=== PATIENT | female | born 1940 | race Caucasian/White ===

== ENCOUNTER 2016-09-03 23:18 | Emergency (ER) | payer MEDICARE ==
[2016-09-03 23:24] VITALS: RESP 18
--- NOTE | 2016-09-04 00:43 | XR ---
EXAMINATION TYPE: XR lumbar spine 2 or 3V DATE OF EXAM: 09/04/2016 12:31 AM COMPARISON: NONE HISTORY: Low back pain TECHNIQUE: 4 views FINDINGS: There are multiple screws fusing posteriorly of the lower lumbar spine at L3-4 and L5-S1. T here is a disc prosthesis at L4-5. The prosthesis is dislocated anteriorly at least 3 cm. There is os teosclerosis on both sides of the L1-2 disc space consistent with chronic discitis. Sacroiliac joints are normal. There is 1 cm anterior subluxation of L3 in relation to L4. There is vacuum disc at L1-2 . IMPRESSION: Previous surgery. Dislocated disc prosthesis. Sclerosis at L1 to level consistent with ch ronic discitis. There is vacuum disc and I do not suspect any acute discitis. Degenerative L3-4 sublu xation. No compression fracture. Moderately severe multilevel spondylosis.
--- NOTE | 2016-09-04 01:00 | CT ---
EXAMINATION TYPE: CT brain gurmeet wo con DATE OF EXAM: 09/04/2016 12:50 AM COMPARISON: NONE HISTORY: fall CT DLP: 1367.70 mGycm Automated exposure control for dose reduction was used. TECHNIQUE: CT scan of the head and cervical spine are performed without contrast. FINDINGS: There is mild cerebral cortical atrophy. There is no mass effect or midline shift. There is no sign of intracranial hemorrhage. Calvarium is intact. The cervical vertebra have normal alignment. There is moderate narrowing at C5-6 disc space with spur formation. There is multilevel hypertrophic facet arthropathy. Skull base is intact. Posterior eleme nts are intact. IMPRESSION: Negative CT scan of the brain. Spondylosis in the cervical spine mainly at C5-6. No fracture.
--- NOTE | 2016-09-04 01:29 | ED ---
Fall HPI - General Chief Complaint: Fall Stated Complaint: FALL Time Seen by Provider: 09/04/16 00:10 Source: patient, RN notes reviewed Mode of arrival: wheelchair - History of Present Illness Initial Comments: Patient is a 75-year-old male stating that she was walking and her legs gave out on her and she fell and hit her head. Patient states that this happens frequently. She states that when she fell and she hit her head she is concerned that she may have caused injury to her neck. She states she's had previous neck fractures. She denies any significant pain at this time. She when she fell she denies any loss of consciousness. Patient is not on any blood thinners. She states that she also has some chronic lower back pain that seems to the reactivated. Patient reports she was ambulating normally after her fall. She denies any dizziness. Prior to falling she denies any headache, vision changes, chest pain, shortness of breath. - Related Data Home Medications Medication Instructions Recorded Confirmed Atenolol [Tenormin] 50 mg PO DAILY 05/03/15 09/03/16 Baclofen 10 mg PO BID PRN 05/03/15 09/03/16 Cranberry Conc/C/Bacill Coag 1 tab PO BID 05/03/15 09/03/16 [Cranberry Tablet] Diazepam [Valium] 5 mg PO DAILY PRN 05/03/15 09/03/16 L.acidoph,Paracasei, B.lactis 1 cap PO DAILY 05/03/15 09/03/16 [Probiotic] Meloxicam [Mobic] 7.5 mg PO DAILY 05/03/15 09/03/16 Multivitamins, Thera [Theragran] 1 tab PO DAILY 05/03/15 09/03/16 Omeprazole [PriLOSEC] 20 mg PO DAILY 05/03/15 09/03/16 Oxybutynin Chloride 5 mg PO BID 05/03/15 09/03/16 Simvastatin [Zocor] 40 mg PO HS 05/03/15 09/03/16 cloNIDine HCL [Catapres] 0.1 mg PO BID 05/03/15 09/03/16 metFORMIN HCL [Glucophage] 500 mg PO BID 05/03/15 09/03/16 Escitalopram [Lexapro] 10 mg PO DAILY 01/27/16 09/03/16 HYDROcodone/APAP 7.5-325MG [[place] 1 tab PO QID PRN 01/27/16 09/03/16 7.5-325] Biotin 5 mg PO DAILY 05/13/16 09/03/16 Gabapentin [Gabapentin] 300 mg PO TID 05/13/16 09/03/16 Hydrochlorothiazide 25 mg PO DAILY 05/13/16 09/03/16 [Hydrochlorothiazide] Lisinopril [Lisinopril] 20 mg PO BID 05/13/16 09/03/16 Allergies Allergy/AdvReac Type Severity Reaction Status Date / Time No Known Allergies Allergy Verified 09/03/16 23:24 Review of Systems ROS Statement: Those systems with pertinent positive or pertinent negative responses have been documented in the HPI. ROS Other: All systems not noted in ROS Statement are negative. Past Medical History Past Medical History: Diabetes Mellitus, GERD/Reflux, Hyperlipidemia, Hypertension, Thyroid Disorder Additional Past Medical History / Comment(s): hepatitis-viral at age 10, sepsis 2010 History of Any Multi-Drug Resistant Organisms: MRSA Date of last positivie culture/infection: 2014 MDRO Source:: Urine Past Surgical History: Back Surgery, Cholecystectomy, Hysterectomy, Joint Replacement Additional Past Surgical History / Comment(s): Right knee replacement; Bowel Surgery, 3 spinal fusions Past Psychological History: No Psychological Hx Reported Smoking Status: Current every day smoker Past Alcohol Use History: None Reported Past Drug Use History: None Reported - Past Family History Mother Family Medical History: No Reported History General Exam - General Exam Comments Initial Comments: She is a pleasant 75-year-old female. She is on appear to be in any acute distress. Limitations: no limitations General appearance: alert, in no apparent distress Head exam: Present: atraumatic, normocephalic, normal inspection Eye exam: Present: normal appearance, PERRL, EOMI. Absent: scleral icterus, conjunctival injection, periorbital swelling ENT exam: Present: normal exam, mucous membranes moist Neck exam: Present: normal inspection. Absent: tenderness, meningismus, lymphadenopathy Respiratory exam: Present: normal lung sounds bilaterally. Absent: respiratory distress, wheezes, rales, rhonchi, stridor Cardiovascular Exam: Present: regular rate, normal rhythm, normal heart sounds. Absent: systolic murmur, diastolic murmur, rubs, gallop, clicks GI/Abdominal exam: Present: soft, normal bowel sounds. Absent: distended, tenderness, guarding, rebound, rigid Extremities exam: Present: normal inspection, full ROM, normal capillary refill. Absent: tenderness, pedal edema, joint swelling, calf tenderness Back exam: Present: normal inspection Neurological exam: Present: alert, oriented X3, CN II-XII intact Expanded Patient oriented to: Present: person, place, time Speech: Present: fluid speech Cranial nerves: EOM's Intact: Normal, Gag Reflex: Normal, Tongue Deviation: Normal, Facial Sensation: Normal Cerebellar function: Finger to Nose: Normal Upper motor neuron: Scooter Neglect: Normal Sensory exam: Upper Extremity Light Touch: Normal, Lower Extremity Light Touch: Normal Motor strength exam: RUE: 5, LUE: 5, RLE: 5, LLE: 5 Eye Response: (4) open spontaneously Motor Response: (6) obeys commands Verbal Response: (5) oriented Travis Total: 15 Psychiatric exam: Present: normal affect, normal mood Skin exam: Present: warm, dry, intact, normal color. Absent: rash Course Vital Signs 09/03/16 09/04/16 23:20 02:05 Temperature 98 F 97.5 F L Pulse Rate 68 67 Respiratory 18 18 Rate Blood Pressure 100/54 92/51 O2 Sat by Pulse 96 98 Oximetry Medical Decision Making - Medical Decision Making Patient is a 75 year old female with chief complaint of falling after her legs gave out, and hitting her head. No LOC and not on blood thinner. Patient GSC is 15. CT brain and Cspine are negative for any acute process. Patient does have chronic back pain and lower back xray shows no acute abnormalities, she does have evidence of lumbar fusions. She states she has no pain at this time and wants to go home. Patient advised to follow up with PCP in regards to nerve medications and blood pressure medicaitons as this could be related to occasional falls. Return parameters discussed. Head injury instructions discussed. - Radiology Data Radiology results: report reviewed normal Brain CT, spondylosis of c5-c6. Lumbar spine Xray shows no acute process and chronic degenerative changes. Disposition Clinical Impression: Fall, Minor head injury, Chronic back pain Disposition: HOME SELF-CARE Condition: Good Instructions: Fall Prevention for Older Adults (ED) Additional Instructions: Vision started take Motrin Tylenol for pain or at home pain medications. Follow -up wit primary care provider in one to 2 days. Return to the [facility] if any alarming signs or symptoms occur. Referrals: Cecilia Aldridge MD [Primary Care Provider] - 1-2 days Time of Disposition: 01:39
[2016-09-04 02:06] VITALS: BP 92/51; PULSE 67; TEMP 97.5
== END 2016-09-04 02:06 | disposition home or self-care (01) ==
LOC: EC 23:18
DX: S09.90XA Unspecified injury of head, initial encounter (principal); W01.0XXA Fall on same level from slipping, tripping and stumbling without subsequent striking against object, initial encounter; Z91.81 History of falling; Y93.01 Activity, walking, marching and hiking; G89.29 Other chronic pain; M54.5 Low back pain; Z98.1 Arthrodesis status; E11.9 Type 2 diabetes mellitus without complications; I10 Essential (primary) hypertension; E78.5 Hyperlipidemia, unspecified; K21.9 Gastro-esophageal reflux disease without esophagitis; F17.200 Nicotine dependence, unspecified, uncomplicated; Z79.1 Long term (current) use of non-steroidal anti-inflammatories (NSAID); Z79.84 Long term (current) use of oral hypoglycemic drugs; Z79.899 Other long term (current) drug therapy
CPT/HCPCS: 70450; 72100; 72125; 99284

== ENCOUNTER 2016-09-06 10:40 | Inpatient (IN) | payer MEDICARE ==
[2016-09-06 11:38] LABS: Basophils % (A) 1 %; CH 32.5; CHCM 34.7; Eosinophils # (A) 0.4 k/uL (0-0.7); Eosinophils % (A) 6 %; HCT 37.8 % (34.0-46.0); HGB 12.7 gm/dL (11.4-16.0); Luc # (Auto) 0.08; Luc % (Auto) 1; Lymphocytes # (A) 1.4 k/uL (1.0-4.8); Lymphocytes % (A) 21 %; MCH 31.5 pg (25.0-35.0); MCHC 33.5 g/dL (31.0-37.0); MCV 94.2 fL (80.0-100.0); Monocytes # (A) 0.4 k/uL (0-1.0); Monocytes % (A) 6 %; Neutrophils # (A) 4.5 k/uL (1.3-7.7); Neutrophils % (A) 65 %; RBC 4.01 m/uL (3.80-5.40); RDW 13.5 % (11.5-15.5); WBC 6.9 k/uL (3.8-10.6)
[2016-09-06] MEDS ORDERED: SODIUM CHLORIDE 0.9% 1,000 ML IV STA (11:39)
[2016-09-06 11:48] LABS: Calcium 9.1 mg/dL (8.4-10.2); Potassium 4.4 mmol/L (3.5-5.1); Total Bilirubin 0.6 mg/dL (0.2-1.3); Total Protein 6.1 g/dL (6.3-8.2)
--- NOTE | 2016-09-06 11:49 | XR ---
EXAMINATION TYPE: XR chest 1V portable DATE OF EXAM: 09/06/2016 11:43 AM HISTORY: Shortness of breath. COMPARISON: 09/24/2012 TECHNIQUE: Single view of the chest is submitted. FINDINGS: Demonstrated are scattered senescent parenchymal change. There is no evidence for focal infiltrate. The heart is stable. Hilar and mediastinal structures are within normal limits. Degenerative changes are seen of the dorsal spine. IMPRESSION: 1. Chronic changes without evidence for acute pulmonary disease.
[2016-09-06] MEDS ORDERED: PIPERACILLIN-TAZOBACTAM 3.375 GM in DEXTROSE/WATER 1 50ML.BAG IVPB STA (12:42)
[2016-09-06 15:55] LABS: Appearance,Urine Cloudy (Clear); Bacteria,Urine Occasional /hpf; Bilirubin,Urine Negative (Negative); Glucose,Urine (UA) Negative (Negative); Ketones,Urine Negative (Negative); Leukocyte Esterase,Urine Large (Negative); Mucus,Urine Rare /hpf; Nitrite,Urine Negative (Negative); PH, Urine 5.5 (5.0-8.0); Particle Count 6946; Protein,Urine 1+ (Negative); Specific Gravity,Urine 1.009 (1.001-1.035); UA Billing (MACRO vs. MICRO) MICRO; Urobilinogen,Urine <2.0 mg/dL (<2.0); WBC,Urine 29 /hpf (0-5)
[2016-09-06] MEDS ORDERED: ACETAMINOPHEN TAB 325 MG TAB PO PRN (16:18)
[2016-09-06] MEDS ORDERED: NALOXONE 0.4 MG/ML 1 ML VIAL IV PRN (16:18)
[2016-09-06] MEDS ORDERED: ONDANSETRON 4 MG/2 ML VIAL IVP PRN (16:18)
[2016-09-06] MEDS ORDERED: FLUCONAZOLE 100 MG TAB PO ONE (16:20)
--- NOTE | 2016-09-06 17:56 | ED ---
Recheck HPI - General Chief Complaint: Recheck/Abnormal Lab/Rx Stated Complaint: low blood pressure Time Seen by Provider: 09/06/16 11:00 Source: patient, family, RN notes reviewed Mode of arrival: wheelchair Limitations: no limitations - History of Present Illness Initial Comments: This patient is 75-year-old woman sent from her primary physician's clinic to be evaluated for continuing hypotension and concerns about her tract infection with sepsis. The patient has reportedly been treated for a number of weeks for hypotension and a urinary tract infection, including seeing urology for this. The patient continues to feel very fatigued, have generalized weakness, and continues to have low blood pressures at home in the clinic. Patient is at this moment denying fever or chills. She is denying pain in the flanks or abdomen. Patient is not having frequency or dysuria. MD Complaint: abnormal lab -: week(s) Symptoms Since Prior Visit: no new symptoms Associated Symptoms: malaise - Related Data Home Medications Medication Instructions Recorded Confirmed Baclofen 10 mg PO BID 05/03/15 09/06/16 Cranberry Conc/C/Bacill Coag 1 tab PO BID 05/03/15 09/06/16 [Cranberry Tablet] Diazepam [Valium] 5 mg PO DAILY PRN 05/03/15 09/06/16 L.acidoph,Paracasei, B.lactis 1 cap PO DAILY 05/03/15 09/06/16 [Probiotic] Meloxicam [Mobic] 7.5 mg PO DAILY 05/03/15 09/06/16 Multivitamins, Thera [Multivitamin] 1 tab PO DAILY 05/03/15 09/06/16 Omeprazole [PriLOSEC] 20 mg PO DAILY 05/03/15 09/06/16 Oxybutynin Chloride 5 mg PO BID 05/03/15 09/06/16 Simvastatin [Zocor] 40 mg PO HS 05/03/15 09/06/16 metFORMIN HCL [Glucophage] 500 mg PO BID 05/03/15 09/06/16 HYDROcodone/APAP 7.5-325MG [[place] 1 tab PO QID PRN 01/27/16 09/06/16 7.5-325] Biotin 5 mg PO DAILY 05/13/16 09/06/16 Gabapentin 300 mg PO TID 05/13/16 09/06/16 Hydrochlorothiazide 25 mg PO DAILY 05/13/16 09/06/16 Citalopram Hydrobromide [CeleXA] 20 mg PO DAILY 09/06/16 09/06/16 Previous Rx's Medication Instructions Recorded Atenolol [Tenormin] 25 mg PO DAILY #30 tab 09/09/16 Lisinopril [Zestril] 5 mg PO DAILY #30 tablet 09/09/16 Allergies Allergy/AdvReac Type Severity Reaction Status Date / Time No Known Allergies Allergy Verified 09/06/16 11:22 Review of Systems ROS Statement: Those systems with pertinent positive or pertinent negative responses have been documented in the HPI. ROS Other: All systems not noted in ROS Statement are negative. Constitutional: Reports: weakness. Denies: fever, chills ENT: Denies: throat pain Respiratory: Denies: cough, dyspnea Cardiovascular: Denies: chest pain, palpitations, syncope Endocrine: Reports: fatigue Gastrointestinal: Denies: abdominal pain, nausea, vomiting Genitourinary: Denies: dysuria, frequency, hematuria Skin: Denies: rash Neurological: Reports: weakness. Denies: headache, numbness, paresthesias Past Medical History Past Medical History: Diabetes Mellitus, GERD/Reflux, Hyperlipidemia, Hypertension, Thyroid Disorder Additional Past Medical History / Comment(s): hepatitis-viral at age 10, sepsis 2010 History of Any Multi-Drug Resistant Organisms: MRSA Date of last positivie culture/infection: 2014 MDRO Source:: Urine Past Surgical History: Back Surgery, Cholecystectomy, Hysterectomy, Joint Replacement Additional Past Surgical History / Comment(s): Right knee replacement; Bowel Surgery, 3 spinal fusions Past Psychological History: No Psychological Hx Reported Smoking Status: Current every day smoker Past Alcohol Use History: None Reported Past Drug Use History: None Reported - Past Family History Mother Family Medical History: No Reported History General Exam Limitations: no limitations General appearance: alert, in no apparent distress Head exam: Present: atraumatic, normocephalic Eye exam: Present: normal appearance. Absent: scleral icterus, conjunctival injection ENT exam: Present: mucous membranes dry Neck exam: Present: normal inspection, full ROM Respiratory exam: Present: normal lung sounds bilaterally. Absent: respiratory distress, wheezes, rales, rhonchi, stridor Cardiovascular Exam: Present: regular rate, normal rhythm, normal heart sounds. Absent: systolic murmur, diastolic murmur, rubs, gallop GI/Abdominal exam: Present: soft. Absent: distended, tenderness, guarding, rebound Extremities exam: Present: normal inspection, normal capillary refill. Absent: pedal edema, calf tenderness Back exam: Present: normal inspection. Absent: CVA tenderness (R), CVA tenderness (L) Neurological exam: Present: alert Skin exam: Present: warm, dry, intact, normal color. Absent: rash Course Vital Signs 09/06/16 09/06/16 09/06/16 11:24 11:26 11:40 Temperature 96.8 F L Pulse Rate 62 59 L 57 L Pulse Rate [ Pulse Oximetery ] Respiratory 18 18 18 Rate Blood Pressure 83/52 72/48 81/51 Blood Pressure [Right Arm] O2 Sat by Pulse 99 98 99 Oximetry 09/06/16 09/06/16 09/06/16 12:23 12:49 13:09 Temperature Pulse Rate 61 56 L 59 L Pulse Rate [ Pulse Oximetery ] Respiratory 18 18 18 Rate Blood Pressure 89/54 95/54 98/55 Blood Pressure [Right Arm] O2 Sat by Pulse 98 100 99 Oximetry 09/06/16 09/06/16 09/06/16 13:24 15:31 16:25 Temperature Pulse Rate 55 L 55 L 50 L Pulse Rate [ Pulse Oximetery ] Respiratory 18 18 18 Rate Blood Pressure 100/57 82/52 88/53 Blood Pressure [Right Arm] O2 Sat by Pulse 100 97 99 Oximetry 09/06/16 09/06/16 09/06/16 17:35 18:23 19:29 Temperature Pulse Rate 50 L 49 L 49 L Pulse Rate [ Pulse Oximetery ] Respiratory 20 18 18 Rate Blood Pressure 92/56 87/52 106/70 Blood Pressure [Right Arm] O2 Sat by Pulse 99 99 98 Oximetry 09/06/16 09/06/16 19:55 20:19 Temperature 97.4 F L 97.1 F L Pulse Rate 44 L Pulse Rate [ 47 L Pulse Oximetery ] Respiratory 16 18 Rate Blood Pressure 137/63 Blood Pressure 122/58 [Right Arm] O2 Sat by Pulse 99 98 Oximetry Medical Decision Making - Medical Decision Making Patient is 75-year-old woman who presents with urinary tract infection and also significant hypotension. Her blood pressure has improved with IV fluids and she has been started on antibiotics area case discussed with Dr. Byrd, who is covering and will admit the patient. Cultures are pending. - Lab Data Result diagrams: 09/09/16 05:45 09/09/16 05:45 Lab Results 09/06/16 09/06/16 09/06/16 Range/Units 11:18 11:18 11:18 WBC 6.9 (3.8-10.6) k/uL RBC 4.01 (3.80-5.40) m/uL Hgb 12.7 (11.4-16.0) gm/dL Hct 37.8 (34.0-46.0) % MCV 94.2 (80.0-100.0) fL MCH 31.5 (25.0-35.0) pg MCHC 33.5 (31.0-37.0) g/dL RDW 13.5 (11.5-15.5) % Plt Count 275 (150-450) k/uL Neutrophils % 65 % Lymphocytes % 21 % Monocytes % 6 % Eosinophils % 6 % Basophils % 1 % Neutrophils # 4.5 (1.3-7.7) k/uL Lymphocytes # 1.4 (1.0-4.8) k/uL Monocytes # 0.4 (0-1.0) k/uL Eosinophils # 0.4 (0-0.7) k/uL Basophils # 0.0 (0-0.2) k/uL Sodium 139 (137-145) mmol/L Potassium 4.4 (3.5-5.1) mmol/L Chloride 109 H (98-107) mmol/L Carbon Dioxide 21 L (22-30) mmol/L Anion Gap 9 mmol/L BUN 37 H (7-17) mg/dL Creatinine 1.20 H (0.52-1.04) mg/dL Est GFR (MDRD) Af Amer 53 (>60 ml/min/1.73 sqM) Est GFR (MDRD) Non-Af 44 (>60 ml/min/1.73 sqM) Glucose 158 H (74-99) mg/dL Plasma Lactic Acid [place] 1.4 (0.7-2.0) mmol/L Calcium 9.1 (8.4-10.2) mg/dL Total Bilirubin 0.6 (0.2-1.3) mg/dL AST 18 (14-36) U/L ALT 25 (9-52) U/L Alkaline Phosphatase 62 (38-126) U/L Troponin I (0.000-0.034) ng/mL Total Protein 6.1 L (6.3-8.2) g/dL Albumin 3.6 (3.5-5.0) g/dL Urine Color Urine Appearance (Clear) Urine pH (5.0-8.0) Ur Specific [place] (1.001-1.035) Urine Protein (Negative) Urine Glucose (UA) (Negative) Urine Ketones (Negative) Urine Blood (Negative) Urine Nitrate (Negative) Urine Bilirubin (Negative) Urine Urobilinogen (<2.0) mg/dL Ur Leukocyte Esterase (Negative) Urine WBC (0-5) /hpf Urine WBC Clumps (None) /hpf Urine Bacteria (None) /hpf Urine Mucus (None) /hpf Urine Yeast (Budding) (None) /hpf 09/06/16 09/06/16 Range/Units 11:18 15:28 WBC (3.8-10.6) k/uL RBC (3.80-5.40) m/uL Hgb (11.4-16.0) gm/dL Hct (34.0-46.0) % MCV (80.0-100.0) fL MCH (25.0-35.0) pg MCHC (31.0-37.0) g/dL RDW (11.5-15.5) % Plt Count (150-450) k/uL Neutrophils % % Lymphocytes % % Monocytes % % Eosinophils % % Basophils % % Neutrophils # (1.3-7.7) k/uL Lymphocytes # (1.0-4.8) k/uL Monocytes # (0-1.0) k/uL Eosinophils # (0-0.7) k/uL Basophils # (0-0.2) k/uL Sodium (137-145) mmol/L Potassium (3.5-5.1) mmol/L Chloride (98-107) mmol/L Carbon Dioxide (22-30) mmol/L Anion Gap mmol/L BUN (7-17) mg/dL Creatinine (0.52-1.04) mg/dL Est GFR (MDRD) Af Amer (>60 ml/min/1.73 sqM) Est GFR (MDRD) Non-Af (>60 ml/min/1.73 sqM) Glucose (74-99) mg/dL Plasma Lactic Acid [place] (0.7-2.0) mmol/L Calcium (8.4-10.2) mg/dL Total Bilirubin (0.2-1.3) mg/dL AST (14-36) U/L ALT (9-52) U/L Alkaline Phosphatase (38-126) U/L Troponin I <0.012 (0.000-0.034) ng/mL Total Protein (6.3-8.2) g/dL Albumin (3.5-5.0) g/dL Urine Color Yellow Urine Appearance Cloudy H (Clear) Urine pH 5.5 (5.0-8.0) Ur Specific [place] 1.009 (1.001-1.035) Urine Protein 1+ H (Negative) Urine Glucose (UA) Negative (Negative) Urine Ketones Negative (Negative) Urine Blood Negative (Negative) Urine Nitrate Negative (Negative) Urine Bilirubin Negative (Negative) Urine Urobilinogen <2.0 (<2.0) mg/dL Ur Leukocyte Esterase Large H (Negative) Urine WBC 29 H (0-5) /hpf Urine WBC Clumps Many H (None) /hpf Urine Bacteria Occasional H (None) /hpf Urine Mucus Rare H (None) /hpf Urine Yeast (Budding) Moderate H (None) /hpf - EKG Data -: EKG Interpreted by Me EKG shows normal: sinus rhythm, axis (Normal), intervals (Normal), QRS complexes (Normal), ST-T waves (Normal) Rate: normal (Rate 62 bpm) Interpretation: normal EKG Disposition Clinical Impression: UTI (urinary tract infection), Hypotension Disposition: ADMITTED IP TO THIS HOSP Condition: Stable
[2016-09-06 18:25] VITALS: RESP 18
[2016-09-06] MEDS ORDERED: FAMOTIDINE 20 MG TAB PO SCH (21:00)
[2016-09-06 22:02] LABS: Glucose,Whole Blood 71 mg/dL (75-99)
[2016-09-06] MEDS: SODIUM CHLORIDE 0.9% 1,000 ML IV SCH (22:52)
[2016-09-06] MEDS: ATORVASTATIN 20 MG TAB PO SCH (22:52)
[2016-09-06] MEDS: metFORMIN 500 MG TAB PO SCH (22:53)
[2016-09-06] MEDS: GABAPENTIN 300 MG CAP PO SCH (22:53)
[2016-09-06] MEDS: FAMOTIDINE 20 MG TAB PO SCH (22:53)
[2016-09-06] MEDS: OXYBUTYNIN CHLORIDE 5 MG TAB PO SCH (22:53)
[2016-09-06] MEDS: PIPERACILLIN-TAZOBACTAM 3.375 GM in DEXTROSE/WATER 1 50ML.BAG IVPB SCH (22:58)
[2016-09-07 05:58] LABS: Glucose,Whole Blood 79 mg/dL (75-99)
[2016-09-07] MEDS: SODIUM CHLORIDE 0.9% 1,000 ML IV SCH ×4 (05:58→19:48)
[2016-09-07 06:06] LABS: Basophils % (A) 1 %; CH 32.3; CHCM 34.1; Eosinophils # (A) 0.3 k/uL (0-0.7); Eosinophils % (A) 8 %; HDW 3.02; HGB 12.1 gm/dL (11.4-16.0); Luc # (Auto) 0.06; Luc % (Auto) 2; Lymphocytes % (A) 25 %; MCH 31.1 pg (25.0-35.0); MCHC 32.6 g/dL (31.0-37.0); MCV 95.3 fL (80.0-100.0); Mean Platelet Volume 8.2; Monocytes # (A) 0.3 k/uL (0-1.0); Monocytes % (A) 7 %; Neutrophils # (A) 2.3 k/uL (1.3-7.7); Neutrophils % (A) 58 %; RBC 3.88 m/uL (3.80-5.40); RDW 13.4 % (11.5-15.5); WBC 3.9 k/uL (3.8-10.6); WBC (Perox) 4.15
[2016-09-07 06:29] LABS: Calcium 8.6 mg/dL (8.4-10.2); Potassium 4.5 mmol/L (3.5-5.1)
[2016-09-07] MEDS: metFORMIN 500 MG TAB PO SCH ×2 (06:49→18:28)
[2016-09-07] MEDS: PIPERACILLIN-TAZOBACTAM 3.375 GM in DEXTROSE/WATER 1 50ML.BAG IVPB SCH ×2 (08:28→15:27)
[2016-09-07] MEDS: FAMOTIDINE 20 MG TAB PO SCH ×2 (08:28→19:47)
[2016-09-07] MEDS: OXYBUTYNIN CHLORIDE 5 MG TAB PO SCH ×2 (08:29→19:48)
[2016-09-07] MEDS: GABAPENTIN 300 MG CAP PO SCH ×3 (08:29→19:48)
[2016-09-07] MEDS: PANTOPRAZOLE 40 MG TABLET PO SCH (08:32)
[2016-09-07] MEDS ORDERED: NON-FORMULARY DRUG (Biotin [Biotin] 5 MG) PO SCH (09:00)
[2016-09-07] MEDS: MULTIVITAMINS, THERA 1 EACH TAB PO SCH (09:14)
[2016-09-07] MEDS: LACTOBACILLUS ACIDOPH & BULGAR 1 EACH PACKET PO SCH (09:14)
[2016-09-07] MEDS: CITALOPRAM HYDROBROMIDE 20 MG TAB PO SCH (09:14)
[2016-09-07] MEDS ORDERED: DIAZEPAM 5 MG TAB PO PRN (10:14)
[2016-09-07] MEDS ORDERED: HYDROcodone/APAP 7.5-325MG 1 EACH TAB PO PRN (10:14)
--- NOTE | 2016-09-07 10:45 | P.HPIM ---
History of Present Illness H&P Date: 09/06/16 75-year-old female whose primary care provider is dr phillips who Dr. Byrd's covering. Patient reportedly was being seen in dr phillips office 06 of September. For generalized weakness . Patient states over the last several days has had a poor oral intake has not felt like eating or drinking reports no episodes of nausea or no unintentional weight loss In the office patient was noted to have a low blood pressure with concerns about urinary tract infection with early sepsis. Patient is a history of being followed by a urologist Dr. Bell for workup for reoccurring UTIs. Patient states that she did see her urologist this week in the office on Friday or she has had a cystoscopy done and is being worked up for concerns of bladder cancer. Patient states has intermittent episodes of left lower flank pain. Patient denies any hematuria. In the emergency room patient was noted to be hypotensive the systolic blood pressure was in the 80s. Patient was given a IV fluid bolus. Urinalysis suggest UTI. Subsequently the patient was admitted and started on IV Zosyn. With IV fluid for rehydration. The creatinine on admission was 1.2. This morning the creatinine is 1.1 in the blood pressure after the fluid bolus has improved 126/16 the patient is afebrile. Currently the patient is resting in bed and reports that the flank pain has resolved. Denies any burning on urination incontinence or frequency urgency when questioning. On admission the white count was 6.9 patient was afebrile and was not tachycardic urine culture currently pending Patient reports over the last several days has had a poor oral intake states has not felt like eating or drinking Review of Systems Essentially unremarkable except as mentioned in the present illness Past Medical History Past Medical History: Diabetes Mellitus, GERD/Reflux, Hyperlipidemia, Hypertension, Thyroid Disorder Additional Past Medical History / Comment(s): hepatitis-viral at age 10, sepsis 2010 History of Any Multi-Drug Resistant Organisms: MRSA Date of last positivie culture/infection: 2014 MDRO Source:: Urine Past Surgical History: Back Surgery, Cholecystectomy, Hysterectomy, Joint Replacement Additional Past Surgical History / Comment(s): Right knee replacement; Bowel Surgery, 3 spinal fusions Past Anesthesia/Blood Transfusion Reactions: No Reported Reaction Past Psychological History: No Psychological Hx Reported Smoking Status: Current every day smoker Past Alcohol Use History: None Reported Past Drug Use History: None Reported - Past Family History Mother Family Medical History: No Reported History Medications and Allergies Home Medications Medication Instructions Recorded Confirmed Type Atenolol [Tenormin] 50 mg PO DAILY 05/03/15 09/06/16 History Baclofen 10 mg PO BID 05/03/15 09/06/16 History Cranberry Conc/C/Bacill Coag 1 tab PO BID 05/03/15 09/06/16 History [Cranberry Tablet] Diazepam [Valium] 5 mg PO DAILY PRN 05/03/15 09/06/16 History L.acidoph,Paracasei, B.lactis 1 cap PO DAILY 05/03/15 09/06/16 History [Probiotic] Meloxicam [Mobic] 7.5 mg PO DAILY 05/03/15 09/06/16 History Multivitamins, Thera [Theragran] 1 tab PO DAILY 05/03/15 09/06/16 History Omeprazole [PriLOSEC] 20 mg PO DAILY 05/03/15 09/06/16 History Oxybutynin Chloride 5 mg PO BID 05/03/15 09/06/16 History Simvastatin [Zocor] 40 mg PO HS 05/03/15 09/06/16 History cloNIDine HCL [Catapres] 0.1 mg PO BID 05/03/15 09/06/16 History metFORMIN HCL [Glucophage] 500 mg PO BID 05/03/15 09/06/16 History HYDROcodone/APAP 7.5-325MG [[place] 1 tab PO QID PRN 01/27/16 09/06/16 History 7.5-325] Biotin 5 mg PO DAILY 05/13/16 09/06/16 History Gabapentin [Gabapentin] 300 mg PO TID 05/13/16 09/06/16 History Hydrochlorothiazide 25 mg PO DAILY 05/13/16 09/06/16 History [Hydrochlorothiazide] Citalopram Hydrobromide [CeleXA] 20 mg PO DAILY 09/06/16 09/06/16 History Famotidine [Pepcid] 20 mg PO BID 09/06/16 09/06/16 History Allergies Allergy/AdvReac Type Severity Reaction Status Date / Time No Known Allergies Allergy Verified 09/06/16 11:22 Physical Exam Vitals: Vital Signs Temp Pulse Pulse Resp BP BP Pulse Ox 09/07/16 08:30 18 94 L 09/07/16 08:00 98.2 F 61 18 126/68 84 L 09/07/16 04:00 98.1 F 57 L 18 141/66 98 09/07/16 00:00 97.8 F 52 L 16 120/57 98 09/06/16 20:19 97.1 F L 44 L 18 137/63 98 09/06/16 19:55 97.4 F L 47 L 16 122/58 99 09/06/16 19:29 49 L 18 106/70 98 09/06/16 18:23 49 L 18 87/52 99 09/06/16 17:35 50 L 20 92/56 99 09/06/16 16:25 50 L 18 88/53 99 Intake and Output 09/06/16 09/07/16 09/07/16 22:59 06:59 14:59 Intake Total 630 180 Balance 630 180 Intake: IV 630 Sodium Chloride 0.9% 1, 630 000 ml @ 90 mls/hr IV . Q11H7M [facility] Rx#:[id number] Oral 180 Other: Voiding Method Toilet # Voids 2 Weight 51.256 kg 54.2 kg GENERAL APPEARANCE: 75-year-old patient is alert, oriented, in no acute distress. VITAL SIGNS: Reviewed HEENT: Head is normocephalic and atraumatic. Pupils are equal and reactive. The nares are patent. Oropharynx is clear without lesions. NECK: Supple without lymphadenopathy. Traches midline. HEART: S1, S2. Regular rate and rhythm. Denying chest pain telemetry unit showing sinus rhythm LUNGS: No crackles or wheezes are heard. Adequate air movement bilaterally no cough noted no conversational dyspnea noted on 2 L sats are 94% on room air sats were 84% ABDOMEN: Soft, nontender, nondistended with good bowel sounds. No peritoneal signs. No palpable organomegaly or masses. States urinating with no difficulty reports no nausea no frequent stooling EXTREMITIES: Normal skin color and turgor. No cyanosis, rash, ulceration, clubbing or edema. Radial pedal pulses are 2/4 bilaterally. NEUROLOGICAL: No focal deficits. Strength and sensation are grossly intact. Results CBC & Chem 7: 09/07/16 05:50 09/07/16 05:50 Labs: Abnormal Lab Results - Last 24 Hours (Table) 09/06/16 09/07/16 Range/Units 21:58 05:50 Chloride 112 H (98-107) mmol/L BUN 33 H (7-17) mg/dL Creatinine 1.17 H (0.52-1.04) mg/dL Glucose 100 H (74-99) mg/dL POC Glucose (mg/dL) 71 L (75-99) mg/dL Thrombosis Risk Factor Assmnt - Choose All That Apply Any of the Below Risk Factors Present?: No Other Risk Factors: Yes Each Risk Factor Represents 3 Points: Age 75 years or older Other congenital or acquired thrombophilia - If yes, enter type in comment: No Thrombosis Risk Factor Assessment Total Risk Factor Score: 3 Thrombosis Risk Factor Assessment Level: Moderate Risk Assessment and Plan Plan: Impression Present on admission generalized weakness symptomatic hypotension suspect due to poor oral intake History of reoccurring UTIs Present on admission UTI with no evidence of sepsis Chronic nicotine dependency greater than a 60 year history 1 pack a day COPD stable Chronic pain with chronic opiate dependency Physical debility chronic suspect due to chronic illness Depressive disorder nonspecified Hypertension Present at admission clinical dehydration due to poor oral intake Plan Continue IV Zosyn as ordered Resume home meds as appropriate Repeat labs in the morning Follow-up on urine culture currently pending consult a urology the reoccurring UTIs DVT and GI prophylaxis IV hydration as ordered Monitor blood pressure heart rate adjust the antihypertensive meds as indicated Further recommendations pending The above dictated assessment and findings were discussed with dr hetal Marroquin and the plan of care have been dictated as directed. Beverly Reyes nurse practitioner acting as a scribe for dr byrd
[2016-09-07 11:49] LABS: Glucose,Whole Blood 154 mg/dL (75-99)
--- NOTE | 2016-09-07 12:27 | P.PN ---
Progress Note - Text Patient seen and examined by myself, full H&P dictated by Beverly Reyes nurse practitioner working with me today
[2016-09-07 15:45] VITALS: BMI 23.3
[2016-09-07 16:29] LABS: Glucose,Whole Blood 106 mg/dL (75-99)
--- NOTE | 2016-09-07 17:30 | P.GSCN ---
History of Present Illness Consult date: 09/07/16 Reason for Consult: UTI Requesting physician: Chance Byrd History of present illness: She is a 75-year-old woman with recurrent MRSA UTIs and gross hematuria. She has a history of a left renal calculus. A KUB x-ray on 02/20/2015 showed tiny left renal calculi. For her urinary frequency, she is no longer on Oxybutynin. She has been given Estrace cream in the past, but never used it. A recent CT urogram shows a left renal cyst. Cystsoscopy performed earlier this week showed patcy erythema, consistent with cystitis. A repeat urine culture was sent and is pending. She is now admitted with weakness and dehydration. Review of Systems - Constitutional Reports weakness, Denies fever - Genitourinary Genitourinary: Reports dysuria Past Medical History Past Medical History: Diabetes Mellitus, GERD/Reflux, Hyperlipidemia, Hypertension, Thyroid Disorder Additional Past Medical History / Comment(s): hepatitis-viral at age 10, sepsis 2009 History of Any Multi-Drug Resistant Organisms: MRSA Year Discovered:: 2015 MDRO Source:: Urine Past Surgical History: Back Surgery, Cholecystectomy, Hysterectomy, Joint Replacement Additional Past Surgical History / Comment(s): Right knee replacement; Bowel Surgery, 3 spinal fusions Past Anesthesia/Blood Transfusion Reactions: No Reported Reaction Past Psychological History: No Psychological Hx Reported Smoking Status: Current every day smoker Past Alcohol Use History: None Reported Past Drug Use History: None Reported - Past Family History Mother Family Medical History: No Reported History Medications and Allergies Home Medications Medication Instructions Recorded Confirmed Type Atenolol [Tenormin] 50 mg PO DAILY 05/03/15 09/06/16 History Baclofen 10 mg PO BID 05/03/15 09/06/16 History Cranberry Conc/C/Bacill Coag 1 tab PO BID 05/03/15 09/06/16 History [Cranberry Tablet] Diazepam [Valium] 5 mg PO DAILY PRN 05/03/15 09/06/16 History L.acidoph,Paracasei, B.lactis 1 cap PO DAILY 05/03/15 09/06/16 History [Probiotic] Meloxicam [Mobic] 7.5 mg PO DAILY 05/03/15 09/06/16 History Multivitamins, Thera [Theragran] 1 tab PO DAILY 05/03/15 09/06/16 History Omeprazole [PriLOSEC] 20 mg PO DAILY 05/03/15 09/06/16 History Oxybutynin Chloride 5 mg PO BID 05/03/15 09/06/16 History Simvastatin [Zocor] 40 mg PO HS 05/03/15 09/06/16 History cloNIDine HCL [Catapres] 0.1 mg PO BID 05/03/15 09/06/16 History metFORMIN HCL [Glucophage] 500 mg PO BID 05/03/15 09/06/16 History HYDROcodone/APAP 7.5-325MG [[place] 1 tab PO QID PRN 01/27/16 09/06/16 History 7.5-325] Biotin 5 mg PO DAILY 05/13/16 09/06/16 History Gabapentin [Gabapentin] 300 mg PO TID 05/13/16 09/06/16 History Hydrochlorothiazide 25 mg PO DAILY 05/13/16 09/06/16 History [Hydrochlorothiazide] Citalopram Hydrobromide [CeleXA] 20 mg PO DAILY 09/06/16 09/06/16 History Famotidine [Pepcid] 20 mg PO BID 09/06/16 09/06/16 History Allergies Allergy/AdvReac Type Severity Reaction Status Date / Time No Known Allergies Allergy Verified 09/06/16 11:22 Surgical - Exam Vital Signs Temp Pulse Resp BP Pulse Ox 96.8 F L 62 18 83/52 99 09/06/16 11:24 09/06/16 11:24 09/06/16 11:24 09/06/16 11:24 09/06/16 11:24 - General well developed, well nourished, no distress - Respiratory normal respiratory effort - Abdomen Abdomen: soft, non tender, no guarding, no rigid, no rebound Results - Labs 09/07/16 05:50 09/07/16 05:50 Abnormal Lab Results - Last 24 Hours (Table) 09/06/16 09/07/16 09/07/16 Range/Units 21:58 05:50 11:47 Chloride 112 H (98-107) mmol/L BUN 33 H (7-17) mg/dL Creatinine 1.17 H (0.52-1.04) mg/dL Glucose 100 H (74-99) mg/dL POC Glucose (mg/dL) 71 L 154 H (75-99) mg/dL Diabetes panel 09/07/16 Range/Units 05:50 Sodium 144 (137-145) mmol/L Potassium 4.5 (3.5-5.1) mmol/L Chloride 112 H (98-107) mmol/L Carbon Dioxide 24 (22-30) mmol/L BUN 33 H (7-17) mg/dL Creatinine 1.17 H (0.52-1.04) mg/dL Glucose 100 H (74-99) mg/dL Calcium 8.6 (8.4-10.2) mg/dL Calcium panel 09/07/16 Range/Units 05:50 Calcium 8.6 (8.4-10.2) mg/dL Pituitary panel 09/07/16 Range/Units 05:50 Sodium 144 (137-145) mmol/L Potassium 4.5 (3.5-5.1) mmol/L Chloride 112 H (98-107) mmol/L Carbon Dioxide 24 (22-30) mmol/L BUN 33 H (7-17) mg/dL Creatinine 1.17 H (0.52-1.04) mg/dL Glucose 100 H (74-99) mg/dL Calcium 8.6 (8.4-10.2) mg/dL Adrenal panel 09/07/16 Range/Units 05:50 Sodium 144 (137-145) mmol/L Potassium 4.5 (3.5-5.1) mmol/L Chloride 112 H (98-107) mmol/L Carbon Dioxide 24 (22-30) mmol/L BUN 33 H (7-17) mg/dL Creatinine 1.17 H (0.52-1.04) mg/dL Glucose 100 H (74-99) mg/dL Calcium 8.6 (8.4-10.2) mg/dL Assessment and Plan (1) UTI (urinary tract infection) Status: Acute Plan: The patient is admitted with weakness, dehydration, and possible UTI. Recent evaluation has shown cystitis but no other abnormalities, other than a simple renal cyst. I would recommend that Zosyn be continued, pending the urine culture result.
[2016-09-07] MEDS: ATORVASTATIN 20 MG TAB PO SCH (19:48)
[2016-09-07] MEDS: BACLOFEN 10 MG TAB PO SCH (19:48)
[2016-09-07 20:34] LABS: Glucose,Whole Blood 142 mg/dL (75-99)
[2016-09-07] MEDS ORDERED: NON-FORMULARY DRUG (Cranberry Conc/C/Bacill Coag [Cranberry Tablet] 1 TAB) PO SCH (21:00)
[2016-09-08] MEDS: PIPERACILLIN-TAZOBACTAM 3.375 GM in DEXTROSE/WATER 1 50ML.BAG IVPB SCH ×3 (00:45→15:13)
[2016-09-08 06:19] LABS: Glucose,Whole Blood 116 mg/dL (75-99)
[2016-09-08 06:29] LABS: Basophils # (A) 0.1 k/uL (0-0.2); Basophils % (A) 1 %; CHCM 33.8; Eosinophils # (A) 0.5 k/uL (0-0.7); Eosinophils % (A) 10 %; HCT 38.6 % (34.0-46.0); HDW 3.04; HGB 12.7 gm/dL (11.4-16.0); Luc # (Auto) 0.13; Luc % (Auto) 3; Lymphocytes # (A) 1.3 k/uL (1.0-4.8); Lymphocytes % (A) 26 %; MCH 31.3 pg (25.0-35.0); MCHC 32.8 g/dL (31.0-37.0); MCV 95.3 fL (80.0-100.0); Mean Platelet Volume 7.8; Monocytes # (A) 0.3 k/uL (0-1.0); Monocytes % (A) 6 %; Neutrophils # (A) 2.7 k/uL (1.3-7.7); Neutrophils % (A) 54 %; RBC 4.05 m/uL (3.80-5.40); RDW 13.5 % (11.5-15.5); WBC (Perox) 4.95
[2016-09-08 06:39] LABS: ALT 26 U/L (9-52); AST 17 U/L (14-36); Alkaline Phosphatase 63 U/L (38-126); Anion Gap 8 mmol/L; Blood Urea Nitrogen 22 mg/dL (7-17); Calcium 8.9 mg/dL (8.4-10.2); Carbon Dioxide 26 mmol/L (22-30); Chloride 111 mmol/L (98-107); Glucose 104 mg/dL (74-99); Non-African American GFR(MDRD) 51 (>60 ml/min/1.73 sqM); Potassium 4.4 mmol/L (3.5-5.1); Sodium 145 mmol/L (137-145); Total Bilirubin 0.4 mg/dL (0.2-1.3); Total Protein 6.5 g/dL (6.3-8.2)
[2016-09-08] MEDS: PANTOPRAZOLE 40 MG TABLET PO SCH (07:33)
[2016-09-08] MEDS: metFORMIN 500 MG TAB PO SCH ×2 (07:33→17:17)
[2016-09-08] MEDS: BACLOFEN 10 MG TAB PO SCH ×2 (07:51→21:10)
[2016-09-08] MEDS: FAMOTIDINE 20 MG TAB PO SCH ×2 (07:51→21:10)
[2016-09-08] MEDS: LACTOBACILLUS ACIDOPH & BULGAR 1 EACH PACKET PO SCH (07:51)
[2016-09-08] MEDS: GABAPENTIN 300 MG CAP PO SCH ×3 (07:51→21:11)
[2016-09-08] MEDS: OXYBUTYNIN CHLORIDE 5 MG TAB PO SCH ×2 (07:52→21:10)
[2016-09-08] MEDS: CITALOPRAM HYDROBROMIDE 20 MG TAB PO SCH (07:52)
[2016-09-08] MEDS: ATENOLOL 50 MG TAB PO SCH (07:52)
[2016-09-08] MEDS: MULTIVITAMINS, THERA 1 EACH TAB PO SCH (07:52)
[2016-09-08] MEDS: SODIUM CHLORIDE 0.9% 1,000 ML IV SCH (07:53)
[2016-09-08] MEDS ORDERED: INFLUENZA VACCINE (3YR+) 60 MCG/0.5 ML SYRINGE IM ONE (09:00)
[2016-09-08 11:38] LABS: Glucose,Whole Blood 180 mg/dL (75-99)
--- NOTE | 2016-09-08 11:52 | P.PN ---
Subjective Principal diagnosis: Hypotension, UTI Patient is a 75-year-old female, admitted to [facility] with generalized weakness, hypotension, and recurrent UTIs. Patient has been maintained on IV antibiotic. She also received IV fluid boluses and is maintained on normal saline at 100 mL an hour. Blood pressure has been stable since admission. Objective - Vital Signs Vital signs: Vital Signs Temp 97.2 F L 09/08/16 08:00 Pulse 56 L 09/08/16 08:00 Resp 18 09/08/16 08:00 BP 146/70 09/08/16 08:00 Pulse Ox 92 L 09/08/16 08:00 Intake & Output 09/07/16 09/08/16 09/08/16 18:59 06:59 18:59 Intake Total 416 330 118 Output Total 200 Balance 416 130 118 Weight 54.2 kg 55 kg Intake: IV 160 Sodium Chloride 0.9% 1, 160 000 ml @ 100 mls/hr IV . Q10H [facility] Rx#:[id number] Intake, IV Titration 50 Amount Piperacillin-Tazobactam 3 50 .375 gm In Dextrose/Water 1 50ml.bag @ 12.5 mls/hr IVPB Q8HR [facility] Rx#: [id number] Oral 416 120 118 Output: Urine 200 Other: Voiding Method Toilet # Voids 1 1 - Exam HEENT head normocephalic and atraumatic Neck is supple no JVD no goiter no lymphadenopathy Chest is clear to auscultation no wheezing Cardiac exam reveals regular heart sounds no gallops no murmurs Abdomen is soft nontender no organomegaly Extremity exam reveals no edema no cyanosis or clubbing - Labs CBC & Chem 7: 09/08/16 05:46 09/08/16 05:46 Labs: Abnormal Lab Results - Last 24 Hours (Table) 09/07/16 09/07/16 09/07/16 Range/Units 11:47 16:28 20:32 Chloride (98-107) mmol/L BUN (7-17) mg/dL Creatinine (0.52-1.04) mg/dL Glucose (74-99) mg/dL POC Glucose (mg/dL) 154 H 106 H 142 H (75-99) mg/dL 09/08/16 09/08/16 09/08/16 Range/Units 05:46 06:09 11:36 Chloride 111 H (98-107) mmol/L BUN 22 H (7-17) mg/dL Creatinine 1.05 H (0.52-1.04) mg/dL Glucose 104 H (74-99) mg/dL POC Glucose (mg/dL) 116 H 180 H (75-99) mg/dL Assessment and Plan Plan: #1 recurrent urinary tract infections, failed multiple courses of oral antibiotics as outpatient #2 generalized weakness #3 hypotension patient received IV fluid boluses on presentation she is also maintained on normal saline 100 mL an hour at this time. Will discontinue IV fluid and monitor blood pressures. Will obtain echocardiogram to assess if there is any other reason for hypotension #4 underlying history of COPD #5 underlying history of chronic pain was chronic opiate dependency #5 acute renal insufficiency with BUN up to 37 creatinine 1.2 on admission now down to 20 to 11.05 Will continue was current management awaiting urine culture results awaiting echocardiogram patient clinically is improving
[2016-09-08 16:28] LABS: Glucose,Whole Blood 156 mg/dL (75-99)
[2016-09-08 20:32] LABS: Glucose,Whole Blood 126 mg/dL (75-99)
[2016-09-08] MEDS ORDERED: ZOLPIDEM 5 MG TAB PO SCH (21:00)
[2016-09-08] MEDS: ATORVASTATIN 20 MG TAB PO SCH (21:10)
[2016-09-09] MEDS: PIPERACILLIN-TAZOBACTAM 3.375 GM in DEXTROSE/WATER 1 50ML.BAG IVPB SCH ×2 (00:11→08:50)
[2016-09-09 06:04] LABS: Glucose,Whole Blood 119 mg/dL (75-99)
[2016-09-09 06:22] LABS: Basophils % (A) 1 %; CH 32.3; CHCM 33.9; Eosinophils # (A) 0.4 k/uL (0-0.7); Eosinophils % (A) 9 %; HCT 40.1 % (34.0-46.0); HDW 2.98; HGB 13.3 gm/dL (11.4-16.0); Luc # (Auto) 0.13; Luc % (Auto) 3; Lymphocytes # (A) 1.3 k/uL (1.0-4.8); Lymphocytes % (A) 31 %; MCH 31.8 pg (25.0-35.0); MCHC 33.2 g/dL (31.0-37.0); MCV 95.7 fL (80.0-100.0); Mean Platelet Volume 7.7; Monocytes # (A) 0.3 k/uL (0-1.0); Monocytes % (A) 6 %; Neutrophils # (A) 2.1 k/uL (1.3-7.7); Neutrophils % (A) 50 %; RBC 4.18 m/uL (3.80-5.40); RDW 13.2 % (11.5-15.5); WBC 4.3 k/uL (3.8-10.6)
[2016-09-09 06:30] LABS: ALT 29 U/L (9-52); AST 18 U/L (14-36); Alkaline Phosphatase 53 U/L (38-126); Anion Gap 8 mmol/L; Blood Urea Nitrogen 16 mg/dL (7-17); Calcium 8.7 mg/dL (8.4-10.2); Carbon Dioxide 27 mmol/L (22-30); Chloride 111 mmol/L (98-107); Glucose 109 mg/dL (74-99); Non-African American GFR(MDRD) 55 (>60 ml/min/1.73 sqM); Potassium 4.7 mmol/L (3.5-5.1); Sodium 146 mmol/L (137-145); Total Bilirubin 0.5 mg/dL (0.2-1.3); Total Protein 5.9 g/dL (6.3-8.2)
[2016-09-09] MEDS: PANTOPRAZOLE 40 MG TABLET PO SCH (06:57)
[2016-09-09] MEDS: metFORMIN 500 MG TAB PO SCH (06:57)
[2016-09-09] MEDS: CITALOPRAM HYDROBROMIDE 20 MG TAB PO SCH (08:51)
[2016-09-09] MEDS: BACLOFEN 10 MG TAB PO SCH (08:51)
[2016-09-09] MEDS: ATENOLOL 50 MG TAB PO SCH (08:51)
[2016-09-09] MEDS: FAMOTIDINE 20 MG TAB PO SCH (08:52)
[2016-09-09] MEDS: LACTOBACILLUS ACIDOPH & BULGAR 1 EACH PACKET PO SCH (08:52)
[2016-09-09] MEDS: GABAPENTIN 300 MG CAP PO SCH (08:52)
[2016-09-09] MEDS: MULTIVITAMINS, THERA 1 EACH TAB PO SCH (08:52)
[2016-09-09] MEDS: OXYBUTYNIN CHLORIDE 5 MG TAB PO SCH (08:53)
--- NOTE | 2016-09-09 09:56 | ECHOF ---
Referral Reason:Eval LV function MEASUREMENTS -------- HEIGHT: 154.9 cm WEIGHT: 59.0 kg BP: IVSd: 0.9 cm (0.6 - 1.1) LVIDd: 2.8 cm (3.9 - 5.3) LVPWd: 1.0 cm (0.6 - 1.1) IVSs: 1.4 cm LVIDs: 1.9 cm LVPWs: 1.8 cm LAESV Index (A-L): 24.83 ml/m Ao Diam: 3.3 cm (2.0 - 3.7) AV Cusp: 1.7 cm (1.5 - 2.6) LA Diam: 3.3 cm (2.7 - 3.8) MV EXCURSION: 18.829 mm (> 18.000) MV EF SLOPE: 54 mm/s (70 - 150) EPSS: 0.4 cm MV E Tony: 0.75 m/s MV DecT: 260 ms MV A Tony: 0.65 m/s MV E/A Ratio: 1.15 AR PHT: 488 ms RAP: 5.00 mmHg RVSP: 19.00 mmHg FINDINGS -------- Undetermined rhythm. This was a technically good study. Left ventricular wall thickness is normal. Overall left ventricular systolic function is normal with, an EF between 55 - 60 %. The right ventricle is normal in size and function. Normal LA size by volume 22+/-6 ml/m2. The right atrium is normal in size. Aortic valve is trileaflet and is mildly thickened. There is mild aortic regurgitation. The mitral valve leaflets are mildly thickened. Mild mitral annular calcification present. Moderate mitral regurgitation is present. Mild tricuspid regurgitation present. The right ventricular systolic pressure, as measured by Doppler, is 19.00mmHg. Pulmonic valve appears structurally normal. The aortic root size is normal. The pericardium is normal. CONCLUSIONS -------- 1. Undetermined rhythm. 2. The mitral valve leaflets are mildly thickened. 3. Mild mitral annular calcification present. 4. Moderate mitral regurgitation is present. 5. Mild tricuspid regurgitation present. 6. The right ventricular systolic pressure, as measured by Doppler, is 19.00mmHg. 7. Pulmonic valve appears structurally normal. 8. The aortic root size is normal. 9. The pericardium is normal. 10. This was a technically good study. 11. Left ventricular wall thickness is normal. 12. Overall left ventricular systolic function is normal with, an EF between 55 - 60 %. 13. The right ventricle is normal in size and function. 14. Normal LA size by volume 22+/-6 ml/m2. 15. The right atrium is normal in size. 16. Aortic valve is trileaflet and is mildly thickened. 17. There is mild aortic regurgitation. INSTRUMENT AND CONTROL SERVICE PERSON: Ramona Quiros RDCS
[2016-09-09 11:11] VITALS: TEMP 97.9
[2016-09-09 12:05] VITALS: BP 157/74; PULSE 58
[2016-09-09 12:17] LABS: Glucose,Whole Blood 125 mg/dL (75-99)
--- NOTE | 2016-09-09 13:24 | P.PN ---
Progress Note - Text Ms. Chow is afebrile and her WBC count is normal. Urine and blood cultures obtained at the time of admission are negative. She has a history of MRSA UTI's , and a urine culture sent from my office on September 05 has shown greater than 100,000 MRSA species, sensitive to daptomycin, gentamicin, nitrofurantoin, rifampin, tetracycline, Bactrim, and vancomycin.
--- NOTE | 2016-09-09 14:21 | P.DS ---
Providers Date of admission: 09/06/16 16:18 Expected date of discharge: 09/09/16 Attending physician: Chance Byrd Consults: 09/07/16 11:37 Consult Physician Urgent Consulting Provider: Madi Bell Consult Reason/Comments: Reoccurring UTIs Do you want consulting provider notified?: Yes Primary care physician: Cecilia Aldridge [facility] Course: Discharge diagnosis #1 recurrent urinary tract infections, failed multiple courses of oral antibiotics as outpatient. Evaluated by urology during this admission. Urine culture negative. Patient has completed antibiotic treatment. No antibiotics needed for discharge. #2 generalized weakness #3 hypotension patient received IV fluid boluses on presentation she is also maintained on normal saline 100 mL an hour at this time. Hypotension likely secondary to multiple blood pressure medications as well as UTI and dehydration. Blood pressures have improved. Blood pressure medications have been adjusted. #4 underlying history of COPD #5 underlying history of chronic pain was chronic opiate dependency #6 acute renal insufficiency Improved with IV fluids Hospital course Patient is a 75-year-old female, admitted to [facility] with generalized weakness, hypotension, and recurrent UTIs. Patient has been maintained on IV antibiotic. She also received IV fluid boluses and is maintained on normal saline at 100 mL an hour. Blood pressure has been stable since admission. Patient's symptoms did improve with antibiotics and IV fluids. She was initially placed on IV Zosyn. Blood culture and urine culture were negative. Kidney functions did normalize. She had an echo completed which showed an EF of 55-60% with moderate mitral regurg. Did also note an undetermined rhythm however on telemetry and EKG had shown normal sinus rhythm. 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 Her symptoms have improved. Blood pressures also have improved. At this time we'll decrease her atenolol to 25 mg daily and add lisinopril 5 mg daily especially since she is a diabetic. Catapres was discontinued during this admission. We'll patient follow-up with her PCP in 1 week and check blood pressures at that time. May need to Make further adjustments of blood pressure medications in the office as needed. Patient is medical stable for discharge. Please refer to chart for any further details. Patient Condition at Discharge: Stable Plan - Discharge Summary New Discharge Prescriptions: Atenolol [Tenormin] 25 mg PO DAILY #30 tab Lisinopril [Zestril] 5 mg PO DAILY #30 tablet Discharge Medication List Baclofen 10 mg PO BID 05/03/15 [History] Cranberry Conc/C/Bacill Coag [Cranberry Tablet] 1 tab PO BID 05/03/15 [History] Diazepam [Valium] 5 mg PO DAILY PRN 05/03/15 [History] L.acidoph,Paracasei, B.lactis [Probiotic] 1 cap PO DAILY 05/03/15 [History] Meloxicam [Mobic] 7.5 mg PO DAILY 05/03/15 [History] Multivitamins, Thera [Multivitamin] 1 tab PO DAILY 05/03/15 [History] Omeprazole [PriLOSEC] 20 mg PO DAILY 05/03/15 [History] Oxybutynin Chloride 5 mg PO BID 05/03/15 [History] Simvastatin [Zocor] 40 mg PO HS 05/03/15 [History] metFORMIN HCL [Glucophage] 500 mg PO BID 05/03/15 [History] HYDROcodone/APAP 7.5-325MG [[place] 7.5-325] 1 tab PO QID PRN 01/27/16 [History] Biotin 5 mg PO DAILY 05/13/16 [History] Gabapentin 300 mg PO TID 05/13/16 [History] Hydrochlorothiazide 25 mg PO DAILY 05/13/16 [History] Citalopram Hydrobromide [CeleXA] 20 mg PO DAILY 09/06/16 [History] Atenolol [Tenormin] 25 mg PO DAILY #30 tab 09/09/16 [Rx] Lisinopril [Zestril] 5 mg PO DAILY #30 tablet 09/09/16 [Rx] Follow up Appointment(s)/Referral(s): [facility], [NON-STAFF] - Cecilia Aldridge MD [Primary Care Provider] - 1 Week Activity/Diet/Wound Care/Special Instructions: Diet: Cardiac, diabetic Activity: as tolerated Discharge Disposition: HOME WITH HOME HEALTH SERVICES
[2016-09-10] MEDS ORDERED: FAMOTIDINE 20 MG TAB PO SCH (09:00)
== END 2016-09-09 16:28 | disposition home health service (06) | DRG 690 ==
LOC: EC 10:40 → 6SEL 16:18
PROVIDERS: ADMIT Internal Medicine; ATTEND Internal Medicine
PROC: 3E0234Z Introduction of Serum, Toxoid and Vaccine into Muscle, Percutaneous Approach (ICD-10-PCS; principal; 2016-09-08)
DX: N39.0 Urinary tract infection, site not specified (principal); N17.9 Acute kidney failure, unspecified; I95.9 Hypotension, unspecified; J44.9 Chronic obstructive pulmonary disease, unspecified; E86.0 Dehydration; E11.9 Type 2 diabetes mellitus without complications; I34.0 Nonrheumatic mitral (valve) insufficiency; N28.1 Cyst of kidney, acquired; F11.20 Opioid dependence, uncomplicated; G89.29 Other chronic pain; F32.9 Major depressive disorder, single episode, unspecified; T46.5X5A Adverse effect of other antihypertensive drugs, initial encounter; E78.5 Hyperlipidemia, unspecified; K21.9 Gastro-esophageal reflux disease without esophagitis; E07.9 Disorder of thyroid, unspecified; R53.1 Weakness; I10 Essential (primary) hypertension; F17.200 Nicotine dependence, unspecified, uncomplicated; Z86.14 Personal history of Methicillin resistant Staphylococcus aureus infection; Z87.442 Personal history of urinary calculi; Z23 Encounter for immunization; Z79.84 Long term (current) use of oral hypoglycemic drugs; Z87.440 Personal history of urinary (tract) infections; Z96.651 Presence of right artificial knee joint; Z79.1 Long term (current) use of non-steroidal anti-inflammatories (NSAID); Z79.899 Other long term (current) drug therapy; Z90.49 Acquired absence of other specified parts of digestive tract; Z90.710 Acquired absence of both cervix and uterus; Z98.1 Arthrodesis status; Z86.19 Personal history of other infectious and parasitic diseases
CPT/HCPCS: 36415; 70450; 71010; 72100; 72125; 80048; 80053; 81001; 83605; 84484; 85025; 87040; 87086; 90686; 93005; 93306; 96361; 96365; 96366; 99285

== ENCOUNTER 2016-10-22 20:11 | Inpatient (IN) | payer MEDICARE ==
[2016-10-22] MEDS ORDERED: IBUPROFEN 600 MG TAB PO STA (20:27)
[2016-10-22] MEDS ORDERED: ACETAMINOPHEN TAB 500 MG TAB PO STA (20:27)
[2016-10-22] MEDS ORDERED: SODIUM CHLORIDE 0.9% 500 ML IV STA ×2 (20:27→22:35)
--- NOTE | 2016-10-22 20:36 | ED ---
Fever HPI - General Chief Complaint: Fever Stated Complaint: FEVER Time Seen by Provider: 10/22/16 20:24 Source: EMS, RN notes reviewed Mode of arrival: EMS - History of Present Illness Initial Comments: 75-year-old female presents to the emergency department with a chief complaint of fever. Patient has a diffuse the past day or so. She states that she has been shaking due to the fever. Patient states that she has a minimal cough with no sputum production. Patient states she had one episode of dysuria with this. Patient denies any chest pain she denies any abdominal pain. Patient states she does suffer from chronic back pain until different than normal. Patient states that she just continued to have the fever so she thought that she should be evaluated. Patient denies any headache or neck pain. Patient denies any recent shortness of breath, chest pain, back pain, abdominal pain, nausea vomiting, numbness or tingling, hematuria, constipation or diarrhea, headaches or visual changes, or any other current symptoms. - Related Data Home Medications Medication Instructions Recorded Confirmed Baclofen 10 mg PO BID 05/03/15 10/22/16 Cranberry Conc/C/Bacill Coag 1 tab PO BID 05/03/15 10/22/16 [Cranberry Tablet] Diazepam [Valium] 5 mg PO HS PRN 05/03/15 10/22/16 L.acidoph,Paracasei, B.lactis 1 cap PO DAILY 05/03/15 10/22/16 [Probiotic] Meloxicam [Mobic] 7.5 mg PO DAILY 05/03/15 10/22/16 Multivitamins, Thera [Multivitamin] 1 tab PO DAILY 05/03/15 10/22/16 Omeprazole [PriLOSEC] 20 mg PO DAILY 05/03/15 10/22/16 Oxybutynin Chloride 5 mg PO BID 05/03/15 10/22/16 Simvastatin [Zocor] 40 mg PO HS 05/03/15 10/22/16 metFORMIN HCL [Glucophage] 500 mg PO BID 05/03/15 10/22/16 HYDROcodone/APAP 7.5-325MG [[place] 1 tab PO QID PRN 01/27/16 10/22/16 7.5-325] Biotin 5 mg PO DAILY 05/13/16 10/22/16 Gabapentin 300 mg PO TID 05/13/16 10/22/16 Aspirin EC [Ecotrin Low Dose] 81 mg PO BID 10/22/16 10/22/16 Atenolol [Tenormin] 25 mg PO HS 10/22/16 10/22/16 Bisacodyl [Dulcolax] 5 mg PO TID PRN 10/22/16 10/22/16 Docusate [Colace] 200 mg PO BID 10/22/16 10/22/16 Nitrofurantoin Monohyd/M-Cryst 100 mg PO Q12HR 10/22/16 10/22/16 [Macrobid] Allergies Allergy/AdvReac Type Severity Reaction Status Date / Time zolpidem [From Ambien] AdvReac Confusion Verified 10/22/16 20:56 Review of Systems ROS Statement: Those systems with pertinent positive or pertinent negative responses have been documented in the HPI. ROS Other: All systems not noted in ROS Statement are negative. Past Medical History Past Medical History: Diabetes Mellitus, GERD/Reflux, Hyperlipidemia, Hypertension, Thyroid Disorder Additional Past Medical History / Comment(s): hepatitis-viral at age 10, sepsis 2010 History of Any Multi-Drug Resistant Organisms: MRSA Date of last positivie culture/infection: 2014 MDRO Source:: Urine Past Surgical History: Back Surgery, Cholecystectomy, Hysterectomy, Joint Replacement Additional Past Surgical History / Comment(s): Right knee replacement; Bowel Surgery, 3 spinal fusions Past Anesthesia/Blood Transfusion Reactions: No Reported Reaction Past Psychological History: No Psychological Hx Reported Smoking Status: Current every day smoker Past Alcohol Use History: None Reported Past Drug Use History: None Reported - Past Family History Mother Family Medical History: No Reported History General Exam - General Exam Comments Initial Comments: General: The patient is awake and alert, in no distress, and does not appear acutely ill. Eye: Pupils are equal, round and reactive to light, extra-ocular movements are intact; there is normal conjunctiva bilaterally. No signs of icterus. Ears, nose, mouth and throat: There are moist mucous membranes. Neck: The neck is supple, there is no tenderness. Cardiovascular: There is a regular rate and rhythm. No murmur, rub or gallop is appreciated. Respiratory: Lungs are clear to auscultation, respirations are non-labored, breath sounds are equal. No wheezes, stridor, rales, or rhonchi. Gastrointestinal: Soft, non-distended, non-tender abdomen without masses or organomegaly noted. There is no rebound or guarding present. No CVA tenderness. Bowel sounds are unremarkable. Back: There is no tenderness to palpation in the midline. There is no obvious deformity. No rashes noted. Musculoskeletal: Normal ROM, no tenderness, There is no pedal edema. There is no calf tenderness or swelling. Sensation intact. Pulses equal bilaterally 2+. Neurological: CN II-XII intact, There are no obvious motor or sensory deficits. Coordination appears grossly intact. Speech is normal. Skin: Skin is warm and dry and no rashes or lesions are noted. Psychiatric: Cooperative, appropriate mood & affect, normal judgment. Course Vital Signs 10/22/16 10/22/16 20:23 21:40 Temperature 103 F H 102 F H Pulse Rate 97 Respiratory 18 Rate Blood Pressure 146/61 O2 Sat by Pulse 96 Oximetry Medical Decision Making - Medical Decision Making 75-year-old female presents to the emergency department with a chief complaint of fever. Additionally patient does appear to have acute interstitial pneumonia as well as a UTI with the fever. Patient also visited here to have anemia and occult blood was added. At this time we will admit the patient she will be started on appropriate antibiotics. Family she does have a history of UTI for MRSA. We will give her one dose of ankle as well. Patient's family is in agreement with plan and all questions have been answered. They will be admitted. - Lab Data Result diagrams: 10/22/16 20:45 10/22/16 20:45 Lab Results 10/22/16 10/22/16 10/22/16 Range/Units 20:45 20:45 20:45 WBC 5.9 (3.8-10.6) k/uL RBC 2.99 L (3.80-5.40) m/uL Hgb 9.5 L D (11.4-16.0) gm/dL Hct 28.7 L (34.0-46.0) % MCV 96.0 (80.0-100.0) fL MCH 31.9 (25.0-35.0) pg MCHC 33.2 (31.0-37.0) g/dL RDW 13.2 (11.5-15.5) % Plt Count 123 L D (150-450) k/uL Neutrophils % 90 % Lymphocytes % 2 % Monocytes % 2 % Eosinophils % 5 % Basophils % 0 % Neutrophils # 5.3 (1.3-7.7) k/uL Lymphocytes # 0.1 L (1.0-4.8) k/uL Monocytes # 0.1 (0-1.0) k/uL Eosinophils # 0.3 (0-0.7) k/uL Basophils # 0.0 (0-0.2) k/uL Sodium 139 (137-145) mmol/L Potassium 3.9 (3.5-5.1) mmol/L Chloride 107 (98-107) mmol/L Carbon Dioxide 21 L (22-30) mmol/L Anion Gap 11 mmol/L BUN 29 H (7-17) mg/dL Creatinine 0.93 (0.52-1.04) mg/dL Est GFR (MDRD) Af Amer >60 (>60 ml/min/1.73 sqM) Est GFR (MDRD) Non-Af 58 (>60 ml/min/1.73 sqM) Glucose 118 H (74-99) mg/dL Plasma Lactic Acid Farshad (0.7-2.0) mmol/L Calcium 8.6 (8.4-10.2) mg/dL Total Bilirubin 0.6 (0.2-1.3) mg/dL AST 29 (14-36) U/L ALT 33 (9-52) U/L Alkaline Phosphatase 75 (38-126) U/L Total Protein 6.2 L (6.3-8.2) g/dL Albumin 3.3 L (3.5-5.0) g/dL Urine Color Urine Appearance (Clear) Urine pH (5.0-8.0) Ur Specific [place] (1.001-1.035) Urine Protein (Negative) Urine Glucose (UA) (Negative) Urine Ketones (Negative) Urine Blood (Negative) Urine Nitrate (Negative) Urine Bilirubin (Negative) Urine Urobilinogen (<2.0) mg/dL Ur Leukocyte Esterase (Negative) Urine RBC (0-5) /hpf Urine WBC (0-5) /hpf Ur Squamous Epith Cells (0-4) /hpf Urine Bacteria (None) /hpf Urine Mucus (None) /hpf Influenza Type A RNA Not Detected (Not Detectd) Influenza Type B (PCR) Not Detected (Not Detectd) 02/28/17 02/28/17 Range/Units 20:45 20:45 WBC (3.8-10.6) k/uL RBC (3.80-5.40) m/uL Hgb (11.4-16.0) gm/dL Hct (34.0-46.0) % MCV (80.0-100.0) fL MCH (25.0-35.0) pg MCHC (31.0-37.0) g/dL RDW (11.5-15.5) % Plt Count (150-450) k/uL Neutrophils % % Lymphocytes % % Monocytes % % Eosinophils % % Basophils % % Neutrophils # (1.3-7.7) k/uL Lymphocytes # (1.0-4.8) k/uL Monocytes # (0-1.0) k/uL Eosinophils # (0-0.7) k/uL Basophils # (0-0.2) k/uL Sodium (137-145) mmol/L Potassium (3.5-5.1) mmol/L Chloride (98-107) mmol/L Carbon Dioxide (22-30) mmol/L Anion Gap mmol/L BUN (7-17) mg/dL Creatinine (0.52-1.04) mg/dL Est GFR (MDRD) Af Amer (>60 ml/min/1.73 sqM) Est GFR (MDRD) Non-Af (>60 ml/min/1.73 sqM) Glucose (74-99) mg/dL Plasma Lactic Acid Farshad 1.9 (0.7-2.0) mmol/L Calcium (8.4-10.2) mg/dL Total Bilirubin (0.2-1.3) mg/dL AST (14-36) U/L ALT (9-52) U/L Alkaline Phosphatase (38-126) U/L Total Protein (6.3-8.2) g/dL Albumin (3.5-5.0) g/dL Urine Color Yellow Urine Appearance Clear (Clear) Urine pH 5.5 (5.0-8.0) Ur Specific [place]onal[place] 1.014 (1.001-1.035) Urine Protein Trace H (Negative) Urine Glucose (UA) Negative (Negative) Urine Ketones 1+ H (Negative) Urine Blood Negative (Negative) Urine Nitrate Negative (Negative) Urine Bilirubin Negative (Negative) Urine Urobilinogen <2.0 (<2.0) mg/dL Ur Leukocyte Esterase Moderate H (Negative) Urine RBC 4 (0-5) /hpf Urine WBC 48 H (0-5) /hpf Ur Squamous Epith Cells 1 (0-4) /hpf Urine Bacteria Occasional H (None) /hpf Urine Mucus Rare H (None) /hpf Influenza Type A RNA (Not Detectd) Influenza Type B (PCR) (Not Detectd) Disposition Clinical Impression: Fever, UTI (urinary tract infection), Acute interstitial pneumonia Disposition: ADMITTED IP TO THIS HOSP Condition: Stable Time of Disposition: 22:16 Decision Date: 10/22/16 Decision Time: 22:16
--- NOTE | 2016-10-22 20:57 | XR ---
EXAMINATION TYPE: XR chest 2V DATE OF EXAM: 10/22/2016 8:43 PM COMPARISON: 09/06/2016 HISTORY: Fever TECHNIQUE: Frontal and lateral views of the chest are obtained. FINDINGS: There is a patchy reticular nodular infiltrate in both lungs. Heart size is normal. There are are no hilar masses. Thoracic aorta is atheromatous. There is a 3 cm area of more coalescent dens ity in the right upper lobe. There is slight blunting of left costophrenic angle. There is probably m inimal fluid in the left major fissure. Thoracic spine is intact. IMPRESSION: There are new pulmonary infiltrates compared to last exam. Heart size is normal. This co uld relate to acute interstitial pneumonia. There is no definite heart failure..
[2016-10-22 21:07] LABS: Basophils % (A) 0 %; CH 31.5; Eosinophils # (A) 0.3 k/uL (0-0.7); Eosinophils % (A) 5 %; HCT 28.7 % (34.0-46.0); HDW 2.82; Luc # (Auto) 0.05; Luc % (Auto) 1; Lymphocytes # (A) 0.1 k/uL (1.0-4.8); Lymphocytes % (A) 2 %; MCH 31.9 pg (25.0-35.0); MCHC 33.2 g/dL (31.0-37.0); Mean Platelet Volume 6.8; Monocytes # (A) 0.1 k/uL (0-1.0); Monocytes % (A) 2 %; Neutrophils # (A) 5.3 k/uL (1.3-7.7); Neutrophils % (A) 90 %; RBC 2.99 m/uL (3.80-5.40); RDW 13.2 % (11.5-15.5); WBC 5.9 k/uL (3.8-10.6); WBC (Perox) 6.17
[2016-10-22 21:13] LABS: HGB 9.5 gm/dL (11.4-16.0)
[2016-10-22 21:22] LABS: ALT 33 U/L (9-52); AST 29 U/L (14-36); Alkaline Phosphatase 75 U/L (38-126); Anion Gap 11 mmol/L; Blood Urea Nitrogen 29 mg/dL (7-17); Calcium 8.6 mg/dL (8.4-10.2); Carbon Dioxide 21 mmol/L (22-30); Chloride 107 mmol/L (98-107); Glucose 118 mg/dL (74-99); Non-African American GFR(MDRD) 58 (>60 ml/min/1.73 sqM); Potassium 3.9 mmol/L (3.5-5.1); Sodium 139 mmol/L (137-145); Total Bilirubin 0.6 mg/dL (0.2-1.3); Total Protein 6.2 g/dL (6.3-8.2)
[2016-10-22 21:55] LABS: Appearance,Urine Clear (Clear); Bacteria,Urine Occasional /hpf; Bilirubin,Urine Negative (Negative); Glucose,Urine (UA) Negative (Negative); Ketones,Urine 1+ (Negative); Leukocyte Esterase,Urine Moderate (Negative); Mucus,Urine Rare /hpf; Nitrite,Urine Negative (Negative); PH, Urine 5.5 (5.0-8.0); Particle Count 1858; Protein,Urine Trace (Negative); RBC,Urine 4 /hpf (0-5); Specific Gravity,Urine 1.014 (1.001-1.035); Squamous Epithelial Cell,Urine 1 /hpf (0-4); UA Billing (MACRO vs. MICRO) MICRO; Urobilinogen,Urine <2.0 mg/dL (<2.0); WBC,Urine 48 /hpf (0-5)
[2016-10-22] MEDS ORDERED: LEVOFLOXACIN 750MG-D5W PMX 750 MG in DEXTROSE/WATER 1 150ML.BAG IVPB STA (22:16)
[2016-10-22] MEDS ORDERED: IPRATROPIUM-ALBUTEROL 3 ML NEB INHALATION PRN (22:16)
[2016-10-22] MEDS ORDERED: PNEUMONIA PROTOCOL UTILIZED 1 EACH MISC PO PRN (22:16)
[2016-10-22] MEDS ORDERED: BISACODYL 5 MG TABLET.DR PO PRN (22:17)
[2016-10-22] MEDS ORDERED: DIAZEPAM 5 MG TAB PO PRN (22:17)
[2016-10-22] MEDS ORDERED: IV VANCOMYCIN PER PHARMACY 1 EACH MISC MISCELLANE PRN (22:18)
[2016-10-22] MEDS ORDERED: NICOTINE 14MG/24HR PATCH TRANSDERM STA (22:30)
[2016-10-22] MEDS ORDERED: VANCOMYCIN 1,250 MG in SODIUM CHLORIDE 0.9% 250 ML IVPB ONE (22:30)
[2016-10-23 00:07] VITALS: BMI 25.6
[2016-10-23] MEDS: SODIUM CHLORIDE 0.9% 1,000 ML IV SCH ×3 (00:10→16:22)
[2016-10-23 00:20] LABS: Glucose,Whole Blood 146 mg/dL (75-99)
[2016-10-23] MEDS: ACETAMINOPHEN TAB 500 MG TAB PO SCH ×3 (01:09→12:03)
[2016-10-23 07:19] LABS: Glucose,Whole Blood 113 mg/dL (75-99)
[2016-10-23] MEDS ORDERED: metFORMIN 500 MG TAB PO SCH (09:00)
[2016-10-23] MEDS ORDERED: NON-FORMULARY DRUG (Biotin [Biotin] 5 MG) PO SCH (09:00)
[2016-10-23] MEDS ORDERED: NON-FORMULARY DRUG (Cranberry Conc/C/Bacill Coag [Cranberry Tablet] 1 TAB) PO SCH (09:00)
[2016-10-23] MEDS ORDERED: NITROFURANTOIN MONOHYD/M-CRYST 100 MG CAP PO SCH (09:00)
[2016-10-23] MEDS: ASPIRIN 81 MG CHEW PO SCH ×2 (09:11→20:47)
[2016-10-23] MEDS: MELOXICAM 7.5 MG TAB PO SCH (09:11)
[2016-10-23] MEDS: BACLOFEN 10 MG TAB PO SCH ×2 (09:11→20:46)
[2016-10-23] MEDS: MULTIVITAMINS, THERA 1 EACH TAB PO SCH (09:12)
[2016-10-23] MEDS: PANTOPRAZOLE 40 MG TABLET PO SCH (09:12)
[2016-10-23] MEDS: DOCUSATE 100 MG CAP PO SCH ×2 (09:12→20:47)
[2016-10-23] MEDS: LACTOBACILLUS ACIDOPH & BULGAR 1 EACH PACKET PO SCH (09:12)
[2016-10-23] MEDS: GABAPENTIN 300 MG CAP PO SCH ×3 (09:12→21:04)
[2016-10-23] MEDS: OXYBUTYNIN CHLORIDE 5 MG TAB PO SCH ×2 (09:12→21:05)
[2016-10-23] MEDS: HYDROcodone/APAP 7.5-325MG 1 EACH TAB PO PRN ×2 (09:22→16:09)
--- NOTE | 2016-10-23 10:33 | XR ---
EXAMINATION TYPE: XR chest 2V DATE OF EXAM: 10/23/2016 8:03 AM COMPARISON: 10/22/2016 HISTORY: 75-year-old female follow-up pneumonia TECHNIQUE: Frontal and lateral views FINDINGS: Heart is normal size. Elongation of the thoracic aorta with arch calcifications. Diffuse interstitial prominence and hyperinflation may represent underlying COPD. Some residual density at the right uppe r midlung and at the posterior lung bases. The density at the posterior lung base may be slightly inc reased. IMPRESSION: 1. Slight increase in posterior basilar infiltrate which could represent pneumonia. 2. Some subtle density at the right upper midlung. This may represent an additional area of infiltrat e. Follow-up recommended to ensure complete clearance.
[2016-10-23 11:11] LABS: Glucose,Whole Blood 180 mg/dL (75-99)
[2016-10-23] MEDS ORDERED: Potassium Replacement Protocol 1 EACH MISC MISCELLANE PRN (11:18)
[2016-10-23] MEDS ORDERED: ACETAMINOPHEN TAB 325 MG TAB PO PRN (11:18)
[2016-10-23] MEDS ORDERED: Magnesium Replacement Protocol 1 EACH MISC MISCELLANE PRN (11:18)
[2016-10-23] MEDS: INSULIN LISPRO (humaLOG) 300 UNIT/3 ML VIAL SQ SCH ×3 (13:21→20:55)
--- NOTE | 2016-10-23 16:41 | P.HPIM ---
History of Present Illness H&P Date: 10/23/16 Chief Complaint: Productive cough This is a 75-year-old female who presented to the emergency room with worsening cough that started approximately 5 days ago. Patient cough is productive of greenish sputum. She was also having fevers and chills. She was recently diagnosed with a urinary tract infection and was started on Macrobid by her primary care physician. She presented to the emergency room and was found to have a high-grade temperature of 103.0. She was hemodynamically stable. She was started on broad-spectrum antibiotic and was admitted to the hospital for further evaluation. Review of Systems Review of system: 14 points review of systems were obtained and were negative except to what were mentioned in the HPI. Past Medical History Past Medical History: COPD, Diabetes Mellitus, GERD/Reflux, Hyperlipidemia, Hypertension, Osteoarthritis (OA), Pneumonia, Thyroid Disorder Additional Past Medical History / Comment(s): hepatitis-viral at age 10, sepsis 2009, chronic back pain History of Any Multi-Drug Resistant Organisms: MRSA Date of last positivie culture/infection: 2014 MDRO Source:: Urine Past Surgical History: Back Surgery, Cholecystectomy, Hysterectomy, Joint Replacement Additional Past Surgical History / Comment(s): Right knee replacement; Bowel Surgery, 3 spinal fusions Past Anesthesia/Blood Transfusion Reactions: No Reported Reaction Past Psychological History: No Psychological Hx Reported Smoking Status: Current every day smoker Past Alcohol Use History: None Reported Past Drug Use History: None Reported - Past Family History Mother Family Medical History: No Reported History Medications and Allergies Home Medications Medication Instructions Recorded Confirmed Type Baclofen 10 mg PO BID 05/03/15 10/22/16 History Cranberry Conc/C/Bacill Coag 1 tab PO BID 05/03/15 10/22/16 History [Cranberry Tablet] Diazepam [Valium] 5 mg PO HS PRN 05/03/15 10/22/16 History L.acidoph,Paracasei, B.lactis 1 cap PO DAILY 05/03/15 10/22/16 History [Probiotic] Meloxicam [Mobic] 7.5 mg PO DAILY 05/03/15 10/22/16 History Multivitamins, Thera [Multivitamin] 1 tab PO DAILY 05/03/15 10/22/16 History Omeprazole [PriLOSEC] 20 mg PO DAILY 05/03/15 10/22/16 History Oxybutynin Chloride 5 mg PO BID 05/03/15 10/22/16 History Simvastatin [Zocor] 40 mg PO HS 05/03/15 10/22/16 History metFORMIN HCL [Glucophage] 500 mg PO BID 05/03/15 10/22/16 History HYDROcodone/APAP 7.5-325MG [[place] 1 tab PO QID PRN 01/27/16 10/22/16 History 7.5-325] Biotin 5 mg PO DAILY 05/13/16 10/22/16 History Gabapentin 300 mg PO TID 05/13/16 10/22/16 History Aspirin EC [Ecotrin Low Dose] 81 mg PO BID 10/22/16 10/22/16 History Atenolol [Tenormin] 25 mg PO HS 10/22/16 10/22/16 History Bisacodyl [Dulcolax] 5 mg PO TID PRN 10/22/16 10/22/16 History Docusate [Colace] 200 mg PO BID 10/22/16 10/22/16 History Nitrofurantoin Monohyd/M-Cryst 100 mg PO Q12HR 10/22/16 10/22/16 History [Macrobid] Allergies Allergy/AdvReac Type Severity Reaction Status Date / Time zolpidem [From Ambien] AdvReac Confusion Verified 10/22/16 23:44 Physical Exam Vitals: Vital Signs Temp Pulse Pulse Pulse Resp BP BP 10/23/16 15:34 97.6 F 75 75 16 98/50 10/23/16 07:00 98.2 F 78 16 96/57 10/22/16 23:41 98.3 F 82 16 103/56 10/22/16 23:24 80 16 98/52 10/22/16 22:38 98.7 F 80 18 97/54 Pulse Ox 10/23/16 15:34 95 10/23/16 07:00 95 10/22/16 23:41 97 10/22/16 23:24 96 10/22/16 22:38 96 Intake and Output 10/23/16 10/23/16 10/23/16 06:59 14:59 22:59 Intake Total 750 750 Balance 750 750 Intake: IV 750 750 Sodium Chloride 0.9% 1, 500 700 000 ml @ 100 mls/hr IV . Q10H [facility] Rx#:[id number] Vancomycin 1,250 mg In 250 Sodium Chloride 0.9% 250 ml @ 125 mls/hr IVPB ONCE ONE Rx#:[id number] cefTRIAXone 1,000 mg In 50 Sodium Chloride 0.9% 50 ml @ 100 mls/hr IVPB Q24HR [facility] Rx#:[id number] Other: Voiding Method Toilet Toilet Toilet Bedside Commode Bedside Commode # Voids 1 2 General: The patient is awake and alert, in no distress, and does not appear acutely ill. Eye: extra-ocular movements are intact; there is normal conjunctiva bilaterally. . Neck: The neck is supple, there is no tenderness or JVD. Cardiovascular: Normal S1-S2, no S3-S4, no murmurs. Respiratory: Lungs clear to auscultation bilaterally with no wheezes rhonchi or rales. Gastrointestinal: Abdomen is soft, nontender, nondistended, with no organomegaly. . Musculoskeletal: Normal ROM, no tenderness, There is no pedal edema. Neurological: There are no obvious motor or sensory deficits. Speech is normal. Skin: Skin is warm and dry and no rashes or lesions are noted. Results CBC & Chem 7: 10/22/16 20:45 10/22/16 20:45 Labs: Abnormal Lab Results - Last 24 Hours (Table) 10/23/16 10/23/16 10/23/16 Range/Units 00:18 06:51 11:09 POC Glucose (mg/dL) 146 H 113 H 180 H (75-99) mg/dL Thrombosis Risk Factor Assmnt - Choose All That Apply Any of the Below Risk Factors Present?: Yes Each Factor Represents 1 point: Abnormal pulmonary function (COPD), Obesity ( BMI >25) Other Risk Factors: Yes Each Risk Factor Represents 3 Points: Age 75 years or older Other congenital or acquired thrombophilia - If yes, enter type in comment: No Thrombosis Risk Factor Assessment Total Risk Factor Score: 5 Thrombosis Risk Factor Assessment Level: High Risk Assessment and Plan Plan: 1. Bibasilar pneumonia 2. Supplemental density of the right upper mid lung possibly related to #1 we will continue to follow up on x-rays to ensure clearance 3. Urinary tract infection 4. Sepsis on presentation 5. Tobacco abuse: Counseled to quit. Patient is not ready. Time spent approximately 5 minutes 6. Chronic low back pain/degenerative joint disease Patient was started on broad-spectrum antibiotic. Infectious disease consulted for further management. Continue IV fluid hydration. Bronchodilators as needed. Continue supportive care. Repeat lab work in the morning.
[2016-10-23 17:06] LABS: Glucose,Whole Blood 93 mg/dL (75-99)
[2016-10-23 19:58] LABS: Glucose,Whole Blood 115 mg/dL (75-99)
[2016-10-23] MEDS: ATORVASTATIN 20 MG TAB PO SCH (20:46)
[2016-10-23] MEDS ORDERED: ATENOLOL 50 MG TAB PO SCH (21:00)
[2016-10-23] MEDS ORDERED: LEVOFLOXACIN 750 MG TAB PO SCH (21:00)
[2016-10-23 22:51] LABS: Hemoglobin A1C 5.5 % (4.2-6.1)
[2016-10-23] MEDS ORDERED: VANCOMYCIN 1,250 MG in SODIUM CHLORIDE 0.9% 250 ML IVPB SCH (23:00)
[2016-10-24] MEDS: SODIUM CHLORIDE 0.9% 1,000 ML IV SCH (06:02)
[2016-10-24] MEDS: HYDROcodone/APAP 7.5-325MG 1 EACH TAB PO PRN (07:15)
[2016-10-24 07:42] LABS: Glucose,Whole Blood 105 mg/dL (75-99)
--- NOTE | 2016-10-24 07:44 | CONS ---
DATE OF CONSULTATION: 10/23/2016 REASON FOR CONSULTATION: Fever. HISTORY OF PRESENT ILLNESS: The patient is a 75-year-old female who presented to the ER at [facility] with the chief complaint of fever, rigors and chills that has been going on for a day or two. The patient denies significant headache or URI symptoms. No significant chest pain or shortness of breath. Occasional cough, but not bringing up any sputum. The patient denies abdominal pain. No diarrhea. However, did have some frequency of urine and some burning. No suprapubic discomfort and subsequently the patient has been evaluated by the ER physician. The patient did have a chest x-ray that was suggestive of a new pulmonary infiltrate compared to the last exam. The patient was started on Levaquin and vancomycin and admitted to the hospital. I was asked to see the patient for further recommendation regarding antibiotic therapy. REVIEW OF SYSTEMS: CONSTITUTIONAL: Positive for weakness and a fever of 103 degrees Fahrenheit. EYES: No complaint. ENT: No complaint. RESPIRATORY: As per HPI. CARDIOVASCULAR: No complaint. GENITOURINARY: As per HPI. GASTROINTESTINAL: No complaint. MUSCULOSKELETAL: No complaint. INTEGUMENTARY: No complaint. PSYCHOLOGIC: No complaint. ENDOCRINE: No complaint. NEUROLOGIC: No complaint. PAST MEDICAL HISTORY: Hypertension, hyperlipidemia, gastroesophageal reflux disease, diabetes mellitus, COPD, osteoarthritis, pneumonia, hyperthyroidism, history of MRSA infection. PAST SURGICAL HISTORY: Cholecystectomy, hysterectomy, right knee replacement and 3 spinal surgery. SOCIAL HISTORY: The patient currently an everyday smoker, denies drinking or drug use. FAMILY HISTORY: No pertinent findings were noticed. ALLERGIES: AMBIEN. Medications include the patient is currently on: 1. Tylenol. 2. [place]. 3. DuoNeb. 4. Aspirin. 5. Lipitor. 6. Baclofen. 7. Dulcolax. 8. Valium. 9. Colace. 10. Neurontin. 11. Humalog. 12. Lactinex. 13. Levofloxacin 750 q.48 hours. 14. Mobic. 15. Theragran. 16. Protonix. On examination, her blood pressure is 98/50, pulse of 75, temperature 97.6, T-max is 103. She is 95% on room air. General description is an elderly female, lying in bed in no distress. No tachypnea or accessory muscles of respiration use. HEENT slight pallor. There is no scleral icterus. Oral mucous membrane is dry. NECK: Trachea central. There is no thyromegaly. LUNGS: Unlabored breathing with decreased breath sounds at the bases. No wheeze. HEART: S1, S2 irregular rate and rhythm. ABDOMEN: Soft. No tenderness. No guarding or rigidity. EXTREMITIES: No edema of feet. SKIN EXAMINATION: No rash or mass palpable. NEUROLOGICAL: The patient is awake, alert, oriented x3. Mood and affect normal. LABS: Hemoglobin is 9.5, white count 5.9, BUN of 29, creatinine 0.93. Electrolytes have been normal. Liver enzymes have been normal. Urine has been slightly positive. Influenza A and B PCR has been negative. Unfortunately no blood work was done. Chest x-ray report as mentioned earlier. DIAGNOSTIC IMPRESSION AND PLAN: Patient admitted to the hospital with fevers, rigors and chills in a patient who does have some urinary symptoms and has a positive urinalysis more likely secondary to pyelonephritis. The patient chest x-ray did show some new infiltrates, however, as compared to her respiratory symptoms are very mild with minimal cough. No significant purulent sputum production and no pleuritic chest pain though pneumonia not likely but cannot be entirely excluded, more likely a community-acquired pathogen. Clinically suspicious for a resistant gram-positive gram-negative is less likely. PLAN: 1. Discontinue the vancomycin as clinical suspicion for MRSA is low. 2. Continue the patient on Levaquin, but add Rocephin 1 gram IV piggyback daily. 3. Blood cultures x2 stat. 4. We will follow up on the clinical condition and cultures to further adjust the medication if needed. Thank you for this consultation. We will follow this patient along with you. IRMA
[2016-10-24] MEDS: INSULIN LISPRO (humaLOG) 300 UNIT/3 ML VIAL SQ SCH ×4 (07:54→21:00)
[2016-10-24] MEDS: ASPIRIN 81 MG CHEW PO SCH ×2 (08:00→20:04)
[2016-10-24] MEDS: BACLOFEN 10 MG TAB PO SCH ×2 (08:00→20:03)
[2016-10-24] MEDS: GABAPENTIN 300 MG CAP PO SCH ×3 (08:01→21:02)
[2016-10-24] MEDS: DOCUSATE 100 MG CAP PO SCH ×2 (08:01→20:03)
[2016-10-24] MEDS: LACTOBACILLUS ACIDOPH & BULGAR 1 EACH PACKET PO SCH (08:01)
[2016-10-24] MEDS: MELOXICAM 7.5 MG TAB PO SCH (08:01)
[2016-10-24] MEDS: OXYBUTYNIN CHLORIDE 5 MG TAB PO SCH ×2 (08:02→20:04)
[2016-10-24] MEDS: PANTOPRAZOLE 40 MG TABLET PO SCH (08:02)
[2016-10-24] MEDS: MULTIVITAMINS, THERA 1 EACH TAB PO SCH (08:02)
[2016-10-24 09:13] LABS: Basophils % (A) 0 %; CH 31.4; CHCM 33.3; Eosinophils # (A) 0.6 k/uL (0-0.7); Eosinophils % (A) 11 %; HCT 36.2 % (34.0-46.0); HDW 2.99; HGB 11.8 gm/dL (11.4-16.0); Luc % (Auto) 2; Lymphocytes # (A) 0.4 k/uL (1.0-4.8); Lymphocytes % (A) 7 %; MCHC 32.7 g/dL (31.0-37.0); MCV 94.9 fL (80.0-100.0); Mean Platelet Volume 7.9; Monocytes # (A) 0.2 k/uL (0-1.0); Monocytes % (A) 3 %; Neutrophils # (A) 4.2 k/uL (1.3-7.7); Neutrophils % (A) 77 %; RBC 3.82 m/uL (3.80-5.40); RDW 13.4 % (11.5-15.5); WBC 5.5 k/uL (3.8-10.6); WBC (Perox) 5.92
[2016-10-24 09:25] LABS: Anion Gap 6 mmol/L; Blood Urea Nitrogen 18 mg/dL (7-17); Calcium 8.3 mg/dL (8.4-10.2); Carbon Dioxide 21 mmol/L (22-30); Chloride 114 mmol/L (98-107); Glucose 147 mg/dL (74-99); Magnesium 1.4 mg/dL (1.6-2.3); Non-African American GFR(MDRD) 60 (>60 ml/min/1.73 sqM); Potassium 3.8 mmol/L (3.5-5.1); Sodium 141 mmol/L (137-145)
[2016-10-24 12:02] LABS: Glucose,Whole Blood 160 mg/dL (75-99)
[2016-10-24] MEDS: NICOTINE 21MG/24HR PATCH TRANSDERM SCH (13:09)
[2016-10-24] MEDS: MAGNESIUM SULFATE-D5W PMX 1 GM in DEXTROSE/WATER 1 100ML.BAG IVPB SCH ×3 (13:09→16:52)
--- NOTE | 2016-10-24 14:29 | P.PN ---
Subjective Principal diagnosis: Urinary tract infection Patient had a low-grade fever last night. Magnesium level noted to be low. She is doing fairly well otherwise. Continue to have nonproductive cough. Objective - Vital Signs Vital signs: Vital Signs Temp 98.1 F 10/24/16 08:22 Pulse 84 10/24/16 07:00 Resp 20 10/24/16 07:00 BP 141/77 10/24/16 07:00 Pulse Ox 95 10/24/16 07:00 Intake & Output 10/23/16 10/24/16 10/24/16 18:59 06:59 18:59 Intake Total 750 1200 Balance 750 1200 Intake: IV 750 900 Sodium Chloride 0.9% 1, 700 900 000 ml @ 100 mls/hr IV . Q10H [facility] Rx#:[id number] cefTRIAXone 1,000 mg In 50 Sodium Chloride 0.9% 50 ml @ 100 mls/hr IVPB Q24HR [facility] Rx#:[id number] Oral 300 Other: Voiding Method Toilet Toilet Toilet Bedside Commode Bedside Commode Bedside Commode # Voids 2 1 - Exam General: The patient is awake and alert, in no distress Eye: there is normal conjunctiva bilaterally. Neck: The neck is supple, there is no JVD. Cardiovascular: Normal S1-S2, no S3-S4, no murmurs. Respiratory: Lungs clear to auscultation bilaterally Gastrointestinal: Abdomen is soft, nontender Musculoskeletal: There is no pedal edema. Neurological:. Speech is normal. Skin: Skin is warm and dry - Labs CBC & Chem 7: 10/24/16 08:48 10/24/16 08:48 Labs: Abnormal Lab Results - Last 24 Hours (Table) 10/23/16 10/24/16 10/24/16 Range/Units 19:52 07:19 08:48 Lymphocytes # (1.0-4.8) k/uL Chloride 114 H (98-107) mmol/L Carbon Dioxide 21 L (22-30) mmol/L BUN 18 H (7-17) mg/dL Glucose 147 H (74-99) mg/dL POC Glucose (mg/dL) 115 H 105 H (75-99) mg/dL Calcium 8.3 L (8.4-10.2) mg/dL Magnesium 1.4 L (1.6-2.3) mg/dL 10/24/16 10/24/16 Range/Units 08:48 12:01 Lymphocytes # 0.4 L (1.0-4.8) k/uL Chloride (98-107) mmol/L Carbon Dioxide (22-30) mmol/L BUN (7-17) mg/dL Glucose (74-99) mg/dL POC Glucose (mg/dL) 160 H (75-99) mg/dL Calcium (8.4-10.2) mg/dL Magnesium (1.6-2.3) mg/dL Assessment and Plan Plan: 1. Bibasilar pneumonia: Community-acquired. 2. Supplemental density of the right upper mid lung possibly related to #1 we will continue to follow up on x-rays to ensure clearance 3. Urinary tract infection: Urine culture showing no growth 4. Sepsis on presentation 5. Tobacco abuse: Counseled to quit. Nicotine patch ordered 6. Chronic low back pain/degenerative joint disease 7. Hypomagnesemia 8. DVT prophylaxis with subcu heparin Patient was seen and evaluated by infectious disease, appreciate recommendations. Awaiting blood cultures to finalize. Replace magnesium per protocol. Bronchodilators as needed. Continue supportive care. Repeat lab work in the morning.
[2016-10-24 17:22] LABS: Glucose,Whole Blood 97 mg/dL (75-99)
--- NOTE | 2016-10-24 17:27 | PN ---
DATE OF SERVICE: 10/24/2016 REASON FOR FOLLOWUP: Fever and a question of UTI/pyelonephritis versus pneumonia. INTERVAL HISTORY: The patient is afebrile. She has been breathing comfortably. She did have mild cough but was not bringing up any sputum. Denies any chest pain. No abdominal pain. Her urinary symptoms have improved. On examination, blood pressure 141/77 with a pulse of 84, temperature of 98.1. She is 95% on room air. General description is an elderly female lying in bed in no distress. RESPIRATORY SYSTEM: Unlabored breathing with decreased breath sounds at the base. HEART: S1, S2. Regular rate and rhythm. ABDOMEN: Soft. No tenderness. LABS: Hemoglobin is 11.8, white count 5.5 with a BUN of 18, creatinine 0.91. Urine is so far pending. Blood cultures were obtained, currently pending. DIAGNOSTIC IMPRESSION AND PLAN: Patient admitted to hospital with a fever. Source is more likely UTI/pyelonephritis, less suspicious for a pneumonia, as the patient did not have predominantly respiratory symptoms; however, did show infiltrate on the x-ray. She is currently covered with Rocephin and Levaquin. That will be continued while waiting for the culture to finalize. Continue supportive care.
[2016-10-24 17:43] VITALS: RESP 16
[2016-10-24] MEDS: HEPARIN SODIUM,PORCINE 5,000 UNIT/ML 1 ML VIAL SQ SCH (20:03)
[2016-10-24] MEDS: ATORVASTATIN 20 MG TAB PO SCH (20:04)
[2016-10-24 20:27] LABS: Glucose,Whole Blood 138 mg/dL (75-99)
[2016-10-25 07:00] LABS: Glucose,Whole Blood 111 mg/dL (75-99)
--- NOTE | 2016-10-25 07:25 | XR ---
EXAMINATION TYPE: XR chest 2V DATE OF EXAM: 10/25/2016 6:22 AM COMPARISON: 10/23/2016 HISTORY: Shortness of breath TECHNIQUE: Frontal and lateral views of the chest are obtained. FINDINGS: Scattered senescent parenchymal changes noted. Hyperinflation compatible with COPD. There is increasing interstitial prominence as well as pulmonary venous congestion and small effusion s. Fluid is seen within the right major fissure. Correlate for a degree of congestive failure. Underl tiana infiltrate of other etiology not excluded. Nodular density right upper lobe is unchanged. Heart size is stable. Mediastinal structures are stable and grossly unremarkable. No evidence for hilar prominence. Degenerative changes dorsal spine. IMPRESSION: 1. Correlate for interstitial edema. Infiltrates of other etiology not excluded. Correlate clinically and progress studies are recommended.
[2016-10-25 07:31] LABS: Basophils % (A) 1 %; CH 31.3; CHCM 33.5; Eosinophils # (A) 0.8 k/uL (0-0.7); Eosinophils % (A) 16 %; HDW 3.07; HGB 13.1 gm/dL (11.4-16.0); Luc # (Auto) 0.13; Luc % (Auto) 3; Lymphocytes # (A) 0.7 k/uL (1.0-4.8); Lymphocytes % (A) 15 %; MCH 31.7 pg (25.0-35.0); MCHC 33.6 g/dL (31.0-37.0); MCV 94.3 fL (80.0-100.0); Mean Platelet Volume 7.4; Monocytes # (A) 0.2 k/uL (0-1.0); Monocytes % (A) 4 %; Neutrophils # (A) 2.9 k/uL (1.3-7.7); Neutrophils % (A) 62 %; RBC 4.14 m/uL (3.80-5.40); RDW 13.2 % (11.5-15.5); WBC 4.6 k/uL (3.8-10.6); WBC (Perox) 4.96
[2016-10-25] MEDS: INSULIN LISPRO (humaLOG) 300 UNIT/3 ML VIAL SQ SCH ×2 (07:49→12:57)
[2016-10-25] MEDS: ASPIRIN 81 MG CHEW PO SCH (07:49)
[2016-10-25] MEDS: DOCUSATE 100 MG CAP PO SCH (07:49)
[2016-10-25] MEDS: BACLOFEN 10 MG TAB PO SCH (07:49)
[2016-10-25] MEDS: HEPARIN SODIUM,PORCINE 5,000 UNIT/ML 1 ML VIAL SQ SCH (07:50)
[2016-10-25] MEDS: GABAPENTIN 300 MG CAP PO SCH ×2 (07:50→16:04)
[2016-10-25] MEDS: MELOXICAM 7.5 MG TAB PO SCH (07:50)
[2016-10-25] MEDS: LACTOBACILLUS ACIDOPH & BULGAR 1 EACH PACKET PO SCH (07:50)
[2016-10-25] MEDS: NICOTINE 21MG/24HR PATCH TRANSDERM SCH (07:52)
[2016-10-25] MEDS: MULTIVITAMINS, THERA 1 EACH TAB PO SCH (07:52)
[2016-10-25] MEDS: PANTOPRAZOLE 40 MG TABLET PO SCH (07:53)
[2016-10-25] MEDS: OXYBUTYNIN CHLORIDE 5 MG TAB PO SCH (07:53)
[2016-10-25 08:03] LABS: Anion Gap 8 mmol/L; Blood Urea Nitrogen 12 mg/dL (7-17); Calcium 8.7 mg/dL (8.4-10.2); Carbon Dioxide 26 mmol/L (22-30); Chloride 111 mmol/L (98-107); Glucose 120 mg/dL (74-99); Magnesium 1.9 mg/dL (1.6-2.3); Non-African American GFR(MDRD) >60 (>60 ml/min/1.73 sqM); Potassium 3.7 mmol/L (3.5-5.1); Sodium 145 mmol/L (137-145)
[2016-10-25 08:21] VITALS: BP 182/85; PULSE 71; TEMP 97.1
[2016-10-25 11:34] LABS: Glucose,Whole Blood 135 mg/dL (75-99)
--- NOTE | 2016-10-25 14:41 | P.DS ---
Providers Date of admission: 10/22/16 22:16 Expected date of discharge: 10/25/16 Attending physician: Rui Lange Consults: 10/23/16 11:19 Consult Physician Routine Consulting Provider: Eduardo Hoffman Consult Reason/Comments: sepsis Do you want consulting provider notified?: Yes Primary care physician: Cecilia Aldridge [facility] Course: This is a 76-year-old female with past medical history noted below who presented to the hospital with worsening productive cough, generalized weakness , and chills. She was found to have a high-grade temperature in the emergency room of 102.0 and 103.0. Chest x-ray showed evidence of bilateral infiltrates and urinalysis was positive. Patient was started on IV antibiotic and was seen and evaluated by infectious disease. Urine and blood culture remained negative. Her clinical condition improved significantly throughout her hospital stay. She will be discharged home in a stable condition. She will finish antibiotic course of Ceftin 500 mg twice daily. She will follow-up with her primary care physician next week. 1. Bibasilar pneumonia: Community-acquired. 2. Supplemental density of the right upper mid lung possibly related to #1. Patient would need follow-up x-ray within the next 3-4 weeks 3. Urinary tract infection: Urine culture showing no growth 4. Sepsis on presentation 5. Tobacco abuse: Counseled to quit. Nicotine patch ordered 6. Chronic low back pain/degenerative joint disease 7. Hypomagnesemia: Replaced intravenously Patient Condition at Discharge: Stable Plan - Discharge Summary New Discharge Prescriptions: Cefuroxime Axetil [Ceftin] 500 mg PO BID #20 tab Nicotine 21Mg/24Hr Patch [Habitrol] 1 each TRANSDERM DAILY #30 patch Discharge Medication List Baclofen 10 mg PO BID 05/03/15 [History] Cranberry Conc/C/Bacill Coag [Cranberry Tablet] 1 tab PO BID 05/03/15 [History] Diazepam [Valium] 5 mg PO HS PRN 05/03/15 [History] L.acidoph,Paracasei, B.lactis [Probiotic] 1 cap PO DAILY 05/03/15 [History] Meloxicam [Mobic] 7.5 mg PO DAILY 05/03/15 [History] Multivitamins, Thera [Multivitamin] 1 tab PO DAILY 05/03/15 [History] Omeprazole [PriLOSEC] 20 mg PO DAILY 05/03/15 [History] Oxybutynin Chloride 5 mg PO BID 05/03/15 [History] Simvastatin [Zocor] 40 mg PO HS 05/03/15 [History] metFORMIN HCL [Glucophage] 500 mg PO BID 05/03/15 [History] HYDROcodone/APAP 7.5-325MG [[place] 7.5-325] 1 tab PO QID PRN 01/27/16 [History] Biotin 5 mg PO DAILY 05/13/16 [History] Gabapentin 300 mg PO TID 05/13/16 [History] Aspirin EC [Ecotrin Low Dose] 81 mg PO BID 10/22/16 [History] Atenolol [Tenormin] 25 mg PO HS 10/22/16 [History] Bisacodyl [Dulcolax] 5 mg PO TID PRN 10/22/16 [History] Docusate [Colace] 200 mg PO BID 10/22/16 [History] Nitrofurantoin Monohyd/M-Cryst [Macrobid] 100 mg PO Q12HR 10/22/16 [History] Cefuroxime Axetil [Ceftin] 500 mg PO BID #20 tab 10/25/16 [Rx] Nicotine 21Mg/24Hr Patch [Habitrol] 1 each TRANSDERM DAILY #30 patch 10/25/16 [ Rx] Follow up Appointment(s)/Referral(s): Cecilia Aldridge MD [Primary Care Provider] - 3 Days Activity/Diet/Wound Care/Special Instructions: [facility]-[phone] Discharge Disposition: HOME SELF-CARE
--- NOTE | 2016-10-25 17:22 | PN ---
DATE OF SERVICE: 10/25/2016 REASON FOR FOLLOWUP: Fever and question of UTI/pneumonia. INTERVAL HISTORY: The patient is afebrile. She has been breathing comfortably. She continues to have some cough but is not bringing up any sputum. Denies chest pain. No abdominal pain. Urinary symptoms have resolved. On examination, blood pressure is 182/85 with a pulse of 71, temperature 97.1. She is 97% on room air. General description is an elderly female up in the bed in no distress. RESPIRATORY SYSTEM: Unlabored breathing. Some coarse breath sounds in the base. No wheeze. HEART: S1, S2. Regular rate and rhythm. ABDOMEN: Soft. No tenderness. LABS: Hemoglobin is 13.1 with a white count of 4.6 with a BUN of 12, creatinine 0.77. Blood culture negative. Urine is negative. DIAGNOSTIC IMPRESSION AND PLAN: Patient admitted to hospital with fever, rigors and chills with concern for possible urinary tract infection, as the patient has significant urinary symptoms. She also has a cough with abnormal chest x-ray. Underlying community-acquired pneumonia not entirely excluded. Patient did well on the Rocephin and Levaquin. Plan to finish therapy with p.o. Ceftin 500 mg twice a day for another 10 days with outpatient followup.
== END 2016-10-25 16:30 | disposition home health service (06) | DRG 871 ==
LOC: EC 20:11 → 5MS5E 22:16
PROVIDERS: ADMIT Internal Medicine; ATTEND Internal Medicine
DX: A41.9 Sepsis, unspecified organism (principal); J18.9 Pneumonia, unspecified organism; J84.9 Interstitial pulmonary disease, unspecified; E11.9 Type 2 diabetes mellitus without complications; N39.0 Urinary tract infection, site not specified; D64.9 Anemia, unspecified; J44.0 Chronic obstructive pulmonary disease with (acute) lower respiratory infection; I10 Essential (primary) hypertension; E83.42 Hypomagnesemia; K21.9 Gastro-esophageal reflux disease without esophagitis; E78.5 Hyperlipidemia, unspecified; M19.90 Unspecified osteoarthritis, unspecified site; F17.200 Nicotine dependence, unspecified, uncomplicated; G89.29 Other chronic pain; M54.5 Low back pain; Z87.440 Personal history of urinary (tract) infections; Z86.14 Personal history of Methicillin resistant Staphylococcus aureus infection; Z90.49 Acquired absence of other specified parts of digestive tract; Z90.710 Acquired absence of both cervix and uterus; Z96.651 Presence of right artificial knee joint; Z98.1 Arthrodesis status; Z79.84 Long term (current) use of oral hypoglycemic drugs; Z79.82 Long term (current) use of aspirin; Z79.1 Long term (current) use of non-steroidal anti-inflammatories (NSAID); Z79.899 Other long term (current) drug therapy; E05.90 Thyrotoxicosis, unspecified without thyrotoxic crisis or storm; Z86.19 Personal history of other infectious and parasitic diseases
CPT/HCPCS: 36415; 71020; 80048; 80053; 81001; 83036; 83605; 83735; 85025; 87040; 87086; 87502; 94640; 96361; 96365; 99285

== ENCOUNTER 2016-10-26 09:54 | Emergency (ER) | payer MEDICARE ==
[2016-10-26] MEDS ORDERED: KETOROLAC 60 MG/2 ML VIAL IVP STA (10:02)
--- NOTE | 2016-10-26 10:10 | ED ---
General Adult HPI - General Stated complaint: Weakness Time Seen by Provider: 10/26/16 09:55 Source: RN notes reviewed - History of Present Illness Initial comments: This is a 76-year-old female who presents to the emergency department today after having been released from the hospital recently. Patient states she was here because she was anemic she had a urinary tract infection and pneumonia. Patient comes back today she woke up with back pain so she took a [place] she didn 't wait for to kick in and called the ambulance. Patient states the back pain is in the lower left back radiates up to about her mid back crosses over to the right comes down on the right side to her right lower back. Patient denies any injury. Patient denies numbness weakness. Patient denies any fever or chills. Patient denies any difficulty breathing or chest pain. Patient denies any cough. Patient denies abdominal pain patient denies nausea vomiting diarrhea. Patient denies headache. Patient denies neck pain. Patient denies any lightheadedness dizziness or near syncopal episode. - Related Data Home Medications Medication Instructions Recorded Confirmed Baclofen 10 mg PO BID 05/03/15 10/26/16 Cranberry Conc/C/Bacill Coag 1 tab PO BID 05/03/15 10/26/16 [Cranberry Tablet] Diazepam [Valium] 5 mg PO HS PRN 05/03/15 10/26/16 L.acidoph,Paracasei, B.lactis 1 cap PO DAILY 05/03/15 10/26/16 [Probiotic] Meloxicam [Mobic] 7.5 mg PO DAILY 05/03/15 10/26/16 Multivitamins, Thera [Multivitamin] 1 tab PO DAILY 05/03/15 10/26/16 Omeprazole [PriLOSEC] 20 mg PO DAILY 05/03/15 10/26/16 Oxybutynin Chloride 5 mg PO BID 05/03/15 10/26/16 Simvastatin [Zocor] 40 mg PO HS 05/03/15 10/26/16 metFORMIN HCL [Glucophage] 500 mg PO BID 05/03/15 10/26/16 HYDROcodone/APAP 7.5-325MG [[place] 1 tab PO QID PRN 01/27/16 10/26/16 7.5-325] Biotin 5 mg PO DAILY 05/13/16 10/26/16 Gabapentin 300 mg PO QAM 05/13/16 10/26/16 Aspirin EC [Ecotrin Low Dose] 81 mg PO BID 10/22/16 10/26/16 Atenolol [Tenormin] 25 mg PO QAM 10/22/16 10/26/16 Bisacodyl [Dulcolax] 5 mg PO TID PRN 10/22/16 10/26/16 Docusate [Colace] 200 mg PO BID 10/22/16 10/26/16 Nitrofurantoin Monohyd/M-Cryst 100 mg PO Q12HR 10/22/16 10/26/16 [Macrobid] Gabapentin [Neurontin] 600 mg PO HS 10/26/16 10/26/16 Previous Rx's Medication Instructions Recorded Cefuroxime Axetil [Ceftin] 500 mg PO BID #20 tab 10/25/16 Allergies Allergy/AdvReac Type Severity Reaction Status Date / Time zolpidem [From Ambien] AdvReac Confusion Verified 10/26/16 12:19 Review of Systems ROS Statement: Those systems with pertinent positive or pertinent negative responses have been documented in the HPI. ROS Other: All systems not noted in ROS Statement are negative. Past Medical History Past Medical History: COPD, Diabetes Mellitus, GERD/Reflux, Hyperlipidemia, Hypertension, Osteoarthritis (OA), Pneumonia, Thyroid Disorder Additional Past Medical History / Comment(s): hepatitis-viral at age 10, sepsis 2009, chronic back pain History of Any Multi-Drug Resistant Organisms: MRSA Date of last positivie culture/infection: 2014 MDRO Source:: Urine Past Surgical History: Back Surgery, Cholecystectomy, Hysterectomy, Joint Replacement Additional Past Surgical History / Comment(s): Right knee replacement; Bowel Surgery, 3 spinal fusions Past Anesthesia/Blood Transfusion Reactions: No Reported Reaction Past Psychological History: No Psychological Hx Reported Smoking Status: Current every day smoker Past Alcohol Use History: None Reported Past Drug Use History: None Reported - Past Family History Mother Family Medical History: No Reported History General Exam - General Exam Comments Initial Comments: GENERAL: Patient is well-developed and well-nourished. Patient is nontoxic and well- hydrated and is in mild distress. ENT: Neck is soft and supple. No significant lymphadenopathy is noted. Oropharynx is clear. Moist mucous membranes. Neck has full range of motion without eliciting any pain. EYES: The sclera were anicteric and conjunctiva were pink and moist. Extraocular movements were intact and pupils were equal round and reactive to light. Eyelids were unremarkable. PULMONARY: Unlabored respirations. Good breath sounds bilaterally. No audible rales rhonchi or wheezing was noted. CARDIOVASCULAR: There is a regular rate and rhythm without any murmurs gallops or rubs. ABDOMEN: Soft and nontender with normal bowel sounds. No palpable organomegaly was noted. There is no palpable pulsatile mass. SKIN: Skin is clear with no lesions or rashes and otherwise unremarkable. NEUROLOGIC: Patient is alert and oriented x3. Cranial nerves II through XII are grossly intact. Motor and sensory are also intact. Normal speech, volume and content. Symmetrical smile. MUSCULOSKELETAL: Normal extremities with adequate strength and full range of motion. The back was mildly tender in the left CVA area others and that I found no palpable tenderness. Patient was able to sit up on her own and did not look like that caused her any pain. LYMPHATICS: No significant lymphadenopathy is noted PSYCHIATRIC: Normal psychiatric evaluation. Normal interpersonal interactions appears functionally intact in deals appropriately with others. No signs of depression. No signs of anxiety. Course Vital Signs 10/26/16 10/26/16 10/26/16 10:05 10:15 10:44 Temperature 98.0 F Pulse Rate 105 H 100 Respiratory 16 16 22 Rate Blood Pressure 147/72 149/71 O2 Sat by Pulse 84 L 91 L Oximetry 10/26/16 11:22 Temperature 98.0 F Pulse Rate 90 Respiratory 16 Rate Blood Pressure 137/72 O2 Sat by Pulse 96 Oximetry Medical Decision Making - Medical Decision Making EKG shows a normal sinus rhythm at 94 bpm MD interval is on a 56 QRS is 86 QT interval 394 QTC is 492. Patient's EKG shows no ST segment elevation or depression or T-wave abdomen is noted. Chest x-ray shows no acute abnormality. It looks exactly like the old chest x- ray from yesterday. I will begin to reevaluate the patient patient stated that she still had back pain but she has chronic back pain. I spoke with Dr. Lange I told him about the results of laboratory studies and he told me that the back pain she was experiencing was the chronic back pain she always has and he wanted to follow- up as an outpatient - Lab Data Result diagrams: 10/26/16 10:10 10/26/16 10:10 Lab Results 10/26/16 10/26/16 10/26/16 Range/Units 10:10 10:10 10:10 WBC 9.7 (3.8-10.6) k/uL RBC 4.75 (3.80-5.40) m/uL Hgb 14.4 (11.4-16.0) gm/dL Hct 45.1 (34.0-46.0) % MCV 95.0 (80.0-100.0) fL MCH 30.4 (25.0-35.0) pg MCHC 32.0 (31.0-37.0) g/dL RDW 13.1 (11.5-15.5) % Plt Count 204 (150-450) k/uL Neutrophils % 89 % Lymphocytes % 5 % Monocytes % 2 % Eosinophils % 4 % Basophils % 0 % Neutrophils # 8.6 H (1.3-7.7) k/uL Lymphocytes # 0.5 L (1.0-4.8) k/uL Monocytes # 0.2 (0-1.0) k/uL Eosinophils # 0.4 (0-0.7) k/uL Basophils # 0.0 (0-0.2) k/uL PT (9.0-12.0) sec INR (<1.1) APTT (22.0-30.0) sec Sodium 146 H (137-145) mmol/L Potassium 3.2 L (3.5-5.1) mmol/L Chloride 109 H (98-107) mmol/L Carbon Dioxide 26 (22-30) mmol/L Anion Gap 11 mmol/L BUN 12 (7-17) mg/dL Creatinine 0.81 (0.52-1.04) mg/dL Est GFR (MDRD) Af Amer >60 (>60 ml/min/1.73 sqM) Est GFR (MDRD) Non-Af >60 (>60 ml/min/1.73 sqM) Glucose 131 H (74-99) mg/dL POC Glucose (mg/dL) (75-99) mg/dL POC Glu Manager Facility ID Plasma Lactic Acid Farshad (0.7-2.0) mmol/L Calcium 9.0 (8.4-10.2) mg/dL Total Bilirubin 0.8 (0.2-1.3) mg/dL AST 27 (14-36) U/L ALT 43 (9-52) U/L Alkaline Phosphatase 138 H (38-126) U/L Total Creatine Kinase 62 (30-135) U/L CK-MB (CK-2) 1.1 (0.0-2.4) ng/mL CK-MB (CK-2) Rel Index 1.8 Troponin I <0.012 (0.000-0.034) ng/mL NT-Pro-B Natriuret Pep pg/mL Total Protein 6.7 (6.3-8.2) g/dL Albumin 3.6 (3.5-5.0) g/dL Urine Color Urine Appearance (Clear) Urine pH (5.0-8.0) Ur Specific [place] (1.001-1.035) Urine Protein (Negative) Urine Glucose (UA) (Negative) Urine Ketones (Negative) Urine Blood (Negative) Urine Nitrate (Negative) Urine Bilirubin (Negative) Urine Urobilinogen (<2.0) mg/dL Ur Leukocyte Esterase (Negative) 10/26/16 10/26/16 10/26/16 Range/Units 10:10 10:10 10:10 WBC (3.8-10.6) k/uL RBC (3.80-5.40) m/uL Hgb (11.4-16.0) gm/dL Hct (34.0-46.0) % MCV (80.0-100.0) fL MCH (25.0-35.0) pg MCHC (31.0-37.0) g/dL RDW (11.5-15.5) % Plt Count (150-450) k/uL Neutrophils % % Lymphocytes % % Monocytes % % Eosinophils % % Basophils % % Neutrophils # (1.3-7.7) k/uL Lymphocytes # (1.0-4.8) k/uL Monocytes # (0-1.0) k/uL Eosinophils # (0-0.7) k/uL Basophils # (0-0.2) k/uL PT 10.5 (9.0-12.0) sec INR 1.0 (<1.1) APTT 23.6 (22.0-30.0) sec Sodium (137-145) mmol/L Potassium (3.5-5.1) mmol/L Chloride (98-107) mmol/L Carbon Dioxide (22-30) mmol/L Anion Gap mmol/L BUN (7-17) mg/dL Creatinine (0.52-1.04) mg/dL Est GFR (MDRD) Af Amer (>60 ml/min/1.73 sqM) Est GFR (MDRD) Non-Af (>60 ml/min/1.73 sqM) Glucose (74-99) mg/dL POC Glucose (mg/dL) (75-99) mg/dL POC Glu Manager Facility ID Plasma Lactic Acid [place] 1.8 (0.7-2.0) mmol/L Calcium (8.4-10.2) mg/dL Total Bilirubin (0.2-1.3) mg/dL AST (14-36) U/L ALT (9-52) U/L Alkaline Phosphatase (38-126) U/L Total Creatine Kinase (30-135) U/L CK-MB (CK-2) (0.0-2.4) ng/mL CK-MB (CK-2) Rel Index Troponin I (0.000-0.034) ng/mL NT-Pro-B Natriuret Pep 5260 pg/mL Total Protein (6.3-8.2) g/dL Albumin (3.5-5.0) g/dL Urine Color Urine Appearance (Clear) Urine pH (5.0-8.0) Ur Specific [place] (1.001-1.035) Urine Protein (Negative) Urine Glucose (UA) (Negative) Urine Ketones (Negative) Urine Blood (Negative) Urine Nitrate (Negative) Urine Bilirubin (Negative) Urine Urobilinogen (<2.0) mg/dL Ur Leukocyte Esterase (Negative) 10/26/16 10/26/16 Range/Units 10:35 11:16 WBC (3.8-10.6) k/uL RBC (3.80-5.40) m/uL Hgb (11.4-16.0) gm/dL Hct (34.0-46.0) % MCV (80.0-100.0) fL MCH (25.0-35.0) pg MCHC (31.0-37.0) g/dL RDW (11.5-15.5) % Plt Count (150-450) k/uL Neutrophils % % Lymphocytes % % Monocytes % % Eosinophils % % Basophils % % Neutrophils # (1.3-7.7) k/uL Lymphocytes # (1.0-4.8) k/uL Monocytes # (0-1.0) k/uL Eosinophils # (0-0.7) k/uL Basophils # (0-0.2) k/uL PT (9.0-12.0) sec INR (<1.1) APTT (22.0-30.0) sec Sodium (137-145) mmol/L Potassium (3.5-5.1) mmol/L Chloride (98-107) mmol/L Carbon Dioxide (22-30) mmol/L Anion Gap mmol/L BUN (7-17) mg/dL Creatinine (0.52-1.04) mg/dL Est GFR (MDRD) Af Amer (>60 ml/min/1.73 sqM) Est GFR (MDRD) Non-Af (>60 ml/min/1.73 sqM) Glucose (74-99) mg/dL POC Glucose (mg/dL) 152 H (75-99) mg/dL POC Glu Manager Facility ID Shar Franco Plasma Lactic Acid [place] (0.7-2.0) mmol/L Calcium (8.4-10.2) mg/dL Total Bilirubin (0.2-1.3) mg/dL AST (14-36) U/L ALT (9-52) U/L Alkaline Phosphatase (38-126) U/L Total Creatine Kinase (30-135) U/L CK-MB (CK-2) (0.0-2.4) ng/mL CK-MB (CK-2) Rel Index Troponin I (0.000-0.034) ng/mL NT-Pro-B Natriuret Pep pg/mL Total Protein (6.3-8.2) g/dL Albumin (3.5-5.0) g/dL Urine Color Yellow Urine Appearance Clear (Clear) Urine pH 6.5 (5.0-8.0) Ur Specific [place] 1.007 (1.001-1.035) Urine Protein Negative (Negative) Urine Glucose (UA) Negative (Negative) Urine Ketones Negative (Negative) Urine Blood Negative (Negative) Urine Nitrate Negative (Negative) Urine Bilirubin Negative (Negative) Urine Urobilinogen <2.0 (<2.0) mg/dL Ur Leukocyte Esterase Negative (Negative) Disposition Clinical Impression: Chronic back pain Disposition: HOME SELF-CARE Instructions: Chronic Back Pain (ED) Referrals: Ceiclia Aldridge MD [Primary Care Provider] - 1-2 days Time of Disposition: 12:30
[2016-10-26] MEDS ORDERED: ACETAMINOPHEN TAB 500 MG TAB PO STA (10:15)
[2016-10-26] MEDS ORDERED: methylPREDNISolone SOD SUCCI 125 MG/2 ML VIAL IV STA (10:16)
[2016-10-26] MEDS ORDERED: IPRATROPIUM-ALBUTEROL 3 ML NEB INHALATION STA (10:16)
[2016-10-26] MEDS ORDERED: KETOROLAC 30 MG/ML 1 ML VIAL IVP STA (10:18)
[2016-10-26] MEDS ORDERED: IBUPROFEN IV 600 MG in SODIUM CHLORIDE 0.9% 250 ML IV STA (10:20)
[2016-10-26 10:26] VITALS: TEMP 98
[2016-10-26 10:37] LABS: Basophils % (A) 0 %; CH 31.6; CHCM 33.5; Eosinophils # (A) 0.4 k/uL (0-0.7); Eosinophils % (A) 4 %; HCT 45.1 % (34.0-46.0); HDW 3.07; HGB 14.4 gm/dL (11.4-16.0); Luc # (Auto) 0.06; Luc % (Auto) 1; Lymphocytes # (A) 0.5 k/uL (1.0-4.8); Lymphocytes % (A) 5 %; MCH 30.4 pg (25.0-35.0); Monocytes # (A) 0.2 k/uL (0-1.0); Monocytes % (A) 2 %; Neutrophils # (A) 8.6 k/uL (1.3-7.7); Neutrophils % (A) 89 %; RBC 4.75 m/uL (3.80-5.40); RDW 13.1 % (11.5-15.5); WBC 9.7 k/uL (3.8-10.6)
[2016-10-26 10:51] LABS: Partial Thromboplastin Time 23.6 sec (22.0-30.0); Prothrombin Time 10.5 sec (9.0-12.0)
[2016-10-26 10:55] LABS: ALT 43 U/L (9-52); AST 27 U/L (14-36); Alkaline Phosphatase 138 U/L (38-126); Anion Gap 11 mmol/L; Blood Urea Nitrogen 12 mg/dL (7-17); Carbon Dioxide 26 mmol/L (22-30); Chloride 109 mmol/L (98-107); Glucose 131 mg/dL (74-99); Non-African American GFR(MDRD) >60 (>60 ml/min/1.73 sqM); Potassium 3.2 mmol/L (3.5-5.1); Sodium 146 mmol/L (137-145); Total Bilirubin 0.8 mg/dL (0.2-1.3); Total Protein 6.7 g/dL (6.3-8.2)
[2016-10-26 11:04] LABS: Creatine Kinase 62 U/L (30-135)
--- NOTE | 2016-10-26 11:13 | XR ---
EXAMINATION TYPE: XR chest 2V DATE OF EXAM: 10/26/2016 11:07 AM COMPARISON: NONE INDICATION: Difficulty breathing TECHNIQUE: Single frontal view of the chest is obtained. FINDINGS: The heart size is normal. The pulmonary vasculature is normal. Fluid appears to be along the major fissure identified on the lateral projection. Small posterior ple ural effusion is present likely on the right. Some mild bibasilar infiltrates may be present. IMPRESSION: 1. Small pleural effusions and fluid within the major fissure. 2. Subsegmental atelectasis bilateral lung bases
[2016-10-26 11:17] LABS: Glucose,Whole Blood 152 mg/dL (75-99)
[2016-10-26 11:17] LABS: Creatine Kinase MB 1.1 ng/mL (0.0-2.4); Troponin I <0.012 ng/mL (0.000-0.034)
[2016-10-26 11:24] VITALS: BP 137/72; PULSE 90; RESP 16
[2016-10-26 11:52] LABS: Appearance,Urine Clear (Clear); Bilirubin,Urine Negative (Negative); Glucose,Urine (UA) Negative (Negative); Ketones,Urine Negative (Negative); Leukocyte Esterase,Urine Negative (Negative); Nitrite,Urine Negative (Negative); PH, Urine 6.5 (5.0-8.0); Protein,Urine Negative (Negative); Specific Gravity,Urine 1.007 (1.001-1.035); UA Billing (MACRO vs. MICRO) CHEM; Urobilinogen,Urine <2.0 mg/dL (<2.0)
== END 2016-10-26 13:26 | disposition home or self-care (01) ==
LOC: EC 09:54
DX: M54.5 Low back pain (principal); G89.29 Other chronic pain; E11.9 Type 2 diabetes mellitus without complications; K21.9 Gastro-esophageal reflux disease without esophagitis; E78.5 Hyperlipidemia, unspecified; I10 Essential (primary) hypertension; M19.90 Unspecified osteoarthritis, unspecified site; F17.200 Nicotine dependence, unspecified, uncomplicated; Z79.1 Long term (current) use of non-steroidal anti-inflammatories (NSAID); Z79.899 Other long term (current) drug therapy; Z79.84 Long term (current) use of oral hypoglycemic drugs; Z79.82 Long term (current) use of aspirin; Z88.8 Allergy status to other drugs, medicaments and biological substances; Z87.440 Personal history of urinary (tract) infections
CPT/HCPCS: 36415; 93005; 83880; 80053; 82550; 82553; 83605; 84484; 85025; 85610; 85730; 81003; 87040; 71020; 99285; 96365; 96375; J1885; J1741

== ENCOUNTER → 2016-11-19 | Outpatient (CLI) | payer MEDICARE ==
--- NOTE | 2016-11-19 15:45 | US ---
EXAMINATION TYPE: US carotid duplex BILAT DATE OF EXAM: 11/19/2016 3:20 PM COMPARISON: NONE CLINICAL HISTORY: R09.89 Cardiac respiratory system. Bruit EXAM MEASUREMENTS: RIGHT: Peak Systolic Velocity (PSV) cm/sec ----- Right CCA: 73.8 ----- Right ICA: 86.4 ----- Right ECA: 60.9 ICA/CCA ratio: 1.2 RIGHT: End Diastole cm/sec ----- Right CCA: 20.6 ----- Right ICA: 30.3 ----- Right ECA: 11.1 LEFT: Peak Systolic Velocity (PSV) cm/sec ----- Left CCA: 64.2 ----- Left ICA: 80.9 ----- Left ECA: 64.4 ICA/CCA ratio: 1.3 LEFT: End Diastole cm/sec ----- Left CCA: 18.8 ----- Left ICA: 31.4 ----- Left ECA: 10.6 VERTEBRALS (direction of flow): Right Vertebral: Antegrade Left Vertebral: Antegrade FINDINGS: 1. Bilateral tortuosity with wall thickening and scattered plaque. 2. No elevated velocities in either ICA. 3. No significant stenosis. IMPRESSION: 1. There is plaque bilaterally with no diagnostic evidence of significant stenosis. 2. Findings are suspicious for thyroid nodules which could be correlated with dedicated thyroid ultra sound.
== END | disposition home or self-care (01) ==
LOC: RADUSWWP 14:53
PROVIDERS: ATTEND Family Medicine
DX: I65.23 Occlusion and stenosis of bilateral carotid arteries (principal)
CPT/HCPCS: 93880

== ENCOUNTER → 2016-12-05 | Outpatient (CLI) | payer MEDICARE ==
[2016-12-05 16:31] LABS: Blood Urea Nitrogen 16 mg/dL (7-17); Non-African American GFR(MDRD) 58 (>60 ml/min/1.73 sqM)
--- NOTE | 2016-12-05 17:57 | CT ---
EXAMINATION TYPE: CT chest w con DATE OF EXAM: 12/05/2016 5:12 PM COMPARISON: NONE HISTORY: Pt states of pulmonary nodules. CT DLP: 381 mGycm Automated exposure control for dose reduction was used. CONTRAST: CT scan of the chest is performed with IV Contrast, patient injected with 80 mL of Visipaque 320. FINDINGS: There is a triangular-shaped 3 x 2 cm infiltrate adjacent to the pleura in the anterior right upper l obe. There is subpleural reticular interstitial type infiltrate at the posterior lung bases. There is no pleural effusion. There is no pericardial effusion. There are no hilar masses. There is no medias tinal adenopathy. Thoracic aorta is atheromatous. Ascending aorta measures 3.7 cm. I see no filling d efects in the pulmonary arteries. There are some spondylotic changes in the thoracic spine. There is no mediastinal adenopathy. IMPRESSION: There is subpleural bilateral basilar interstitial infiltrates probably related to scarr ing and fibrosis. There is a larger triangular-shaped infiltrate adjacent to the pleura in the anteri or right upper lobe that is probably also due to scarring. I think this could be followed conservativ [place] with repeat exam in 6 months if clinically indicated. 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
== END ==
LOC: RADCTMAIN 16:00
PROVIDERS: ATTEND Internal Medicine Sleep Medicine
DX: R91.8 Other nonspecific abnormal finding of lung field (principal); I25.10 Atherosclerotic heart disease of native coronary artery without angina pectoris
CPT/HCPCS: 82565; 84520; 71260; 36415; Q9967

== ENCOUNTER 2017-03-29 19:52 | Inpatient (IN) | payer MEDICARE ==
[2017-03-29] MEDS ORDERED: ACETAMINOPHEN TAB 325 MG TAB PO STA (20:01)
[2017-03-29 20:09] LABS: Basophils % (A) 0 %; CH 31.2; CHCM 34.4; Eosinophils # (A) 0.2 k/uL (0-0.7); Eosinophils % (A) 2 %; HCT 44.6 % (34.0-46.0); HDW 2.74; HGB 14.9 gm/dL (11.4-16.0); Luc # (Auto) 0.05; Luc % (Auto) 0; Lymphocytes # (A) 0.3 k/uL (1.0-4.8); Lymphocytes % (A) 3 %; MCH 30.6 pg (25.0-35.0); MCHC 33.5 g/dL (31.0-37.0); MCV 91.4 fL (80.0-100.0); Mean Platelet Volume 7.6; Monocytes # (A) 0.1 k/uL (0-1.0); Monocytes % (A) 1 %; Neutrophils # (A) 10.3 k/uL (1.3-7.7); Neutrophils % (A) 93 %; RBC 4.88 m/uL (3.80-5.40); RDW 14.7 % (11.5-15.5); WBC (Perox) 10.67
[2017-03-29] MEDS: SODIUM CHLORIDE 0.9% 500 ML IV SCH (20:15)
[2017-03-29 20:18] LABS: INR 1.2 (<1.2); Partial Thromboplastin Time 26.5 sec (22.0-30.0); Prothrombin Time 11.9 sec (9.0-12.0)
[2017-03-29 20:19] LABS: ALT 25 U/L (9-52); AST 21 U/L (14-36); Alkaline Phosphatase 72 U/L (38-126); Anion Gap 13 mmol/L; Blood Urea Nitrogen 24 mg/dL (7-17); Calcium 9.2 mg/dL (8.4-10.2); Carbon Dioxide 18 mmol/L (22-30); Chloride 108 mmol/L (98-107); Glucose 149 mg/dL (74-99); Non-African American GFR(MDRD) >60 (>60 ml/min/1.73 sqM); Potassium 3.8 mmol/L (3.5-5.1); Sodium 139 mmol/L (137-145); Total Bilirubin 0.8 mg/dL (0.2-1.3); Total Protein 7.1 g/dL (6.3-8.2)
[2017-03-29 20:41] LABS: Creatine Kinase MB 0.4 ng/mL (0.0-2.4)
[2017-03-29 20:46] LABS: Troponin I 0.049 ng/mL (0.000-0.034)
[2017-03-29] MEDS ORDERED: ASPIRIN 325 MG TAB PO STA (20:52)
--- NOTE | 2017-03-29 21:02 | XR ---
EXAMINATION TYPE: XR chest 2V DATE OF EXAM: 03/29/2017 COMPARISON: Chest x-ray October 26, 2016. CT chest December 05, 2016. HISTORY: Cough and fever. TECHNIQUE: Frontal and lateral views of the chest are obtained. FINDINGS: There is background chronic emphysematous change. There is persistent right upper lobe mas slike consolidation. Small amount of fluid within the major fissures as seen on lateral view. Left carlene ng is clear. No pneumothorax is seen bilaterally. The cardiac silhouette size is upper limits of norm al with ectatic aortic knob redemonstrated. Postsurgical change in lumbar spine is partially imaged. Cholecystectomy clips are noted. IMPRESSION: Chronic emphysematous change without suspicious masslike consolidation right upper lobe r edemonstrated. While this could reflect product of acute infectious process given its persistence sin ce CT mass or neoplasm cannot be excluded. Consider PET/CT follow-up.
[2017-03-29] MEDS ORDERED: SODIUM CHLORIDE 0.9% 1,000 ML IV STA (21:23)
[2017-03-29 21:43] LABS: Appearance,Urine Clear (Clear); Bilirubin,Urine Negative (Negative); Glucose,Urine (UA) Negative (Negative); Ketones,Urine 1+ (Negative); Leukocyte Esterase,Urine Large (Negative); Mucus,Urine Rare /hpf; Nitrite,Urine Negative (Negative); PH, Urine 5.5 (5.0-8.0); Particle Count 2793; Protein,Urine 1+ (Negative); RBC,Urine 11 /hpf (0-5); Specific Gravity,Urine 1.015 (1.001-1.035); UA Billing (MACRO vs. MICRO) MICRO; Urobilinogen,Urine <2.0 mg/dL (<2.0); WBC,Urine 75 /hpf (0-5)
[2017-03-29] MEDS ORDERED: IV VANCOMYCIN PER PHARMACY 1 EACH MISC MISCELLANE PRN (21:57)
[2017-03-29] MEDS ORDERED: LEVOFLOXACIN 750MG-D5W PMX 750 MG in DEXTROSE/WATER 1 150ML.BAG IVPB SCH (22:00)
--- NOTE | 2017-03-29 22:15 | ED ---
General Adult HPI - General Chief complaint: Chest Pain Stated complaint: Chest pain Time Seen by Provider: 03/29/17 20:00 Source: patient, EMS, RN notes reviewed Mode of arrival: EMS Limitations: no limitations - History of Present Illness Initial comments: 76-year-old female presents with chief complaint of fever. Patient was brought in by EMS. Patient complained of cough. She does have a history of COPD. Additional medical history of hypertension and history of breast cancer. Patient also is currently being treated as an outpatient for urinary tract infection, she complains of persistent dysuria. Denies chest pain. Denies chest pain over the past several weeks. No shortness of breath. Patient does report decreased appetite and believes she may be dehydrated. - Related Data Home Medications Medication Instructions Recorded Confirmed Baclofen 10 mg PO BID 05/03/15 10/26/16 Cranberry Conc/C/Bacill Coag 1 tab PO BID 05/03/15 10/26/16 [Cranberry Tablet] Diazepam [Valium] 5 mg PO HS PRN 05/03/15 10/26/16 L.acidoph,Paracasei, B.lactis 1 cap PO DAILY 05/03/15 10/26/16 [Probiotic] Meloxicam [Mobic] 7.5 mg PO DAILY 05/03/15 10/26/16 Multivitamins, Thera [Multivitamin 1 tab PO DAILY 05/03/15 10/26/16 (formulary)] Omeprazole [PriLOSEC] 20 mg PO DAILY 05/03/15 10/26/16 Oxybutynin Chloride 5 mg PO BID 05/03/15 10/26/16 Simvastatin [Zocor] 40 mg PO HS 05/03/15 10/26/16 metFORMIN HCL [Glucophage] 500 mg PO BID 05/03/15 10/26/16 HYDROcodone/APAP 7.5-325MG [[place] 1 tab PO QID PRN 01/27/16 10/26/16 7.5-325] Biotin 5 mg PO DAILY 05/13/16 10/26/16 Gabapentin 300 mg PO QAM 05/13/16 10/26/16 Aspirin EC [Ecotrin Low Dose] 81 mg PO BID 10/22/16 10/26/16 Atenolol [Tenormin] 25 mg PO QAM 10/22/16 10/26/16 Bisacodyl [Dulcolax] 5 mg PO TID PRN 10/22/16 10/26/16 Docusate [Colace] 200 mg PO BID 10/22/16 10/26/16 Nitrofurantoin Monohyd/M-Cryst 100 mg PO Q12HR 10/22/16 10/26/16 [Macrobid] Gabapentin [Neurontin] 600 mg PO HS 10/26/16 10/26/16 Previous Rx's Medication Instructions Recorded Cefuroxime Axetil [Ceftin] 500 mg PO BID #20 tab 10/25/16 Allergies Allergy/AdvReac Type Severity Reaction Status Date / Time bee venom protein (honey bee) Allergy Swelling Verified 03/29/17 20:04 cefuroxime Allergy Swelling Verified 03/29/17 20:04 zolpidem [From Ambien] AdvReac Confusion Verified 03/29/17 20:04 Review of Systems ROS Statement: Those systems with pertinent positive or pertinent negative responses have been documented in the HPI. ROS Other: All systems not noted in ROS Statement are negative. Past Medical History Past Medical History: COPD, Diabetes Mellitus, GERD/Reflux, Hyperlipidemia, Hypertension, Osteoarthritis (OA), Pneumonia, Thyroid Disorder Additional Past Medical History / Comment(s): hepatitis-viral at age 10, sepsis 2009, chronic back pain History of Any Multi-Drug Resistant Organisms: MRSA Date of last positivie culture/infection: 2014 MDRO Source:: Urine Past Surgical History: Back Surgery, Cholecystectomy, Hysterectomy, Joint Replacement Additional Past Surgical History / Comment(s): Right knee replacement; Bowel Surgery, 3 spinal fusions Past Anesthesia/Blood Transfusion Reactions: No Reported Reaction Past Psychological History: No Psychological Hx Reported Smoking Status: Current every day smoker Past Alcohol Use History: None Reported Past Drug Use History: None Reported - Past Family History Mother Family Medical History: No Reported History General Exam Limitations: no limitations General appearance: alert, in no apparent distress Head exam: Present: atraumatic, normocephalic Eye exam: Present: normal appearance, PERRL. Absent: scleral icterus, conjunctival injection ENT exam: Present: normal exam, mucous membranes dry Neck exam: Present: normal inspection, full ROM. Absent: meningismus Respiratory exam: Present: normal lung sounds bilaterally, decreased breath sounds. Absent: respiratory distress Cardiovascular Exam: Present: normal rhythm, tachycardia GI/Abdominal exam: Present: soft. Absent: distended, tenderness Rectal exam: Present: normal inspection, normal rectal tone, heme (-) stool Extremities exam: Present: normal inspection, normal capillary refill. Absent: pedal edema Back exam: Present: normal inspection. Absent: CVA tenderness (R), CVA tenderness (L) Neurological exam: Present: alert, oriented X3, CN II-XII intact. Absent: motor sensory deficit Psychiatric exam: Present: normal affect, normal mood Skin exam: Present: warm, dry, rash. Absent: cyanosis, diaphoretic Course Vital Signs 03/29/17 03/29/17 03/29/17 19:53 20:17 20:43 Temperature 100.8 F H Pulse Rate 95 87 Respiratory 20 20 20 Rate Blood Pressure 156/73 138/80 O2 Sat by Pulse 94 L 96 Oximetry 03/29/17 21:35 Temperature 99.3 F Pulse Rate 75 Respiratory 18 Rate Blood Pressure 108/57 O2 Sat by Pulse 95 Oximetry EKG Findings - EKG Comments: EKG Findings:: EKG shows normal sinus rhythm, interventricular block, ventricular rate 98, ID interval 150, QRS duration 126, QTC is 515. EKG obtained in October 2016 shows normal sinus rhythm with no interventricular block , there was prolonged QT in previous EKG Medical Decision Making - Medical Decision Making 76-year-old female presenting with fever, mild cough. And dysuria. Patient is febrile on examination. Lungs are decreased bilaterally, no rhonchi, no wheezing. Abdomen soft nontender, no rash present, no CVA tenderness. EKG obtained shows a interventricular block, with discordant ST segment elevation in the precordium. Case is discussed with cardiology and EKG is reviewed, no signs of acute ischemia. Again patient is chest pain-free, no history of chest pain. Laboratory studies reveal mild elevated white blood cell count at 11, hemoglobin stable, and creatinine is normal, there is a mild elevation in serum troponin. This finding is again discussed with cardiology, patient will be given an aspirin and serial troponins will be obtained. As is likely secondary to sepsis. Chest x-ray shows pneumonia versus mass in the right upper lobe. Urinalysis is positive for infection. Blood culture and urine culture are pending. Lactic acid is normal. Patient's given IV hydration, and antipyretics as well as broad -spectrum antibiotics in the emergency department. Patient will be admitted for sepsis, lung versus urinary source. Elevated troponin likely secondary to sepsis. - Lab Data Result diagrams: 03/29/17 20:01 03/29/17 20:01 Lab Results 03/29/17 03/29/17 03/29/17 Range/Units 20:01 20:01 20:01 WBC 11.0 H (3.8-10.6) k/uL RBC 4.88 (3.80-5.40) m/uL Hgb 14.9 (11.4-16.0) gm/dL Hct 44.6 (34.0-46.0) % MCV 91.4 (80.0-100.0) fL MCH 30.6 (25.0-35.0) pg MCHC 33.5 (31.0-37.0) g/dL RDW 14.7 (11.5-15.5) % Plt Count 233 (150-450) k/uL Neutrophils % 93 % Lymphocytes % 3 % Monocytes % 1 % Eosinophils % 2 % Basophils % 0 % Neutrophils # 10.3 H (1.3-7.7) k/uL Lymphocytes # 0.3 L (1.0-4.8) k/uL Monocytes # 0.1 (0-1.0) k/uL Eosinophils # 0.2 (0-0.7) k/uL Basophils # 0.0 (0-0.2) k/uL PT (9.0-12.0) sec INR (<1.2) APTT (22.0-30.0) sec Sodium 139 (137-145) mmol/L Potassium 3.8 (3.5-5.1) mmol/L Chloride 108 H (98-107) mmol/L Carbon Dioxide 18 L (22-30) mmol/L Anion Gap 13 mmol/L BUN 24 H (7-17) mg/dL Creatinine 0.90 (0.52-1.04) mg/dL Est GFR (MDRD) Af Amer >60 (>60 ml/min/1.73 sqM) Est GFR (MDRD) Non-Af >60 (>60 ml/min/1.73 sqM) Glucose 149 H (74-99) mg/dL Plasma Lactic Acid Farshad (0.7-2.0) mmol/L Calcium 9.2 (8.4-10.2) mg/dL Total Bilirubin 0.8 (0.2-1.3) mg/dL AST 21 (14-36) U/L ALT 25 (9-52) U/L Alkaline Phosphatase 72 (38-126) U/L Total Creatine Kinase 41 (30-135) U/L CK-MB (CK-2) 0.4 (0.0-2.4) ng/mL CK-MB (CK-2) Rel Index 1.0 Troponin I 0.049 H* (0.000-0.034) ng/mL Total Protein 7.1 (6.3-8.2) g/dL Albumin 3.9 (3.5-5.0) g/dL Urine Color Urine Appearance (Clear) Urine pH (5.0-8.0) Ur Specific Orient (1.001-1.035) Urine Protein (Negative) Urine Glucose (UA) (Negative) Urine Ketones (Negative) Urine Blood (Negative) Urine Nitrite (Negative) Urine Bilirubin (Negative) Urine Urobilinogen (<2.0) mg/dL Ur Leukocyte Esterase (Negative) Urine RBC (0-5) /hpf Urine WBC (0-5) /hpf Urine Mucus (None) /hpf Stool Occult Blood (Negative) 03/29/17 03/29/17 03/29/17 Range/Units 20:01 20:01 21:17 WBC (3.8-10.6) k/uL RBC (3.80-5.40) m/uL Hgb (11.4-16.0) gm/dL Hct (34.0-46.0) % MCV (80.0-100.0) fL MCH (25.0-35.0) pg MCHC (31.0-37.0) g/dL RDW (11.5-15.5) % Plt Count (150-450) k/uL Neutrophils % % Lymphocytes % % Monocytes % % Eosinophils % % Basophils % % Neutrophils # (1.3-7.7) k/uL Lymphocytes # (1.0-4.8) k/uL Monocytes # (0-1.0) k/uL Eosinophils # (0-0.7) k/uL Basophils # (0-0.2) k/uL PT 11.9 (9.0-12.0) sec INR 1.2 H (<1.2) APTT 26.5 (22.0-30.0) sec Sodium (137-145) mmol/L Potassium (3.5-5.1) mmol/L Chloride (98-107) mmol/L Carbon Dioxide (22-30) mmol/L Anion Gap mmol/L BUN (7-17) mg/dL Creatinine (0.52-1.04) mg/dL Est GFR (MDRD) Af Amer (>60 ml/min/1.73 sqM) Est GFR (MDRD) Non-Af (>60 ml/min/1.73 sqM) Glucose (74-99) mg/dL Plasma Lactic Acid Farshad 1.2 (0.7-2.0) mmol/L Calcium (8.4-10.2) mg/dL Total Bilirubin (0.2-1.3) mg/dL AST (14-36) U/L ALT (9-52) U/L Alkaline Phosphatase (38-126) U/L Total Creatine Kinase (30-135) U/L CK-MB (CK-2) (0.0-2.4) ng/mL CK-MB (CK-2) Rel Index Troponin I (0.000-0.034) ng/mL Total Protein (6.3-8.2) g/dL Albumin (3.5-5.0) g/dL Urine Color Urine Appearance (Clear) Urine pH (5.0-8.0) Ur Specific Orient (1.001-1.035) Urine Protein (Negative) Urine Glucose (UA) (Negative) Urine Ketones (Negative) Urine Blood (Negative) Urine Nitrite (Negative) Urine Bilirubin (Negative) Urine Urobilinogen (<2.0) mg/dL Ur Leukocyte Esterase (Negative) Urine RBC (0-5) /hpf Urine WBC (0-5) /hpf Urine Mucus (None) /hpf Stool Occult Blood Negative (Negative) 03/29/17 Range/Units 21:33 WBC (3.8-10.6) k/uL RBC (3.80-5.40) m/uL Hgb (11.4-16.0) gm/dL Hct (34.0-46.0) % MCV (80.0-100.0) fL MCH (25.0-35.0) pg MCHC (31.0-37.0) g/dL RDW (11.5-15.5) % Plt Count (150-450) k/uL Neutrophils % % Lymphocytes % % Monocytes % % Eosinophils % % Basophils % % Neutrophils # (1.3-7.7) k/uL Lymphocytes # (1.0-4.8) k/uL Monocytes # (0-1.0) k/uL Eosinophils # (0-0.7) k/uL Basophils # (0-0.2) k/uL PT (9.0-12.0) sec INR (<1.2) APTT (22.0-30.0) sec Sodium (137-145) mmol/L Potassium (3.5-5.1) mmol/L Chloride (98-107) mmol/L Carbon Dioxide (22-30) mmol/L Anion Gap mmol/L BUN (7-17) mg/dL Creatinine (0.52-1.04) mg/dL Est GFR (MDRD) Af Amer (>60 ml/min/1.73 sqM) Est GFR (MDRD) Non-Af (>60 ml/min/1.73 sqM) Glucose (74-99) mg/dL Plasma Lactic Acid Farshad (0.7-2.0) mmol/L Calcium (8.4-10.2) mg/dL Total Bilirubin (0.2-1.3) mg/dL AST (14-36) U/L ALT (9-52) U/L Alkaline Phosphatase (38-126) U/L Total Creatine Kinase (30-135) U/L CK-MB (CK-2) (0.0-2.4) ng/mL CK-MB (CK-2) Rel Index Troponin I (0.000-0.034) ng/mL Total Protein (6.3-8.2) g/dL Albumin (3.5-5.0) g/dL Urine Color Yellow Urine Appearance Clear (Clear) Urine pH 5.5 (5.0-8.0) Ur Specific Orient 1.015 (1.001-1.035) Urine Protein 1+ H (Negative) Urine Glucose (UA) Negative (Negative) Urine Ketones 1+ H (Negative) Urine Blood Trace H (Negative) Urine Nitrite Negative (Negative) Urine Bilirubin Negative (Negative) Urine Urobilinogen <2.0 (<2.0) mg/dL Ur Leukocyte Esterase Large H (Negative) Urine RBC 11 H (0-5) /hpf Urine WBC 75 H (0-5) /hpf Urine Mucus Rare H (None) /hpf Stool Occult Blood (Negative) Disposition Clinical Impression: Sepsis Disposition: ADMITTED IP TO THIS HOSP Condition: Stable Referrals: Cecilia Aldridge MD [Primary Care Provider] - 1-2 days Decision to Admit Reason: Admit from EC Decision Date: 03/29/17 Decision Time: 22:17
[2017-03-29] MEDS: SODIUM CHLORIDE 0.9% 1,000 ML IV SCH (22:20)
[2017-03-29] MEDS ORDERED: VANCOMYCIN 1,000 MG in SODIUM CHLORIDE 0.9% 250 ML IVPB ONE (23:30)
[2017-03-30 03:21] LABS: Troponin I 0.061 ng/mL (0.000-0.034)
[2017-03-30] MEDS: SODIUM CHLORIDE 0.9% 1,000 ML IV SCH (06:19)
[2017-03-30 08:50] LABS: Anion Gap 7 mmol/L; Blood Urea Nitrogen 22 mg/dL (7-17); Calcium 7.9 mg/dL (8.4-10.2); Carbon Dioxide 20 mmol/L (22-30); Chloride 112 mmol/L (98-107); Glucose 91 mg/dL (74-99); Non-African American GFR(MDRD) >60 (>60 ml/min/1.73 sqM); Potassium 3.8 mmol/L (3.5-5.1); Sodium 139 mmol/L (137-145)
[2017-03-30 08:59] LABS: Creatine Kinase MB 1.1 ng/mL (0.0-2.4); Troponin I 0.022 ng/mL (0.000-0.034)
[2017-03-30] MEDS ORDERED: ATENOLOL 50 MG TAB PO SCH (09:00)
--- NOTE | 2017-03-30 11:47 | P.CRDCN ---
History of Present Illness Consult date: 03/30/17 Chief complaint: Cough History of present illness: This is a pleasant 76-year-old female patient with no history of CAD but history of COPD and prior history of smoking who presented to the hospital complaining of cough productive of sputum. She stated that she did not have any chest pain or discomfort nor shortness of breath. We get involved in the care of the patient because of abnormal cardiac enzymes as well as because of abnormal EKG. I reviewed the EKG which showed sinus rhythm with T-wave inversion in the anterolateral leads quite suspicious for ischemia. 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 She underwent a chest x-ray which showed suspicious finding of masslike. CT/ bit was recommended. Past Medical History Past Medical History: COPD, Diabetes Mellitus, GERD/Reflux, Hyperlipidemia, Hypertension, Osteoarthritis (OA), Pneumonia, Thyroid Disorder Additional Past Medical History / Comment(s): hepatitis-viral at age 10, sepsis 2009, chronic back pain History of Any Multi-Drug Resistant Organisms: MRSA Date of last positivie culture/infection: 2016 MDRO Source:: Urine Past Surgical History: Back Surgery, Cholecystectomy, Hysterectomy, Joint Replacement Additional Past Surgical History / Comment(s): Right knee replacement; Bowel Surgery, 3 spinal fusions Past Anesthesia/Blood Transfusion Reactions: No Reported Reaction Past Psychological History: No Psychological Hx Reported Smoking Status: Current every day smoker Past Alcohol Use History: None Reported Past Drug Use History: None Reported - Past Family History Mother Family Medical History: No Reported History Medications and Allergies Home Medications Medication Instructions Recorded Confirmed Type Baclofen 10 mg PO BID 05/03/15 03/30/17 History Diazepam [Valium] 5 mg PO HS PRN 05/03/15 03/30/17 History Meloxicam [Mobic] 7.5 mg PO BID 05/03/15 03/30/17 History Multivitamins, Thera [Multivitamin 1 tab PO DAILY 05/03/15 03/30/17 History (formulary)] Omeprazole [PriLOSEC] 20 mg PO DAILY 05/03/15 03/30/17 History Simvastatin [Zocor] 40 mg PO HS 05/03/15 03/30/17 History metFORMIN HCL [Glucophage] 500 mg PO BID 05/03/15 03/30/17 History HYDROcodone/APAP 7.5-325MG [[place] 1 tab PO QID PRN 01/27/16 03/30/17 History 7.5-325] Biotin 5 mg PO DAILY 05/13/16 03/30/17 History Gabapentin 300 mg PO QAM 05/13/16 03/30/17 History Aspirin EC [Ecotrin Low Dose] 81 mg PO DAILY 10/22/16 03/30/17 History Atenolol [Tenormin] 25 mg PO QAM 10/22/16 03/30/17 History Gabapentin [Neurontin] 600 mg PO HS 10/26/16 03/30/17 History Escitalopram [Lexapro] 5 mg PO HS 03/30/17 03/30/17 History Furosemide [Lasix] 10 - 30 mg PO DAILY PRN 03/30/17 03/30/17 History Lisinopril [Zestril] 10 mg PO DAILY 03/30/17 03/30/17 History Mirabegron [Myrbetriq] 25 mg PO QAM 03/30/17 03/30/17 History cloNIDine HCL [Catapres] 0.1 mg PO BID PRN 03/30/17 03/30/17 History Allergies Allergy/AdvReac Type Severity Reaction Status Date / Time bee venom protein (honey bee) Allergy Swelling Verified 03/30/17 09:09 cefuroxime Allergy Swelling Verified 03/30/17 09:09 zolpidem [From Ambien] AdvReac Confusion Verified 03/30/17 09:09 Physical Exam Vitals: Vital Signs Temp Pulse Pulse Resp BP BP Pulse Ox 03/30/17 11:33 98.1 F 74 20 123/58 94 L 03/30/17 08:00 97.6 F 82 20 117/56 94 L 03/30/17 04:00 97.6 F 62 17 101/52 99 03/30/17 00:49 97.1 F L 68 18 101/52 95 03/29/17 23:51 97.1 F L 68 18 101/52 95 03/29/17 23:19 98.2 F 69 18 100/55 96 03/29/17 22:21 98.6 F 69 18 99/55 96 03/29/17 21:35 99.3 F 75 18 108/57 95 03/29/17 20:43 20 03/29/17 20:17 87 20 138/80 96 03/29/17 19:53 100.8 F H 95 20 156/73 94 L Intake and Output 03/29/17 03/30/17 03/30/17 22:59 06:59 14:59 Intake Total 975 Balance 975 Intake: Intake, IV Titration 975 Amount Levofloxacin 750Mg-D5w 100 Pmx 750 mg In Dextrose/ Water 1 150ml.bag @ 100 mls/hr IVPB Q24H [facility] Rx#: [id number] Sodium Chloride 0.9% 1, 750 000 ml @ 150 mls/hr IV . Q6H40M [facility] Rx#:[id number] Vancomycin 1,000 mg In 125 Sodium Chloride 0.9% 250 ml @ 125 mls/hr IVPB Q24H [facility] Rx#:[id number] Other: Voiding Method Toilet Toilet # Voids 1 Weight 59.874 kg 55 kg - Constitutional General appearance: no acute distress - Respiratory Respiratory: bilateral: rales - Cardiovascular Rhythm: regular Heart sounds: normal: S1, S2 Abnormal Heart Sounds: systolic murmur Results 03/29/17 20:01 03/30/17 08:15 Cardiac Enzymes 03/29/17 03/29/17 03/30/17 Range/Units 20:01 20:01 02:20 AST 21 (14-36) U/L CK-MB (CK-2) 0.4 1.0 (0.0-2.4) ng/mL Troponin I 0.049 H* 0.061 H* (0.000-0.034) ng/mL 03/30/17 Range/Units 08:15 AST (14-36) U/L CK-MB (CK-2) 1.1 (0.0-2.4) ng/mL Troponin I 0.022 (0.000-0.034) ng/mL Coagulation 03/29/17 Range/Units 20:01 PT 11.9 (9.0-12.0) sec APTT 26.5 (22.0-30.0) sec CBC 03/29/17 Range/Units 20:01 WBC 11.0 H (3.8-10.6) k/uL RBC 4.88 (3.80-5.40) m/uL Hgb 14.9 (11.4-16.0) gm/dL Hct 44.6 (34.0-46.0) % Plt Count 233 (150-450) k/uL Comprehensive Metabolic Panel 03/29/17 03/30/17 Range/Units 20:01 08:15 Sodium 139 139 (137-145) mmol/L Potassium 3.8 3.8 (3.5-5.1) mmol/L Chloride 108 H 112 H (98-107) mmol/L Carbon Dioxide 18 L 20 L (22-30) mmol/L BUN 24 H 22 H (7-17) mg/dL Creatinine 0.90 0.80 (0.52-1.04) mg/dL Glucose 149 H 91 (74-99) mg/dL Calcium 9.2 7.9 L (8.4-10.2) mg/dL AST 21 (14-36) U/L ALT 25 (9-52) U/L Alkaline Phosphatase 72 (38-126) U/L Total Protein 7.1 (6.3-8.2) g/dL Albumin 3.9 (3.5-5.0) g/dL Current Medications Generic Name Dose Route Start Last Admin Trade Name Freq PRN Reason Stop Dose Admin Hydrocodone Bitart/Acetaminophen 1 each 03/29/17 22:03 Mccool 7.5-325 PO QID PRN Pain Atenolol 25 mg 03/30/17 09:00 Tenormin PO QAM [facility] Levofloxacin 750 mg/ IV 150 mls @ 100 mls/hr 03/29/17 22:00 03/29/17 22:20 Solution IVPB 100 mls/hr Q24H [facility] Administration Sodium Chloride 1,000 mls @ 150 mls/hr 03/29/17 21:57 03/30/17 06:19 Saline 0.9% IV Not Given .Q6H40M [facility] Vancomycin HCl 1,000 mg/ 250 mls @ 125 mls/hr 03/30/17 23:00 Sodium Chloride IVPB Q24H [facility] Miscellaneous Information 1 each 03/29/17 21:57 Pharmacy To Dose Iv Vancomycin MISCELLANE DIRECTED PRN Per Protocol Intake and Output 03/29/17 03/30/17 03/30/17 22:59 06:59 14:59 Intake Total 975 Balance 975 Intake: Intake, IV Titration 975 Amount Levofloxacin 750Mg-D5w 100 Pmx 750 mg In Dextrose/ Water 1 150ml.bag @ 100 mls/hr IVPB Q24H [facility] Rx#: [id number] Sodium Chloride 0.9% 1, 750 000 ml @ 150 mls/hr IV . Q6H40M [facility] Rx#:[id number] Vancomycin 1,000 mg In 125 Sodium Chloride 0.9% 250 ml @ 125 mls/hr IVPB Q24H [facility] Rx#:[id number] Other: Voiding Method Toilet Toilet # Voids 1 Weight 59.874 kg 55 kg 03/29/17 20:01 03/30/17 08:15 Assessment and Plan Plan: This the pleasant 76-year-old female patient with a known COPD, diabetes, hypertension, dyslipidemia presented to the hospital complaining of cough productive of sputum. She was ruled in for acute non-ST elevation myocardial infarction with abnormal troponin as well as abnormal EKG. The chest x-ray showed findings consistent with possible mass. A CT/PET scan was recommended. At this point I'm going to continue the atenolol and restart the patient back on aspirin as well as a statin. I will obtain an echocardiogram was Doppler. She needs to have a heart catheterization once her lung finding are further investigated.
[2017-03-30] MEDS: ATENOLOL 25 MG TAB PO SCH (11:52)
[2017-03-30] MEDS ORDERED: cloNIDine HCL 0.1 MG TAB PO PRN (16:08)
[2017-03-30] MEDS ORDERED: DIAZEPAM 5 MG TAB PO PRN (16:08)
[2017-03-30] MEDS ORDERED: RX INFO: IV CONTRAST WAS GIVEN 1 EACH MISC MISCELLANE PRN (16:11)
[2017-03-30] MEDS ORDERED: Magnesium Replacement Protocol 1 EACH MISC MISCELLANE PRN (16:12)
[2017-03-30] MEDS ORDERED: Potassium Replacement Protocol 1 EACH MISC MISCELLANE PRN (16:12)
--- NOTE | 2017-03-30 17:19 | P.HPIM ---
History of Present Illness H&P Date: 03/30/17 Chief Complaint: Fever and cough This is a 76-year-old female with past medical history noted below presented to the hospital with worsening cough and fevers at home. Patient is known to have underlying COPD and said for the past few days she was having productive cough. She was evaluated in the emergency room and was found to have evidence of sepsis so was started on broad-spectrum antibiotic and IV fluid hydration currently admitted to the hospital. She was also noted to have an indeterminant troponin elevation but patient herself denies any chest pain. Chest x-ray showed right upper lobe density suspected for pneumonia or mass. This was seen previously on prior computed tomography scan of the chest approximately 4 months ago and was thought to be scarring. At the time repeat computed tomography scan was recommended The patient did not have follow-up in that regard. Review of Systems Review of system: 14 points review of systems were obtained and were negative except to what were mentioned in the HPI. Past Medical History Past Medical History: COPD, Diabetes Mellitus, GERD/Reflux, Hyperlipidemia, Hypertension, Osteoarthritis (OA), Pneumonia, Thyroid Disorder Additional Past Medical History / Comment(s): hepatitis-viral at age 10, sepsis 2009, chronic back pain History of Any Multi-Drug Resistant Organisms: MRSA Date of last positivie culture/infection: 2016 MDRO Source:: Urine Past Surgical History: Back Surgery, Cholecystectomy, Hysterectomy, Joint Replacement Additional Past Surgical History / Comment(s): Right knee replacement; Bowel Surgery, 3 spinal fusions Past Anesthesia/Blood Transfusion Reactions: No Reported Reaction Past Psychological History: No Psychological Hx Reported Smoking Status: Current every day smoker Past Alcohol Use History: None Reported Past Drug Use History: None Reported - Past Family History Mother Family Medical History: No Reported History Medications and Allergies Home Medications Medication Instructions Recorded Confirmed Type Baclofen 10 mg PO BID 05/03/15 03/30/17 History Diazepam [Valium] 5 mg PO HS PRN 05/03/15 03/30/17 History Meloxicam [Mobic] 7.5 mg PO BID 05/03/15 03/30/17 History Multivitamins, Thera [Multivitamin 1 tab PO DAILY 05/03/15 03/30/17 History (formulary)] Omeprazole [PriLOSEC] 20 mg PO DAILY 05/03/15 03/30/17 History Simvastatin [Zocor] 40 mg PO HS 05/03/15 03/30/17 History metFORMIN HCL [Glucophage] 500 mg PO BID 05/03/15 03/30/17 History HYDROcodone/APAP 7.5-325MG [Fitzgerald 1 tab PO QID PRN 01/27/16 03/30/17 History 7.5-325] Biotin 5 mg PO DAILY 05/13/16 03/30/17 History Gabapentin 300 mg PO QAM 05/13/16 03/30/17 History Aspirin EC [Ecotrin Low Dose] 81 mg PO DAILY 10/22/16 03/30/17 History Atenolol [Tenormin] 25 mg PO QAM 10/22/16 03/30/17 History Gabapentin [Neurontin] 600 mg PO HS 10/26/16 03/30/17 History Escitalopram [Lexapro] 5 mg PO HS 03/30/17 03/30/17 History Furosemide [Lasix] 10 - 30 mg PO DAILY PRN 03/30/17 03/30/17 History Lisinopril [Zestril] 10 mg PO DAILY 03/30/17 03/30/17 History Mirabegron [Myrbetriq] 25 mg PO QAM 03/30/17 03/30/17 History Tiotropium Br/Olodaterol HCl 2 spray INHALATION DAILY MDD 2.5 03/30/17 03/30/17 History [Stiolto Respimat Inhal Lampe] mcg cloNIDine HCL [Catapres] 0.1 mg PO BID PRN 03/30/17 03/30/17 History Allergies Allergy/AdvReac Type Severity Reaction Status Date / Time bee venom protein (honey bee) Allergy Swelling Verified 03/30/17 09:09 cefuroxime Allergy Swelling Verified 03/30/17 09:09 zolpidem [From Ambien] AdvReac Confusion Verified 03/30/17 09:09 Physical Exam Vitals: Vital Signs Temp Pulse Pulse Resp BP BP Pulse Ox 03/30/17 15:37 96.9 F L 71 20 134/61 98 03/30/17 11:33 98.1 F 74 20 123/58 94 L 03/30/17 08:00 97.6 F 82 20 117/56 94 L 03/30/17 04:00 97.6 F 62 17 101/52 99 03/30/17 00:49 97.1 F L 68 18 101/52 95 03/29/17 23:51 97.1 F L 68 18 101/52 95 03/29/17 23:19 98.2 F 69 18 100/55 96 03/29/17 22:21 98.6 F 69 18 99/55 96 03/29/17 21:35 99.3 F 75 18 108/57 95 03/29/17 20:43 20 03/29/17 20:17 87 20 138/80 96 03/29/17 19:53 100.8 F H 95 20 156/73 94 L Intake and Output 03/30/17 03/30/17 03/30/17 06:59 14:59 22:59 Intake Total 975 1320 Balance 975 1320 Intake: IV 1200 Sodium Chloride 0.9% 1, 1200 000 ml @ 150 mls/hr IV . Q6H40M [facility] Rx#:[id number] Intake, IV Titration 975 Amount Levofloxacin 750Mg-D5w 100 Pmx 750 mg In Dextrose/ Water 1 150ml.bag @ 100 mls/hr IVPB Q24H [facility] Rx#: [id number] Sodium Chloride 0.9% 1, 750 000 ml @ 150 mls/hr IV . Q6H40M [facility] Rx#:[id number] Vancomycin 1,000 mg In 125 Sodium Chloride 0.9% 250 ml @ 125 mls/hr IVPB Q24H [facility] Rx#:[id number] Oral 120 Other: Voiding Method Toilet Toilet Toilet # Voids 1 Weight 55 kg General: The patient is awake and alert, in no distress Eye: there is normal conjunctiva bilaterally. Neck: The neck is supple, there is no JVD. Cardiovascular: Normal S1-S2, no S3-S4, no murmurs. Respiratory: Lungs clear to auscultation bilaterally Gastrointestinal: Abdomen is soft, nontender Musculoskeletal: There is no pedal edema. Neurological:. Speech is normal. Skin: Skin is warm and dry Results CBC & Chem 7: 03/29/17 20:01 03/30/17 08:15 Labs: Abnormal Lab Results - Last 24 Hours (Table) 03/29/17 03/29/17 03/29/17 Range/Units 20:01 20:01 20:01 WBC 11.0 H (3.8-10.6) k/uL Neutrophils # 10.3 H (1.3-7.7) k/uL Lymphocytes # 0.3 L (1.0-4.8) k/uL INR (<1.2) Chloride 108 H (98-107) mmol/L Carbon Dioxide 18 L (22-30) mmol/L BUN 24 H (7-17) mg/dL Glucose 149 H (74-99) mg/dL Calcium (8.4-10.2) mg/dL Troponin I 0.049 H* (0.000-0.034) ng/mL Urine Protein (Negative) Urine Ketones (Negative) Urine Blood (Negative) Ur Leukocyte Esterase (Negative) Urine RBC (0-5) /hpf Urine WBC (0-5) /hpf Urine Mucus (None) /hpf 03/29/17 03/29/17 03/30/17 Range/Units 20:01 21:33 02:20 WBC (3.8-10.6) k/uL Neutrophils # (1.3-7.7) k/uL Lymphocytes # (1.0-4.8) k/uL INR 1.2 H (<1.2) Chloride (98-107) mmol/L Carbon Dioxide (22-30) mmol/L BUN (7-17) mg/dL Glucose (74-99) mg/dL Calcium (8.4-10.2) mg/dL Troponin I 0.061 H* (0.000-0.034) ng/mL Urine Protein 1+ H (Negative) Urine Ketones 1+ H (Negative) Urine Blood Trace H (Negative) Ur Leukocyte Esterase Large H (Negative) Urine RBC 11 H (0-5) /hpf Urine WBC 75 H (0-5) /hpf Urine Mucus Rare H (None) /hpf 03/30/17 Range/Units 08:15 WBC (3.8-10.6) k/uL Neutrophils # (1.3-7.7) k/uL Lymphocytes # (1.0-4.8) k/uL INR (<1.2) Chloride 112 H (98-107) mmol/L Carbon Dioxide 20 L (22-30) mmol/L BUN 22 H (7-17) mg/dL Glucose (74-99) mg/dL Calcium 7.9 L (8.4-10.2) mg/dL Troponin I (0.000-0.034) ng/mL Urine Protein (Negative) Urine Ketones (Negative) Urine Blood (Negative) Ur Leukocyte Esterase (Negative) Urine RBC (0-5) /hpf Urine WBC (0-5) /hpf Urine Mucus (None) /hpf Microbiology - Last 24 Hours (Table) 03/29/17 21:33 Urine Culture - Preliminary Urine,Catheterized Thrombosis Risk Factor Assmnt - Choose All That Apply Each Factor Represents 1 point: Abnormal pulmonary function (COPD), Sepsis (< 1month) Each Risk Factor Represents 3 Points: Age 75 years or older Thrombosis Risk Factor Assessment Total Risk Factor Score: 5 Thrombosis Risk Factor Assessment Level: High Risk Assessment and Plan Plan: 1. Right upper lobe pneumonia: We'll continue broad-spectrum antibiotic for now. Awaiting blood and sputum culture. 2. Sepsis on presentation secondary to #1 3. Right upper lobe consolidation, may be secondary to underlying pneumonia or just scarring seen on prior computed tomography scan. I will repeat computed tomography scan of the chest for further evaluation. 4. Elevated troponin: Most likely non-thrombotic troponin leak. Patient was seen and evaluated by cardiology. Twelve-lead EKG with no acute ischemic changes. Echocardiogram ordered. May require further workup for left heart catheterization as an outpatient per cardiology recommendations. 5. Underlying COPD with no evidence of exacerbation 6. Essential hypertension: Blood pressure well-controlled
[2017-03-30] MEDS: PIPERACILLIN-TAZOBACTAM 3.375 GM in DEXTROSE/WATER 1 50ML.BAG IVPB SCH (17:32)
--- NOTE | 2017-03-30 17:38 | CT ---
EXAMINATION TYPE: CT chest w con DATE OF EXAM: 03/30/2017 COMPARISON: 12/05/2016 HISTORY: Follow up for lung mass. CT DLP: 172.2 mGycm Automated exposure control for dose reduction was used. CONTRAST: CT scan of the chest is performed with IV Contrast, patient injected with 100 mL of Omnipaque 300. FINDINGS: There are mild bilateral pleural effusions. There is no pericardial effusion. There is a 3 cm stellat e mass adjacent to the right anterior upper chest wall. There is some linear density at the lung base s. There is coarse interstitial density in both lower lobes. Thoracic aorta is atheromatous. There is spurring in the thoracic spine. There is thoracic dextroscoliosis. I see no focal bone destruction. There are a few mediastinal lymph nodes that measure less than 1 cm. IMPRESSION: There is a somewhat spiculated mass adjacent to the right upper anterior chest wall that is slightly larger than last CT scan of 12/05/2016 and suspicious for tumor. Interstitial infiltrates and atelectasis at the lung bases. There are increasing basilar pulmonary in filtrates and pleural fluid compared to old exam.
[2017-03-30] MEDS: BACLOFEN 10 MG TAB PO SCH (20:06)
[2017-03-30] MEDS: GABAPENTIN 300 MG CAP PO SCH (20:06)
[2017-03-30] MEDS: ESCITALOPRAM 5 MG TAB PO SCH (20:06)
[2017-03-30] MEDS: ATORVASTATIN 40 MG TAB PO SCH (20:06)
[2017-03-30] MEDS: HEPARIN SODIUM,PORCINE 5,000 UNIT/ML 1 ML VIAL SQ SCH (20:07)
[2017-03-30] MEDS ORDERED: NON-FORMULARY DRUG (Simvastatin 40 MG) PO SCH (21:00)
[2017-03-30] MEDS: VANCOMYCIN 1,000 MG in SODIUM CHLORIDE 0.9% 250 ML IVPB SCH (22:40)
[2017-03-31] MEDS: PIPERACILLIN-TAZOBACTAM 3.375 GM in DEXTROSE/WATER 1 50ML.BAG IVPB SCH ×3 (00:46→15:09)
[2017-03-31] MEDS: SODIUM CHLORIDE 0.9% 1,000 ML IV SCH (02:29)
[2017-03-31] MEDS: PANTOPRAZOLE 40 MG TABLET PO SCH (06:11)
[2017-03-31 06:52] LABS: Basophils % (A) 0 %; CH 30.4; Eosinophils # (A) 0.6 k/uL (0-0.7); Eosinophils % (A) 15 %; HCT 39.2 % (34.0-46.0); HDW 2.84; HGB 12.9 gm/dL (11.4-16.0); Luc # (Auto) 0.07; Luc % (Auto) 2; Lymphocytes # (A) 0.7 k/uL (1.0-4.8); Lymphocytes % (A) 17 %; MCH 30.3 pg (25.0-35.0); MCHC 32.8 g/dL (31.0-37.0); MCV 92.5 fL (80.0-100.0); Mean Platelet Volume 7.1; Monocytes # (A) 0.2 k/uL (0-1.0); Monocytes % (A) 4 %; Neutrophils # (A) 2.5 k/uL (1.3-7.7); Neutrophils % (A) 63 %; RBC 4.24 m/uL (3.80-5.40); WBC (Perox) 4.34
[2017-03-31 07:12] LABS: Anion Gap 9 mmol/L; Blood Urea Nitrogen 15 mg/dL (7-17); Calcium 8.8 mg/dL (8.4-10.2); Carbon Dioxide 20 mmol/L (22-30); Chloride 110 mmol/L (98-107); Glucose 87 mg/dL (74-99); Magnesium 1.5 mg/dL (1.6-2.3); Non-African American GFR(MDRD) >60 (>60 ml/min/1.73 sqM); Potassium 3.6 mmol/L (3.5-5.1); Sodium 139 mmol/L (137-145)
[2017-03-31] MEDS: BACLOFEN 10 MG TAB PO SCH ×2 (08:07→21:24)
[2017-03-31] MEDS: HEPARIN SODIUM,PORCINE 5,000 UNIT/ML 1 ML VIAL SQ SCH ×2 (08:07→21:24)
[2017-03-31] MEDS: ASPIRIN 325 MG TAB PO SCH (08:07)
[2017-03-31] MEDS: ATENOLOL 25 MG TAB PO SCH (08:07)
[2017-03-31] MEDS: GABAPENTIN 300 MG CAP PO SCH ×2 (08:07→21:24)
--- NOTE | 2017-03-31 10:36 | P.PN ---
Subjective Patient still complaining of some cough and chronic tailbone pain. Patient reports no fall. Does report some improvement in her cough since admission. She is asking for nicotine patch. Patient denies any chest pain or shortness of breath. Denies any nausea or vomiting. Has been having bowel movements. Denies any burning with urination Objective - Vital Signs Vital signs: Vital Signs Temp 96.8 F L 03/31/17 08:00 Pulse 64 03/31/17 08:00 Resp 16 03/31/17 08:00 BP 176/81 03/31/17 08:00 Pulse Ox 95 03/31/17 08:00 Intake & Output 03/30/17 03/31/17 03/31/17 18:59 06:59 18:59 Intake Total 1550 Output Total 500 Balance 1550 -500 Weight 55.5 kg Intake: IV 1200 Sodium Chloride 0.9% 1, 1200 000 ml @ 150 mls/hr IV . Q6H40M [facility] Rx#:[id number] Oral 350 Output: Urine 500 Other: Voiding Method Toilet Toilet Toilet # Voids 1 - Exam Head normocephalic Neck supple Lungs coarse breath sounds noted bilaterally Heart regular rate and rhythm S1-S2, no rub or gallop Abdomen is soft nontender nondistended positive bowel sounds no hepatosplenomegaly Extremities no edema Neuro alert and orientated to 3 - Labs CBC & Chem 7: 03/31/17 06:19 03/31/17 06:19 Labs: Abnormal Lab Results - Last 24 Hours (Table) 03/31/17 03/31/17 Range/Units 06:19 06:19 Lymphocytes # 0.7 L (1.0-4.8) k/uL Chloride 110 H (98-107) mmol/L Carbon Dioxide 20 L (22-30) mmol/L Magnesium 1.5 L (1.6-2.3) mg/dL Microbiology - Last 24 Hours (Table) 03/29/17 20:01 Blood Culture - Preliminary Blood No Growth after 24 hours 03/29/17 21:33 Urine Culture - Preliminary Urine,Catheterized Assessment and Plan Plan: 1. Right upper lobe pneumonia: We'll continue broad-spectrum antibiotic for now. Awaiting blood and sputum culture. 2. Sepsis on presentation secondary to #1 3. Right upper lobe consolidation, may be secondary to underlying pneumonia or just scarring seen on prior computed tomography scan. Computed tomography scan the chest there is a spiculated mass adjacent to the right upper anterior chest wall is slightly larger than last CAT scan from 12/05/2016 and suspicious for tumor. Interstitial infiltrates and atelectasis at the lung bases. They're increasing basilar pulmonary infiltrates and pleural fluid compared to old exam. Pulmonary service will be consulted. 4. Elevated troponin: Most likely non-thrombotic troponin leak. Patient was seen and evaluated by cardiology. Twelve-lead EKG with no acute ischemic changes. Echocardiogram ordered. May require further workup for left heart catheterization as an outpatient per cardiology recommendations. 5. Underlying COPD with no evidence of exacerbation 6. Essential hypertension: Elevated blood pressures this morning. We'll have blood pressure repeated after morning meds. Will make adjustments to blood pressure medications as needed. 7. Nicotine dependence: Discussed smoking cessation for greater than 3 minutes. Start nicotine patch 21 mg 8. Hypomagnesemia: Give supplement per protocol and recheck Mg level in a.m. DVT prophylaxis subcu heparin I performed an examination of the patient and discussed their management with the physician Acupuncture Physician. I have reviewed the Physician Acupuncture Physician's notes and agree with the documented findings and plan of care
[2017-03-31] MEDS: MAGNESIUM SULFATE-D5W PMX 1 GM in DEXTROSE/WATER 1 100ML.BAG IVPB SCH ×2 (11:37→12:49)
[2017-03-31] MEDS: NICOTINE 21MG/24HR PATCH TRANSDERM SCH (11:37)
--- NOTE | 2017-03-31 12:10 | ECHOF ---
Referral Reason:nstemi MEASUREMENTS -------- HEIGHT: 157.5 cm WEIGHT: 54.9 kg BP: 171/70 IVSd: 1.2 cm (0.6 - 1.1) LVIDd: 3.7 cm (3.9 - 5.3) LVPWd: 1.3 cm (0.6 - 1.1) IVSs: 1.7 cm LVIDs: 2.3 cm LVPWs: 1.7 cm Ao Diam: 3.6 cm (2.0 - 3.7) AV Cusp: 2.4 cm (1.5 - 2.6) LA Diam: 3.3 cm (2.7 - 3.8) MV EXCURSION: 11.106 mm (> 18.000) MV EF SLOPE: 42 mm/s (70 - 150) EPSS: 0.5 cm MV E Tony: 1.08 m/s MV DecT: 269 ms MV A Tony: 0.87 m/s MV E/A Ratio: 1.24 AR PHT: 368 ms RAP: 5.00 mmHg RVSP: 26.79 mmHg FINDINGS -------- Sinus rhythm. This was a technically good study. There is mild concentric left ventricular hypertrophy. Overall left ventricular systolic function is low-normal with, an EF between 50 - 55 %. The right ventricle is normal in size and function. The left atrium is normal in size. The right atrium is normal in size. Aortic valve is trileaflet and is mildly thickened. There is mild aortic regurgitation. The mitral valve leaflets are mildly thickened. Mild mitral annular calcification present. Mild mitral regurgitation is present. Mild tricuspid regurgitation present. The right ventricular systolic pressure, as measured by Doppler, is 26.79mmHg. Pulmonic valve appears structurally normal. The aortic root size is normal. Normal inferior vena cava with normal inspiratory collapse consistent with estimated right atrial pressure of 5 mmHg. The pericardium is normal. CONCLUSIONS -------- 1. Sinus rhythm. 2. The mitral valve leaflets are mildly thickened. 3. Mild mitral annular calcification present. 4. Mild mitral regurgitation is present. 5. Mild tricuspid regurgitation present. 6. The right ventricular systolic pressure, as measured by Doppler, is 26.79mmHg. 7. Pulmonic valve appears structurally normal. 8. The aortic root size is normal. 9. Normal inferior vena cava with normal inspiratory collapse consistent with estimated right atrial pressure of 5 mmHg. 10. The pericardium is normal. 11. This was a technically good study. 12. There is mild concentric left ventricular hypertrophy. 13. Overall left ventricular systolic function is low-normal with, an EF between 50 - 55 %. 14. The right ventricle is normal in size and function. 15. The left atrium is normal in size. 16. The right atrium is normal in size. 17. Aortic valve is trileaflet and is mildly thickened. 18. There is mild aortic regurgitation. PAROLE DIRECTOR: Ramona Quiros RDCS
--- NOTE | 2017-03-31 14:30 | P.PN ---
Subjective Principal diagnosis: Productive cough This is a 76-year-old female with history of COPD, 60 year plus smoking history, diabetes, hypertension, hyperlipidemia, hypothyroidism, who presented to the hospital with symptoms of persistent cough with sputum production. Cardiology initially got involved with the patient's care because of abnormal cardiac enzymes as well as abnormal EKG. Patient's EKG showed sinus rhythm with T-wave inversion in the anterior lateral leads, suggestive of ischemia. Patient is currently being treated for pneumonia, chest showed findings consistent with possible mass and pulmonary services have been requested. Echocardiogram with Doppler study was performed which revealed an ejection fraction of 50-55%. Blood pressure today 168/70 with a heart rate in the 90s, 94% on room air. White blood cell count 4.0, hemoglobin 12.9, platelet count 176. Potassium 3.6, BUN 15, creatinine 0.9. Magnesium level I.5. Patient denies any chest pain, continues to have a cough but she states is much improved from her admission here. Objective - Vital Signs Vital signs: Vital Signs Temp 97 F L 03/31/17 11:53 Pulse 94 03/31/17 11:53 Resp 16 03/31/17 12:00 BP 169/79 03/31/17 11:53 Pulse Ox 94 L 03/31/17 11:53 Intake & Output 03/30/17 03/31/17 03/31/17 18:59 06:59 18:59 Intake Total 1550 120 Output Total 500 400 Balance 1550 -500 -280 Weight 55.5 kg Intake: IV 1200 Sodium Chloride 0.9% 1, 1200 000 ml @ 150 mls/hr IV . Q6H40M [facility] Rx#:[id number] Oral 350 120 Output: Urine 500 400 Other: Voiding Method Toilet Toilet Toilet # Voids 1 2 - Exam PHYSICAL EXAMINATION: HEENT: Head is atraumatic, normocephalic. Pupils equal, round. Neck is supple. There is no elevated jugular venous pressure. HEART EXAMINATION: Heart S1, S2 normal. No murmur or gallop heard. CHEST EXAMINATION: Lungs reveal scattered coarse rhonchi with fine wheezes throughout. ABDOMEN: Soft, nontender. Bowel sounds are heard. No organomegaly noted. EXTREMITIES: 1+ peripheral pulses with no evidence of peripheral edema and no calf tenderness noted. NEUROLOGIC patient is awake, alert and oriented -3.] . - Labs CBC & Chem 7: 03/31/17 06:19 03/31/17 06:19 Labs: Abnormal Lab Results - Last 24 Hours (Table) 03/31/17 03/31/17 Range/Units 06:19 06:19 Lymphocytes # 0.7 L (1.0-4.8) k/uL Chloride 110 H (98-107) mmol/L Carbon Dioxide 20 L (22-30) mmol/L Magnesium 1.5 L (1.6-2.3) mg/dL Microbiology - Last 24 Hours (Table) 03/29/17 21:33 Urine Culture - Final Urine,Catheterized 03/29/17 20:01 Blood Culture - Preliminary Blood No Growth after 24 hours Assessment and Plan (1) Pneumonia Status: Acute (2) Sepsis Status: Acute (3) NSTEMI (non-ST elevated myocardial infarction) Status: Acute (4) COPD (chronic obstructive pulmonary disease) Status: Acute (5) HTN (hypertension) Status: Acute (6) Nicotine dependence Status: Acute (7) Hypomagnesemia Status: Acute (8) Diabetes Status: Acute Plan: From cardiology's perspective, we'll recommend to continue the patient on her current medications. Once the patient is stable from a lung perspective, she may require cardiac catheterization for more definitive diagnosis. Further recommendations to follow. DNP note has been reviewed, I agree with a documented findings and plan of care. Patient was seen and examined.
--- NOTE | 2017-03-31 16:10 | P.CNPUL ---
History of Present Illness Consult date: 03/31/17 Reason for consult: lung mass History of present illness: 76-year-old female patient, known history of coronary artery disease and COPD, presented hospital because of increased cough and sputum production. Denied having any significant worsening shortness of breath. No reported angina or chest pain. The patient was evaluated in emergency department and she was considered to be septic and she was started on broad-spectrum antibiotics and addition to fluids IV. Troponin is of indeterminate and a cardiology consultation has been obtained. The chest x-ray showed a questionable right upper lobe pneumonia and for that reason a computed tomography scan of the chest was done and this was compared to the one that was done approximately 4 months ago. There is a subpleural pulmonary lesion in the right upper lobe which could be quite suspicious for malignancy. I doubt pneumonia. I doubt around atelectasis. I think this abnormality is gradually growing it's quite suspicious for underlying malignancy. The patient has no hemoptysis. No other complaints otherwise. The white cell count is not elevated at 4.0. Renal function stable at 0.9 creatinine. Urinalysis abnormal with possibly urine checked infection. Based on that urine cultures were sent and the patient was also started on broad-spectrum antibiotics. Blood cultures been negative thus far. Review of Systems Constitutional: Reports fatigue, Reports lethargy Eyes: denies blurred vision, denies bulging eye, denies decreased vision Ears: deny: decreased hearing, ear discharge, earache, tinnitus Ears, nose, mouth and throat: Denies headache, Denies sore throat Cardiovascular: Reports decreased exercise tolerance, Reports shortness of breath Respiratory: Reports cough, Reports dyspnea Gastrointestinal: Denies abdominal pain, Denies diarrhea, Denies nausea, Denies vomiting Genitourinary: Denies dysuria, Denies hematuria Musculoskeletal: Reports low back pain Musculoskeletal: absent: ankle pain, ankle stiffness, ankle swelling Integumentary: Denies pruritus, Denies rash Neurological: Denies numbness, Denies weakness Psychiatric: Denies anxiety, Denies depression Past Medical History Past Medical History: COPD, Diabetes Mellitus, GERD/Reflux, Hyperlipidemia, Hypertension, Osteoarthritis (OA), Thyroid Disorder Additional Past Medical History / Comment(s): hepatitis-viral at age 10, sepsis 2010, chronic back pain History of Any Multi-Drug Resistant Organisms: MRSA Date of last positivie culture/infection: 2016 MDRO Source:: Urine Past Surgical History: Back Surgery, Cholecystectomy, Hysterectomy, Joint Replacement Additional Past Surgical History / Comment(s): Right knee replacement; Bowel Surgery, 3 spinal fusions Past Anesthesia/Blood Transfusion Reactions: No Reported Reaction Past Psychological History: No Psychological Hx Reported Smoking Status: Current every day smoker Past Alcohol Use History: None Reported Past Drug Use History: None Reported - Past Family History Mother Family Medical History: No Reported History Medications and Allergies Home Medications Medication Instructions Recorded Confirmed Type Baclofen 10 mg PO BID 05/03/15 03/30/17 History Diazepam [Valium] 5 mg PO HS PRN 05/03/15 03/30/17 History Meloxicam [Mobic] 7.5 mg PO BID 05/03/15 03/30/17 History Multivitamins, Thera [Multivitamin 1 tab PO DAILY 05/03/15 03/30/17 History (formulary)] Omeprazole [PriLOSEC] 20 mg PO DAILY 05/03/15 03/30/17 History Simvastatin [Zocor] 40 mg PO HS 05/03/15 03/30/17 History metFORMIN HCL [Glucophage] 500 mg PO BID 05/03/15 03/30/17 History HYDROcodone/APAP 7.5-325MG [[place] 1 tab PO QID PRN 01/27/16 03/30/17 History 7.5-325] Biotin 5 mg PO DAILY 05/13/16 03/30/17 History Gabapentin 300 mg PO QAM 05/13/16 03/30/17 History Aspirin EC [Ecotrin Low Dose] 81 mg PO DAILY 10/22/16 03/30/17 History Atenolol [Tenormin] 25 mg PO QAM 10/22/16 03/30/17 History Gabapentin [Neurontin] 600 mg PO HS 10/26/16 03/30/17 History Escitalopram [Lexapro] 5 mg PO HS 03/30/17 03/30/17 History Furosemide [Lasix] 10 - 30 mg PO DAILY PRN 03/30/17 03/30/17 History Lisinopril [Zestril] 10 mg PO DAILY 03/30/17 03/30/17 History Mirabegron [Myrbetriq] 25 mg PO QAM 03/30/17 03/30/17 History Tiotropium Br/Olodaterol HCl 2 spray INHALATION DAILY MDD 2.5 03/30/17 03/30/17 History [Stiolto Respimat Inhal [place]] mcg cloNIDine HCL [Catapres] 0.1 mg PO BID PRN 03/30/17 03/30/17 History Allergies Allergy/AdvReac Type Severity Reaction Status Date / Time bee venom protein (honey bee) Allergy Swelling Verified 03/30/17 09:09 [email or web address] Allergy Swelling Verified 03/30/17 09:09 [email or web address] [From Ambien] AdvReac Confusion Verified 03/30/17 09:09 Physical Exam Vitals: Vital Signs Temp Pulse Resp BP Pulse Ox 03/31/17 15:16 96.9 F L 54 L 16 172/79 96 03/31/17 12:00 16 03/31/17 11:53 97 F L 94 16 169/79 94 L 03/31/17 08:00 96.8 F L 64 16 176/81 95 03/31/17 04:00 96.8 F L 62 18 171/70 99 03/31/17 00:00 96.8 F L 67 16 146/67 99 03/30/17 20:00 97.9 F 66 18 145/65 99 Intake and Output 03/31/17 03/31/17 03/31/17 06:59 14:59 22:59 Intake Total 120 Output Total 300 400 Balance -300 -280 Intake: Oral 120 Output: Urine 300 400 Other: Voiding Method Toilet Toilet # Voids 1 2 Weight 55.5 kg 55.5 kg Patient Weight 04/01/17 06:59 Weight 55.5 kg Head exam was generally normal. There was no scleral icterus or corneal arcus. Mucous membranes were moist.Neck was supple and without jugular venous distension, thyromegaly, or carotid bruits. Carotids were easily palpable bilaterally. There was no adenopathy. Lung sounds are diminished lung with some few scattered expiratory wheeze otherwise negative.Cardiac exam revealed the PMI to be normally situated and sized. The rhythm was regular and no extrasystoles were noted during several minutes of auscultation. The first and second heart sounds were normal and physiologic splitting of the second heart sound was noted. There were no murmurs, rubs, clicks, or gallops.Abdominal exam revealed normal bowel sounds. The abdomen was soft, non-tender, and without masses, organomegaly, or appreciable enlargement of the abdominal aorta.Examination of the extremities revealed easily palpable radial, femoral and pedal pulses. There was no cyanosis, clubbing or edema. Results - Laboratory Findings CBC and BMP: 03/31/17 06:19 03/31/17 06:19 PT/INR, D-dimer PT 11.9 sec (9.0-12.0) 03/29/17 20:01 INR 1.2 (<1.2) H 03/29/17 20:01 Abnormal lab findings: Abnormal Labs 03/29/17 03/29/17 03/29/17 20:01 20:01 20:01 WBC 11.0 H Neutrophils # 10.3 H Lymphocytes # 0.3 L INR Chloride 108 H Carbon Dioxide 18 L BUN 24 H Glucose 149 H Calcium Magnesium Troponin I 0.049 H* Urine Protein Urine Ketones Urine Blood Ur Leukocyte Esterase Urine RBC Urine WBC Urine Mucus 03/29/17 03/29/17 03/30/17 20:01 21:33 02:20 WBC Neutrophils # Lymphocytes # INR 1.2 H Chloride Carbon Dioxide BUN Glucose Calcium Magnesium Troponin I 0.061 H* Urine Protein 1+ H Urine Ketones 1+ H Urine Blood Trace H Ur Leukocyte Esterase Large H Urine RBC 11 H Urine WBC 75 H Urine Mucus Rare H 03/30/17 03/31/17 03/31/17 08:15 06:19 06:19 WBC Neutrophils # Lymphocytes # 0.7 L INR Chloride 112 H 110 H Carbon Dioxide 20 L 20 L BUN 22 H Glucose Calcium 7.9 L Magnesium 1.5 L Troponin I Urine Protein Urine Ketones Urine Blood Ur Leukocyte Esterase Urine RBC Urine WBC Urine Mucus - Diagnostic Findings CT scan - chest: image reviewed Assessment and Plan Plan: assessment 1 right upper lobe mass, 3 cm, subpleural, slightly growing in size compared to the previous CAT scan from November 2016. Doubt pneumonia. Doubt rounded atelectasis. 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 2 COPD 3 chronic interstitial changes in lung bases bilaterally 4 thoracic dextroscoliosis 5 urine checked infection, suspected currently under broad-spectrum antibiotics 6 troponin leak, currently under investigation 7 hypertension 8 hyperlipidemia 9 diabetes mellitus 10 acid reflux Plan Await blood and urine cultures. Highly doubt pneumonia. Suspect UTI. Continue Zosyn and vancomycin. Discussed the case with interventional radiology. We'll proceed with a fine-needle aspirate of the right upper lobe mass with the next 24-48 hours once patient's condition is deemed to be stable. We'll give this patient another day or 2 and would proceed with a biopsy during her current hospital stay. Smoking cessation counseling was done. She was given nicotine patch. No signs of any respiratory distress or decompensation. We'll continue to follow.
[2017-03-31 17:08] LABS: Glucose,Whole Blood 105 mg/dL (75-99)
[2017-03-31 20:56] LABS: Glucose,Whole Blood 189 mg/dL (75-99)
[2017-03-31] MEDS: ESCITALOPRAM 5 MG TAB PO SCH (21:24)
[2017-03-31] MEDS: ATORVASTATIN 40 MG TAB PO SCH (21:24)
[2017-03-31] MEDS: VANCOMYCIN 1,000 MG in SODIUM CHLORIDE 0.9% 250 ML IVPB SCH (22:42)
[2017-04-01] MEDS: PIPERACILLIN-TAZOBACTAM 3.375 GM in DEXTROSE/WATER 1 50ML.BAG IVPB SCH ×4 (00:58→23:40)
[2017-04-01 06:03] LABS: Glucose,Whole Blood 106 mg/dL (75-99)
[2017-04-01] MEDS: PANTOPRAZOLE 40 MG TABLET PO SCH (06:22)
[2017-04-01 06:28] LABS: Basophils % (A) 1 %; CH 30.6; CHCM 34.2; Eosinophils # (A) 0.6 k/uL (0-0.7); Eosinophils % (A) 18 %; HCT 38.6 % (34.0-46.0); HDW 2.92; HGB 13.3 gm/dL (11.4-16.0); Luc # (Auto) 0.09; Luc % (Auto) 3; Lymphocytes # (A) 0.8 k/uL (1.0-4.8); Lymphocytes % (A) 22 %; MCH 30.9 pg (25.0-35.0); MCHC 34.4 g/dL (31.0-37.0); MCV 89.9 fL (80.0-100.0); Mean Platelet Volume 7.1; Monocytes # (A) 0.2 k/uL (0-1.0); Monocytes % (A) 6 %; Neutrophils # (A) 1.8 k/uL (1.3-7.7); Neutrophils % (A) 52 %; RBC 4.29 m/uL (3.80-5.40); RDW 13.8 % (11.5-15.5); WBC 3.5 k/uL (3.8-10.6); WBC (Perox) 3.74
[2017-04-01 06:35] LABS: Anion Gap 9 mmol/L; Blood Urea Nitrogen 10 mg/dL (7-17); Calcium 8.8 mg/dL (8.4-10.2); Carbon Dioxide 21 mmol/L (22-30); Chloride 111 mmol/L (98-107); Glucose 103 mg/dL (74-99); Magnesium 1.7 mg/dL (1.6-2.3); Non-African American GFR(MDRD) >60 (>60 ml/min/1.73 sqM); Potassium 3.4 mmol/L (3.5-5.1); Sodium 141 mmol/L (137-145)
[2017-04-01] MEDS: MAGNESIUM SULFATE-D5W PMX 1 GM in DEXTROSE/WATER 1 100ML.BAG IVPB SCH ×2 (09:29→11:03)
[2017-04-01] MEDS: HEPARIN SODIUM,PORCINE 5,000 UNIT/ML 1 ML VIAL SQ SCH ×3 (09:31→21:26)
[2017-04-01] MEDS: GABAPENTIN 300 MG CAP PO SCH ×2 (09:31→21:21)
[2017-04-01] MEDS: ASPIRIN 325 MG TAB PO SCH (09:31)
[2017-04-01] MEDS: ATENOLOL 25 MG TAB PO SCH (09:31)
[2017-04-01] MEDS: BACLOFEN 10 MG TAB PO SCH ×2 (09:31→21:21)
[2017-04-01] MEDS: POTASSIUM CHLORIDE ER 20 MEQ TAB.ER PO SCH ×2 (09:32→11:03)
[2017-04-01] MEDS: NICOTINE 21MG/24HR PATCH TRANSDERM SCH (09:32)
[2017-04-01 11:37] LABS: Glucose,Whole Blood 156 mg/dL (75-99)
--- NOTE | 2017-04-01 11:57 | P.PN ---
Subjective 76-year-old female patient, known history of coronary artery disease and COPD, presented hospital because of increased cough and sputum production. Denied having any significant worsening shortness of breath. No reported angina or chest pain. The patient was evaluated in emergency department and she was considered to be septic and she was started on broad-spectrum antibiotics and addition to fluids IV. Troponin is of indeterminate and a cardiology consultation has been obtained. The chest x-ray showed a questionable right upper lobe pneumonia and for that reason a computed tomography scan of the chest was done and this was compared to the one that was done approximately 4 months ago. There is a subpleural pulmonary lesion in the right upper lobe which could be quite suspicious for malignancy. I doubt pneumonia. I doubt around atelectasis. I think this abnormality is gradually growing it's quite suspicious for underlying malignancy. The patient has no hemoptysis. No other complaints otherwise. The white cell count is not elevated at 4.0. Renal function stable at 0.9 creatinine. Urinalysis abnormal with possibly urine checked infection. Based on that urine cultures were sent and the patient was also started on broad-spectrum antibiotics. Blood cultures been negative thus far. On 04/01/2017 the patient is doing well. She is less short of breath. No cough or sputum production. She is on room air oxygen. No chest pain. No nausea vomiting or diarrhea. I discussed the case with interventional radiology and I'm going to order a FNA of the right upper lobe lesion, CAT scan guided. No fever. No chills. Cultures all negative and the patient is still on broad-spectrum antibiotics. Objective - Vital Signs Vital signs: Vital Signs Temp 97.8 F 04/01/17 09:28 Pulse 52 L 04/01/17 09:28 Resp 12 04/01/17 09:28 BP 170/79 04/01/17 09:28 Pulse Ox 92 L 04/01/17 09:28 Intake & Output 03/31/17 04/01/17 04/01/17 18:59 06:59 18:59 Intake Total 120 300 Output Total 400 Balance -280 300 Weight 55.5 kg 53.8 kg Intake: Oral 120 300 Output: Urine 400 Other: Voiding Method Toilet Toilet # Voids 2 1 - Exam Head exam was generally normal. There was no scleral icterus or corneal arcus. Mucous membranes were moist.Neck was supple and without jugular venous distension, thyromegaly, or carotid bruits. Carotids were easily palpable bilaterally. There was no adenopathy. Lung sounds are diminished lung with some few scattered expiratory wheeze otherwise negative.Cardiac exam revealed the PMI to be normally situated and sized. The rhythm was regular and no extrasystoles were noted during several minutes of auscultation. The first and second heart sounds were normal and physiologic splitting of the second heart sound was noted. There were no murmurs, rubs, clicks, or gallops.Abdominal exam revealed normal bowel sounds. The abdomen was soft, non-tender, and without masses, organomegaly, or appreciable enlargement of the abdominal aorta.Examination of the extremities revealed easily palpable radial, femoral and pedal pulses. There was no cyanosis, clubbing or edema. - Labs CBC & Chem 7: 04/01/17 05:57 04/01/17 05:57 Labs: Abnormal Lab Results - Last 24 Hours (Table) 03/31/17 03/31/17 04/01/17 Range/Units 16:56 20:54 05:57 WBC (3.8-10.6) k/uL Lymphocytes # (1.0-4.8) k/uL Potassium 3.4 L (3.5-5.1) mmol/L Chloride 111 H (98-107) mmol/L Carbon Dioxide 21 L (22-30) mmol/L Glucose 103 H (74-99) mg/dL POC Glucose (mg/dL) 105 H 189 H (75-99) mg/dL 04/01/17 04/01/17 04/01/17 Range/Units 05:57 06:01 11:34 WBC 3.5 L (3.8-10.6) k/uL Lymphocytes # 0.8 L (1.0-4.8) k/uL Potassium (3.5-5.1) mmol/L Chloride (98-107) mmol/L Carbon Dioxide (22-30) mmol/L Glucose (74-99) mg/dL POC Glucose (mg/dL) 106 H 156 H (75-99) mg/dL Microbiology - Last 24 Hours (Table) 03/29/17 20:01 Blood Culture - Preliminary Blood No Growth after 48 hours 03/29/17 21:33 Urine Culture - Final Urine,Catheterized Assessment and Plan Plan: assessment 1 right upper lobe mass, 3 cm, subpleural, slightly growing in size compared to the previous CAT scan from November 2016. Doubt pneumonia. Doubt round atelectasis. 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 2 COPD 3 chronic interstitial changes in lung bases bilaterally 4 thoracic dextroscoliosis 5 urine checked infection, suspected currently under broad-spectrum antibiotics 6 troponin leak, currently under investigation 7 hypertension 8 hyperlipidemia 9 diabetes mellitus 10 acid reflux Plan Will proceed with fine-needle aspirate of the right upper lobe. This will be done by interventional radiology. We'll continue to follow. Meanwhile all of the cultures are negative. No signs of septicemia. Renal function is within normal. White cell count is down to 3.5.
--- NOTE | 2017-04-01 12:08 | P.PN ---
Subjective No acute events overnight. Patient is feeling fatigued and tired. Objective - Vital Signs Vital signs: Vital Signs Temp 97.8 F 04/01/17 09:28 Pulse 52 L 04/01/17 09:28 Resp 12 04/01/17 09:28 BP 170/79 04/01/17 09:28 Pulse Ox 92 L 04/01/17 09:28 Intake & Output 03/31/17 04/01/17 04/01/17 18:59 06:59 18:59 Intake Total 120 300 Output Total 400 Balance -280 300 Weight 55.5 kg 53.8 kg Intake: Oral 120 300 Output: Urine 400 Other: Voiding Method Toilet Toilet # Voids 2 1 - Exam General: The patient is awake and alert, in no distress Eye: there is normal conjunctiva bilaterally. Neck: The neck is supple, there is no JVD. Cardiovascular: Normal S1-S2, no S3-S4, no murmurs. Respiratory: Lungs clear to auscultation bilaterally Gastrointestinal: Abdomen is soft, nontender Musculoskeletal: There is no pedal edema. Neurological:. Speech is normal. Skin: Skin is warm and dry - Labs CBC & Chem 7: 04/01/17 05:57 04/01/17 05:57 Labs: Abnormal Lab Results - Last 24 Hours (Table) 03/31/17 03/31/17 04/01/17 Range/Units 16:56 20:54 05:57 WBC (3.8-10.6) k/uL Lymphocytes # (1.0-4.8) k/uL Potassium 3.4 L (3.5-5.1) mmol/L Chloride 111 H (98-107) mmol/L Carbon Dioxide 21 L (22-30) mmol/L Glucose 103 H (74-99) mg/dL POC Glucose (mg/dL) 105 H 189 H (75-99) mg/dL 04/01/17 04/01/17 04/01/17 Range/Units 05:57 06:01 11:34 WBC 3.5 L (3.8-10.6) k/uL Lymphocytes # 0.8 L (1.0-4.8) k/uL Potassium (3.5-5.1) mmol/L Chloride (98-107) mmol/L Carbon Dioxide (22-30) mmol/L Glucose (74-99) mg/dL POC Glucose (mg/dL) 106 H 156 H (75-99) mg/dL Microbiology - Last 24 Hours (Table) 03/29/17 20:01 Blood Culture - Preliminary Blood No Growth after 48 hours 03/29/17 21:33 Urine Culture - Final Urine,Catheterized Assessment and Plan Plan: 1. Right upper lobe concerning for a spiculated mass and underlying malignancy. Plan for fine-needle aspiration within the next day or 2 2. Urinary tract infection, with positive UA on presentation but negative urine culture and blood culture. We will de-escalate antibiotic effective tomorrow. Will finish 5 days course of Levaquin. 3. Sepsis on presentation secondary to #2 resolved, 4. Elevated troponin: Most likely non-thrombotic troponin leak. Patient was seen and evaluated by cardiology. Twelve-lead EKG with no acute ischemic changes. Echocardiogram ordered. May require further workup for left heart catheterization as an outpatient per cardiology recommendations. 5. Underlying COPD with no evidence of exacerbation 6. Essential hypertension: Blood pressure better controlled 7. Nicotine dependence: Discussed smoking cessation. Started nicotine patch 21 mg 8. Hypomagnesemia: Replaced by protocol
--- NOTE | 2017-04-01 14:04 | P.PN ---
Subjective Principal diagnosis: Productive cough This is a 76-year-old female with history of COPD, 60 year plus smoking history, diabetes, hypertension, hyperlipidemia, hypothyroidism, who presented to the hospital with symptoms of persistent cough with sputum production. Cardiology initially got involved with the patient's care because of abnormal cardiac enzymes as well as abnormal EKG. Patient's EKG showed sinus rhythm with T-wave inversion in the anterior lateral leads, suggestive of ischemia. Patient is currently being treated for pneumonia, chest showed findings consistent with possible mass and pulmonary services have been requested. Echocardiogram with Doppler study was performed which revealed an ejection fraction of 50-55%. Blood pressure today 168/70 with a heart rate in the 90s, 94% on room air. White blood cell count 4.0, hemoglobin 12.9, platelet count 176. Potassium 3.6, BUN 15, creatinine 0.9. Magnesium level I.5. Patient denies any chest pain, continues to have a cough but she states is much improved from her admission here. 04/01/2017 Patient seen and examined this morning, she states she still has a cough however nonproductive, and improved somewhat from yesterday. She seemed very sleepy today. Potassium 3.4. BUN 10, creatinine 0.9. Blood pressure 116/70 with a heart rate in the 50s. Clonidine dose has been increased today for more optimal blood pressure control. Objective - Vital Signs Vital signs: Vital Signs Temp 97.8 F 04/01/17 09:28 Pulse 52 L 04/01/17 11:10 Resp 16 04/01/17 11:10 BP 168/77 04/01/17 11:10 Pulse Ox 94 L 04/01/17 11:10 Intake & Output 03/31/17 04/01/17 04/01/17 18:59 06:59 18:59 Intake Total 120 300 Output Total 400 Balance -280 300 Weight 55.5 kg 53.8 kg Intake: Oral 120 300 Output: Urine 400 Other: Voiding Method Toilet Toilet # Voids 2 1 - Exam PHYSICAL EXAMINATION: HEENT: Head is atraumatic, normocephalic. Pupils equal, round. Neck is supple. There is no elevated jugular venous pressure. HEART EXAMINATION: Heart S1, S2 normal. No murmur or gallop heard. CHEST EXAMINATION: Lungs reveal scattered coarse rhonchi with fine wheezes throughout. ABDOMEN: Soft, nontender. Bowel sounds are heard. No organomegaly noted. EXTREMITIES: 1+ peripheral pulses with no evidence of peripheral edema and no calf tenderness noted. NEUROLOGIC patient is awake, alert and oriented -3.] . - Labs CBC & Chem 7: 04/01/17 05:57 04/01/17 13:12 Labs: Abnormal Lab Results - Last 24 Hours (Table) 03/31/17 03/31/17 04/01/17 Range/Units 16:56 20:54 05:57 WBC (3.8-10.6) k/uL Lymphocytes # (1.0-4.8) k/uL Potassium 3.4 L (3.5-5.1) mmol/L Chloride 111 H (98-107) mmol/L Carbon Dioxide 21 L (22-30) mmol/L Glucose 103 H (74-99) mg/dL POC Glucose (mg/dL) 105 H 189 H (75-99) mg/dL 04/01/17 04/01/17 04/01/17 Range/Units 05:57 06:01 11:34 WBC 3.5 L (3.8-10.6) k/uL Lymphocytes # 0.8 L (1.0-4.8) k/uL Potassium (3.5-5.1) mmol/L Chloride (98-107) mmol/L Carbon Dioxide (22-30) mmol/L Glucose (74-99) mg/dL POC Glucose (mg/dL) 106 H 156 H (75-99) mg/dL Microbiology - Last 24 Hours (Table) 03/29/17 20:01 Blood Culture - Preliminary Blood No Growth after 48 hours 03/29/17 21:33 Urine Culture - Final Urine,Catheterized Assessment and Plan (1) Pneumonia Status: Acute (2) Sepsis Status: Acute (3) NSTEMI (non-ST elevated myocardial infarction) Status: Acute (4) COPD (chronic obstructive pulmonary disease) Status: Acute (5) HTN (hypertension) Status: Acute (6) Nicotine dependence Status: Acute (7) Hypomagnesemia Status: Acute (8) Diabetes Status: Acute Plan: From cardiology's perspective, clonidine dose has been increased for more optimal blood pressure control. We will continue with other medications. Echocardiogram with Doppler study revealed normal left ventricular systolic function. DNP note has been reviewed, I agree with a documented findings and plan of care. Patient was seen and examined.
[2017-04-01 17:00] LABS: Glucose,Whole Blood 144 mg/dL (75-99)
[2017-04-01 20:47] LABS: Glucose,Whole Blood 112 mg/dL (75-99)
[2017-04-01] MEDS: ATORVASTATIN 40 MG TAB PO SCH (21:20)
[2017-04-01] MEDS: ESCITALOPRAM 5 MG TAB PO SCH (21:20)
[2017-04-01] MEDS: cloNIDine HCL 0.1 MG TAB PO SCH (21:23)
[2017-04-01] MEDS: VANCOMYCIN 1,000 MG in SODIUM CHLORIDE 0.9% 250 ML IVPB SCH (23:40)
[2017-04-02 06:00] LABS: Glucose,Whole Blood 116 mg/dL (75-99)
[2017-04-02 06:04] LABS: Basophils % (A) 1 %; CH 31.3; CHCM 34.7; Eosinophils # (A) 0.7 k/uL (0-0.7); Eosinophils % (A) 16 %; HCT 39.4 % (34.0-46.0); HDW 2.91; HGB 13.2 gm/dL (11.4-16.0); Luc # (Auto) 0.09; Luc % (Auto) 2; Lymphocytes # (A) 1.1 k/uL (1.0-4.8); Lymphocytes % (A) 25 %; MCH 30.5 pg (25.0-35.0); MCHC 33.6 g/dL (31.0-37.0); MCV 90.8 fL (80.0-100.0); Mean Platelet Volume 7.6; Monocytes # (A) 0.2 k/uL (0-1.0); Monocytes % (A) 4 %; Neutrophils # (A) 2.3 k/uL (1.3-7.7); Neutrophils % (A) 52 %; RBC 4.34 m/uL (3.80-5.40); RDW 14.6 % (11.5-15.5); WBC 4.3 k/uL (3.8-10.6); WBC (Perox) 4.35
[2017-04-02] MEDS: ASPIRIN 325 MG TAB PO SCH (06:08)
[2017-04-02] MEDS: PANTOPRAZOLE 40 MG TABLET PO SCH (06:16)
[2017-04-02 07:05] LABS: Anion Gap 7 mmol/L; Blood Urea Nitrogen 11 mg/dL (7-17); Calcium 8.6 mg/dL (8.4-10.2); Carbon Dioxide 23 mmol/L (22-30); Chloride 112 mmol/L (98-107); Glucose 108 mg/dL (74-99); Magnesium 1.8 mg/dL (1.6-2.3); Non-African American GFR(MDRD) 56 (>60 ml/min/1.73 sqM); Potassium 3.8 mmol/L (3.5-5.1); Sodium 142 mmol/L (137-145)
[2017-04-02] MEDS: BACLOFEN 10 MG TAB PO SCH ×2 (08:45→21:07)
[2017-04-02] MEDS: ATENOLOL 25 MG TAB PO SCH (08:45)
[2017-04-02] MEDS: cloNIDine HCL 0.1 MG TAB PO SCH ×2 (08:45→21:07)
[2017-04-02] MEDS: GABAPENTIN 300 MG CAP PO SCH ×2 (08:46→21:07)
[2017-04-02] MEDS: PIPERACILLIN-TAZOBACTAM 3.375 GM in DEXTROSE/WATER 1 50ML.BAG IVPB SCH (08:50)
[2017-04-02] MEDS: HYDROcodone/APAP 7.5-325MG 1 EACH TAB PO PRN (08:51)
[2017-04-02] MEDS ORDERED: hydrALAZINE HCL 20 MG/ML 1 ML VIAL IVP STA (09:36)
[2017-04-02] MEDS ORDERED: amLODIPine 5 MG TAB PO SCH (11:00)
--- NOTE | 2017-04-02 11:52 | P.PN ---
Subjective Blood pressure not well controlled this morning. Her regimen was adjusted yesterday by scheduling her clonidine twice daily instead of when necessary by blood pressure remained uncontrolled. I will add Norvasc 5 mg daily to her regimen. Objective - Vital Signs Vital signs: Vital Signs Temp 97.1 F L 04/02/17 08:35 Pulse 52 L 04/02/17 09:59 Resp 16 04/02/17 08:35 BP 150/72 04/02/17 09:59 Pulse Ox 97 04/02/17 08:35 Intake & Output 04/01/17 04/02/17 04/02/17 18:59 06:59 18:59 Intake Total 970 700 Balance 970 700 Weight 53.9 kg Intake: IV 400 0.9 @40mls/hr 400 Intake, IV Titration 250 300 Amount Magnesium Sulfate-D5w Pmx 200 1 gm In Dextrose/Water 1 100ml.bag @ 100 mls/hr IVPB Q1H [facility] Rx#: [id number] Piperacillin-Tazobactam 3 50 50 .375 gm In Dextrose/Water 1 50ml.bag @ 12.5 mls/hr IVPB Q8HR [facility] Rx#: [id number] Vancomycin 1,000 mg In 250 Sodium Chloride 0.9% 250 ml @ 125 mls/hr IVPB Q24H [facility] Rx#:[id number] Oral 720 Other: Voiding Method Toilet Toilet Toilet # Voids 3 1 2 - Exam General: The patient is awake and alert, in no distress Eye: there is normal conjunctiva bilaterally. Neck: The neck is supple, there is no JVD. Cardiovascular: Normal S1-S2, no S3-S4, no murmurs. Respiratory: Lungs clear to auscultation bilaterally Gastrointestinal: Abdomen is soft, nontender Musculoskeletal: There is no pedal edema. Neurological:. Speech is normal. Skin: Skin is warm and dry - Labs CBC & Chem 7: 04/02/17 05:44 04/02/17 05:44 Labs: Abnormal Lab Results - Last 24 Hours (Table) 04/01/17 04/01/17 04/02/17 Range/Units 16:42 20:46 05:44 Chloride 112 H (98-107) mmol/L Glucose 108 H (74-99) mg/dL POC Glucose (mg/dL) 144 H 112 H (75-99) mg/dL 04/02/17 Range/Units 05:58 Chloride (98-107) mmol/L Glucose (74-99) mg/dL POC Glucose (mg/dL) 116 H (75-99) mg/dL Microbiology - Last 24 Hours (Table) 03/29/17 20:01 Blood Culture - Preliminary Blood No Growth after 72 hours Assessment and Plan Plan: 1. Right upper lobe concerning for a spiculated mass and underlying malignancy. Plan for fine-needle aspiration either later today or tomorrow morning 2. Urinary tract infection, with positive UA on presentation but negative urine culture and blood culture. We will de-escalate antibiotic effective tomorrow. Will finish 5 days course of Levaquin. 3. Sepsis on presentation secondary to #2 resolved, 4. Elevated troponin: Most likely non-thrombotic troponin leak. Patient was seen and evaluated by cardiology. Twelve-lead EKG with no acute ischemic changes. Echocardiogram ordered. May require further workup for left heart catheterization as an outpatient per cardiology recommendations. 5. Underlying COPD with no evidence of exacerbation 6. Essential hypertension: Blood pressure better controlled 7. Nicotine dependence: Discussed smoking cessation. Started nicotine patch 21 mg 8. Hypomagnesemia: Replaced by protocol
[2017-04-02] MEDS: HEPARIN SODIUM,PORCINE 5,000 UNIT/ML 1 ML VIAL SQ SCH ×2 (12:01→21:06)
[2017-04-02] MEDS: NICOTINE 21MG/24HR PATCH TRANSDERM SCH (12:01)
--- NOTE | 2017-04-02 13:10 | P.PN ---
Subjective Principal diagnosis: Productive cough This is a 76-year-old female with history of COPD, 60 year plus smoking history, diabetes, hypertension, hyperlipidemia, hypothyroidism, who presented to the hospital with symptoms of persistent cough with sputum production. Cardiology initially got involved with the patient's care because of abnormal cardiac enzymes as well as abnormal EKG. Patient's EKG showed sinus rhythm with T-wave inversion in the anterior lateral leads, suggestive of ischemia. Patient is currently being treated for pneumonia, chest showed findings consistent with possible mass and pulmonary services have been requested. Echocardiogram with Doppler study was performed which revealed an ejection fraction of 50-55%. Blood pressure today 168/70 with a heart rate in the 90s, 94% on room air. White blood cell count 4.0, hemoglobin 12.9, platelet count 176. Potassium 3.6, BUN 15, creatinine 0.9. Magnesium level I.5. Patient denies any chest pain, continues to have a cough but she states is much improved from her admission here. 04/01/2017 Patient seen and examined this morning, she states she still has a cough however nonproductive, and improved somewhat from yesterday. She seemed very sleepy today. Potassium 3.4. BUN 10, creatinine 0.9. Blood pressure 116/70 with a heart rate in the 50s. Clonidine dose has been increased today for more optimal blood pressure control. 04/02/2017. Patient continues to feel sleepy today, overall doing about the same. Denies any chest pain. But pressure 150/70 with a heart rate in the 60s. Objective - Vital Signs Vital signs: Vital Signs Temp 97.1 F L 04/02/17 11:54 Pulse 59 L 04/02/17 11:54 Resp 16 04/02/17 11:54 BP 189/85 04/02/17 11:54 Pulse Ox 97 04/02/17 11:54 Intake & Output 04/01/17 04/02/17 04/02/17 18:59 06:59 18:59 Intake Total 970 700 Balance 970 700 Weight 53.9 kg Intake: IV 400 0.9 @40mls/hr 400 Intake, IV Titration 250 300 Amount Magnesium Sulfate-D5w Pmx 200 1 gm In Dextrose/Water 1 100ml.bag @ 100 mls/hr IVPB Q1H [facility] Rx#: [id number] Piperacillin-Tazobactam 3 50 50 .375 gm In Dextrose/Water 1 50ml.bag @ 12.5 mls/hr IVPB Q8HR [facility] Rx#: [id number] Vancomycin 1,000 mg In 250 Sodium Chloride 0.9% 250 ml @ 125 mls/hr IVPB Q24H [facility] Rx#:[id number] Oral 720 Other: Voiding Method Toilet Toilet Toilet # Voids 3 1 2 - Exam PHYSICAL EXAMINATION: HEENT: Head is atraumatic, normocephalic. Pupils equal, round. Neck is supple. There is no elevated jugular venous pressure. HEART EXAMINATION: Heart S1, S2 normal. No murmur or gallop heard. CHEST EXAMINATION: Lungs reveal scattered coarse rhonchi with fine wheezes throughout. ABDOMEN: Soft, nontender. Bowel sounds are heard. No organomegaly noted. EXTREMITIES: 1+ peripheral pulses with no evidence of peripheral edema and no calf tenderness noted. NEUROLOGIC patient is awake, alert and oriented -3.] . - Labs CBC & Chem 7: 04/02/17 05:44 04/02/17 05:44 Labs: Abnormal Lab Results - Last 24 Hours (Table) 04/01/17 04/01/17 04/02/17 Range/Units 16:42 20:46 05:44 Chloride 112 H (98-107) mmol/L Glucose 108 H (74-99) mg/dL POC Glucose (mg/dL) 144 H 112 H (75-99) mg/dL 04/02/17 Range/Units 05:58 Chloride (98-107) mmol/L Glucose (74-99) mg/dL POC Glucose (mg/dL) 116 H (75-99) mg/dL Microbiology - Last 24 Hours (Table) 03/29/17 20:01 Blood Culture - Preliminary Blood No Growth after 72 hours Assessment and Plan (1) Pneumonia Status: Acute (2) Sepsis Status: Acute (3) NSTEMI (non-ST elevated myocardial infarction) Status: Acute (4) COPD (chronic obstructive pulmonary disease) Status: Acute (5) HTN (hypertension) Status: Acute (6) Nicotine dependence Status: Acute (7) Hypomagnesemia Status: Acute (8) Diabetes Status: Acute Plan: From cardiology's perspective, we will continue the patient on her current medications. We will follow her along with you now on an as-needed basis only, please don't hesitate to call with any questions. DNP note has been reviewed, I agree with a documented findings and plan of care. Patient was seen and examined.
--- NOTE | 2017-04-02 17:31 | P.PN ---
Subjective 76-year-old female patient, known history of coronary artery disease and COPD, presented hospital because of increased cough and sputum production. Denied having any significant worsening shortness of breath. No reported angina or chest pain. The patient was evaluated in emergency department and she was considered to be septic and she was started on broad-spectrum antibiotics and addition to fluids IV. Troponin is of indeterminate and a cardiology consultation has been obtained. The chest x-ray showed a questionable right upper lobe pneumonia and for that reason a computed tomography scan of the chest was done and this was compared to the one that was done approximately 4 months ago. There is a subpleural pulmonary lesion in the right upper lobe which could be quite suspicious for malignancy. I doubt pneumonia. I doubt around atelectasis. I think this abnormality is gradually growing it's quite suspicious for underlying malignancy. The patient has no hemoptysis. No other complaints otherwise. The white cell count is not elevated at 4.0. Renal function stable at 0.9 creatinine. Urinalysis abnormal with possibly urine checked infection. Based on that urine cultures were sent and the patient was also started on broad-spectrum antibiotics. Blood cultures been negative thus far. On 04/01/2017 the patient is doing well. She is less short of breath. No cough or sputum production. She is on room air oxygen. No chest pain. No nausea vomiting or diarrhea. I discussed the case with interventional radiology and I'm going to order a FNA of the right upper lobe lesion, CAT scan guided. No fever. No chills. Cultures all negative and the patient is still on broad-spectrum antibiotics. The patient was seen and evaluated again today 04/02/2017 in follow-up on the selective care unit. She remains awake and alert in no acute distress. She was to go for an FNA of the right upper lobe lesion however her blood pressure was too high and interventional radiology postponed until tomorrow. She is currently on Catapres and atenolol. Amlodipine has been added. Her blood pressure was as high as 189/85 today. It's currently 136/70. She has no pulmonary complaints. No chest pain, palpitations lightheadedness or dizziness. No headaches. Maintaining O2 saturations in the upper 90s on room air. Afebrile. Objective - Vital Signs Vital signs: Vital Signs Temp 96.5 F L 04/02/17 15:57 Pulse 51 L 04/02/17 15:57 Resp 16 04/02/17 15:57 BP 136/70 04/02/17 15:57 Pulse Ox 94 L 04/02/17 15:57 Intake & Output 04/01/17 04/02/17 04/02/17 18:59 06:59 18:59 Intake Total 970 700 310 Output Total 600 Balance 970 700 -290 Weight 53.9 kg Intake: IV 400 210 0.9 @40mls/hr 400 160 Piperacillin-Tazobactam 3 50 .375 gm In Dextrose/Water 1 50ml.bag @ 12.5 mls/hr IVPB Q8HR [facility] Rx#: [id number] Intake, IV Titration 250 300 Amount Magnesium Sulfate-D5w Pmx 200 1 gm In Dextrose/Water 1 100ml.bag @ 100 mls/hr IVPB Q1H [facility] Rx#: [id number] Piperacillin-Tazobactam 3 50 50 .375 gm In Dextrose/Water 1 50ml.bag @ 12.5 mls/hr IVPB Q8HR [facility] Rx#: [id number] Vancomycin 1,000 mg In 250 Sodium Chloride 0.9% 250 ml @ 125 mls/hr IVPB Q24H [facility] Rx#:[id number] Oral 720 100 Output: Urine 600 Other: Voiding Method Toilet Toilet Toilet # Voids 3 1 2 # Bowel Movements 1 - Exam GENERAL EXAM: Alert, active, comfortable in no apparent distress. HEAD: Normocephalic. EYES: Normal reaction of pupils, equal size. NOSE: Clear with pink turbinates. THROAT: No erythema or exudates. NECK: No masses, no JVD. CHEST: No chest wall deformity. LUNGS: Equal air entry with no crackles, wheeze, rhonchi or dullness. CVS: S1 and S2 normal with no audible murmurs, regular rhythm. ABDOMEN: No hepatosplenomegaly, normal bowel sounds, no guarding or rigidity. SPINE: No scoliosis or deformity SKIN: No rashes CENTRAL NERVOUS SYSTEM: No focal deficits, tone is normal in all 4 extremities. - Labs CBC & Chem 7: 04/02/17 05:44 04/02/17 05:44 Labs: Abnormal Lab Results - Last 24 Hours (Table) 08/08/17 08/09/17 08/09/17 Range/Units 20:46 05:44 05:58 Chloride 112 H (98-107) mmol/L Glucose 108 H (74-99) mg/dL POC Glucose (mg/dL) 112 H 116 H (75-99) mg/dL Microbiology - Last 24 Hours (Table) 03/29/17 20:01 Blood Culture - Preliminary Blood No Growth after 72 hours Assessment and Plan Plan: assessment 1 right upper lobe mass, 3 cm, subpleural, slightly growing in size compared to the previous CAT scan from November 2016. Doubt pneumonia. Doubt round atelectasis. 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 2 COPD 3 chronic interstitial changes in lung bases bilaterally 4 thoracic dextroscoliosis 5 urine checked infection, suspected currently under broad-spectrum antibiotics 6 troponin leak, currently under investigation 7 hypertension 8 hyperlipidemia 9 diabetes mellitus 10 acid reflux Plan The patient was seen and evaluated by Dr. Maynard. We will await FNA results once completed hopefully tomorrow. We will continue her current medications. Her blood pressure is improved this afternoon. No pulmonary complaints. We'll continue to follow.
[2017-04-02] MEDS: ATORVASTATIN 40 MG TAB PO SCH (21:06)
[2017-04-02] MEDS: ESCITALOPRAM 5 MG TAB PO SCH (21:06)
[2017-04-02 21:27] LABS: Glucose,Whole Blood 139 mg/dL (75-99)
[2017-04-02] MEDS ORDERED: VANCOMYCIN TROUGH DUE 1 EACH MISC MISCELLANE ONE (22:00)
[2017-04-02] MEDS: VANCOMYCIN 1,000 MG in SODIUM CHLORIDE 0.9% 250 ML IVPB SCH (23:14)
[2017-04-03] MEDS ORDERED: ATENOLOL 25 MG TAB PO SCH (06:00)
[2017-04-03] MEDS ORDERED: amLODIPine 5 MG TAB PO SCH (06:00)
[2017-04-03 06:01] LABS: Glucose,Whole Blood 119 mg/dL (75-99)
[2017-04-03] MEDS: cloNIDine HCL 0.1 MG TAB PO SCH ×2 (06:03→20:04)
[2017-04-03] MEDS: PANTOPRAZOLE 40 MG TABLET PO SCH (06:04)
[2017-04-03 06:26] LABS: Basophils % (A) 1 %; CH 30.9; Eosinophils # (A) 0.8 k/uL (0-0.7); Eosinophils % (A) 16 %; HCT 42.9 % (34.0-46.0); HDW 2.89; Luc # (Auto) 0.15; Luc % (Auto) 3; Lymphocytes # (A) 2.1 k/uL (1.0-4.8); Lymphocytes % (A) 42 %; MCH 29.9 pg (25.0-35.0); MCHC 32.7 g/dL (31.0-37.0); MCV 91.6 fL (80.0-100.0); Mean Platelet Volume 7.7; Monocytes # (A) 0.2 k/uL (0-1.0); Monocytes % (A) 4 %; Neutrophils # (A) 1.7 k/uL (1.3-7.7); Neutrophils % (A) 35 %; RBC 4.69 m/uL (3.80-5.40); RDW 14.1 % (11.5-15.5); WBC (Perox) 4.81
[2017-04-03 06:40] LABS: Anion Gap 6 mmol/L; Blood Urea Nitrogen 14 mg/dL (7-17); Calcium 8.8 mg/dL (8.4-10.2); Carbon Dioxide 26 mmol/L (22-30); Chloride 110 mmol/L (98-107); Glucose 106 mg/dL (74-99); Magnesium 1.7 mg/dL (1.6-2.3); Non-African American GFR(MDRD) 57 (>60 ml/min/1.73 sqM); Sodium 142 mmol/L (137-145)
[2017-04-03] MEDS ORDERED: LEVOFLOXACIN 500 MG TAB PO SCH (09:00)
--- NOTE | 2017-04-03 09:09 | P.PN ---
Subjective Patient reports still having a nonproductive cough. Also having some mild burning with urination. She is scheduled for another fine-needle aspiration of the lung mass today. She does report improvement in her breathing. Denies any chest pain. Denies any nausea or vomiting. She is having regular bowel movements. Objective - Vital Signs Vital signs: Vital Signs Temp 97 F L 04/03/17 06:01 Pulse 55 L 04/03/17 08:50 Resp 16 04/03/17 08:50 BP 164/71 04/03/17 06:01 Pulse Ox 96 04/03/17 06:01 Intake & Output 04/02/17 04/03/17 04/03/17 18:59 06:59 18:59 Intake Total 310 240 Output Total 900 Balance -590 240 Intake: IV 210 240 0.9 @20mls/hr 160 240 Piperacillin-Tazobactam 3 50 .375 gm In Dextrose/Water 1 50ml.bag @ 12.5 mls/hr IVPB Q8HR [facility] Rx#: [id number] Oral 100 Output: Urine 900 Other: Voiding Method Toilet Toilet Toilet # Voids 1 1 # Bowel Movements 1 - Exam Head normocephalic Neck supple Lungs clear Heart regular rate and rhythm S1-S2, no rub or gallop Abdomen is soft nontender nondistended positive bowel sounds no hepatosplenomegaly Extremities no edema Neuro alert and orientated to 3 - Labs CBC & Chem 7: 04/03/17 05:43 04/03/17 05:43 Labs: Abnormal Lab Results - Last 24 Hours (Table) 04/02/17 04/03/17 04/03/17 Range/Units 21:25 05:43 05:43 Eosinophils # 0.8 H (0-0.7) k/uL Chloride 110 H (98-107) mmol/L Glucose 106 H (74-99) mg/dL POC Glucose (mg/dL) 139 H (75-99) mg/dL 04/03/17 Range/Units 05:59 Eosinophils # (0-0.7) k/uL Chloride (98-107) mmol/L Glucose (74-99) mg/dL POC Glucose (mg/dL) 119 H (75-99) mg/dL Microbiology - Last 24 Hours (Table) 03/29/17 20:01 Blood Culture - Preliminary Blood No Growth after 96 hours Assessment and Plan Plan: 1. Right upper lobe concerning for a spiculated mass and underlying malignancy. Plan for fine-needle aspiration is morning. Pulmonary service following 2. Urinary tract infection, with positive UA on presentation but negative urine culture and blood culture. Continue Levaquin for 5 more days 3. Sepsis on presentation secondary to #2 resolved, 4. Elevated troponin: Most likely non-thrombotic troponin leak. Patient was seen and evaluated by cardiology. Twelve-lead EKG with no acute ischemic changes. Echocardiogram ordered. May require further workup for left heart catheterization as an outpatient per cardiology recommendations. 5. Underlying COPD with no evidence of exacerbation 6. Essential hypertension: Monitoring blood pressures. Medications were adjusted yesterday. Norvasc 5 mg daily was added and Catapres changed to 0.1 mg twice a day scheduled. 7. Nicotine dependence: Discussed smoking cessation. Started nicotine patch 21 mg 8. Hypomagnesemia: Replaced by protocol DVT prophylaxis subcu heparin I performed an examination of the patient and discussed their management with the physician Community Health Program Coordinator. I have reviewed the Physician Community Health Program Coordinator's notes and agree with the documented findings and plan of care
--- NOTE | 2017-04-03 10:15 | XR ---
EXAMINATION TYPE: XR chest 1V portable DATE OF EXAM: 04/03/2017 COMPARISON: Prior chest x-ray 03/29/2017 HISTORY: Status post biopsy right lung TECHNIQUE: Single frontal view of the chest is obtained. FINDINGS: Patient is rotated. No evident pneumonia, sizable pneumothorax, or pleural effusion. Right lung mass again noted. IMPRESSION: No evident complication status post lung biopsy. Rotated exam, follow-up suggested.
--- NOTE | 2017-04-03 10:21 | CT ---
EXAMINATION TYPE: CT guided FNA DATE OF EXAM: 04/03/2017 COMPARISON: NONE HISTORY: right upper lobe bx CT DLP: 1436 mGycm The procedure is discussed with the patient, the risks, complications, benefits and alternatives, wer e discussed and any questions were answered. Informed consent was obtained. The patient is placed p anayeli on the CT table, prepped and draped in the usual sterile fashion. Utilizing a 22-gauge Chiba needle access into the right upper lobe mass was achieved with 2 passes pe rformed. Pathology pending. All elements of maximal barrier technique were utilized. The patient r emained stable throughout the procedure with no immediate postprocedural complication. IMPRESSION: 1. Successful CT guided fine needle aspiration of a right upper lobe lung mass.
[2017-04-03 11:27] LABS: Glucose,Whole Blood 123 mg/dL (75-99)
[2017-04-03] MEDS: BACLOFEN 10 MG TAB PO SCH ×2 (12:35→20:04)
[2017-04-03] MEDS: NICOTINE 21MG/24HR PATCH TRANSDERM SCH (12:36)
[2017-04-03] MEDS: GABAPENTIN 300 MG CAP PO SCH ×2 (12:36→20:04)
[2017-04-03] MEDS: HEPARIN SODIUM,PORCINE 5,000 UNIT/ML 1 ML VIAL SQ SCH ×2 (12:36→20:04)
[2017-04-03 13:22] VITALS: BMI 21.7
--- NOTE | 2017-04-03 14:32 | P.PN ---
Subjective 76-year-old female patient, known history of coronary artery disease and COPD, presented hospital because of increased cough and sputum production. Denied having any significant worsening shortness of breath. No reported angina or chest pain. The patient was evaluated in emergency department and she was considered to be septic and she was started on broad-spectrum antibiotics and addition to fluids IV. Troponin is of indeterminate and a cardiology consultation has been obtained. The chest x-ray showed a questionable right upper lobe pneumonia and for that reason a computed tomography scan of the chest was done and this was compared to the one that was done approximately 4 months ago. There is a subpleural pulmonary lesion in the right upper lobe which could be quite suspicious for malignancy. I doubt pneumonia. I doubt around atelectasis. I think this abnormality is gradually growing it's quite suspicious for underlying malignancy. The patient has no hemoptysis. No other complaints otherwise. The white cell count is not elevated at 4.0. Renal function stable at 0.9 creatinine. Urinalysis abnormal with possibly urine checked infection. Based on that urine cultures were sent and the patient was also started on broad-spectrum antibiotics. Blood cultures been negative thus far. On 04/01/2017 the patient is doing well. She is less short of breath. No cough or sputum production. She is on room air oxygen. No chest pain. No nausea vomiting or diarrhea. I discussed the case with interventional radiology and I'm going to order a FNA of the right upper lobe lesion, CAT scan guided. No fever. No chills. Cultures all negative and the patient is still on broad-spectrum antibiotics. The patient was seen and evaluated again today 04/02/2017 in follow-up on the selective care unit. She remains awake and alert in no acute distress. She was to go for an FNA of the right upper lobe lesion however her blood pressure was too high and interventional radiology postponed until tomorrow. She is currently on Catapres and atenolol. Amlodipine has been added. Her blood pressure was as high as 189/85 today. It's currently 136/70. She has no pulmonary complaints. No chest pain, palpitations lightheadedness or dizziness. No headaches. Maintaining O2 saturations in the upper 90s on room air. Afebrile. On 04/03/2017 the patient is still having some minimal nonproductive cough. No significant chest pain or shortness of breath. She is resting comfortably in bed on room air. She underwent a fine-needle aspirate by interventional radiology. Results are still pending for now. The procedure was done without any complications. No hemoptysis. No fever or chills. She has been afebrile hemodynamically stable at this point. She is still antibiotics with oral Levaquin 500 mg by mouth daily. Cultures were all negative. Objective - Vital Signs Vital signs: Vital Signs Temp 96.9 F L 04/03/17 11:40 Pulse 49 L 04/03/17 11:40 Resp 18 04/03/17 11:40 BP 118/57 04/03/17 11:40 Pulse Ox 95 04/03/17 11:40 Intake & Output 04/02/17 04/03/17 04/03/17 18:59 06:59 18:59 Intake Total 310 240 Output Total 900 Balance -590 240 Weight 53.9 kg Intake: IV 210 240 0.9 @20mls/hr 160 240 Piperacillin-Tazobactam 3 50 .375 gm In Dextrose/Water 1 50ml.bag @ 12.5 mls/hr IVPB Q8HR [facility] Rx#: [id number] Oral 100 Output: Urine 900 Other: Voiding Method Toilet Toilet Toilet # Voids 1 1 # Bowel Movements 1 - Exam Head exam was generally normal. There was no scleral icterus or corneal arcus. Mucous membranes were moist.Neck was supple and without jugular venous distension, thyromegaly, or carotid bruits. Carotids were easily palpable bilaterally. There was no adenopathy. Lung sounds are diminished lung with some few scattered expiratory wheeze otherwise negative.Cardiac exam revealed the PMI to be normally situated and sized. The rhythm was regular and no extrasystoles were noted during several minutes of auscultation. The first and second heart sounds were normal and physiologic splitting of the second heart sound was noted. There were no murmurs, rubs, clicks, or gallops.Abdominal exam revealed normal bowel sounds. The abdomen was soft, non-tender, and without masses, organomegaly, or appreciable enlargement of the abdominal aorta.Examination of the extremities revealed easily palpable radial, femoral and pedal pulses. There was no cyanosis, clubbing or edema. - Labs CBC & Chem 7: 04/03/17 05:43 04/03/17 05:43 Labs: Abnormal Lab Results - Last 24 Hours (Table) 04/02/17 04/03/17 04/03/17 Range/Units 21:25 05:43 05:43 Eosinophils # 0.8 H (0-0.7) k/uL Chloride 110 H (98-107) mmol/L Glucose 106 H (74-99) mg/dL POC Glucose (mg/dL) 139 H (75-99) mg/dL 04/03/17 04/03/17 Range/Units 05:59 11:23 Eosinophils # (0-0.7) k/uL Chloride (98-107) mmol/L Glucose (74-99) mg/dL POC Glucose (mg/dL) 119 H 123 H (75-99) mg/dL Microbiology - Last 24 Hours (Table) 03/29/17 20:01 Blood Culture - Preliminary Blood No Growth after 96 hours Assessment and Plan Plan: assessment 1 right upper lobe mass, 3 cm, subpleural, slightly growing in size compared to the previous CAT scan from November 2016. Doubt pneumonia. Doubt round atelectasis. 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 The patient underwent a fine-needle aspirate of the right upper lobe mass by interventional radiology under CAT scan guidance. No complications. Awaiting the results. 2 COPD 3 chronic interstitial changes in lung bases bilaterally 4 thoracic dextroscoliosis 5 urine checked infection, suspected currently under broad-spectrum antibiotics 6 troponin leak, currently under investigation 7 hypertension 8 hyperlipidemia 9 diabetes mellitus 10 acid reflux Plan Awaiting the results of the FNA. The patient is doing well. Continue the course of antibiotics. No signs of any septicemia at this point. Hemodynamically stable. We'll continue to follow.
--- NOTE | 2017-04-03 14:39 | XR ---
EXAMINATION TYPE: XR chest 1V portable DATE OF EXAM: 04/03/2017 COMPARISON: Prior chest x-ray same date earlier time HISTORY: Status post lung biopsy TECHNIQUE: Single frontal view of the chest is obtained. FINDINGS: No interval change IMPRESSION: No evident complication status post lung biopsy.
[2017-04-03 16:41] LABS: Glucose,Whole Blood 96 mg/dL (75-99)
[2017-04-03] MEDS: ESCITALOPRAM 5 MG TAB PO SCH (20:04)
[2017-04-03] MEDS: ATORVASTATIN 40 MG TAB PO SCH (20:04)
[2017-04-03 21:11] LABS: Glucose,Whole Blood 111 mg/dL (75-99)
[2017-04-04 06:31] LABS: Glucose,Whole Blood 100 mg/dL (75-99)
[2017-04-04 06:40] LABS: Basophils % (A) 1 %; CH 30.1; CHCM 33.4; Eosinophils # (A) 0.6 k/uL (0-0.7); Eosinophils % (A) 15 %; HDW 2.95; HGB 12.3 gm/dL (11.4-16.0); Luc # (Auto) 0.08; Luc % (Auto) 2; Lymphocytes # (A) 1.6 k/uL (1.0-4.8); Lymphocytes % (A) 40 %; MCH 30.2 pg (25.0-35.0); MCHC 33.3 g/dL (31.0-37.0); MCV 90.9 fL (80.0-100.0); Mean Platelet Volume 7.5; Monocytes # (A) 0.2 k/uL (0-1.0); Monocytes % (A) 5 %; Neutrophils # (A) 1.5 k/uL (1.3-7.7); Neutrophils % (A) 37 %; RBC 4.07 m/uL (3.80-5.40); RDW 13.5 % (11.5-15.5); WBC (Perox) 4.28
[2017-04-04] MEDS: PANTOPRAZOLE 40 MG TABLET PO SCH (06:45)
[2017-04-04 07:08] LABS: Anion Gap 7 mmol/L; Blood Urea Nitrogen 18 mg/dL (7-17); Calcium 8.6 mg/dL (8.4-10.2); Carbon Dioxide 24 mmol/L (22-30); Chloride 110 mmol/L (98-107); Glucose 90 mg/dL (74-99); Magnesium 1.6 mg/dL (1.6-2.3); Non-African American GFR(MDRD) 58 (>60 ml/min/1.73 sqM); Sodium 141 mmol/L (137-145)
[2017-04-04] MEDS: NICOTINE 21MG/24HR PATCH TRANSDERM SCH (07:49)
[2017-04-04] MEDS: amLODIPine 5 MG TAB PO SCH (07:49)
[2017-04-04] MEDS: ASPIRIN 325 MG TAB PO SCH (07:50)
[2017-04-04] MEDS: cloNIDine HCL 0.1 MG TAB PO SCH ×2 (07:50→21:23)
[2017-04-04] MEDS: BACLOFEN 10 MG TAB PO SCH ×2 (07:50→21:23)
[2017-04-04] MEDS: ATENOLOL 25 MG TAB PO SCH (07:50)
[2017-04-04] MEDS: HEPARIN SODIUM,PORCINE 5,000 UNIT/ML 1 ML VIAL SQ SCH ×2 (07:51→21:23)
[2017-04-04] MEDS: GABAPENTIN 300 MG CAP PO SCH ×2 (07:51→21:23)
[2017-04-04] MEDS: LEVOFLOXACIN 250 MG TAB PO SCH (07:51)
[2017-04-04] MEDS: HYDROcodone/APAP 7.5-325MG 1 EACH TAB PO PRN (07:56)
[2017-04-04 12:27] LABS: Glucose,Whole Blood 91 mg/dL (75-99)
--- NOTE | 2017-04-04 14:09 | P.PN ---
Subjective 76-year-old female patient, known history of coronary artery disease and COPD, presented hospital because of increased cough and sputum production. Denied having any significant worsening shortness of breath. No reported angina or chest pain. The patient was evaluated in emergency department and she was considered to be septic and she was started on broad-spectrum antibiotics and addition to fluids IV. Troponin is of indeterminate and a cardiology consultation has been obtained. The chest x-ray showed a questionable right upper lobe pneumonia and for that reason a computed tomography scan of the chest was done and this was compared to the one that was done approximately 4 months ago. There is a subpleural pulmonary lesion in the right upper lobe which could be quite suspicious for malignancy. I doubt pneumonia. I doubt around atelectasis. I think this abnormality is gradually growing it's quite suspicious for underlying malignancy. The patient has no hemoptysis. No other complaints otherwise. The white cell count is not elevated at 4.0. Renal function stable at 0.9 creatinine. Urinalysis abnormal with possibly urine checked infection. Based on that urine cultures were sent and the patient was also started on broad-spectrum antibiotics. Blood cultures been negative thus far. On 04/01/2017 the patient is doing well. She is less short of breath. No cough or sputum production. She is on room air oxygen. No chest pain. No nausea vomiting or diarrhea. I discussed the case with interventional radiology and I'm going to order a FNA of the right upper lobe lesion, CAT scan guided. No fever. No chills. Cultures all negative and the patient is still on broad-spectrum antibiotics. The patient was seen and evaluated again today 04/02/2017 in follow-up on the selective care unit. She remains awake and alert in no acute distress. She was to go for an FNA of the right upper lobe lesion however her blood pressure was too high and interventional radiology postponed until tomorrow. She is currently on Catapres and atenolol. Amlodipine has been added. Her blood pressure was as high as 189/85 today. It's currently 136/70. She has no pulmonary complaints. No chest pain, palpitations lightheadedness or dizziness. No headaches. Maintaining O2 saturations in the upper 90s on room air. Afebrile. On 04/03/2017 the patient is still having some minimal nonproductive cough. No significant chest pain or shortness of breath. She is resting comfortably in bed on room air. She underwent a fine-needle aspirate by interventional radiology. Results are still pending for now. The procedure was done without any complications. No hemoptysis. No fever or chills. She has been afebrile hemodynamically stable at this point. She is still antibiotics with oral Levaquin 500 mg by mouth daily. Cultures were all negative. On 04/04/2017 the patient is being seen in follow-up. No complaints. She'll be discharged home today to be followed up on outpatient basis by pulmonary. Fine-needle aspirate of the right upper lobe lesion was done and the results are still pending for now. No complaints otherwise. She is resting comfortably in bed. Objective - Vital Signs Vital signs: Vital Signs Temp 97.7 F 04/04/17 12:00 Pulse 54 L 04/04/17 12:00 Resp 16 04/04/17 12:00 BP 109/58 04/04/17 12:00 Pulse Ox 96 04/04/17 12:00 Intake & Output 04/03/17 04/04/17 04/04/17 18:59 06:59 18:59 Intake Total 140 700 Output Total 300 Balance 140 400 Weight 53.9 kg Intake: IV 140 160 0.9 @20mls/hr 140 160 Oral 540 Output: Urine 300 Other: Voiding Method Toilet Toilet # Voids 2 0 - Exam Head exam was generally normal. There was no scleral icterus or corneal arcus. Mucous membranes were moist.Neck was supple and without jugular venous distension, thyromegaly, or carotid bruits. Carotids were easily palpable bilaterally. There was no adenopathy. Lung sounds are diminished lung with some few scattered expiratory wheeze otherwise negative.Cardiac exam revealed the PMI to be normally situated and sized. The rhythm was regular and no extrasystoles were noted during several minutes of auscultation. The first and second heart sounds were normal and physiologic splitting of the second heart sound was noted. There were no murmurs, rubs, clicks, or gallops.Abdominal exam revealed normal bowel sounds. The abdomen was soft, non-tender, and without masses, organomegaly, or appreciable enlargement of the abdominal aorta.Examination of the extremities revealed easily palpable radial, femoral and pedal pulses. There was no cyanosis, clubbing or edema. - Labs CBC & Chem 7: 04/04/17 06:21 04/04/17 06:21 Labs: Abnormal Lab Results - Last 24 Hours (Table) 04/03/17 04/04/17 04/04/17 Range/Units 20:31 06:21 06:25 Chloride 110 H (98-107) mmol/L BUN 18 H (7-17) mg/dL POC Glucose (mg/dL) 111 H 100 H (75-99) mg/dL Microbiology - Last 24 Hours (Table) 03/29/17 20:01 Blood Culture - Preliminary Blood No Growth after 120 hours Assessment and Plan Plan: assessment 1 right upper lobe mass, 3 cm, subpleural, slightly growing in size compared to the previous CAT scan from November 2016. Doubt pneumonia. Doubt round atelectasis. 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 The patient underwent a fine-needle aspirate of the right upper lobe mass by interventional radiology under CAT scan guidance. No complications. Awaiting the results. 2 COPD, currently inactive in stable 3 chronic interstitial changes in lung bases bilaterally 4 thoracic dextroscoliosis 5 urine checked infection, suspected currently under broad-spectrum antibiotics 6 troponin leak, currently under investigation 7 hypertension 8 hyperlipidemia 9 diabetes mellitus 10 acid reflux Plan Awaiting the results of the FNA. May potentially discharged home on Levaquin, to complete a seven-day course and Spiriva as a maintenance treatment for his COPD. Follow-up with Dr. Vera, the patient's medical assistant per diem.
--- NOTE | 2017-04-04 14:35 | P.PN ---
Subjective Patient had fine-needle aspiration completed yesterday. Patient reports still feeling weak and tired and not ready for discharge. Denies any chest pain or shortness breath. Denies any nausea or vomiting. Denies any bowel movement changes or urinary symptoms. Objective - Vital Signs Vital signs: Vital Signs Temp 97.7 F 04/04/17 12:00 Pulse 54 L 04/04/17 12:00 Resp 16 04/04/17 12:00 BP 109/58 04/04/17 12:00 Pulse Ox 96 04/04/17 12:00 Intake & Output 04/03/17 04/04/17 04/04/17 18:59 06:59 18:59 Intake Total 140 700 Output Total 300 Balance 140 400 Weight 53.9 kg Intake: IV 140 160 0.9 @20mls/hr 140 160 Oral 540 Output: Urine 300 Other: Voiding Method Toilet Toilet # Voids 2 0 - Exam Head normocephalic Neck supple Lungs clear Heart regular rate and rhythm S1-S2, no rub or gallop Abdomen is soft nontender nondistended positive bowel sounds no hepatosplenomegaly Extremities no edema Neuro alert and orientated to 3 - Labs CBC & Chem 7: 04/04/17 06:21 04/04/17 06:21 Labs: Abnormal Lab Results - Last 24 Hours (Table) 04/03/17 04/04/17 04/04/17 Range/Units 20:31 06:21 06:25 Chloride 110 H (98-107) mmol/L BUN 18 H (7-17) mg/dL POC Glucose (mg/dL) 111 H 100 H (75-99) mg/dL Microbiology - Last 24 Hours (Table) 03/29/17 20:01 Blood Culture - Preliminary Blood No Growth after 120 hours Assessment and Plan Plan: 1. Right upper lobe concerning for a spiculated mass and underlying malignancy. Status post fine-needle aspiration. Awaiting results. Pulmonary service following 2. Urinary tract infection, with positive UA on presentation but negative urine culture and blood culture. Continue Levaquin for 5 more days 3. Sepsis on presentation secondary to #2 resolved, 4. Elevated troponin: Most likely non-thrombotic troponin leak. Patient was seen and evaluated by cardiology. Twelve-lead EKG with no acute ischemic changes. Echocardiogram ordered. May require further workup for left heart catheterization as an outpatient per cardiology recommendations. 5. Underlying COPD with no evidence of exacerbation 6. Essential hypertension: Monitoring blood pressures. Medications were adjusted during this admission. Norvasc 5 mg daily was added and Catapres changed to 0.1 mg twice a day scheduled. Now patient's blood pressures are slightly on the lower side aired will monitor in place parameters around blood pressure medications 7. Nicotine dependence: Discussed smoking cessation. Started nicotine patch 21 mg 8. Hypomagnesemia: Replaced by protocol 9. Generalized weakness consult physical therapy Anticipate discharge home possibly tomorrow DVT prophylaxis subcu heparin I performed an examination of the patient and discussed their management with the physician [employer]. I have reviewed the Physician [employer]'s notes and agree with the documented findings and plan of care
[2017-04-04 16:33] LABS: Glucose,Whole Blood 114 mg/dL (75-99)
[2017-04-04] MEDS: ESCITALOPRAM 5 MG TAB PO SCH (21:23)
[2017-04-04] MEDS: ATORVASTATIN 40 MG TAB PO SCH (21:23)
[2017-04-04 23:14] VITALS: RESP 18
[2017-04-04 23:20] LABS: Glucose,Whole Blood 113 mg/dL (75-99)
[2017-04-05] MEDS: PANTOPRAZOLE 40 MG TABLET PO SCH (06:25)
[2017-04-05 06:55] VITALS: BP 122/62; PULSE 52; TEMP 97.9
[2017-04-05] MEDS: NICOTINE 21MG/24HR PATCH TRANSDERM SCH (08:21)
[2017-04-05] MEDS: ASPIRIN 325 MG TAB PO SCH (08:22)
[2017-04-05] MEDS: GABAPENTIN 300 MG CAP PO SCH (08:22)
[2017-04-05] MEDS: cloNIDine HCL 0.1 MG TAB PO SCH (08:22)
[2017-04-05] MEDS: amLODIPine 5 MG TAB PO SCH (08:22)
[2017-04-05] MEDS: ATENOLOL 25 MG TAB PO SCH (08:23)
[2017-04-05] MEDS: BACLOFEN 10 MG TAB PO SCH (08:23)
[2017-04-05] MEDS: LEVOFLOXACIN 250 MG TAB PO SCH (08:23)
[2017-04-05] MEDS: HEPARIN SODIUM,PORCINE 5,000 UNIT/ML 1 ML VIAL SQ SCH (08:23)
[2017-04-05 12:32] LABS: Glucose,Whole Blood 151 mg/dL (75-99)
--- NOTE | 2017-04-05 15:42 | P.DS ---
Providers Date of admission: 03/29/17 21:58 Expected date of discharge: 04/05/17 Attending physician: Chance Byrd Consults: 03/29/17 22:02 Consult Physician Urgent Consulting Provider: Elizabeth Santos Consult Reason/Comments: Elevated troponin, EKG changes Do you want consulting provider notified?: Already Contacted 03/31/17 10:18 Consult Physician Routine Consulting Provider: Jody Amos Consult Reason/Comments: lung mass Do you want consulting provider notified?: Yes Primary care physician: Cecilia Aldridge [facility] Course: Diagnoses on discharge 1. Right upper lobe concerning for a spiculated mass and underlying malignancy. Status post fine-needle aspiration. Awaiting results. Pulmonary service following 2. Urinary tract infection, with positive UA on presentation but negative urine culture and blood culture. Continue Levaquin for 7 more days 3. Sepsis on presentation secondary to #2 resolved, 4. Elevated troponin: Most likely non-thrombotic troponin leak. Patient was seen and evaluated by cardiology. Twelve-lead EKG with no acute ischemic changes. Echocardiogram ordered. May require further workup for left heart catheterization as an outpatient per cardiology recommendations. 5. Underlying COPD with no evidence of exacerbation 6. Essential hypertension: Monitoring blood pressures. Medications were adjusted during this admission. Norvasc 5 mg daily was added and Catapres changed to 0.1 mg twice a day scheduled. Now patient's blood pressures are slightly on the lower side aired will monitor in place parameters around blood pressure medications 7. Nicotine dependence: Discussed smoking cessation. Started nicotine patch 21 mg 8. Hypomagnesemia: Replaced by protocol 9. Generalized weakness consult physical therapy Hospital course: This is a 76-year-old female with past medical history noted below presented to the hospital with worsening cough and fevers at home. Patient is known to have underlying COPD and said for the past few days she was having productive cough. She was evaluated in the emergency room and was found to have evidence of sepsis so was started on broad-spectrum antibiotic and IV fluid hydration currently admitted to the hospital. She was also noted to have an indeterminant troponin elevation but patient herself denies any chest pain. Chest x-ray showed right upper lobe density suspected for pneumonia or mass. This was seen previously on prior computed tomography scan of the chest approximately 4 months ago and was thought to be scarring. At the time repeat computed tomography scan was recommended The patient did not have follow-up in that regard. Patient had biopsy of the lung mass during this admission, results are still pending. she was treated with Levaquin with good improvement of her urinary symptoms. She had elevated blood pressure and Norvasc 5 mg by mouth daily was added to her regimen She was counseled in length more than 30 minutes throughout this admission in that regard to smoking cessation she was given NicoDerm patches during this admission and a prescription at the time of discharge. She will follow-up with her primary care physician Dr. Cecilia Aldridge within 1 week She should also follow with pulmonary in the next 1-2 weeks Patient Condition at Discharge: Stable Plan - Discharge Summary New Discharge Prescriptions: New amLODIPine [Norvasc] 5 mg PO DAILY tab Levofloxacin [Levaquin] 500 mg PO Q24H tab Nicotine 21Mg/24Hr Patch [Habitrol] 1 patch TRANSDERM DAILY patch Continue Multivitamins, Thera [Multivitamin (formulary)] 1 tab PO DAILY Baclofen 10 mg PO BID metFORMIN HCL [Glucophage] 500 mg PO BID Omeprazole [PriLOSEC] 20 mg PO DAILY Simvastatin [Zocor] 40 mg PO HS Meloxicam [Mobic] 7.5 mg PO BID Diazepam [Valium] 5 mg PO HS PRN PRN Reason: Anxiety HYDROcodone/APAP 7.5-325MG [[place] 7.5-325] 1 tab PO QID PRN PRN Reason: Pain Gabapentin 300 mg PO QAM Biotin 5 mg PO DAILY Atenolol [Tenormin] 25 mg PO QAM Aspirin EC [Ecotrin Low Dose] 81 mg PO DAILY Gabapentin [Neurontin] 600 mg PO HS cloNIDine HCL [Catapres] 0.1 mg PO BID PRN PRN Reason: BP >165/95 Mirabegron [Myrbetriq] 25 mg PO QAM Lisinopril [Zestril] 10 mg PO DAILY Escitalopram [Lexapro] 5 mg PO HS Furosemide [Lasix] 10 - 30 mg PO DAILY PRN PRN Reason: Edema Tiotropium Br/Olodaterol HCl [Stiolto Respimat Inhal Bells] 2 spray INHALATION DAILY MDD 2.5 mcg Discharge Medication List Baclofen 10 mg PO BID 05/03/15 [History] Diazepam [Valium] 5 mg PO HS PRN 05/03/15 [History] Meloxicam [Mobic] 7.5 mg PO BID 05/03/15 [History] Multivitamins, Thera [Multivitamin (formulary)] 1 tab PO DAILY 05/03/15 [History ] Omeprazole [PriLOSEC] 20 mg PO DAILY 05/03/15 [History] Simvastatin [Zocor] 40 mg PO HS 05/03/15 [History] metFORMIN HCL [Glucophage] 500 mg PO BID 05/03/15 [History] HYDROcodone/APAP 7.5-325MG [[place] 7.5-325] 1 tab PO QID PRN 01/27/16 [History] Biotin 5 mg PO DAILY 05/13/16 [History] Gabapentin 300 mg PO QAM 05/13/16 [History] Aspirin EC [Ecotrin Low Dose] 81 mg PO DAILY 10/22/16 [History] Atenolol [Tenormin] 25 mg PO QAM 10/22/16 [History] Gabapentin [Neurontin] 600 mg PO HS 10/26/16 [History] Escitalopram [Lexapro] 5 mg PO HS 03/30/17 [History] Furosemide [Lasix] 10 - 30 mg PO DAILY PRN 03/30/17 [History] Lisinopril [Zestril] 10 mg PO DAILY 03/30/17 [History] Mirabegron [Myrbetriq] 25 mg PO QAM 03/30/17 [History] Tiotropium Br/Olodaterol HCl [Stiolto Respimat Inhal Bells] 2 spray INHALATION DAILY MDD 2.5 mcg 03/30/17 [History] cloNIDine HCL [Catapres] 0.1 mg PO BID PRN 03/30/17 [History] Levofloxacin [Levaquin] 500 mg PO Q24H tab 04/05/17 [Rx] Nicotine 21Mg/24Hr Patch [Habitrol] 1 patch TRANSDERM DAILY patch 04/05/17 [Rx] amLODIPine [Norvasc] 5 mg PO DAILY tab 04/05/17 [Rx] Follow up Appointment(s)/Referral(s): [facility], [NON-STAFF] - Cecilia Aldridge MD [Primary Care Provider] - 1-2 days
== END 2017-04-05 16:30 | disposition home health service (06) | DRG 872 ==
LOC: EC 19:52 → 6SEL 21:58 → 5MS5E 04-04 16:58
PROVIDERS: ADMIT Internal Medicine; ATTEND Internal Medicine
PROC: 0BBC3ZX Excision of Right Upper Lung Lobe, Percutaneous Approach, Diagnostic (ICD-10-PCS; principal; 2017-04-03)
DX: A41.9 Sepsis, unspecified organism (principal); N39.0 Urinary tract infection, site not specified; C34.11 Malignant neoplasm of upper lobe, right bronchus or lung; E83.42 Hypomagnesemia; J44.9 Chronic obstructive pulmonary disease, unspecified; E11.9 Type 2 diabetes mellitus without complications; M41.9 Scoliosis, unspecified; I45.4 Nonspecific intraventricular block; I10 Essential (primary) hypertension; K21.9 Gastro-esophageal reflux disease without esophagitis; E78.5 Hyperlipidemia, unspecified; E03.9 Hypothyroidism, unspecified; G89.29 Other chronic pain; M54.9 Dorsalgia, unspecified; M19.91 Primary osteoarthritis, unspecified site; Z79.84 Long term (current) use of oral hypoglycemic drugs; F17.200 Nicotine dependence, unspecified, uncomplicated; Z79.82 Long term (current) use of aspirin; Z79.1 Long term (current) use of non-steroidal anti-inflammatories (NSAID); Z79.899 Other long term (current) drug therapy; Z88.8 Allergy status to other drugs, medicaments and biological substances; Z86.14 Personal history of Methicillin resistant Staphylococcus aureus infection; Z90.49 Acquired absence of other specified parts of digestive tract; Z90.710 Acquired absence of both cervix and uterus; Z85.3 Personal history of malignant neoplasm of breast; Z96.651 Presence of right artificial knee joint; Z88.1 Allergy status to other antibiotic agents; Z91.030 Bee allergy status; Z86.19 Personal history of other infectious and parasitic diseases
CPT/HCPCS: 10022; 36415; 71010; 71020; 71260; 77012; 80048; 80053; 80202; 81001; 82272; 82550; 82553; 83605; 83735; 84132; 84484; 85025; 85610; 85730; 87040; 87086; 88173; 88305; 93005; 93306; 96361; 96365; 99285

== ENCOUNTER → 2017-05-03 | Outpatient (CLI) | payer MEDICARE | LOC: RADPETMAIN 12:29 | PROVIDERS: ATTEND Internal Medicine Sleep Medicine | DX: Z53.9 Procedure and treatment not carried out, unspecified reason (principal) ==

== ENCOUNTER → 2017-05-10 | Outpatient (CLI) | payer MEDICARE ==
--- NOTE | 2017-05-12 06:32 | PE ---
EXAMINATION TYPE: PET CT fusion skull to thigh DATE OF EXAM: 05/10/2017 COMPARISON: CT thorax dated 04/09/2017. HISTORY: Solitary pulmonary nodule. Nondiagnostic biopsy. Prior right thyroid lobe nodule biopsy in 2 015 yielding benign follicular diagnosis. TECHNIQUE: Following the intravenous administration of 15.14 mCi of F-18 FDG, whole body images are performed from the skull base to the midthigh. Images are reviewed on the computer in the coronal, a xial, and sagittal planes. Reconstructed rotating images are created on independent workstation and reviewed on the computer. A localization and attenuation correction CT is performed in conjunction with the PET scan. FINDINGS: SKULL BASE AND NECK: Multiple thyroid nodules are seen bilaterally in an enlarged thyroid gland. Wit hin the right thyroid lobe there is a hypermetabolic nodule with a maximum SUV of 6.53. No suspicious adenopathy is seen within the skull base or neck. CHEST, MEDIASTINUM, AND HILAR REGION: Mediastinal background has a maximum SUV of 1.69. Within the anterior right upper lobe there is a spiculated, highly suspicious nodule measuring at hilario st 2.8 x 2.3 cm abutting the chest wall. This is hypermetabolic with a maximum SUV of 4.42. In the posterior basilar segment of the right lower lobe there is an elongated pulmonary nodule measu ring 9 x 6 mm on series 3 image 107 with a maximum SUV of 0.98, not higher than mediastinal backgroun d. This is favored to represent parenchymal and chronic atelectasis as it is contiguous with the pleu ral surface, linear in orientation and elongated. Focal area of groundglass opacity within the superior segment of the left lower lobe measures approxi mately 6 mm. This demonstrates no increased FDG avidity. Prominent precarinal lymph node measures 9 mm with an SUV of 2.43, left paratracheal prominent lymph nodes measure 8 mm each and have a maximum SUV of 2.17 and 2.24. Right hilar adenopathy is difficult to distinguish between adjacent vascular structures. Subcarinal lymph node measures 1.3 cm and has a maximum SUV of 2.18. Left axillary nodes are not enlarged and contain fatty frank, however these appear to have slight FDG avidity but are not hypermetabolic with a maximum SUV of 1.06.. Few nonenlarged and non-FDG avid left supraclavicular nodes are appreciated. ABDOMEN AND PELVIS: No suspicious hypermetabolic uptake. OSSEOUS STRUCTURES: No suspicious hypermetabolic uptake. OTHER CT: Cholecystectomy clips are seen within the gallbladder fossa. The liver is elongated extendi ng to the iliac crest. Nonobstructing lower pole renal calculi approximating each other and measure 7 mm together. 2 mm right mid pole nonobstructing renal calculus is seen. Pedicular screws and fixatio n rods are seen of the thoracic spine which creates spray artifact and partially limiting evaluation of the abdomen and pelvis. Numerous sigmoid diverticula are present without pericolonic fat stranding . Moderate calcific atheromatous changes are present of the abdominal aorta and its branches. IMPRESSION: 1. Right upper lobe spiculated pulmonary nodule considered highly suspicious for malignancy. This pul monary nodule abuts the chest wall with adjacent pleural thickening/pleural reaction. No discrete rojas st wall invasion is appreciated. Right lower lobe area of nodularity is favored to represent scarring and/or atelectasis with no increased FDG avidity. 2. Hypermetabolic mediastinal adenopathy is suspicious for metastasis. 3. Hypermetabolic right thyroid nodule, suspicious for malignancy although known prior right thyroid nodule biopsy in 2015 yielded pathologic diagnosis of benign follicular changes. Follow-up thyroid ul trasound and consideration for fine needle aspiration is recommended.
== END | disposition home or self-care (01) ==
LOC: RADPETMAIN 10:52
PROVIDERS: ATTEND Internal Medicine Sleep Medicine
DX: R91.1 Solitary pulmonary nodule (principal); R59.0 Localized enlarged lymph nodes
CPT/HCPCS: 78815; A9552

== ENCOUNTER 2017-05-15 16:45 | Emergency (ER) | payer MEDICARE ==
[2017-05-15] MEDS ORDERED: methylPREDNISolone SOD SUCCI 125 MG/2 ML VIAL IM STA (17:14)
[2017-05-15] MEDS ORDERED: HYDROcodone/APAP 5-325MG 1 EACH TAB PO STA (17:14)
[2017-05-15] MEDS ORDERED: SODIUM CHLORIDE 0.9% 1,000 ML IV STA (17:14)
[2017-05-15] MEDS ORDERED: SODIUM CHLORIDE 0.9% 1,000 ML IV SCH (17:30)
[2017-05-15 17:48] LABS: Basophils % (A) 0 %; CH 31.8; CHCM 35.2; Eosinophils # (A) 0.1 k/uL (0-0.7); Eosinophils % (A) 2 %; HCT 43.4 % (34.0-46.0); HDW 2.78; HGB 14.8 gm/dL (11.4-16.0); Luc # (Auto) 0.06; Luc % (Auto) 1; Lymphocytes % (A) 17 %; MCV 90.9 fL (80.0-100.0); Mean Platelet Volume 7.3; Monocytes # (A) 0.3 k/uL (0-1.0); Monocytes % (A) 4 %; Neutrophils # (A) 4.3 k/uL (1.3-7.7); Neutrophils % (A) 76 %; RBC 4.78 m/uL (3.80-5.40); RDW 14.2 % (11.5-15.5); WBC 5.7 k/uL (3.8-10.6); WBC (Perox) 5.75
[2017-05-15 18:05] LABS: ALT 22 U/L (9-52); AST 21 U/L (14-36); Alkaline Phosphatase 75 U/L (38-126); Anion Gap 10 mmol/L; Blood Urea Nitrogen 20 mg/dL (7-17); Calcium 9.3 mg/dL (8.4-10.2); Carbon Dioxide 20 mmol/L (22-30); Chloride 108 mmol/L (98-107); Glucose 124 mg/dL (74-99); Non-African American GFR(MDRD) >60 (>60 ml/min/1.73 sqM); Potassium 4.2 mmol/L (3.5-5.1); Sodium 138 mmol/L (137-145); Total Bilirubin 0.6 mg/dL (0.2-1.3); Total Protein 6.8 g/dL (6.3-8.2)
--- NOTE | 2017-05-15 19:23 | ED ---
General Adult HPI - General Chief complaint: Recheck/Abnormal Lab/Rx Stated complaint: SHOCKING SENSATION DOWN SPINE Time Seen by Provider: 05/15/17 16:58 Source: patient, EMS, RN notes reviewed, old records reviewed Mode of arrival: EMS Limitations: no limitations - History of Present Illness Initial comments: Chief complaint history of present illness is a 76-year-old female here with a complaint of tingling electric shocks down her lower extremity's. Patient reports that yesterday she was outside pulling weeds because they irritated her daughter's ALLERGIES. During the night she started having pain down both legs. She has a long history of degenerative joint disease and disc problems. She' s had surgery in the past. - Related Data Home Medications Medication Instructions Recorded Confirmed Baclofen 10 mg PO DAILY 05/03/15 05/15/17 Diazepam [Valium] 5 mg PO BID 05/03/15 05/15/17 Meloxicam [Mobic] 7.5 mg PO DAILY 05/03/15 05/15/17 Multivitamins, Thera [Multivitamin 1 tab PO DAILY 05/03/15 05/15/17 (formulary)] Omeprazole [PriLOSEC] 20 mg PO BID 05/03/15 05/15/17 Simvastatin [Zocor] 40 mg PO HS 05/03/15 05/15/17 metFORMIN HCL [Glucophage] 500 mg PO AC-BID 05/03/15 05/15/17 Biotin 5 mg PO DAILY 05/13/16 05/15/17 Gabapentin 300 mg PO TID 05/13/16 05/15/17 Aspirin EC [Ecotrin Low Dose] 81 mg PO DAILY 10/22/16 05/15/17 Escitalopram [Lexapro] 5 mg PO DAILY 03/30/17 05/15/17 Mirabegron [Myrbetriq] 25 mg PO QAM 03/30/17 05/15/17 Tiotropium Br/Olodaterol HCl 2 puff INHALATION RT-DAILY MDD 2.5 03/30/17 [Stiolto Respimat Inhal [place]] mcg Cranberry Fruit Extract [Cranberry] 500 mg PO DAILY 05/15/17 05/15/17 Docusate [Colace] 100 mg PO BID 05/15/17 05/15/17 Donepezil [Aricept] 5 mg PO HS 05/15/17 05/15/17 Furosemide [Lasix] 20 mg PO DAILY 05/15/17 05/15/17 HYDROcodone/APAP 10-325MG [[place] 1 tab PO Q4-6H PRN 05/15/17 05/15/17 10-325] L.acidoph,Paracasei, B.lactis 1 cap PO DAILY 05/15/17 05/15/17 [Probiotic] Lisinopril [Zestril] 20 mg PO DAILY 05/15/17 05/15/17 Metoprolol Succinate [Toprol XL] 25 mg PO DAILY 05/15/17 05/15/17 Previous Rx's Medication Instructions Recorded methylPREDNISolone Dose Pack 4 mg PO DIRECTED #21 package 05/15/17 [Medrol Dose Pack] Allergies Allergy/AdvReac Type Severity Reaction Status Date / Time bee venom protein (honey bee) Allergy Swelling Verified 05/15/17 17:07 cefuroxime Allergy Swelling Verified 05/15/17 17:07 zolpidem [From Ambien] AdvReac Confusion Verified 05/15/17 17:07 Review of Systems ROS Statement: Those systems with pertinent positive or pertinent negative responses have been documented in the HPI. Review of systems. Patient denies any headache or visual acuity changes no chest pain or shortness of breath. Patient is anxious. Occasional she has tingling in both arms. No nausea no vomiting no abdominal pain. She has chronic low back pain and she had tingling down both legs. Stated she needed help walking. There is no slips no falls or direct injury other than bending over yesterday to pull weeds. All systems are reviewed. Past medical problems significant for COPD, diabetes mellitus, GERD, hyperlipidemia, hypertension, hypothyroidism and viral hepatitis. She continues to smoke strongly encouraged to stop denies alcohol use. The patient' s surgeries include back surgery, cholecystectomy, hysterectomy, total joint replacement on the right knee. Family history noncontributory. ALLERGIES honey bee protein. Cefuroxime and zolpidem. ROS Other: All systems not noted in ROS Statement are negative. Past Medical History Past Medical History: COPD, Diabetes Mellitus, GERD/Reflux, Hyperlipidemia, Hypertension, Osteoarthritis (OA), Thyroid Disorder Additional Past Medical History / Comment(s): hepatitis-viral at age 10, sepsis 2009, chronic back pain History of Any Multi-Drug Resistant Organisms: MRSA Date of last positivie culture/infection: 07/19/11 MDRO Source:: Unknown Past Surgical History: Back Surgery, Cholecystectomy, Hysterectomy, Joint Replacement Additional Past Surgical History / Comment(s): Right knee replacement; Bowel Surgery, 3 spinal fusions Past Anesthesia/Blood Transfusion Reactions: No Reported Reaction Past Psychological History: No Psychological Hx Reported Smoking Status: Current every day smoker Past Alcohol Use History: None Reported Past Drug Use History: None Reported - Past Family History Mother Family Medical History: No Reported History General Exam Limitations: no limitations Course Vital Signs 05/15/17 05/15/17 16:55 19:00 Temperature 96.9 F L Pulse Rate 69 65 Respiratory 18 14 Rate Blood Pressure 178/81 162/79 O2 Sat by Pulse 100 94 L Oximetry Medical Decision Making - Medical Decision Making She is feeling much better at this time. No tingling or numbness. Able to move her ankles feet knees and hips. Patient also points out that she may been exposed to agent orange in 1962. She was advised to follow this up with her orthopedic surgeon. Patient states she can squeeze her buttock muscles and was able to control urine while in emergency room. Her daughters here should be driving her home. She'll continue with steroids at home. She is on metformin for diabetes and she was told that the sugar will go up while taking the medication. And do make sure her diet is appropriate. - Lab Data Result diagrams: 05/15/17 17:37 05/15/17 17:37 Lab Results 05/15/17 05/15/17 Range/Units 17:37 17:37 WBC 5.7 (3.8-10.6) k/uL RBC 4.78 (3.80-5.40) m/uL Hgb 14.8 (11.4-16.0) gm/dL Hct 43.4 (34.0-46.0) % MCV 90.9 (80.0-100.0) fL MCH 31.0 (25.0-35.0) pg MCHC 34.0 (31.0-37.0) g/dL RDW 14.2 (11.5-15.5) % Plt Count 248 (150-450) k/uL Neutrophils % 76 % Lymphocytes % 17 % Monocytes % 4 % Eosinophils % 2 % Basophils % 0 % Neutrophils # 4.3 (1.3-7.7) k/uL Lymphocytes # 1.0 (1.0-4.8) k/uL Monocytes # 0.3 (0-1.0) k/uL Eosinophils # 0.1 (0-0.7) k/uL Basophils # 0.0 (0-0.2) k/uL Sodium 138 (137-145) mmol/L Potassium 4.2 (3.5-5.1) mmol/L Chloride 108 H (98-107) mmol/L Carbon Dioxide 20 L (22-30) mmol/L Anion Gap 10 mmol/L BUN 20 H (7-17) mg/dL Creatinine 0.80 (0.52-1.04) mg/dL Est GFR (MDRD) Af Amer >60 (>60 ml/min/1.73 sqM) Est GFR (MDRD) Non-Af >60 (>60 ml/min/1.73 sqM) Glucose 124 H (74-99) mg/dL Calcium 9.3 (8.4-10.2) mg/dL Total Bilirubin 0.6 (0.2-1.3) mg/dL AST 21 (14-36) U/L ALT 22 (9-52) U/L Alkaline Phosphatase 75 (38-126) U/L Total Protein 6.8 (6.3-8.2) g/dL Albumin 3.8 (3.5-5.0) g/dL Disposition Clinical Impression: Sciatica Disposition: HOME SELF-CARE Condition: Stable Instructions: Sciatica (ED), Lumbar Radiculopathy (ED) Additional Instructions: Continue with home medications including a Medrol Dosepak. Follow-up with family physician and your chronic pain management physician. Prescriptions: methylPREDNISolone Dose Pack [Medrol Dose Pack] 4 mg PO DIRECTED #21 package Referrals: Cecilia Aldridge MD [Primary Care Provider] - 1-2 days Time of Disposition: 19:29
[2017-05-15 19:44] VITALS: BP 132/60; PULSE 67; RESP 16; TEMP 97.8
--- NOTE | 2017-05-19 04:36 | CDI ---
Documentation Clarification OP Dear Dr. Jose Uriarte Please do addendum to ED report for missing Physical examination. Thank you, Stevan Vasques Band Lining Bander If you have any questions, please contact Receiver Stocker at [phone] [facility]
== END 2017-05-15 19:44 | disposition home or self-care (01) ==
LOC: EC 16:45
DX: M54.30 Sciatica, unspecified side (principal); E78.5 Hyperlipidemia, unspecified; I10 Essential (primary) hypertension; E11.9 Type 2 diabetes mellitus without complications; J44.9 Chronic obstructive pulmonary disease, unspecified; K21.9 Gastro-esophageal reflux disease without esophagitis; M19.90 Unspecified osteoarthritis, unspecified site; F17.200 Nicotine dependence, unspecified, uncomplicated; Z79.1 Long term (current) use of non-steroidal anti-inflammatories (NSAID); Z79.82 Long term (current) use of aspirin; Z79.84 Long term (current) use of oral hypoglycemic drugs; Z79.899 Other long term (current) drug therapy; Z88.1 Allergy status to other antibiotic agents; Z88.8 Allergy status to other drugs, medicaments and biological substances; Z91.030 Bee allergy status
CPT/HCPCS: 99285; 96360; 96361; 96372; 36415; 93005; 80053; 85025; J2930

== ENCOUNTER → 2017-06-03 | Outpatient (CLI) | payer MEDICARE ==
[2017-06-03 12:54] LABS: ALT 25 U/L (9-52); AST 20 U/L (14-36); Alkaline Phosphatase 65 U/L (38-126); Anion Gap 9 mmol/L; Bilirubin, Delta 0.2 mg/dL (0.0-0.2); Blood Urea Nitrogen 23 mg/dL (7-17); Calcium 9.3 mg/dL (8.4-10.2); Carbon Dioxide 24 mmol/L (22-30); Chloride 108 mmol/L (98-107); Cholesterol 140 mg/dL (<200); Glucose 118 mg/dL (74-99); HDL Cholesterol 75 mg/dL (40-60); Non-African American GFR(MDRD) >60 (>60 ml/min/1.73 sqM); Potassium 4.7 mmol/L (3.5-5.1); Sodium 141 mmol/L (137-145); Total Bilirubin 0.3 mg/dL (0.2-1.3); Total Protein 7.3 g/dL (6.3-8.2)
== END | disposition home or self-care (01) ==
LOC: LABWHC1 11:51
PROVIDERS: ATTEND Nuclear Medicine Nuclear Cardiology
DX: E78.2 Mixed hyperlipidemia (principal); I25.5 Ischemic cardiomyopathy; I10 Essential (primary) hypertension
CPT/HCPCS: 36415; 80048; 80061; 80076

== ENCOUNTER 2017-06-09 08:49 | Day surgery (SDC) | payer MEDICARE ==
[~2017-06-09 08:49] MED LIST: ALPRAZolam 0.25 MG TAB PO ONE; HYDROmorphone 0.5 MG/0.5 ML SYRINGE IVP PRN
[2017-06-09 09:17] LABS: Mean Platelet Volume 7.3
[2017-06-09 09:20] VITALS: TEMP 97.7
[2017-06-09 09:26] LABS: INR 1.1 (<1.2); Partial Thromboplastin Time 25.8 sec (22.0-30.0); Prothrombin Time 10.7 sec (9.0-12.0)
[2017-06-09 09:49] LABS: Glucose,Whole Blood 123 mg/dL (75-99)
[2017-06-09] MEDS ORDERED: HYDROmorphone 1 MG/ML 1 ML SYRINGE IVP STA (10:14)
--- NOTE | 2017-06-09 11:07 | XR ---
EXAMINATION TYPE: XR chest 1V portable DATE OF EXAM: 06/09/2017 Comparison: 04/03/2017 Clinical History: 76-year-old female post right lung bx Findings: Heart is normal size. Dextroconvex scoliosis with tortuous thoracic aorta. Mild atherosclerotic arch calcifications. Right upper lobe mass demonstrated. No consolidation, pneumothorax, or pleural effusi on. Impression: Right upper lobe mass. No appreciable pneumothorax.
[2017-06-09] MEDS ORDERED: HYDROmorphone 1 MG/ML 1 ML SYRINGE IVP PRN (11:13)
[2017-06-09 11:50] VITALS: RESP 16
--- NOTE | 2017-06-09 12:37 | CT ---
EXAMINATION TYPE: CT guided FNA DATE OF EXAM: 06/09/2017 COMPARISON: NONE HISTORY: Right upper lobe lung mass CT DLP: 865 mGycm The procedure is discussed with the patient, the risks, complications, benefits and alternatives, wer e discussed and any questions were answered. Informed consent was obtained. The patient is placed p anayeli on the CT table, prepped and draped in the usual sterile fashion. Utilizing a 22-gauge Chiba needle access into the right upper lobe mass was achieved with 2 passes pe rformed. Pathology pending. All elements of maximal barrier and sterile technique were utilized. T he patient remained stable throughout the procedure with no immediate postprocedural complication. IMPRESSION: 1. Successful CT guided fine needle aspiration of a right upper lobe lung mass
[2017-06-09 13:21] VITALS: BP 161/77; PULSE 60
== END 2017-06-09 13:35 | disposition home or self-care (01) ==
LOC: RADPROMAIN 08:49
PROVIDERS: ATTEND Internal Medicine Sleep Medicine
DX: R91.1 Solitary pulmonary nodule (principal)
CPT/HCPCS: 88305; 88173; 85049; 85610; 85730; 71010; 96374; 77012; 10022; J1170

== ENCOUNTER 2017-09-28 18:16 | Emergency (ER) | payer MEDICARE ==
[2017-09-28 18:21] VITALS: RESP 18
[2017-09-28] MEDS ORDERED: ONDANSETRON 4 MG/2 ML VIAL IVP STA (18:36)
[2017-09-28] MEDS ORDERED: amLODIPine 5 MG TAB PO STA (18:39)
[2017-09-28 18:47] LABS: Basophils # (A) 0.1 k/uL (0-0.2); Basophils % (A) 1 %; Eosinophils # (A) 0.2 k/uL (0-0.7); Eosinophils % (A) 4 %; HGB 15.9 gm/dL (11.4-16.0); Lymphocytes # (A) 1.3 k/uL (1.0-4.8); Lymphocytes % (A) 20 %; MCH 32.1 pg (25.0-35.0); MCHC 33.9 g/dL (31.0-37.0); MCV 94.6 fL (80.0-100.0); Mean Platelet Volume 7.4; Monocytes # (A) 0.3 k/uL (0-1.0); Monocytes % (A) 5 %; Neutrophils # (A) 4.4 k/uL (1.3-7.7); Neutrophils % (A) 69 %; Platelet Count 235 k/uL (150-450); RBC 4.97 m/uL (3.80-5.40); RDW 13.3 % (11.5-15.5); WBC 6.4 k/uL (3.8-10.6)
[2017-09-28 19:11] LABS: ALT 20 U/L (9-52); Albumin 4.1 g/dL (3.5-5.0); Alkaline Phosphatase 60 U/L (38-126); Amylase 92 U/L (30-110); Anion Gap 8 mmol/L; Carbon Dioxide 23 mmol/L (22-30); Chloride 109 mmol/L (98-107); Glucose 117 mg/dL (74-99); Lipase 143 U/L (23-300); Sodium 140 mmol/L (137-145); Total Bilirubin 1.1 mg/dL (0.2-1.3); Total Protein 7.5 g/dL (6.3-8.2)
[2017-09-28 19:14] LABS: AST 48 U/L (14-36); Blood Urea Nitrogen 26 mg/dL (7-17); Potassium 5.5 mmol/L (3.5-5.1)
--- NOTE | 2017-09-28 19:17 | CT ---
EXAMINATION TYPE: CT brain wo con DATE OF EXAM: 09/28/2017 COMPARISON: 09/04/2016 HISTORY: High blood pressure CT DLP: 945.5 mGycm Automated exposure control for dose reduction was used. FINDINGS: There is cerebral cortical atrophy. There is no mass effect nor midline shift. There is no sign of in tracranial hemorrhage. There is a 8 mm lacunar infarct in the left thalamus. Calvarium is intact. IMPRESSION: CEREBRAL ATROPHY. NO ACUTE INTRACRANIAL ABNORMALITY. No significant change.
--- NOTE | 2017-09-28 19:37 | XR ---
EXAMINATION TYPE: XR chest 2V DATE OF EXAM: 09/28/2017 COMPARISON: 06/09/2017 HISTORY: Chest pain TECHNIQUE: Frontal and lateral views of the chest are obtained. FINDINGS: There is no heart failure. There is a rounded 4 cm area of masslike consolidation in the r ight upper lobe. The other lung jean are clear. Thoracic aorta is atheromatous. There is no pleural effusion. Bony thorax is intact. IMPRESSION: Right upper lobe masslike infiltrate is increased compared to last exam and suspicious f or tumor. No heart failure.
--- NOTE | 2017-09-28 19:40 | XR ---
EXAMINATION TYPE: XR KUB DATE OF EXAM: 09/28/2017 COMPARISON: 02/20/2015 HISTORY: Vomiting TECHNIQUE: 2 views FINDINGS: There is no sign of intestinal obstruction or pneumoperitoneum. Fecal pattern is normal. Th ere is lumbar spine surgery noted. There are clips from cholecystectomy. IMPRESSION: Nonacute abdomen. No adverse change compared to old exam.
[2017-09-28 21:22] VITALS: TEMP 97.5
[2017-09-28] MEDS ORDERED: SODIUM POLYSTYRENE SULFONATE 15 GM/60 ML BOTTLE PO STA (22:04)
--- NOTE | 2017-09-28 22:12 | ED ---
General Adult HPI - General Chief complaint: Recheck/Abnormal Lab/Rx Stated complaint: Hypertension Time Seen by Provider: 09/28/17 18:29 Source: patient, EMS Mode of arrival: EMS Limitations: no limitations - History of Present Illness Initial comments: 76 years old lady came in with the high blood pressure and now vomiting she threw up couple times today him a history of hypertension she is on lisinopril and family got alarmed because blood pressure was too high was 190 systolic she also has a history of lung nodule are keeping an eye on it and her surgical territory manager is monitoring her blood pressures well. Now she denies any headaches no neck stiffness no chest pain no shortness of breath no abdominal pain no frequency urgency dysuria - Related Data Home Medications Medication Instructions Recorded Confirmed Baclofen 10 mg PO BID 05/03/15 09/28/17 Diazepam [Valium] 5 - 7.5 mg PO HS PRN 05/03/15 09/28/17 Meloxicam [Mobic] 7.5 mg PO DAILY 05/03/15 09/28/17 Multivitamins, Thera [Multivitamin 1 tab PO DAILY 05/03/15 09/28/17 (formulary)] Omeprazole [PriLOSEC] 20 mg PO DAILY 05/03/15 09/28/17 Simvastatin [Zocor] 40 mg PO HS 05/03/15 09/28/17 metFORMIN HCL [Glucophage] 500 mg PO AC-BID 05/03/15 09/28/17 Biotin 5 mg PO DAILY 05/13/16 09/28/17 Gabapentin 300 mg PO QAM 05/13/16 09/28/17 Aspirin EC [Ecotrin Low Dose] 81 mg PO BID 10/22/16 09/28/17 Escitalopram [Lexapro] 5 mg PO HS 03/30/17 09/28/17 Tiotropium Br/Olodaterol HCl 2 puff INHALATION RT-DAILY 03/30/17 09/28/17 [Stiolto Respimat Inhal [place]] Cranberry Fruit Extract [Cranberry] 500 mg PO BID 05/15/17 09/28/17 Donepezil [Aricept] 10 mg PO DAILY 05/15/17 09/28/17 Furosemide [Lasix] 20 mg PO DAILY PRN 05/15/17 09/28/17 Docusate [Colace] 100 - 200 mg PO DAILY PRN 09/28/17 09/28/17 Gabapentin [Neurontin] 600 mg PO HS 09/28/17 09/28/17 HYDROcodone/APAP 10-325MG [[place] 1 tab PO Q6H PRN 09/28/17 09/28/17 10-325] L.acidoph,Paracasei, B.lactis 1 cap PO DAILY 09/28/17 09/28/17 [Probiotic] Lisinopril 40 mg PO HS 09/28/17 09/28/17 Memantine [Namenda] 10 mg PO BID 09/28/17 09/28/17 Allergies Allergy/AdvReac Type Severity Reaction Status Date / Time bee venom protein (honey bee) Allergy Swelling Verified 09/28/17 19:35 cefuroxime Allergy Swelling Verified 09/28/17 19:35 zolpidem [From Ambien] AdvReac Confusion Verified 09/28/17 19:35 Review of Systems ROS Statement: Those systems with pertinent positive or pertinent negative responses have been documented in the HPI. ROS Other: All systems not noted in ROS Statement are negative. Past Medical History Past Medical History: Coronary Artery Disease (CAD), Cancer, COPD, Diabetes Mellitus, GERD/Reflux, Hyperlipidemia, Hypertension, Osteoarthritis (OA), Thyroid Disorder Additional Past Medical History / Comment(s): hepatitis-viral at age 10, sepsis 2009, chronic back pain, History of Any Multi-Drug Resistant Organisms: MRSA Date of last positivie culture/infection: 07/19/11 MDRO Source:: Unknown Past Surgical History: Back Surgery, Cholecystectomy, Hysterectomy, Joint Replacement Additional Past Surgical History / Comment(s): Right knee replacement; Bowel Surgery, 3 spinal fusions, right breast cancer - radiation treatment Past Anesthesia/Blood Transfusion Reactions: No Reported Reaction Past Psychological History: No Psychological Hx Reported Smoking Status: Current every day smoker Past Alcohol Use History: None Reported Past Drug Use History: None Reported - Past Family History Mother Family Medical History: No Reported History General Exam - General Exam Comments Initial Comments: General: The patient is awake and alert, in no distress, and does not appear acutely ill. Skin: Skin is warm and dry and no rashes or lesions are noted. Eye: Pupils are equal, round and reactive to light, extra-ocular movements are intact; there is normal conjunctiva bilaterally. Ears, nose, mouth and throat: There are moist mucous membranes and no oral lesions. Neck: The neck is supple, there is no tenderness or JVD. Cardiovascular: There is a regular rate and rhythm. No murmur, rub or gallop is appreciated. Respiratory: To auscultation bilateral, no wheezing no rhonchi no distress respiratory joseph noticed, exam is consistent with a severe COPD Gastrointestinal: Soft, non-distended, non-tender abdomen without masses or organomegaly noted. There is no rebound or guarding present. Bowel sounds are unremarkable. Back: There is no tenderness to palpation in the midline. There is no obvious deformity. Musculoskeletal: Normal ROM, no tenderness, There is no pedal edema. There is no calf tenderness or swelling. No cords were appreciated. Neurological: CN II-XII intact, Cranial nerves III through XII are intact. There are no obvious motor or sensory deficits. Coordination appears grossly intact. Speech is normal. Psychiatric: Cooperative, appropriate mood & affect, normal judgment. Limitations: no limitations Course Vital Signs 09/28/17 09/28/17 09/28/17 18:20 18:35 18:55 Temperature 97.2 F L Pulse Rate 77 72 75 Respiratory 18 Rate Blood Pressure 190/103 214/93 159/82 O2 Sat by Pulse 97 95 95 Oximetry 09/28/17 21:21 Temperature 97.5 F L Pulse Rate 75 Respiratory 18 Rate Blood Pressure 133/73 O2 Sat by Pulse 96 Oximetry Along discussion with the daughter she is also caregiver, she is aware that she has a lung mass and now prominent pulmonary medicine a stroke and after. She is getting CAT scans every 3 months she had a CAT scan and she has appointment with the Dr. Vera in next couple days as well as blood pressures concerned about blood pressure has been fluctuating she is following up with the surgical territory manager she is on lisinopril at this point potassium is slightly elevated she be getting Kayexalate is also advised to recheck the potassium in next 3 days she agrees with EKG Findings - EKG Comments: EKG Findings:: EKG is sinus rhythm medical rate is 72 NC interval is 168 QRS duration is 116 QT/QTc is 462/508 review of this EKG reveals slightly wide QRS complex noticed some changes consistent with a block in the lateral chest leads no ST elevation noticed in this EKG Medical Decision Making - Lab Data Result diagrams: 09/28/17 18:39 09/28/17 18:39 Lab Results 09/28/17 09/28/17 Range/Units 18:39 18:39 WBC 6.4 (3.8-10.6) k/uL RBC 4.97 (3.80-5.40) m/uL Hgb 15.9 (11.4-16.0) gm/dL Hct 47.0 H (34.0-46.0) % MCV 94.6 (80.0-100.0) fL MCH 32.1 (25.0-35.0) pg MCHC 33.9 (31.0-37.0) g/dL RDW 13.3 (11.5-15.5) % Plt Count 235 (150-450) k/uL Neutrophils % 69 % Lymphocytes % 20 % Monocytes % 5 % Eosinophils % 4 % Basophils % 1 % Neutrophils # 4.4 (1.3-7.7) k/uL Lymphocytes # 1.3 (1.0-4.8) k/uL Monocytes # 0.3 (0-1.0) k/uL Eosinophils # 0.2 (0-0.7) k/uL Basophils # 0.1 (0-0.2) k/uL Sodium 140 (137-145) mmol/L Potassium 5.5 H (3.5-5.1) mmol/L Chloride 109 H (98-107) mmol/L Carbon Dioxide 23 (22-30) mmol/L Anion Gap 8 mmol/L BUN 26 H (7-17) mg/dL Creatinine 0.70 (0.52-1.04) mg/dL Est GFR (MDRD) Af Amer >60 (>60 ml/min/1.73 sqM) Est GFR (MDRD) Non-Af >60 (>60 ml/min/1.73 sqM) Glucose 117 H (74-99) mg/dL Calcium 9.0 (8.4-10.2) mg/dL Total Bilirubin 1.1 (0.2-1.3) mg/dL AST 48 H (14-36) U/L ALT 20 (9-52) U/L Alkaline Phosphatase 60 (38-126) U/L Total Protein 7.5 (6.3-8.2) g/dL Albumin 4.1 (3.5-5.0) g/dL Amylase 92 (30-110) U/L Lipase 143 (23-300) U/L Disposition Clinical Impression: Hypertension, Lung mass Disposition: HOME SELF-CARE Condition: Good Instructions: Chronic Hypertension (ED) Additional Instructions: She will continue the lisinopril for now she do not want any new pain medications, she do not want any blood pressure medication she went to follow with the surgical territory manager and asked for his lung masses concerning she can follow with the Dr. Vera Referrals: Cecilia Aldridge MD [Primary Care Provider] - 1-2 days
[2017-09-28 22:22] VITALS: BP 174/79; PULSE 88
== END 2017-09-28 22:37 | disposition home or self-care (01) ==
LOC: EC 18:16
DX: I10 Essential (primary) hypertension (principal); R91.8 Other nonspecific abnormal finding of lung field; R11.10 Vomiting, unspecified; E78.5 Hyperlipidemia, unspecified; I25.10 Atherosclerotic heart disease of native coronary artery without angina pectoris; E11.9 Type 2 diabetes mellitus without complications; J44.9 Chronic obstructive pulmonary disease, unspecified; K21.9 Gastro-esophageal reflux disease without esophagitis; M19.90 Unspecified osteoarthritis, unspecified site; F17.200 Nicotine dependence, unspecified, uncomplicated; Z79.1 Long term (current) use of non-steroidal anti-inflammatories (NSAID); Z79.82 Long term (current) use of aspirin; Z79.84 Long term (current) use of oral hypoglycemic drugs; Z79.899 Other long term (current) drug therapy; Z88.1 Allergy status to other antibiotic agents; Z88.8 Allergy status to other drugs, medicaments and biological substances; Z91.018 Allergy to other foods; Z86.14 Personal history of Methicillin resistant Staphylococcus aureus infection
CPT/HCPCS: 36415; 80053; 82150; 83690; 85025; 71046; 74018; 70450; 99284; 96374; J2405; 93005

== ENCOUNTER → 2017-10-07 | Outpatient (CLI) | payer MEDICARE ==
--- NOTE | 2017-10-07 14:44 | US ---
EXAMINATION TYPE: US thyroid st tissue head/neck DATE OF EXAM: 10/07/2017 COMPARISON: Prior thyroid ultrasound May 19, 2015. PET/CT May 10, 2017 CLINICAL HISTORY: E04.2 NONTOXIC MULTINODULAR GOITER. follow up nodules GLAND SIZE: Right Lobe: 4.1 x 2.0 x 2.2 cm Overall Parenchyma: homogenous Left Lobe: 3.3 x 1.5 x 1.3 cm Overall Parenchyma: homogeneous Isthmus Thickness: 0.2 cm NODULES RIGHT: # of nodules measured on right: 1 1. 1.8 X 1.5 x 1.3 cm hypoechoic solid nodule at the mid pole with well-defined margins. This nodu le is taller than wide and shows intranodular vascularity. Prior size: 2.2 x 1.5 x 1.9 cm LEFT: # of nodules measured on left: 1 1. 2.1 X 1.7 x 0.9 cm hypoechoic solid nodule at the mid pole with well-defined margins. This nodu le is taller than wide and shows intranodular vascularity. Prior size: 2.1 x 1.7 x 1.0 cm ISTHMUS: # of nodules measured in the isthmus: 0 Right lobe appears larger in size compared to left. Bilateral neck scanned, no evidence of lymphadenopathy. Heterogeneous multinodular thyroid redemonstrated. I do suspect 2 distinct nodules on the right on cu rrent study. Prior study was more heterogeneous ill-defined. More ill-defined larger posterior mid to lower pole level nodule is noted. More anterior well-defined hypervascular nodule appears to corresp ond to the area of concern on recent PET/CT. IMPRESSION: Based on PET/CT results, repeat ultrasound-guided fine-needle aspiration targeting the anterior nodul e or anterior aspect of lobulated nodule is advised to rule out malignancy at this level.
== END | disposition home or self-care (01) ==
LOC: RADUSWWP 13:16
PROVIDERS: ATTEND Internal Medicine Endocrinology, Diabetes & Metabolism
DX: E04.2 Nontoxic multinodular goiter (principal)
CPT/HCPCS: 36415; 76536; 84443

== ENCOUNTER 2017-10-08 10:13 | Inpatient (IN) | payer MEDICARE ==
[2017-10-08] MEDS ORDERED: ONDANSETRON 4 MG/2 ML VIAL IVP STA (10:50)
[2017-10-08] MEDS ORDERED: SODIUM CHLORIDE 0.9% 1,000 ML IV STA (10:50)
[2017-10-08] MEDS ORDERED: MORPHINE SULFATE 4 MG/ML SYRINGE IV STA (10:50)
[2017-10-08 11:02] LABS: Basophils % (A) 1 %; Eosinophils # (A) 0.1 k/uL (0-0.7); Eosinophils % (A) 1 %; HCT 44.9 % (34.0-46.0); HGB 15.3 gm/dL (11.4-16.0); Lymphocytes # (A) 0.9 k/uL (1.0-4.8); Lymphocytes % (A) 19 %; MCH 32.2 pg (25.0-35.0); MCHC 34.1 g/dL (31.0-37.0); MCV 94.5 fL (80.0-100.0); Mean Platelet Volume 6.9; Monocytes # (A) 0.3 k/uL (0-1.0); Monocytes % (A) 5 %; Neutrophils # (A) 3.6 k/uL (1.3-7.7); Neutrophils % (A) 73 %; Platelet Count 201 k/uL (150-450); RBC 4.75 m/uL (3.80-5.40); RDW 13.4 % (11.5-15.5); WBC 4.9 k/uL (3.8-10.6)
[2017-10-08 11:13] LABS: ALT 20 U/L (9-52); AST 20 U/L (14-36); Albumin 3.9 g/dL (3.5-5.0); Alkaline Phosphatase 71 U/L (38-126); Anion Gap 11 mmol/L; Blood Urea Nitrogen 25 mg/dL (7-17); Calcium 9.3 mg/dL (8.4-10.2); Carbon Dioxide 22 mmol/L (22-30); Chloride 106 mmol/L (98-107); Glucose 137 mg/dL (74-99); Magnesium 1.5 mg/dL (1.6-2.3); Potassium 4.1 mmol/L (3.5-5.1); Sodium 139 mmol/L (137-145); Total Bilirubin 0.3 mg/dL (0.2-1.3); Total Protein 6.8 g/dL (6.3-8.2)
[2017-10-08 11:15] LABS: D-Dimer 0.9 mg/L FEU (<0.60); Partial Thromboplastin Time 26.5 sec (22.0-30.0); Prothrombin Time 9.9 sec (9.0-12.0)
[2017-10-08 11:33] LABS: Creatine Kinase 28 U/L (30-135)
--- NOTE | 2017-10-08 11:40 | ED ---
Chest Pain HPI - General Chief Complaint: Chest Pain Stated Complaint: Chest pain Time Seen by Provider: 10/08/17 10:44 Source: patient, family Mode of arrival: wheelchair Limitations: no limitations - History of Present Illness Initial Comments: 76 years old female I saw her about 2 weeks ago comes in with a chest pain she stated that she is sure that she had a heart attack 5 AM today she had a stabbing chest pain in the chest which lasted for about 2 minutes also complaining about shortness of breath and deep breaths makes the chest pain worse complaining about Pain in the both shoulders though she denies any trauma or any fall. She does have a history of lung mass which she is doing to follow up with the trapper bird according to the patient is a lung mass has gotten bigger in size and now she is in touch with the pump trapper bird to see how didn't want to proceed about it. She denies any headaches no neck stiffness has chest pain has shortness of breath no abdominal pain no frequency urgency dysuria no symptoms of TIA or CVA - Related Data Home Medications Medication Instructions Recorded Confirmed Baclofen 10 mg PO BID 05/03/15 10/08/17 Diazepam [Valium] 5 - 7.5 mg PO HS PRN 05/03/15 10/08/17 Meloxicam [Mobic] 7.5 mg PO DAILY 05/03/15 10/08/17 Multivitamins, Thera [Multivitamin 1 tab PO DAILY 05/03/15 10/08/17 (formulary)] Omeprazole [PriLOSEC] 20 mg PO DAILY 05/03/15 10/08/17 Simvastatin [Zocor] 40 mg PO HS 05/03/15 10/08/17 metFORMIN HCL [Glucophage] 500 mg PO AC-BID 05/03/15 10/08/17 Biotin 5 mg PO DAILY 05/13/16 10/08/17 Gabapentin 300 mg PO QAM 05/13/16 10/08/17 Aspirin EC [Ecotrin Low Dose] 81 mg PO BID 10/22/16 10/08/17 Escitalopram [Lexapro] 5 mg PO HS 03/30/17 10/08/17 Tiotropium Br/Olodaterol HCl 2 puff INHALATION RT-DAILY 03/30/17 10/08/17 [Stiolto Respimat Inhal [place]] Cranberry Fruit Extract [Cranberry] 500 mg PO BID 05/15/17 10/08/17 Donepezil [Aricept] 10 mg PO DAILY 05/15/17 10/08/17 Furosemide [Lasix] 20 mg PO DAILY PRN 05/15/17 10/08/17 Docusate [Colace] 100 - 200 mg PO DAILY PRN 09/28/17 10/08/17 Gabapentin [Neurontin] 600 mg PO HS 09/28/17 10/08/17 HYDROcodone/APAP 10-325MG [[place] 1 tab PO Q6H PRN 09/28/17 10/08/17 10-325] L.acidoph,Paracasei, B.lactis 1 cap PO DAILY 09/28/17 10/08/17 [Probiotic] Lisinopril 40 mg PO HS 09/28/17 10/08/17 Diltiazem HCl [Cartia Xt] 240 mg PO DAILY 10/08/17 10/08/17 Allergies Allergy/AdvReac Type Severity Reaction Status Date / Time bee venom protein (honey bee) Allergy Swelling Verified 10/08/17 10:37 cefuroxime Allergy Swelling Verified 10/08/17 10:37 metoprolol AdvReac Unknown Verified 10/08/17 10:37 mirabegron [From Myrbetriq] AdvReac Hallucinati Verified 10/08/17 10:37 ons zolpidem [From Ambien] AdvReac Confusion Verified 10/08/17 10:37 Review of Systems ROS Statement: Those systems with pertinent positive or pertinent negative responses have been documented in the HPI. ROS Other: All systems not noted in ROS Statement are negative. Past Medical History Past Medical History: Coronary Artery Disease (CAD), Cancer, COPD, Diabetes Mellitus, GERD/Reflux, Hyperlipidemia, Hypertension, Osteoarthritis (OA), Thyroid Disorder Additional Past Medical History / Comment(s): hepatitis-viral at age 10, sepsis 2010, chronic back pain, History of Any Multi-Drug Resistant Organisms: MRSA Date of last positivie culture/infection: 07/19/11 MDRO Source:: Unknown Past Surgical History: Back Surgery, Cholecystectomy, Hysterectomy, Joint Replacement Additional Past Surgical History / Comment(s): Right knee replacement; Bowel Surgery, 3 spinal fusions, right breast cancer - radiation treatment Past Anesthesia/Blood Transfusion Reactions: No Reported Reaction Past Psychological History: No Psychological Hx Reported Smoking Status: Current every day smoker Past Alcohol Use History: None Reported Past Drug Use History: None Reported - Past Family History Mother Family Medical History: No Reported History General Exam - General Exam Comments Initial Comments: General: The patient is awake and alert, in no distress, and does not appear acutely ill. Skin: Skin is warm and dry and no rashes or lesions are noted. Eye: Pupils are equal, round and reactive to light, extra-ocular movements are intact; there is normal conjunctiva bilaterally. Ears, nose, mouth and throat: There are moist mucous membranes and no oral lesions. Neck: The neck is supple, there is no tenderness or JVD. Cardiovascular: There is a regular rate and rhythm. No murmur, rub or gallop is appreciated. Respiratory: To auscultation bilateral, severe COPD Gastrointestinal: Soft, non-distended, non-tender abdomen without masses or organomegaly noted. There is no rebound or guarding present. Bowel sounds are unremarkable. Back: There is no tenderness to palpation in the midline. There is no obvious deformity. Musculoskeletal: Normal ROM, no tenderness, There is no pedal edema. There is no calf tenderness or swelling. No cords were appreciated. Neurological: CN II-XII intact, Cranial nerves III through XII are intact. There are no obvious motor or sensory deficits. Coordination appears grossly intact. Speech is normal. Psychiatric: Cooperative, appropriate mood & affect, normal judgment. Limitations: no limitations Course Vital Signs 10/08/17 10/08/17 10/08/17 10:18 11:05 12:19 Temperature 98.1 F Pulse Rate 98 81 76 Respiratory 18 17 17 Rate Blood Pressure 120/71 120/67 129/69 O2 Sat by Pulse 95 80 L 97 Oximetry EKG is normal sinus rhythm ventricular rate is 95 ME interval is 148 QRS duration is 90 QT/QTc is 358/449 review of this EKG he reveal a mild ST segment depression in lead 2 and was compared with the old EKG old EKG was done from a 05/15/2017 noticed some flattening of the T-wave in lead aVL which is also unchanged from the previous EKG also noticed some T-wave flattening in lead V4 and lead V5 and V6 She continued to have pain, chest x-ray confirmed the enlarging lung mass troponin is unremarkable so far d-dimer is elevated and she is short-winded for quite and proceed with a CT angiogram chest to rule out PE . Considering her continuous chest pain she be admitted and will wait for the CT angiogram to rule out any aortic dissection wants that rules out that she be heparinized regardless upperchest it down based on Richi artery disease or pulmonary embolism once all the investigations are back I did speak with the Dr. Byrd she be medically to his service and will consult to Critical Care Time Total Critical Care Time: 45 Critical Care Time: Came in with the shortness of breath chest pain, she was treated. Acute coronary syndrome but considering the possibility of lung mass whether is bleeding or aortic dissection she was not heparinized given pain medications CT angios being done based on the anterior she needs blood thinners for coronary artery disease (embolism). Chest it. Medical Dr. Byrd's service and Dr. Vera to consult pulmonary medicine( Disposition Clinical Impression: Chest pain, Dyspnea, Lung mass, Elevated d-dimer Disposition: ADMITTED IP TO THIS HOSP Condition: Fair Referrals: Cecilia Aldridge MD [Primary Care Provider] - 1-2 days
[2017-10-08 11:46] LABS: Creatine Kinase MB <0.2 ng/mL (0.0-2.4); Troponin I <0.012 ng/mL (0.000-0.034)
--- NOTE | 2017-10-08 11:51 | XR ---
EXAMINATION TYPE: XR chest 2V DATE OF EXAM: 10/08/2017 COMPARISON: 09/28/2017 TECHNIQUE: PA and lateral views submitted. HISTORY: Chest pain FINDINGS: The lungs are clear and there is no pneumothorax, pleural effusion, or focal pneumonia. Degenerativ e change and postsurgical change involving the vertebral column. There is a large area of consolidati on or mass involving the right upper lobe measuring 4 cm. Curvature the spine noted. Hyperinflation s uggests IMPRESSION: 1. Large 4 cm mass right upper lobe stable from the previous exam.
[2017-10-08] MEDS ORDERED: RX INFO: IV CONTRAST WAS GIVEN 1 EACH MISC MISCELLANE PRN (12:30)
[2017-10-08] MEDS ORDERED: MORPHINE SULFATE 4 MG/ML SYRINGE IVP PRN (12:31)
[2017-10-08] MEDS ORDERED: NALOXONE 0.4 MG/ML 1 ML VIAL IV PRN (13:46)
[2017-10-08] MEDS ORDERED: ONDANSETRON 4 MG/2 ML VIAL IVP PRN (13:46)
[2017-10-08] MEDS ORDERED: MORPHINE SULFATE 4 MG/ML SYRINGE IV PRN (13:46)
[2017-10-08] MEDS ORDERED: HYDROcodone/APAP 10-325MG 1 EACH TAB PO PRN (13:52)
[2017-10-08] MEDS ORDERED: FUROSEMIDE 20 MG TAB PO PRN (13:52)
[2017-10-08] MEDS ORDERED: DIAZEPAM 5 MG TAB PO PRN (13:52)
[2017-10-08] MEDS ORDERED: DOCUSATE 100 MG CAP PO PRN (13:52)
--- NOTE | 2017-10-08 14:13 | CT ---
EXAMINATION TYPE: CT chest angio for PE DATE OF EXAM: 10/08/2017 COMPARISON: Radiograph same day and CT chest 09/25/2017 HISTORY: 76-year-old female Shortness of breath and back pain. TECHNIQUE: Contiguous axial scanning of the chest performed with IV Contrast, patient injected with 1 00 mL of Omnipaque 350. Coronal/sagittal MIP reconstructions performed. CT DLP: 515 mGycm Automated exposure control for dose reduction was used. FINDINGS: Redemonstrated nodules in the thyroid gland, the one on the right anteriorly measures 1.7 cm, similar to 09/25/2017 was noted to be hot on the 2016 PET/CT. Heart is normal size without pericardial effusion. Aortic root mildly ectatic at 3.7 cm. Ascending aorta ectatic at 3.8 cm. Mild atherosclerotic arch ca lcifications with conventional arch vessel branching anatomy. Tortuous thoracic aorta with borderline ectasia upper descending thoracic aorta 3.0 cm. No thoracic lymphadenopathy by CT size criteria. Satisfactory opacification of the pulmonary arterial system without evidence for pulmonary embolus. Possible 1.6 cm right hilar lymph node. Spiculated anterior right upper lobe mass measures 3.6 x 2.9 cm similar to minimally larger from 2017. Small internal areas of cavitation now seem to be present, axial image 49. There is thickening of the adjacent pleura. Strandy atelectasis left lower lobe prominent patchy posterior bibasilar atel ectasis With some endobronchial plugging is noted in the basilar right lower lobe, axial image 93. Visualized upper abdomen shows cholecystectomy clips and some more prominence to the bile duct and pr obable cyst in the left kidney. Hilar splenule. A 1.8 cm left adrenal nodule seems to have measured 1 .4 cm on 05/10/2017. Postsurgical changes in the lumbar spine and degenerative changes throughout the thoracic spine. IMPRESSION: 1. NO EVIDENCE FOR PULMONARY EMBOLUS. 2. PROMINENT BIBASILAR ATELECTASIS. 3. SPICULATED RIGHT UPPER LOBE MASS MEASURES 3.6 CM, STABLE TO MINIMALLY LARGER FROM 09/25/2017. SMALL INTERNAL AREAS OF AIR CAVITATION ARE NOW PRESENT AND THE MASS CONTINUES TO ABUT AND THICKEN THE ADJAC ENT PLEURA SUGGESTING PLEURAL INVOLVEMENT. 4. 1.6 CM RIGHT HILAR LYMPH NODE. 5. A LEFT ADRENAL NODULE MEASURES 1.8 CM AND MAY BE MINIMALLY LARGER FROM 05/10/2017 WHERE IT MEASURED 1.4 CM. 6. 1.7 CM ANTERIOR RIGHT THYROID LOBE NODULE NOTED TO BE HOT ON 05/10/2017 PET/CT. APPROPRIATE FOLLOW- UP RECOMMENDED.
[2017-10-08] MEDS ORDERED: Magnesium Replacement Protocol 1 EACH MISC MISCELLANE PRN (18:54)
[2017-10-08] MEDS: MAGNESIUM SULFATE-D5W PMX 1 GM in DEXTROSE/WATER 1 100ML.BAG IVPB SCH ×2 (19:41→20:41)
[2017-10-08] MEDS: ESCITALOPRAM 5 MG TAB PO SCH (20:10)
[2017-10-08] MEDS: ATORVASTATIN 20 MG TAB PO SCH (20:10)
[2017-10-08] MEDS: BACLOFEN 10 MG TAB PO SCH (20:10)
[2017-10-08] MEDS: LISINOPRIL 20 MG TAB PO SCH (20:11)
[2017-10-08] MEDS: GABAPENTIN 300 MG CAP PO SCH (20:11)
[2017-10-08] MEDS: ASPIRIN 81 MG PO SCH (20:11)
[2017-10-08] MEDS: ACETAMINOPHEN TAB 325 MG TAB PO PRN (23:14)
[2017-10-09 00:08] LABS: Glucose,Whole Blood 101 mg/dL (75-99)
[2017-10-09 06:31] LABS: Basophils % (A) 0 %; Eosinophils % (A) 2 %; HCT 45.2 % (34.0-46.0); HGB 13.8 gm/dL (11.4-16.0); Lymphocytes # (A) 0.4 k/uL (1.0-4.8); Lymphocytes % (A) 14 %; MCH 30.7 pg (25.0-35.0); MCHC 30.5 g/dL (31.0-37.0); Mean Platelet Volume 6.9; Monocytes # (A) 0.2 k/uL (0-1.0); Monocytes % (A) 6 %; Neutrophils # (A) 2.1 k/uL (1.3-7.7); Neutrophils % (A) 77 %; Platelet Count 152 k/uL (150-450); RDW 13.4 % (11.5-15.5); WBC 2.7 k/uL (3.8-10.6)
[2017-10-09 06:32] LABS: MCV 100.6 fL (80.0-100.0)
[2017-10-09 06:38] LABS: Anion Gap 10 mmol/L; Blood Urea Nitrogen 17 mg/dL (7-17); Calcium 8.2 mg/dL (8.4-10.2); Carbon Dioxide 25 mmol/L (22-30); Chloride 106 mmol/L (98-107); Glucose 98 mg/dL (74-99); Magnesium 1.9 mg/dL (1.6-2.3); Potassium 4.5 mmol/L (3.5-5.1); Sodium 141 mmol/L (137-145)
[2017-10-09] MEDS: PANTOPRAZOLE 40 MG TABLET PO SCH (06:57)
[2017-10-09] MEDS: metFORMIN 500 MG TAB PO SCH ×2 (06:58→17:39)
--- NOTE | 2017-10-09 08:07 | P.CRDCN ---
History of Present Illness Consult date: 10/09/17 Requesting physician: Chance Byrd Consult reason: chest pain Chief complaint: Chest pain History of present illness: This is a pleasant 76-year-old female with no prior documented history of coronary artery disease, she has a history of COPD, nicotine dependence, smokes one pack of cigarettes per day, hyperlipidemia, hypertension , hypothyroidism, history of breast cancer radiation, patient also has a known lung mass. She presents to the hospital with symptoms of chest pain which she describes as sharp stabbing chest pains which lasted only a few minutes in duration. She does state that she was extremely diaphoretic, but states that she gets diaphoretic off and on on a regular basis. She denies any significant change in her breathing. EKG performed on arrival here shows a normal sinus rhythm with no acute changes. Chest x-ray reveals a large 4 cm mass in the right upper lobe stable from previous exam. CTA of the chest did not reveal any evidence for pulmonary embolism, prominent bibasilar atelectasis, spiculated right upper lobe mass measuring 3.6 cm stable to minimally larger as compared with prior. 1.6 cm right hilar lymph node. Left adrenal nodule which measures 1.8 cm. 1.7 cm anterior right thyroid lobe nodule in noted. Blood pressure 140/68, heart rate in the 70s, temperature through the night 101.1, temperature this morning 97. Lab data was reviewed, white blood cell count on admission 4.9, 2.7 this morning. Hemoglobin 13.8, platelet count 152. D-dimer 0.9. Sodium 141, potassium 4.5, BUN 17, creatinine 0.8. Magnesium level on admission 1.5, 1.9 this morning. Troponins have been negative 3. At the time of my examination this morning she is currently chest pain-free. Past Medical History Past Medical History: Coronary Artery Disease (CAD), Cancer, Chest Pain / Angina , COPD, Diabetes Mellitus, GERD/Reflux, Hyperlipidemia, Hypertension, Osteoarthritis (OA), Pneumonia, Thyroid Disorder Additional Past Medical History / Comment(s): R upper lung mass found 1 year ago -2 unsuccessful FNA, thyroid nodule, R breast cancer with 2 lumpectomies/ radiation, NIDDM type II, UTI, UTI with sepsis, memory loss, balance issues, arthritis multiple joints, back pain, sciatica bilaterally, R hip pain-sees Dr. Barnes for pain management, agent orange exposure in 2 or 1962. History of Any Multi-Drug Resistant Organisms: MRSA Date of last positivie culture/infection: 07/19/11 MDRO Source:: Daughter, Brianda believes source was urine. Past Surgical History: Back Surgery, Cholecystectomy, Hysterectomy, Joint Replacement Additional Past Surgical History / Comment(s): FNA R lung unsuccessfull twice, thyroid bx, right knee replacement; Bowel Surgery d/t obstruction, 5 back surgeries, right breast cancer with 2 lumpectomies- radiation treatment, picc lines x2 with one surgically removed, bilateral cataract surgery with lens implants, colonoscopy. Past Anesthesia/Blood Transfusion Reactions: No Reported Reaction Past Psychological History: No Psychological Hx Reported, Depression Additional Psychological History / Comment(s): Pt has 2 of her daughters residing with her. Her jimBrianda is her caregiver. Pt ambulates with cane or walker. Her daughter takes her to appts. Pt has had depression since of her spouse. She has had suicidal thoughts in the past but none since Smoking Status: Current every day smoker Past Alcohol Use History: None Reported Additional Past Alcohol Use History / Comment(s): Pt started smoking in 1953 and smokes 1.5-2 ppd. Past Drug Use History: None Reported - Past Family History Father Family Medical History: Cancer Additional Family Medical History / Comment(s): Father of mesothelioma. Mother Family Medical History: No Reported History Additional Family Medical History / Comment(s): Pt's mother is 101 years old and fairly healthy Medications and Allergies Home Medications Medication Instructions Recorded Confirmed Type Baclofen 10 mg PO BID 05/03/15 10/08/17 History Diazepam [Valium] 5 - 7.5 mg PO HS PRN 05/03/15 10/08/17 History Meloxicam [Mobic] 7.5 mg PO DAILY 05/03/15 10/08/17 History Multivitamins, Thera [Multivitamin 1 tab PO DAILY 05/03/15 10/08/17 History (formulary)] Omeprazole [PriLOSEC] 20 mg PO DAILY 05/03/15 10/08/17 History Simvastatin [Zocor] 40 mg PO HS 05/03/15 10/08/17 History metFORMIN HCL [Glucophage] 500 mg PO AC-BID 05/03/15 10/08/17 History Biotin 5 mg PO DAILY 05/13/16 10/08/17 History Gabapentin 300 mg PO QAM 05/13/16 10/08/17 History Aspirin EC [Ecotrin Low Dose] 81 mg PO BID 10/22/16 10/08/17 History Escitalopram [Lexapro] 5 mg PO HS 03/30/17 10/08/17 History Tiotropium Br/Olodaterol HCl 2 puff INHALATION RT-DAILY 03/30/17 10/08/17 History [Stiolto Respimat Inhal [place]] Cranberry Fruit Extract [Cranberry] 500 mg PO BID 05/15/17 10/08/17 History Donepezil [Aricept] 10 mg PO DAILY 05/15/17 10/08/17 History Furosemide [Lasix] 20 mg PO DAILY PRN 05/15/17 10/08/17 History Docusate [Colace] 100 - 200 mg PO DAILY PRN 09/28/17 10/08/17 History Gabapentin [Neurontin] 600 mg PO HS 09/28/17 10/08/17 History HYDROcodone/APAP 10-325MG [[place] 1 tab PO Q6H PRN 09/28/17 10/08/17 History 10-325] L.acidoph,Paracasei, B.lactis 1 cap PO DAILY 09/28/17 10/08/17 History [Probiotic] Lisinopril 40 mg PO HS 09/28/17 10/08/17 History Diltiazem HCl [Cartia Xt] 240 mg PO DAILY 10/08/17 10/08/17 History Allergies Allergy/AdvReac Type Severity Reaction Status Date / Time bee venom protein (honey bee) Allergy Swelling Verified 10/08/17 10:37 cefuroxime Allergy Swelling Verified 10/08/17 10:37 metoprolol AdvReac Unknown Verified 10/08/17 10:37 mirabegron [From Myrbetriq] AdvReac Hallucinati Verified 10/08/17 10:37 ons zolpidem [From Ambien] AdvReac Confusion Verified 10/08/17 10:37 Physical Exam Vitals: Vital Signs Temp Pulse Pulse Resp BP BP Pulse Ox 10/09/17 04:00 97.0 F L 76 18 141/68 97 10/08/17 23:46 85 18 02/14/18 23:44 101.1 F H 85 18 155/71 95 10/08/17 20:00 97.1 F L 83 18 158/67 97 10/08/17 17:02 72 16 10/08/17 16:57 97.0 F L 72 16 129/67 98 10/08/17 16:27 97.2 F L 73 18 116/64 100 10/08/17 15:07 76 18 120/63 98 10/08/17 13:56 74 18 129/60 95 10/08/17 12:19 76 17 129/69 97 10/08/17 11:05 81 17 120/67 80 L 10/08/17 10:18 98.1 F 98 18 120/71 95 Intake and Output 10/08/17 10/09/17 10/09/17 22:59 06:59 14:59 Intake Total 320 Output Total 200 Balance -200 320 Intake: Intake, IV Titration 320 Amount Magnesium Sulfate-D5w Pmx 100 1 gm In Dextrose/Water 1 100ml.bag @ 100 mls/hr IVPB Q1H DEIRDRE Rx#: [id number] Sodium Chloride 0.9% 1, 220 000 ml @ 100 mls/hr IV . Q10H STA Rx#:[id number] Output: Urine 200 Other: Voiding Method Toilet Toilet Bedside Commode Bedside Commode # Voids 2 Weight 46.2 kg PHYSICAL EXAMINATION: HEENT: Head is atraumatic, normocephalic. Pupils equal, round. Neck is supple. There is no elevated jugular venous pressure. HEART EXAMINATION: Heart S1 and S2 systolic murmur is heard CHEST EXAMINATION: Lungs are clear to auscultation and precussion. No chest wall tenderness is noted on palpation or with deep breathing. ABDOMEN: Soft, nontender. Bowel sounds are heard. No organomegaly noted. EXTREMITIES: 2+ peripheral pulses with no evidence of peripheral edema and no calf tenderness noted. NEUROLOGIC patient is awake, alert and oriented -3. . Results 10/09/17 06:02 10/09/17 06:02 Cardiac Enzymes 10/08/17 10/08/17 10/08/17 Range/Units 10:36 10:36 16:55 AST 20 (14-36) U/L CK-MB (CK-2) <0.2 (0.0-2.4) ng/mL Troponin I <0.012 <0.012 (0.000-0.034) ng/mL 10/08/17 Range/Units 22:30 AST (14-36) U/L CK-MB (CK-2) (0.0-2.4) ng/mL Troponin I <0.012 (0.000-0.034) ng/mL Coagulation 10/08/17 Range/Units 10:36 PT 9.9 (9.0-12.0) sec APTT 26.5 (22.0-30.0) sec CBC 10/08/17 10/09/17 Range/Units 10:36 06:02 WBC 4.9 2.7 L (3.8-10.6) k/uL RBC 4.75 4.50 (3.80-5.40) m/uL Hgb 15.3 13.8 (11.4-16.0) gm/dL Hct 44.9 45.2 (34.0-46.0) % Plt Count 201 152 (150-450) k/uL Comprehensive Metabolic Panel 10/08/17 10/09/17 Range/Units 10:36 06:02 Sodium 139 141 (137-145) mmol/L Potassium 4.1 4.5 (3.5-5.1) mmol/L Chloride 106 106 (98-107) mmol/L Carbon Dioxide 22 25 (22-30) mmol/L BUN 25 H 17 (7-17) mg/dL Creatinine 0.90 0.81 (0.52-1.04) mg/dL Glucose 137 H 98 (74-99) mg/dL Calcium 9.3 8.2 L (8.4-10.2) mg/dL AST 20 (14-36) U/L ALT 20 (9-52) U/L Alkaline Phosphatase 71 (38-126) U/L Total Protein 6.8 (6.3-8.2) g/dL Albumin 3.9 (3.5-5.0) g/dL Current Medications Generic Name Dose Route Start Last Admin Trade Name Freq PRN Reason Stop Dose Admin Acetaminophen 650 mg 10/08/17 13:46 10/08/17 23:14 Tylenol Tab PO 650 mg Q6HR PRN Administration Mild Pain or Fever > 100.5 Hydrocodone Bitart/Acetaminophen 1 each 10/08/17 13:52 [place] 10 PO Q6H PRN Pain Aspirin 81 mg 10/08/17 21:00 10/08/17 20:11 Aspirin PO 81 mg BID DEIRDRE Administration Atorvastatin Calcium 20 mg 10/08/17 21:00 10/08/17 20:10 Lipitor PO 20 mg HS DEIRDRE Administration Baclofen 10 mg 10/08/17 21:00 10/08/17 20:10 Lioresal PO 10 mg BID DEIRDRE Administration Diazepam 5 mg 10/08/17 13:52 Valium PO HS PRN insomina Diltiazem HCl 240 mg 10/09/17 09:00 Cardizem Cd PO DAILY [facility] Docusate Sodium 200 mg 10/08/17 13:52 Colace PO DAILY PRN Constipation Donepezil HCl 10 mg 10/09/17 09:00 Aricept PO DAILY [facility] Escitalopram Oxalate 5 mg 10/08/17 21:00 10/08/17 20:10 Lexapro PO 5 mg HS DEIRDRE Administration Furosemide 20 mg 10/08/17 13:52 Lasix PO DAILY PRN SWELLING Gabapentin 300 mg 10/09/17 09:00 Neurontin PO QAM DEIRDRE Gabapentin 600 mg 10/08/17 21:00 10/08/17 20:11 Neurontin PO 600 mg HS DEIRDRE Administration Ipratropium [place] 0.5 mg 10/09/17 08:00 Atrovent Nebulized INHALATION RT-QID [facility] Lactobacillus Acidoph/Bulgaricus 1 each 10/09/17 09:00 Lactinex PO DAILY [facility] Lisinopril 40 mg 10/08/17 21:00 10/08/17 20:11 Zestril PO 40 mg HS DEIRDRE Administration Meloxicam 7.5 mg 10/09/17 09:00 Mobic PO DAILY [facility] Metformin HCl 500 mg 10/09/17 07:30 10/09/17 06:58 Glucophage PO 500 mg AC-BID DEIRDRE Administration Miscellaneous Information 1 each 10/08/17 12:30 10/08/17 13:57 Rx Info: Iv Contrast Was Given MISCELLANE 10/10/17 12:31 1 each DAILY PRN Administration Per Protocol Miscellaneous Information 1 each 10/08/17 18:54 Magnesium Per Protocol MISCELLANE DAILY PRN Per Protocol Protocol Morphine Sulfate 4 mg 10/08/17 13:46 Morphine Sulfate (Inj) IV Q4HR PRN Severe Pain Multivitamins 1 each 10/09/17 12:00 Theragran PO DAILY@1200 DEIRDRE Naloxone HCl 0.2 mg 10/08/17 13:46 Narcan IV Q2M PRN Opioid Reversal Ondansetron HCl 4 mg 10/08/17 13:46 Zofran IVP Q8HR PRN Nausea And Vomiting Pantoprazole Sodium 40 mg 10/09/17 07:30 10/09/17 06:57 Protonix PO 40 mg AC-BRKFST DEIRDRE Administration Intake and Output 10/08/17 10/09/17 10/09/17 22:59 06:59 14:59 Intake Total 320 Output Total 200 Balance -200 320 Intake: Intake, IV Titration 320 Amount Magnesium Sulfate-D5w Pmx 100 1 gm In Dextrose/Water 1 100ml.bag @ 100 mls/hr IVPB Q1H DEIRDRE Rx#: [id number] Sodium Chloride 0.9% 1, 220 000 ml @ 100 mls/hr IV . Q10H STA Rx#:[id number] Output: Urine 200 Other: Voiding Method Toilet Toilet Bedside Commode Bedside Commode # Voids 2 Weight 46.2 kg 10/09/17 06:02 10/09/17 06:02 EKG Interpretations (text) EKG shows a normal sinus rhythm with no acute changes. Assessment and Plan Plan: Assessment and plan #1 chest pain, atypical for acute coronary syndrome. Troponins negative 3. EKG shows normal sinus rhythm with no acute changes. #2 hypertension #3 hyperlipidemia #4 known lung mass, CTA of the chest was performed which was negative for pulmonary embolism, it does reveal a right upper lobe lung mass measuring 3.6 cm along with a hilar lymph node, left adrenal nodule, and thyroid lobe nodule. #5 history of breast cancer with prior radiation treatment #6 COPD #7 nicotine dependence, patient's smokes one pack of cigarettes per day and has been smoking since age of 14 #8 hypothyroidism #9 fever of unknown etiology, temperature 101.8 last evening. Plan We will obtain an echocardiogram with Doppler study. Patient's pain is very atypical in nature, may consider dobutamine echocardiographic study today. Further recommendations to follow. DNP note has been reviewed, I agree with a documented findings and plan of care. Patient was seen and examined. echo
[2017-10-09] MEDS ORDERED: NON-FORMULARY DRUG (Biotin [Biotin] 5 MG) PO SCH (09:00)
[2017-10-09] MEDS: IPRATROPIUM 0.5 MG/2.5 ML NEBU INHALATION SCH ×4 (09:19→21:08)
[2017-10-09] MEDS: BACLOFEN 10 MG TAB PO SCH ×3 (10:24→20:57)
[2017-10-09] MEDS: ASPIRIN 81 MG PO SCH ×3 (10:24→20:56)
[2017-10-09] MEDS: GABAPENTIN 300 MG CAP PO SCH ×3 (10:25→20:57)
[2017-10-09] MEDS: DILTIAZEM CD 240 MG CAP.ER.24H PO SCH ×2 (10:25→11:38)
[2017-10-09] MEDS: DONEPEZIL 10 MG TAB PO SCH ×2 (10:25→11:37)
[2017-10-09] MEDS: LACTOBACILLUS ACIDOPH & BULGAR 1 EACH PACKET PO SCH ×2 (10:26→11:38)
[2017-10-09] MEDS: MELOXICAM 7.5 MG TAB PO SCH ×2 (10:26→11:37)
[2017-10-09] MEDS ORDERED: AMINOPHYLLINE 500 MG/20 ML VIAL IV PRN (10:39)
[2017-10-09] MEDS ORDERED: REGADENOSON 0.4 MG/5 ML SYRINGE IV ONE (10:39)
--- NOTE | 2017-10-09 11:37 | ECHOF ---
Referral Reason:chest pain MEASUREMENTS -------- HEIGHT: 152.4 cm WEIGHT: 45.8 kg BP: 128/64 RVIDd: 3.2 cm (< 3.3) IVSd: 1.3 cm (0.6 - 1.1) LVIDd: 3.9 cm (3.9 - 5.3) LVPWd: 1.3 cm (0.6 - 1.1) IVSs: 1.5 cm LVIDs: 2.3 cm LVPWs: 1.6 cm LA Diam: 2.9 cm (2.7 - 3.8) LAESV Index (A-L): 19.96 ml/m Ao Diam: 3.4 cm (2.0 - 3.7) AV Cusp: 1.3 cm (1.5 - 2.6) LA Diam: 2.0 cm (2.7 - 3.8) MV E Tony: 0.69 m/s MV DecT: 491 ms MV A Tony: 1.25 m/s MV E/A Ratio: 0.55 AR PHT: 440 ms RAP: 5.00 mmHg RVSP: 34.56 mmHg FINDINGS -------- Sinus rhythm. This was a technically good study. The left ventricular size is normal. There is mild concentric left ventricular hypertrophy. Overa ll left ventricular systolic function is normal with, an EF between 55 - 60 %. The right ventricle is normal in size and function. Normal LA size by volume 22+/-6 ml/m2. The right atrium is normal in size. Aortic valve is trileaflet and is mildly thickened. There is moderate aortic regurgitation. There is no evidence of aortic stenosis. Moderate mitral annular calcification present. Mild mitral regurgitation is present. Mild tricuspid regurgitation present. Right ventricular systolic pressure is normal at < 35 mmHg. There is no evidence of pulmonary hypertension. The pulmonic valve was not well visualized. Trace/mild (physiologic) pulmonic regurgitation. The aortic root size is normal. Normal inferior vena cava with normal inspiratory collapse consistent with estimated right atrial pre ssure of 5 mmHg. There is no pericardial effusion. CONCLUSIONS -------- 1. Sinus rhythm. 2. This was a technically good study. 3. The left ventricular size is normal. 4. There is mild concentric left ventricular hypertrophy. 5. Overall left ventricular systolic function is normal with, an EF between 55 - 60 %. 6. Normal LA size by volume 22+/-6 ml/m2. 7. Aortic valve is trileaflet and is mildly thickened. 8. There is moderate aortic regurgitation. 9. Moderate mitral annular calcification present. 10. Mild mitral regurgitation is present. 11. Mild tricuspid regurgitation present. 12. Right ventricular systolic pressure is normal at < 35 mmHg. 13. The pulmonic valve was not well visualized. 14. The aortic root size is normal. 15. There is no pericardial effusion. OFFICE CLINICIAN: Tom Garcia RDCS
[2017-10-09] MEDS: MULTIVITAMINS, THERA 1 EACH TAB PO SCH (11:39)
--- NOTE | 2017-10-09 12:47 | P.HPIM ---
History of Present Illness H&P Date: 10/09/17 Chief Complaint: Chest pain This is a 76-year-old female, a patient of Dr. Marquez. Patient has a known past medical history of a lung mass, coronary artery disease, COPD, diabetes mellitus, hyperlipidemia, hypertension, hypothyroidism, right breast cancer with radiation treatment. Patient presents to the emergency room with complaints of chest pain that was stabbing in the center of her chest lasting for about 2 minutes. She had some shortness of breath with it. She reported to the emergency room she thought she had a heart attack. Patient did have elevated d-dimer a CTA of the chest was completed showing no evidence of PE does reveal, atelectasis. In the spiculated right upper lobe mass measuring 3.6 cm stable to minimally larger from 09/25/2017. Small internal areas of air cavitation are now present in the mass continues to abut and thickened the adjacent pleural suggesting pleural involvement. There is a 1.6 cm right hilar lymph node. A left adrenal nodule measuring 1.8 cm and maybe minimally larger from April 2017. A 1.7 cm anterior right thyroid lobe nodule noted it to be hot on April 2017 PET CAT scan. Patient reports that she never did have the thyroid nodule biopsied. The lung mass was not biopsied because of possible scarring per patient. Cardiology and pulmonary services have been consulted troponins were negative 3 sets EKG showed a normal sinus rhythm with nonspecific ST and T-wave abnormality. She did have a temp of 101.1 last night. And on admission her option level did drop down to 80%. She's now on oxygen satting 95%. Cardiology has ordered a stress echo. Patient reports some burning with urination. She does report cough nonproductive. She is still smoking about a pack a day. Oncology has been consulted. Check for influenza and check urinalysis. Patient denies any nausea or vomiting. Denies any bowel movement changes. Denies any dizziness or lightheadedness. She's had no further episodes of chest pain. Review of Systems Please refer to HPI otherwise unremarkable Past Medical History Past Medical History: Coronary Artery Disease (CAD), Cancer, Chest Pain / Angina , COPD, Diabetes Mellitus, GERD/Reflux, Hyperlipidemia, Hypertension, Osteoarthritis (OA), Pneumonia, Thyroid Disorder Additional Past Medical History / Comment(s): R upper lung mass found 1 year ago -2 unsuccessful FNA, thyroid nodule, R breast cancer with 2 lumpectomies/ radiation, NIDDM type II, UTI, UTI with sepsis, memory loss, balance issues, arthritis multiple joints, back pain, sciatica bilaterally, R hip pain-sees Dr. Barnes for pain management, agent orange exposure in 1961 or 1962. History of Any Multi-Drug Resistant Organisms: MRSA Date of last positivie culture/infection: 07/19/11 MDRO Source:: DaughterBrianda believes source was urine. Past Surgical History: Back Surgery, Cholecystectomy, Hysterectomy, Joint Replacement Additional Past Surgical History / Comment(s): FNA R lung unsuccessfull twice, thyroid bx, right knee replacement; Bowel Surgery d/t obstruction, 5 back surgeries, right breast cancer with 2 lumpectomies- radiation treatment, picc lines x2 with one surgically removed, bilateral cataract surgery with lens implants, colonoscopy. Past Anesthesia/Blood Transfusion Reactions: No Reported Reaction Past Psychological History: No Psychological Hx Reported, Depression Additional Psychological History / Comment(s): Pt has 2 of her daughters residing with her. Her jimBrianda is her caregiver. Pt ambulates with cane or walker. Her daughter takes her to [employer]. Pt has had depression since of her spouse. She has had suicidal thoughts in the past but none since 1969's Smoking Status: Current every day smoker Past Alcohol Use History: None Reported Additional Past Alcohol Use History / Comment(s): Pt started smoking in 4 and smokes 1.5-2 ppd. Past Drug Use History: None Reported - Past Family History Father Family Medical History: Cancer Additional Family Medical History / Comment(s): Father of mesothelioma. Mother Family Medical History: No Reported History Additional Family Medical History / Comment(s): Pt's mother is 101 years old and fairly healthy Medications and Allergies Home Medications Medication Instructions Recorded Confirmed Type Baclofen 10 mg PO BID 05/03/15 10/08/17 History Diazepam [Valium] 5 - 7.5 mg PO HS PRN 05/03/15 10/08/17 History Meloxicam [Mobic] 7.5 mg PO DAILY 05/03/15 10/08/17 History Multivitamins, Thera [Multivitamin 1 tab PO DAILY 05/03/15 10/08/17 History (formulary)] Omeprazole [PriLOSEC] 20 mg PO DAILY 05/03/15 10/08/17 History Simvastatin [Zocor] 40 mg PO HS 05/03/15 10/08/17 History metFORMIN HCL [Glucophage] 500 mg PO AC-BID 05/03/15 10/08/17 History Biotin 5 mg PO DAILY 05/13/16 10/08/17 History Gabapentin 300 mg PO QAM 05/13/16 10/08/17 History Aspirin EC [Ecotrin Low Dose] 81 mg PO BID 10/22/16 10/08/17 History Escitalopram [Lexapro] 5 mg PO HS 03/30/17 10/08/17 History Tiotropium Br/Olodaterol HCl 2 puff INHALATION RT-DAILY 03/30/17 10/08/17 History [Stiolto Respimat Inhal [place]] Cranberry Fruit Extract [Cranberry] 500 mg PO BID 05/15/17 10/08/17 History Donepezil [Aricept] 10 mg PO DAILY 05/15/17 10/08/17 History Furosemide [Lasix] 20 mg PO DAILY PRN 05/15/17 10/08/17 History Docusate [Colace] 100 - 200 mg PO DAILY PRN 09/28/17 10/08/17 History Gabapentin [Neurontin] 600 mg PO HS 09/28/17 10/08/17 History HYDROcodone/APAP 10-325MG [[place] 1 tab PO Q6H PRN 09/28/17 10/08/17 History 10-325] L.acidoph,Paracasei, B.lactis 1 cap PO DAILY 09/28/17 10/08/17 History [Probiotic] Lisinopril 40 mg PO HS 09/28/17 10/08/17 History Diltiazem HCl [Cartia Xt] 240 mg PO DAILY 10/08/17 10/08/17 History Allergies Allergy/AdvReac Type Severity Reaction Status Date / Time bee venom protein (honey bee) Allergy Swelling Verified 10/08/17 10:37 cefuroxime Allergy Swelling Verified 10/08/17 10:37 metoprolol AdvReac Unknown Verified 10/08/17 10:37 mirabegron [From Myrbetriq] AdvReac Hallucinati Verified 10/08/17 10:37 ons zolpidem [From Ambien] AdvReac Confusion Verified 10/08/17 10:37 Physical Exam Vitals: Vital Signs Temp Pulse Pulse Resp BP BP BP 10/09/17 12:01 75 10/09/17 11:51 74 10/09/17 11:27 97.3 F L 94 19 133/69 10/09/17 09:32 72 10/09/17 09:22 72 10/09/17 08:35 86 18 10/09/17 08:00 98.1 F 86 18 128/64 10/09/17 04:00 97.0 F L 76 18 141/68 10/08/17 23:46 85 18 10/08/17 23:44 101.1 F H 85 18 155/71 10/08/17 20:00 97.1 F L 83 18 158/67 10/08/17 17:02 72 16 10/08/17 16:57 97.0 F L 72 16 129/67 10/08/17 16:27 97.2 F L 73 18 116/64 10/08/17 15:07 76 18 120/63 10/08/17 13:56 74 18 129/60 Pulse Ox 10/09/17 12:01 10/09/17 11:51 10/09/17 11:27 98 10/09/17 09:32 10/09/17 09:22 10/09/17 08:35 10/09/17 08:00 95 10/09/17 04:00 97 10/08/17 23:46 10/08/17 23:44 95 10/08/17 20:00 97 10/08/17 17:02 10/08/17 16:57 98 10/08/17 16:27 100 10/08/17 15:07 98 10/08/17 13:56 95 Intake and Output 10/08/17 10/09/17 10/09/17 22:59 06:59 14:59 Intake Total 320 0 Output Total 200 Balance -200 320 0 Intake: Intake, IV Titration 320 Amount Magnesium Sulfate-D5w Pmx 100 1 gm In Dextrose/Water 1 100ml.bag @ 100 mls/hr IVPB Q1H DEIRDRE Rx#: [id number] Sodium Chloride 0.9% 1, 220 000 ml @ 100 mls/hr IV . Q10H STA Rx#:[id number] Oral 0 Output: Urine 200 Other: Voiding Method Toilet Toilet Diaper Bedside Commode Bedside Commode # Voids 2 Weight 46.2 kg 46.2 kg Patient Weight 10/10/17 06:59 Weight 46.2 kg Head normocephalic Neck supple Lungs clear to auscultation bilaterally no wheezing or crackles Heart regular rate and rhythm S1-S2, no rub or gallop Abdomen is soft nontender nondistended positive bowel sounds no hepatosplenomegaly Extremities no edema Neuro alert and orientated to 3 Results CBC & Chem 7: 10/09/17 06:02 10/09/17 06:02 Labs: Abnormal Lab Results - Last 24 Hours (Table) 10/09/17 10/09/17 10/09/17 Range/Units 00:07 06:02 06:02 WBC 2.7 L (3.8-10.6) k/uL MCV 100.6 H D (80.0-100.0) fL MCHC 30.5 L (31.0-37.0) g/dL Lymphocytes # 0.4 L (1.0-4.8) k/uL POC Glucose (mg/dL) 101 H (75-99) mg/dL Calcium 8.2 L (8.4-10.2) mg/dL Influenza Type B (PCR) (Not Detectd) 10/09/17 Range/Units 10:20 WBC (3.8-10.6) k/uL MCV (80.0-100.0) fL MCHC (31.0-37.0) g/dL Lymphocytes # (1.0-4.8) k/uL POC Glucose (mg/dL) (75-99) mg/dL Calcium (8.4-10.2) mg/dL Influenza Type B (PCR) Detected H (Not Detectd) Thrombosis Risk Factor Assmnt - Choose All That Apply Any of the Below Risk Factors Present?: Yes Each Factor Represents 1 point: Abnormal pulmonary function (COPD) Other Risk Factors: Yes Each Risk Factor Represents 2 Points: Malignancy Each Risk Factor Represents 3 Points: Age 75 years or older Other congenital or acquired thrombophilia - If yes, enter type in comment: No Thrombosis Risk Factor Assessment Total Risk Factor Score: 6 Thrombosis Risk Factor Assessment Level: High Risk Assessment and Plan Assessment: 1. Chest pain: Troponins negative 3 sets. EKG showing normal sinus rhythm with nonspecific ST and T-wave abnormality. Seen by cardiology. They've ordered a stress echo 2. Influenza B positive: Start Tamiflu 3. Acute hypoxic respiratory failure on admission possibly related to influenza. Pulmonary service consulted. Patient's arson saturation was 80% on room air. Now on 2 L at 95% 4. Right-sided lung mass noted on computed tomography scan that may be larger in size. And concerns of pleural involvement. Pulmonary and oncology have been consulted. Patient has not been able to get a biopsy of that lung mass due to scarring per patient 5. A left adrenal nodule measuring 1.8 cm that is larger than previous as well as a 1.7 cm anterior right thyroid lobe nodule. Oncology consulted 6. Nicotine dependence: Discussed smoking cessation. Add nicotine patch 7. Elevated d-dimer on admission CT of the chest negative for PE 8. Essential hypertension 9. Diabetes mellitus2: add sliding Scale coverage continue metformin 10. History of COPD: Stable continue nebulizer treatment 11. Essential hypertension 12. Hypothyroidism 13. History of right breast cancer status post lumpectomy and radiation treatment GI prophylaxis Protonix and DVT prophylaxis Lovenox Time with Patient: Greater than 30 (Greater than 50% of the total time spent in counseling and coordination of care.I performed an examination of the patient and discussed their management with the physician Senior Instructor. I have reviewed the Physician Senior Instructor's notes and agree with the documented findings and plan of care)
[2017-10-09] MEDS: ENOXAPARIN 40 MG/0.4 ML SYRINGE SQ SCH (14:13)
[2017-10-09] MEDS: NICOTINE 21MG/24HR PATCH TRANSDERM SCH (14:13)
[2017-10-09] MEDS: OSELTAMIVIR 75 MG CAP PO SCH ×2 (14:14→21:00)
[2017-10-09] MEDS: SODIUM CHLORIDE 0.9% 1,000 ML IV SCH (14:15)
[2017-10-09 16:53] LABS: Glucose,Whole Blood 96 mg/dL (75-99)
[2017-10-09] MEDS: INSULIN ASPART 100 UNIT/ML 1 ML 10 ML VIAL SQ SCH ×2 (17:39→21:53)
[2017-10-09] MEDS: ATORVASTATIN 20 MG TAB PO SCH (20:56)
[2017-10-09] MEDS: ESCITALOPRAM 5 MG TAB PO SCH (20:57)
[2017-10-09] MEDS: LISINOPRIL 20 MG TAB PO SCH (20:57)
[2017-10-09 21:22] LABS: Hemoglobin A1C 5.3 % (4.0-6.0)
[2017-10-09 21:46] LABS: Glucose,Whole Blood 77 mg/dL (75-99)
--- NOTE | 2017-10-09 23:27 | P.CONS ---
History of Present Illness - Reason for Consult Consult date: 10/09/17 lung mass - History of Present Illness The pt is a 76 yr old WF, with multipel medical problems. She was 1st noted to have RUL opacity in 12/09. Initially, it was not clear if this was an infiltrate vs mass, and the pt was placed on observation. She had a PET scan in 05/11 showing hypermetabolic uptake in the mass and in non enlarged b/l hilar and mediastinal nodes. She had a Ct guided needle biopsy in 06/10, which was negative, but the specimen was virtually acellular. Repeat CT chest on 09/25/17 showed the mass to be increased to 3.3 cm, vs 2.6 cm in 05/11 vs 2.1 in 12/09. Brain CT on that date was negative. She was admitted this time with rt upper chest and rt shoulder pain, and SOB, progressive over the last few days. Pain was increased with inspiration. A CTA was performed, which was negative for PE. The mass was now 3.6 cm, with possible pleural involvement. Consult was placed for further evaluation and recommendations She has a h/o rt sided breast cancer ( early stage by history) treated with lumpectomy and radiation, in 2005. She denied any hormonal therapy or chemo. Review of Systems Constitutional: Reports fatigue, Reports weakness, Reports weight loss Eyes: denies blurred vision, denies pain Ears: deny: decreased hearing, ear discharge, earache, tinnitus Ears, nose, mouth and throat: Denies headache, Denies sore throat Breasts: right: as per HPI Cardiovascular: Reports dyspnea on exertion Respiratory: Reports dyspnea, Reports pleurisy Gastrointestinal: Reports constipation Genitourinary: Denies dysuria, Denies hematuria Menstruation: Reports postmenopausal Musculoskeletal: Reports muscle weakness Integumentary: Denies pruritus, Denies rash Neurological: Reports weakness, Denies numbness Psychiatric: Denies anxiety, Denies depression Endocrine: Denies fatigue, Denies weight change Hematologic/Lymphatic: Reports as per HPI Past Medical History Past Medical History: Coronary Artery Disease (CAD), Cancer, Chest Pain / Angina , COPD, Diabetes Mellitus, GERD/Reflux, Hyperlipidemia, Hypertension, Osteoarthritis (OA), Pneumonia, Thyroid Disorder Additional Past Medical History / Comment(s): R upper lung mass found 1 year ago -2 unsuccessful FNA, thyroid nodule, R breast cancer with 2 lumpectomies/ radiation, NIDDM type II, UTI, UTI with sepsis, memory loss, balance issues, arthritis multiple joints, back pain, sciatica bilaterally, R hip pain-sees Dr. Barnes for pain management, agent orange exposure in 1961 or 1962. History of Any Multi-Drug Resistant Organisms: MRSA Year Discovered:: 07/19/11 MDRO Source:: DaughterBrianda believes source was urine. Past Surgical History: Back Surgery, Cholecystectomy, Hysterectomy, Joint Replacement Additional Past Surgical History / Comment(s): FNA R lung unsuccessfull twice, thyroid bx, right knee replacement; Bowel Surgery d/t obstruction, 5 back surgeries, right breast cancer with 2 lumpectomies- radiation treatment, picc lines x2 with one surgically removed, bilateral cataract surgery with lens implants, colonoscopy. Past Anesthesia/Blood Transfusion Reactions: No Reported Reaction Past Psychological History: No Psychological Hx Reported, Depression Additional Psychological History / Comment(s): Pt has 2 of her daughters residing with her. Her jimBrianda is her caregiver. Pt ambulates with cane or walker. Her daughter takes her to appts. Pt has had depression since of her spouse. She has had suicidal thoughts in the past but none since Smoking Status: Current every day smoker Past Alcohol Use History: None Reported Additional Past Alcohol Use History / Comment(s): Pt started smoking in 1953 and smokes 1.5-2 ppd. Past Drug Use History: None Reported - Past Family History Father Family Medical History: Cancer Additional Family Medical History / Comment(s): Father of mesothelioma. Mother Family Medical History: No Reported History Additional Family Medical History / Comment(s): Pt's mother is 101 years old and fairly healthy Medications and Allergies Home Medications Medication Instructions Recorded Confirmed Type Baclofen 10 mg PO BID 05/03/15 10/08/17 History Diazepam [Valium] 5 - 7.5 mg PO HS PRN 05/03/15 10/08/17 History Meloxicam [Mobic] 7.5 mg PO DAILY 05/03/15 10/08/17 History Multivitamins, Thera [Multivitamin 1 tab PO DAILY 05/03/15 10/08/17 History (formulary)] Omeprazole [PriLOSEC] 20 mg PO DAILY 05/03/15 10/08/17 History Simvastatin [Zocor] 40 mg PO HS 05/03/15 10/08/17 History metFORMIN HCL [Glucophage] 500 mg PO AC-BID 05/03/15 10/08/17 History Biotin 5 mg PO DAILY 05/13/16 10/08/17 History Gabapentin 300 mg PO QAM 05/13/16 10/08/17 History Aspirin EC [Ecotrin Low Dose] 81 mg PO BID 10/22/16 10/08/17 History Escitalopram [Lexapro] 5 mg PO HS 03/30/17 10/08/17 History Tiotropium Br/Olodaterol HCl 2 puff INHALATION RT-DAILY 03/30/17 10/08/17 History [Stiolto Respimat Inhal [place]] Cranberry Fruit Extract [Cranberry] 500 mg PO BID 05/15/17 10/08/17 History Donepezil [Aricept] 10 mg PO DAILY 05/15/17 10/08/17 History Furosemide [Lasix] 20 mg PO DAILY PRN 05/15/17 10/08/17 History Docusate [Colace] 100 - 200 mg PO DAILY PRN 09/28/17 10/08/17 History Gabapentin [Neurontin] 600 mg PO HS 09/28/17 10/08/17 History HYDROcodone/APAP 10-325MG [[place] 1 tab PO Q6H PRN 09/28/17 10/08/17 History 10-325] L.acidoph,Paracasei, B.lactis 1 cap PO DAILY 09/28/17 10/08/17 History [Probiotic] Lisinopril 40 mg PO HS 09/28/17 10/08/17 History Diltiazem HCl [Cartia Xt] 240 mg PO DAILY 10/08/17 10/08/17 History Allergies Allergy/AdvReac Type Severity Reaction Status Date / Time bee venom protein (honey bee) Allergy Swelling Verified 10/08/17 10:37 cefuroxime Allergy Swelling Verified 10/08/17 10:37 metoprolol AdvReac Unknown Verified 10/08/17 10:37 mirabegron [From Myrbetriq] AdvReac Hallucinati Verified 10/08/17 10:37 ons zolpidem [From Ambien] AdvReac Confusion Verified 10/08/17 10:37 Physical Exam Vitals: Vital Signs Temp Pulse Pulse Resp BP BP Pulse Ox 10/09/17 16:22 75 10/09/17 16:14 73 10/09/17 12:01 75 10/09/17 11:51 74 10/09/17 11:27 97.3 F L 94 19 133/69 98 10/09/17 09:32 72 10/09/17 09:22 72 10/09/17 08:35 86 18 10/09/17 08:00 98.1 F 86 18 128/64 95 10/09/17 04:00 97.0 F L 76 18 141/68 97 10/08/17 23:46 85 18 10/08/17 23:44 101.1 F H 85 18 155/71 95 10/08/17 20:00 97.1 F L 83 18 158/67 97 Intake and Output 10/09/17 10/09/17 10/09/17 06:59 14:59 22:59 Intake Total 320 118 Output Total 0 Balance 320 118 0 Intake: Intake, IV Titration 320 Amount Magnesium Sulfate-D5w Pmx 100 1 gm In Dextrose/Water 1 100ml.bag @ 100 mls/hr IVPB Q1H DEIRDRE Rx#: [id number] Sodium Chloride 0.9% 1, 220 000 ml @ 100 mls/hr IV . Q10H STA Rx#:[id number] Oral 118 Output: Urine 0 Stool 0 Other: Voiding Method Toilet Diaper Bedside Commode # Voids 2 0 # Bowel Movements 0 Weight 46.2 kg 46.2 kg Patient Weight 10/10/17 06:59 Weight 46.2 kg - Constitutional General appearance: no acute distress - EENT Eyes: EOMI, PERRLA ENT: hearing grossly normal, normal oropharynx - Neck Neck: no lymphadenopathy Thyroid: bilateral: normal size - Respiratory Respiratory: bilateral: diminished - Cardiovascular Rhythm: regular Heart sounds: normal: S1, S2 - Gastrointestinal General gastrointestinal: normal bowel sounds, soft - Integumentary Integumentary: normal - Neurologic Neurologic: CNII-XII intact - Musculoskeletal Musculoskeletal: generalized weakness, strength equal bilaterally - Psychiatric Psychiatric: A&O x's 3, appropriate affect Results CBC & Chem 7: 10/09/17 06:02 10/09/17 06:02 Labs: Abnormal Lab Results - Last 24 Hours (Table) 10/09/17 10/09/17 10/09/17 Range/Units 00:07 06:02 06:02 WBC 2.7 L (3.8-10.6) k/uL MCV 100.6 H D (80.0-100.0) fL MCHC 30.5 L (31.0-37.0) g/dL Lymphocytes # 0.4 L (1.0-4.8) k/uL POC Glucose (mg/dL) 101 H (75-99) mg/dL Calcium 8.2 L (8.4-10.2) mg/dL Influenza Type B (PCR) (Not Detectd) 10/09/17 Range/Units 10:20 WBC (3.8-10.6) k/uL MCV (80.0-100.0) fL MCHC (31.0-37.0) g/dL Lymphocytes # (1.0-4.8) k/uL POC Glucose (mg/dL) (75-99) mg/dL Calcium (8.4-10.2) mg/dL Influenza Type B (PCR) Detected H (Not Detectd) Comments: PET scan report, path report reviewed Chest x-ray: report reviewed Abdominal x-ray: report reviewed CT scan - chest: report reviewed Assessment and Plan (1) Lung mass Narrative/Plan: The increase in size of this PET positive mass is suspicious for malignancy. Overall rare of change has been slow. A primary lung malignancy is the main concern. Other etiologies, including benign are not ruled out. Metastases from her breast cancer is less likely, given probable early stage and > 10 yr interval, but also not ruled out The above was discussed in detail with the pt. A repeat biopsy was advised. She is agreaable to the same. Apparently the RUL is hard to target due to post radiation fibrosis. Pulmonary will be consulted I will discuss with them re a bronchoscopic approach Current Visit: Yes Status: Acute Code(s): R91.8 - OTHER NONSPECIFIC ABNORMAL FINDING OF LUNG FIELD SNOMED Code(s): 081943692 Plan: Defer to the admitting service re management of her other medical problems
[2017-10-10 02:50] LABS: Glucose,Whole Blood 109 mg/dL (75-99)
[2017-10-10 06:28] LABS: Basophils % (A) 0 %; Eosinophils # (A) 0.1 k/uL (0-0.7); Eosinophils % (A) 3 %; HCT 40.1 % (34.0-46.0); HGB 13.2 gm/dL (11.4-16.0); Lymphocytes # (A) 0.6 k/uL (1.0-4.8); Lymphocytes % (A) 20 %; MCH 31.2 pg (25.0-35.0); MCHC 32.8 g/dL (31.0-37.0); Mean Platelet Volume 6.8; Monocytes # (A) 0.2 k/uL (0-1.0); Monocytes % (A) 7 %; Neutrophils # (A) 1.9 k/uL (1.3-7.7); Neutrophils % (A) 69 %; Platelet Count 146 k/uL (150-450); RBC 4.22 m/uL (3.80-5.40); RDW 13.3 % (11.5-15.5); WBC 2.8 k/uL (3.8-10.6)
[2017-10-10 06:45] LABS: ALT 32 U/L (9-52); AST 24 U/L (14-36); Alkaline Phosphatase 74 U/L (38-126); Anion Gap 8 mmol/L; Blood Urea Nitrogen 15 mg/dL (7-17); Calcium 8.2 mg/dL (8.4-10.2); Carbon Dioxide 23 mmol/L (22-30); Chloride 106 mmol/L (98-107); Glucose 99 mg/dL (74-99); Potassium 4.3 mmol/L (3.5-5.1); Sodium 137 mmol/L (137-145); Total Bilirubin 0.2 mg/dL (0.2-1.3); Total Protein 5.6 g/dL (6.3-8.2)
[2017-10-10 06:52] LABS: MCV 95.1 fL (80.0-100.0)
[2017-10-10] MEDS: PANTOPRAZOLE 40 MG TABLET PO SCH (06:55)
[2017-10-10] MEDS: metFORMIN 500 MG TAB PO SCH (06:55)
[2017-10-10] MEDS: INSULIN ASPART 100 UNIT/ML 1 ML 10 ML VIAL SQ SCH ×4 (07:01→20:07)
[2017-10-10 07:06] LABS: Glucose,Whole Blood 101 mg/dL (75-99)
--- NOTE | 2017-10-10 08:34 | P.CNPUL ---
History of Present Illness Consult date: 10/09/17 (Late entry note) Reason for consult: dyspnea, cough, COPD, lung mass Chief complaint: Cough shortness of breath and wheezing History of present illness: This is a 76-year-old female, a patient of Dr. Marquez. Patient has a known past medical history of a lung mass, coronary artery disease, COPD, diabetes mellitus, hyperlipidemia, hypertension, hypothyroidism, right breast cancer with radiation treatment. Patient presents to the emergency room with complaints of chest pain that was stabbing in the center of her chest as well as worsening of baseline shortness of breath with it. Patient did have elevated d-dimer a CTA of the chest was completed showing no evidence of PE does reveal, atelectasis. In the spiculated right upper lobe mass measuring 3.6 cm stable to minimally larger from 09/25/2017. Small internal areas of air cavitation are now present in the mass continues to abut and thickened the adjacent pleural suggesting pleural involvement. There is a 1.6 cm right hilar lymph node. A left adrenal nodule measuring 1.8 cm and maybe minimally larger from April 2017. A 1.7 cm anterior right thyroid lobe nodule noted it to be hot on April 2017 PET CAT scan. Patient reports that she never did have the thyroid nodule biopsied. The lung mass was biopsied at least 2 times but there was nondiagnostic but, patient in fact has been seeing me on outpatient basis basis she elected for observation as she is a very high risk candidate for aggressive intervention and multiple comorbidities Patient's troponins were negative 3 sets EKG showed a normal sinus rhythm with nonspecific ST and T-wave abnormality. She did have a temp of 101.1 last night. And on admission her option level did drop down to 80%. She's now on oxygen satting 95%. Cardiology has ordered a stress echo. Patient reports some burning with urination. She does report cough nonproductive. She is still smoking about a pack a day. She is positive for influenza B pneumonia. Patient denies any nausea or vomiting. Denies any bowel movement changes. Denies any dizziness or lightheadedness. She's had no further episodes of chest pain. She also has progressive severe dementia which is also one of the reason family is reluctant for aggressive intervention Review of Systems All systems: negative Past Medical History Past Medical History: Coronary Artery Disease (CAD), Cancer, Chest Pain / Angina , COPD, Diabetes Mellitus, GERD/Reflux, Hyperlipidemia, Hypertension, Osteoarthritis (OA), Pneumonia, Thyroid Disorder Additional Past Medical History / Comment(s): R upper lung mass found 1 year ago -2 unsuccessful FNA, thyroid nodule, R breast cancer with 2 lumpectomies/ radiation, NIDDM type II, UTI, UTI with sepsis, memory loss, balance issues, arthritis multiple joints, back pain, sciatica bilaterally, R hip pain-sees Dr. Barnes for pain management, agent orange exposure in 1961 or 1962. History of Any Multi-Drug Resistant Organisms: MRSA Date of last positivie culture/infection: 07/19/11 MDRO Source:: Daughter, Brianda believes source was urine. Past Surgical History: Back Surgery, Cholecystectomy, Hysterectomy, Joint Replacement Additional Past Surgical History / Comment(s): FNA R lung unsuccessfull twice, thyroid bx, right knee replacement; Bowel Surgery d/t obstruction, 5 back surgeries, right breast cancer with 2 lumpectomies- radiation treatment, picc lines x2 with one surgically removed, bilateral cataract surgery with lens implants, colonoscopy. Past Anesthesia/Blood Transfusion Reactions: No Reported Reaction Past Psychological History: No Psychological Hx Reported, Depression Additional Psychological History / Comment(s): Pt has 2 of her daughters residing with her. Her jim, Brianda is her caregiver. Pt ambulates with cane or walker. Her daughter takes her to appts. Pt has had depression since of her spouse. She has had suicidal thoughts in the past but none since 1969's Smoking Status: Current every day smoker Past Alcohol Use History: None Reported Additional Past Alcohol Use History / Comment(s): Pt started smoking in 1954 and smokes 1.5-2 ppd. Past Drug Use History: None Reported - Past Family History Father Family Medical History: Cancer Additional Family Medical History / Comment(s): Father of mesothelioma. Mother Family Medical History: No Reported History Additional Family Medical History / Comment(s): Pt's mother is 101 years old and fairly healthy Medications and Allergies Home Medications Medication Instructions Recorded Confirmed Type Baclofen 10 mg PO BID 05/03/15 10/08/17 History Diazepam [Valium] 5 - 7.5 mg PO HS PRN 05/03/15 10/08/17 History Meloxicam [Mobic] 7.5 mg PO DAILY 05/03/15 10/08/17 History Multivitamins, Thera [Multivitamin 1 tab PO DAILY 05/03/15 10/08/17 History (formulary)] Omeprazole [PriLOSEC] 20 mg PO DAILY 05/03/15 10/08/17 History Simvastatin [Zocor] 40 mg PO HS 05/03/15 10/08/17 History metFORMIN HCL [Glucophage] 500 mg PO AC-BID 05/03/15 10/08/17 History Biotin 5 mg PO DAILY 05/13/16 10/08/17 History Gabapentin 300 mg PO QAM 05/13/16 10/08/17 History Aspirin EC [Ecotrin Low Dose] 81 mg PO BID 10/22/16 10/08/17 History Escitalopram [Lexapro] 5 mg PO HS 03/30/17 10/08/17 History Tiotropium Br/Olodaterol HCl 2 puff INHALATION RT-DAILY 03/30/17 10/08/17 History [Stiolto Respimat Inhal [place]] Cranberry Fruit Extract [Cranberry] 500 mg PO BID 05/15/17 10/08/17 History Donepezil [Aricept] 10 mg PO DAILY 05/15/17 10/08/17 History Furosemide [Lasix] 20 mg PO DAILY PRN 05/15/17 10/08/17 History Docusate [Colace] 100 - 200 mg PO DAILY PRN 09/28/17 10/08/17 History Gabapentin [Neurontin] 600 mg PO HS 09/28/17 10/08/17 History HYDROcodone/APAP 10-325MG [Section 1 tab PO Q6H PRN 09/28/17 10/08/17 History 10-325] L.acidoph,Paracasei, B.lactis 1 cap PO DAILY 09/28/17 10/08/17 History [Probiotic] Lisinopril 40 mg PO HS 09/28/17 10/08/17 History Diltiazem HCl [Cartia Xt] 240 mg PO DAILY 10/08/17 10/08/17 History Allergies Allergy/AdvReac Type Severity Reaction Status Date / Time bee venom protein (honey bee) Allergy Swelling Verified 10/08/17 10:37 cefuroxime Allergy Swelling Verified 10/08/17 10:37 metoprolol AdvReac Unknown Verified 10/08/17 10:37 mirabegron [From Myrbetriq] AdvReac Hallucinati Verified 10/08/17 10:37 ons zolpidem [From Ambien] AdvReac Confusion Verified 10/08/17 10:37 Physical Exam Vitals: Vital Signs Temp Pulse Pulse Resp BP BP BP 10/09/17 12:01 75 10/09/17 11:51 74 10/09/17 11:27 97.3 F L 94 19 133/69 10/09/17 09:32 72 10/09/17 09:22 72 10/09/17 08:35 86 18 10/09/17 08:00 98.1 F 86 18 128/64 10/09/17 04:00 97.0 F L 76 18 141/68 10/08/17 23:46 85 18 10/08/17 23:44 101.1 F H 85 18 155/71 10/08/17 20:00 97.1 F L 83 18 158/67 10/08/17 17:02 72 16 10/08/17 16:57 97.0 F L 72 16 129/67 10/08/17 16:27 97.2 F L 73 18 116/64 Pulse Ox 10/09/17 12:01 10/09/17 11:51 10/09/17 11:27 98 10/09/17 09:32 10/09/17 09:22 10/09/17 08:35 10/09/17 08:00 95 10/09/17 04:00 97 10/08/17 23:46 10/08/17 23:44 95 10/08/17 20:00 97 10/08/17 17:02 10/08/17 16:57 98 10/08/17 16:27 100 Intake and Output 10/09/17 10/09/17 10/09/17 06:59 14:59 22:59 Intake Total 320 118 Balance 320 118 Intake: Intake, IV Titration 320 Amount Magnesium Sulfate-D5w Pmx 100 1 gm In Dextrose/Water 1 100ml.bag @ 100 mls/hr IVPB Q1H [facility] Rx#: [id number] Sodium Chloride 0.9% 1, 220 000 ml @ 100 mls/hr IV . Q10H [facility] Rx#:[id number] Oral 118 Other: Voiding Method Toilet Diaper Bedside Commode # Voids 2 Weight 46.2 kg 46.2 kg Patient Weight 10/10/17 06:59 Weight 46.2 kg General: The patient is awake and alert, in mild respiratory distress, and does appear acutely ill. Skin: Skin is warm and dry and no rashes or lesions are noted. Eye: Pupils are equal, round and reactive to light, extra-ocular movements are intact; there is normal conjunctiva bilaterally. Ears, nose, mouth and throat: There are moist mucous membranes and no oral lesions. Neck: The neck is supple, there is no tenderness or JVD. Cardiovascular: There is a regular rate and rhythm. No murmur, rub or gallop is appreciated. Respiratory: To auscultation bilateral inspiratory and expiratory fine wheezing are noted Gastrointestinal: Soft, non-distended, non-tender abdomen without masses or organomegaly noted. There is no rebound or guarding present. Bowel sounds are unremarkable. Back: There is no tenderness to palpation in the midline. There is no obvious deformity. Musculoskeletal: Normal ROM, no tenderness, There is no pedal edema. There is no calf tenderness or swelling. No cords were appreciated. Neurological: CN II-XII intact, Cranial nerves III through XII are intact. There are no obvious motor or sensory deficits. Coordination appears grossly intact. Speech is normal. Psychiatric: Cooperative, appropriate mood & affect, normal judgment. Very somnolent however Results - Laboratory Findings CBC and BMP: 10/10/17 06:07 10/10/17 06:07 PT/INR, D-dimer PT 9.9 sec (9.0-12.0) 10/08/17 10:36 INR 1.0 (<1.2) 10/08/17 10:36 D-Dimer 0.90 mg/L FEU (<0.60) H 10/08/17 10:36 Abnormal lab findings: Abnormal Labs 10/08/17 10/08/17 10/08/17 10:36 10:36 10:36 WBC MCV MCHC Lymphocytes # 0.9 L D-Dimer BUN 25 H Glucose 137 H POC Glucose (mg/dL) Calcium Magnesium 1.5 L Total Creatine Kinase 28 L Influenza Type B (PCR) 10/08/17 10/09/17 10/09/17 10:36 00:07 06:02 WBC MCV MCHC Lymphocytes # D-Dimer 0.90 H BUN Glucose POC Glucose (mg/dL) 101 H Calcium 8.2 L Magnesium Total Creatine Kinase Influenza Type B (PCR) 10/09/17 10/09/17 06:02 10:20 WBC 2.7 L MCV 100.6 H D MCHC 30.5 L Lymphocytes # 0.4 L D-Dimer BUN Glucose POC Glucose (mg/dL) Calcium Magnesium Total Creatine Kinase Influenza Type B (PCR) Detected H - Diagnostic Findings Chest x-ray: report reviewed, image reviewed CT scan - chest: report reviewed, image reviewed (Findings as noted above) Assessment and Plan Assessment: Acute hypoxic respiratory failure Influenza B pneumonia Secondary bacterial pneumonia, cannot be excluded Severe COPD with acute exacerbation Right-sided lung mass which is slowly enlarging with history of prior multiple FNAs nondiagnostic History of breast cancer status post radiation therapy on the right side in the remote past Plan: Gentle rehydration Bronchodilators IV steroids Therapy for influenza B pneumonia with Tamiflu For more definitive intervention of lung mass awaiting recommendation advice from family especially in light of multiple negative biopsy and multiple comorbidities especially severe COPD and poor performance status Time with Patient: Greater than 30
--- NOTE | 2017-10-10 08:39 | P.PN ---
Subjective Progress Note Date: 10/10/17 Principal diagnosis: Acute influenza B pneumonia, acute hypoxic respiratory failure, right sided lung nodule/mass highly suggestive of neoplastic process, severe COPD advanced dementia cachexia and weight loss, history of breast cancer with secondary pulmonary fibrosis 10/10/2017, patient seen eval reexamined during the rounds overall respiratory status and mood and mental status stable still left cough congestion patient is being treated with Tamiflu IV hydration and breathing treatments, CAT scan finding reviewed with the patient and appreciate hematology oncology comments This is a 76-year-old female, a patient of Dr. Marquez. Patient has a known past medical history of a lung mass, coronary artery disease, COPD, diabetes mellitus, hyperlipidemia, hypertension, hypothyroidism, right breast cancer with radiation treatment. Patient presents to the emergency room with complaints of chest pain that was stabbing in the center of her chest as well as worsening of baseline shortness of breath with it. Patient did have elevated d-dimer a CTA of the chest was completed showing no evidence of PE does reveal, atelectasis. In the spiculated right upper lobe mass measuring 3.6 cm stable to minimally larger from 09/25/2017. Small internal areas of air cavitation are now present in the mass continues to abut and thickened the adjacent pleural suggesting pleural involvement. There is a 1.6 cm right hilar lymph node. A left adrenal nodule measuring 1.8 cm and maybe minimally larger from April 2017. A 1.7 cm anterior right thyroid lobe nodule noted it to be hot on April 2017 PET CAT scan. Patient reports that she never did have the thyroid nodule biopsied. The lung mass was biopsied at least 2 times but there was nondiagnostic but, patient in fact has been seeing me on outpatient basis basis she elected for observation as she is a very high risk candidate for aggressive intervention and multiple comorbidities Patient's troponins were negative 3 sets EKG showed a normal sinus rhythm with nonspecific ST and T-wave abnormality. She did have a temp of 101.1 last night. And on admission her option level did drop down to 80%. She's now on oxygen satting 95%. Cardiology has ordered a stress echo. Patient reports some burning with urination. She does report cough nonproductive. She is still smoking about a pack a day. She is positive for influenza B pneumonia. Patient denies any nausea or vomiting. Denies any bowel movement changes. Denies any dizziness or lightheadedness. She's had no further episodes of chest pain. She also has progressive severe dementia which is also one of the reason family is reluctant for aggressive intervention Objective - Vital Signs Vital signs: Vital Signs Temp 98.6 F 10/10/17 04:00 Pulse 80 10/10/17 04:00 Resp 19 10/10/17 04:00 BP 123/65 10/10/17 04:00 Pulse Ox 92 L 10/10/17 04:00 Intake & Output 10/09/17 10/10/17 10/10/17 18:59 06:59 18:59 Intake Total 118 800 Output Total 0 0 Balance 118 800 Weight 46.2 kg 46.8 kg Intake: Intake, IV Titration 550 Amount Sodium Chloride 0.9% 1, 550 000 ml @ 50 mls/hr IV . Q20H [facility] Rx#:[id number] Oral 118 250 Output: Urine 0 Stool 0 0 Other: Voiding Method Diaper Toilet Diaper # Voids 0 1 # Bowel Movements 0 1 - Exam General: The patient is awake and alert, in mild respiratory distress, and does appear acutely ill. Skin: Skin is warm and dry and no rashes or lesions are noted. Eye: Pupils are equal, round and reactive to light, extra-ocular movements are intact; there is normal conjunctiva bilaterally. Ears, nose, mouth and throat: There are moist mucous membranes and no oral lesions. Neck: The neck is supple, there is no tenderness or JVD. Cardiovascular: There is a regular rate and rhythm. No murmur, rub or gallop is appreciated. Respiratory: To auscultation bilateral inspiratory and expiratory fine wheezing are noted, exam slightly improved Gastrointestinal: Soft, non-distended, non-tender abdomen without masses or organomegaly noted. There is no rebound or guarding present. Bowel sounds are unremarkable. Back: There is no tenderness to palpation in the midline. There is no obvious deformity. Musculoskeletal: Normal ROM, no tenderness, There is no pedal edema. There is no calf tenderness or swelling. No cords were appreciated. Neurological: CN II-XII intact, Cranial nerves III through XII are intact. There are no obvious motor or sensory deficits. Coordination appears grossly intact. Speech is normal. Psychiatric: Cooperative, appropriate mood & affect, normal judgment. Very somnolent however , severity of sleepiness however has improved she is more responsive - Labs CBC & Chem 7: 10/10/17 06:07 10/10/17 06:07 Labs: Abnormal Lab Results - Last 24 Hours (Table) 10/09/17 10/10/17 10/10/17 Range/Units 10:20 02:15 06:07 WBC 2.8 L (3.8-10.6) k/uL Plt Count 146 L (150-450) k/uL Lymphocytes # 0.6 L (1.0-4.8) k/uL POC Glucose (mg/dL) 109 H (75-99) mg/dL Calcium (8.4-10.2) mg/dL Total Protein (6.3-8.2) g/dL Albumin (3.5-5.0) g/dL Influenza Type B (PCR) Detected H (Not Detectd) 10/10/17 10/10/17 Range/Units 06:07 06:53 WBC (3.8-10.6) k/uL Plt Count (150-450) k/uL Lymphocytes # (1.0-4.8) k/uL POC Glucose (mg/dL) 101 H (75-99) mg/dL Calcium 8.2 L (8.4-10.2) mg/dL Total Protein 5.6 L (6.3-8.2) g/dL Albumin 3.0 L (3.5-5.0) g/dL Influenza Type B (PCR) (Not Detectd) Assessment and Plan Assessment: Acute hypoxic respiratory failure Influenza B pneumonia Secondary bacterial pneumonia, cannot be excluded Severe COPD with acute exacerbation Right-sided lung mass which is slowly enlarging with history of prior multiple FNAs nondiagnostic History of breast cancer status post radiation therapy on the right side in the remote past Plan: Gentle rehydration Bronchodilators IV steroids Therapy for influenza B pneumonia with Tamiflu For more definitive intervention of lung mass awaiting recommendation advice from family especially in light of multiple negative biopsy and multiple comorbidities especially severe COPD and poor performance status Will discuss with the patient's family and patient at length however in the meantime we'll optimize therapy and stabilized the patient prior to consideration of bronchoscopy and transbronchial lung biopsy Time with Patient: Greater than 30
[2017-10-10] MEDS: SODIUM CHLORIDE 0.9% 1,000 ML IV SCH ×2 (09:19→21:17)
[2017-10-10] MEDS: BACLOFEN 10 MG TAB PO SCH ×2 (09:20→20:09)
[2017-10-10] MEDS: ENOXAPARIN 40 MG/0.4 ML SYRINGE SQ SCH (09:20)
[2017-10-10] MEDS: GABAPENTIN 300 MG CAP PO SCH ×2 (09:20→20:09)
[2017-10-10] MEDS: NICOTINE 21MG/24HR PATCH TRANSDERM SCH (09:20)
[2017-10-10] MEDS: DILTIAZEM CD 240 MG CAP.ER.24H PO SCH (09:20)
[2017-10-10] MEDS: OSELTAMIVIR 75 MG CAP PO SCH ×2 (09:20→20:09)
[2017-10-10] MEDS: ASPIRIN 81 MG PO SCH ×2 (09:20→20:09)
[2017-10-10] MEDS: MELOXICAM 7.5 MG TAB PO SCH (09:20)
[2017-10-10] MEDS: DONEPEZIL 10 MG TAB PO SCH (09:20)
[2017-10-10] MEDS: LACTOBACILLUS ACIDOPH & BULGAR 1 EACH PACKET PO SCH (09:20)
[2017-10-10] MEDS: IPRATROPIUM 0.5 MG/2.5 ML NEBU INHALATION SCH ×4 (09:53→19:33)
--- NOTE | 2017-10-10 11:11 | P.PN ---
Subjective Progress Note Date: 10/10/17 This is a 76-year-old female, a patient of Dr. Marquez. Patient has a known past medical history of a lung mass, coronary artery disease, COPD, diabetes mellitus, hyperlipidemia, hypertension, hypothyroidism, right breast cancer with radiation treatment. Patient presents to the emergency room with complaints of chest pain that was stabbing in the center of her chest lasting for about 2 minutes. She had some shortness of breath with it. She reported to the emergency room she thought she had a heart attack. Patient did have elevated d-dimer a CTA of the chest was completed showing no evidence of PE does reveal, atelectasis. In the spiculated right upper lobe mass measuring 3.6 cm stable to minimally larger from 09/25/2017. Small internal areas of air cavitation are now present in the mass continues to abut and thickened the adjacent pleural suggesting pleural involvement. There is a 1.6 cm right hilar lymph node. A left adrenal nodule measuring 1.8 cm and maybe minimally larger from April 2017. A 1.7 cm anterior right thyroid lobe nodule noted it to be hot on April 2017 PET CAT scan. Patient reports that she never did have the thyroid nodule biopsied. Cardiology and pulmonary services have been consulted troponins were negative 3 sets EKG showed a normal sinus rhythm with nonspecific ST and T-wave abnormality. She did have a temp of 101.1 last night. And on admission her oxygen level did drop down to 80%. She's now on oxygen satting 95%. Cardiology has ordered a stress echo. Patient reports some burning with urination. She does report cough nonproductive. She is still smoking about a pack a day. Oncology has been consulted. Check for influenza and check urinalysis. Patient denies any nausea or vomiting. Denies any bowel movement changes. Denies any dizziness or lightheadedness. She's had no further episodes of chest pain. 10/10/2017 patient was found to be positive for Flu B. Started on Tamiflu yesterday. Pulmonary service is following. Patient has had her lung mass biopsied 2 times and it was nondiagnostic. Patient reports that she is feeling better today. No more fevers. Denies any chest pain. Does reports 100 pound weight loss over the last year. Her blood sugar was 77. Reports that she is not eating as well. A1c 5.3. Metformin discontinued. Stress echo was canceled by cardiology. She has been seen and evaluated by oncology. Echo shows an EF of 55-60%. Objective - Vital Signs Vital signs: Vital Signs Temp 98.6 F 10/10/17 08:00 Pulse 76 10/10/17 10:07 Resp 19 10/10/17 04:00 BP 144/75 10/10/17 08:00 Pulse Ox 94 L 10/10/17 08:00 Intake & Output 10/09/17 10/10/17 10/10/17 18:59 06:59 18:59 Intake Total 118 800 Output Total 0 0 Balance 118 800 Weight 46.2 kg 46.8 kg Intake: Intake, IV Titration 550 Amount Sodium Chloride 0.9% 1, 550 000 ml @ 50 mls/hr IV . Q20H [facility] Rx#:[id number] Oral 118 250 Output: Urine 0 Stool 0 0 Other: Voiding Method Diaper Toilet Diaper # Voids 0 1 # Bowel Movements 0 1 - Exam Head normocephalic Neck supple Lungs mild wheezing noted bilaterally Heart regular rate and rhythm S1-S2, no rub or gallop Abdomen is soft nontender nondistended positive bowel sounds no hepatosplenomegaly Extremities no edema Neuro alert and orientated to 3 - Labs CBC & Chem 7: 10/10/17 06:07 10/10/17 06:07 Labs: Abnormal Lab Results - Last 24 Hours (Table) 10/10/17 10/10/17 10/10/17 Range/Units 02:15 06:07 06:07 WBC 2.8 L (3.8-10.6) k/uL Plt Count 146 L (150-450) k/uL Lymphocytes # 0.6 L (1.0-4.8) k/uL POC Glucose (mg/dL) 109 H (75-99) mg/dL Calcium 8.2 L (8.4-10.2) mg/dL Total Protein 5.6 L (6.3-8.2) g/dL Albumin 3.0 L (3.5-5.0) g/dL 10/10/17 Range/Units 06:53 WBC (3.8-10.6) k/uL Plt Count (150-450) k/uL Lymphocytes # (1.0-4.8) k/uL POC Glucose (mg/dL) 101 H (75-99) mg/dL Calcium (8.4-10.2) mg/dL Total Protein (6.3-8.2) g/dL Albumin (3.5-5.0) g/dL Assessment and Plan Assessment: 1. Chest pain: Troponins negative 3 sets. EKG showing normal sinus rhythm with nonspecific ST and T-wave abnormality. Seen by cardiology. Stress echo canceled because patient diagnosed with flu. Echo shows an EF of 55-60% 2. Influenza B positive: Start Tamiflu 3. Acute hypoxic respiratory failure on admission possibly related to influenza. Pulmonary service consulted. Patient's oxygen saturation was 80% on room air in ER. Patient is now back on room air 4. Right-sided lung mass noted on computed tomography scan that may be larger in size. And concerns of pleural involvement. Pulmonary and oncology have been consulted. Patient has had 2 biopsies in the past that were nondiagnostic. Pulmonary is following. Pulmonary is awaiting recommendation advised from family especially in light of multiple negative biopsies and multiple core morbidities with her severe COPD and poor performance status before proceeding with bronchoscopy and transbronchial lung biopsy 5. A left adrenal nodule measuring 1.8 cm that is larger than previous as well as a 1.7 cm anterior right thyroid lobe nodule. Oncology consulted 6. Nicotine dependence: Discussed smoking cessation. Add nicotine patch 7. Elevated d-dimer on admission CT of the chest negative for PE 8. Essential hypertension 9. Diabetes mellitus2: add sliding Scale coverage continue metformin 10. History of COPD: Stable continue nebulizer treatment 11. Essential hypertension 12. Hypothyroidism 13. History of right breast cancer status post lumpectomy and radiation treatment 14. Sepsis present on admission secondary to patient's flu. Placed on IV fluids. White count up to 2.8. Oxygen level has improved. And she is no longer having any fevers. Consult physical therapy GI prophylaxis Protonix and DVT prophylaxis Lovenox I performed an examination of the patient and discussed their management with the physician [facility] [employer] [facility]. I have reviewed the Physician [facility] [employer] [facility]'s notes and agree with the documented findings and plan of care
[2017-10-10 12:02] LABS: Glucose,Whole Blood 136 mg/dL (75-99)
[2017-10-10 13:57] VITALS: BMI 20.1
[2017-10-10] MEDS ORDERED: MORPHINE ORAL SOLN 10 MG/5 ML CUP PO PRN (14:03)
[2017-10-10] MEDS: MULTIVITAMINS, THERA 1 EACH TAB PO SCH (14:07)
--- NOTE | 2017-10-10 15:02 | P.PN ---
Subjective Progress Note Date: 10/10/17 this pleasant 76-year-old female with no prior documented history of coronary artery disease, history of COPD, nicotine dependence, smokes one pack of cigarettes per day, hyperlipidemia, hypertension, hypothyroidism as well as history of breast cancer with radiation and a lung mass. The hospital symptoms of chest discomfort she described as a sharp stabbing chest pain which lasted only a few minutes in duration. She was initially planned to have stress test done however influenza A came back to be positive. Echocardiogram was normal. Objective - Vital Signs Vital signs: Vital Signs Temp 98.6 F 10/10/17 08:00 Pulse 72 10/10/17 13:10 Resp 19 10/10/17 04:00 BP 120/63 10/10/17 12:00 Pulse Ox 93 L 10/10/17 12:00 Intake & Output 10/09/17 10/10/17 10/10/17 18:59 06:59 18:59 Intake Total 118 800 400 Output Total 0 0 Balance 118 800 400 Weight 46.2 kg 46.8 kg 46.8 kg Intake: Intake, IV Titration 550 400 Amount Sodium Chloride 0.9% 1, 550 400 000 ml @ 50 mls/hr IV . Q20H REPLACED BY [facility] Rx#:[id number] Oral 118 250 Output: Urine 0 Stool 0 0 Other: Voiding Method Diaper Toilet Diaper # Voids 0 1 # Bowel Movements 0 1 - Exam PHYSICAL EXAMINATION: HEENT: [Head is atraumatic, normocephalic. Pupils equal, round. Neck is supple. There is no elevated jugular venous pressure.] HEART EXAMINATION: [Heart sounds regular, S1 and S2 with a systolic murmur.] CHEST EXAMINATION:[ Lungs feel diminished air entry bilaterally. No chest wall tenderness is noted on palpation or with deep breathing.] ABDOMEN: [ Soft, nontender. Bowel sounds are heard. No organomegaly noted]. EXTREMITIES:[ 2+ peripheral pulses with no evidence of peripheral edema and no calf tenderness noted]. NEUROLOGIC [patient is awake, alert and oriented x3.] . - Labs CBC & Chem 7: 10/10/17 06:07 10/10/17 06:07 Labs: Abnormal Lab Results - Last 24 Hours (Table) 10/10/17 10/10/17 10/10/17 Range/Units 02:15 06:07 06:07 WBC 2.8 L (3.8-10.6) k/uL Plt Count 146 L (150-450) k/uL Lymphocytes # 0.6 L (1.0-4.8) k/uL POC Glucose (mg/dL) 109 H (75-99) mg/dL Calcium 8.2 L (8.4-10.2) mg/dL Total Protein 5.6 L (6.3-8.2) g/dL Albumin 3.0 L (3.5-5.0) g/dL 10/10/17 10/10/17 Range/Units 06:53 11:31 WBC (3.8-10.6) k/uL Plt Count (150-450) k/uL Lymphocytes # (1.0-4.8) k/uL POC Glucose (mg/dL) 101 H 136 H (75-99) mg/dL Calcium (8.4-10.2) mg/dL Total Protein (6.3-8.2) g/dL Albumin (3.5-5.0) g/dL Assessment and Plan Assessment: #1 atypical chest pain, troponins negative 3 echocardiogram is normal no acute changes on EKG #2 influenza A #3 hypertension #4 hyperlipidemia #5 COPD Plan: from business applications specialist perspective, medications reviewed we will continue the same. No further cardiac workup at this time. We'll follow-up with the patient as an outpatient for further workup. We'll follow the patient on an as-needed basis please do not hesitate to contact us with questions. FLATWORK ASSEMBLER note has been reviewed, I agree with a documented findings and plan of care. Patient was seen and examined.
[2017-10-10] MEDS: methylPREDNISolone SOD SUCCI 40 MG/ML 1 ML VIAL IV SCH (20:08)
[2017-10-10] MEDS: DOXYCYCLINE 50 MG CAP PO SCH (20:08)
[2017-10-10] MEDS: ESCITALOPRAM 5 MG TAB PO SCH (20:09)
[2017-10-10] MEDS: LISINOPRIL 20 MG TAB PO SCH (20:09)
[2017-10-10] MEDS: ATORVASTATIN 20 MG TAB PO SCH (20:09)
[2017-10-10 20:48] LABS: Glucose,Whole Blood 130 mg/dL (75-99)
[2017-10-10] MEDS: guaiFENesin-Coden 100-10MG/5ML 10 ML CUP PO PRN (21:39)
[2017-10-11] MEDS: INSULIN ASPART 100 UNIT/ML 1 ML 10 ML VIAL SQ SCH ×5 (06:05→19:54)
[2017-10-11] MEDS: PANTOPRAZOLE 40 MG TABLET PO SCH (06:08)
[2017-10-11] MEDS: guaiFENesin-Coden 100-10MG/5ML 10 ML CUP PO PRN ×2 (06:08→19:52)
[2017-10-11 06:14] LABS: Glucose,Whole Blood 95 mg/dL (75-99)
[2017-10-11 06:54] LABS: Basophils % (A) 0 %; Eosinophils # (A) 0.1 k/uL (0-0.7); Eosinophils % (A) 2 %; HCT 41.4 % (34.0-46.0); HGB 13.4 gm/dL (11.4-16.0); Lymphocytes # (A) 0.7 k/uL (1.0-4.8); Lymphocytes % (A) 30 %; MCHC 32.4 g/dL (31.0-37.0); MCV 95.6 fL (80.0-100.0); Monocytes # (A) 0.2 k/uL (0-1.0); Monocytes % (A) 7 %; Neutrophils # (A) 1.4 k/uL (1.3-7.7); Neutrophils % (A) 59 %; Platelet Count 138 k/uL (150-450); RBC 4.33 m/uL (3.80-5.40); RDW 13.3 % (11.5-15.5); WBC 2.4 k/uL (3.8-10.6)
[2017-10-11 07:21] LABS: ALT 21 U/L (9-52); AST 22 U/L (14-36); Albumin 3.1 g/dL (3.5-5.0); Alkaline Phosphatase 69 U/L (38-126); Anion Gap 8 mmol/L; Blood Urea Nitrogen 10 mg/dL (7-17); Calcium 8.4 mg/dL (8.4-10.2); Carbon Dioxide 25 mmol/L (22-30); Chloride 109 mmol/L (98-107); Glucose 99 mg/dL (74-99); Potassium 4.1 mmol/L (3.5-5.1); Sodium 142 mmol/L (137-145); Total Bilirubin 0.2 mg/dL (0.2-1.3); Total Protein 5.7 g/dL (6.3-8.2)
[2017-10-11] MEDS: MELOXICAM 7.5 MG TAB PO SCH (08:33)
[2017-10-11] MEDS: OSELTAMIVIR 75 MG CAP PO SCH (08:33)
[2017-10-11] MEDS: ENOXAPARIN 40 MG/0.4 ML SYRINGE SQ SCH (08:33)
[2017-10-11] MEDS: DOXYCYCLINE 50 MG CAP PO SCH ×2 (08:34→19:52)
[2017-10-11] MEDS: methylPREDNISolone SOD SUCCI 40 MG/ML 1 ML VIAL IV SCH ×2 (08:34→19:54)
[2017-10-11] MEDS: BACLOFEN 10 MG TAB PO SCH ×2 (08:34→19:54)
[2017-10-11] MEDS: DONEPEZIL 10 MG TAB PO SCH (08:34)
[2017-10-11] MEDS: GABAPENTIN 300 MG CAP PO SCH ×2 (08:34→19:53)
[2017-10-11] MEDS: DILTIAZEM CD 240 MG CAP.ER.24H PO SCH (08:34)
[2017-10-11] MEDS: ASPIRIN 81 MG PO SCH ×2 (08:34→19:52)
[2017-10-11] MEDS: LACTOBACILLUS ACIDOPH & BULGAR 1 EACH PACKET PO SCH (08:34)
[2017-10-11] MEDS: NICOTINE 21MG/24HR PATCH TRANSDERM SCH (08:34)
[2017-10-11] MEDS: IPRATROPIUM 0.5 MG/2.5 ML NEBU INHALATION SCH ×4 (09:49→19:55)
--- NOTE | 2017-10-11 11:52 | P.PN ---
Subjective Progress Note Date: 10/11/17 Principal diagnosis: Acute influenza B pneumonia, acute hypoxic respiratory failure, right sided lung nodule/mass highly suggestive of neoplastic process, severe COPD advanced dementia cachexia and weight loss, history of breast cancer with secondary pulmonary fibrosis, right thyroid nodule 10/11/2017, patient seen eval examined during the rounds, patient is more awake breathing slightly more comfortably but does have shortness of breath on activity and exertion, currently patient is being treated with steroids breathing treatments antibiotics and anti-flu medications tolerating fairly well , patient is not ready for bronchoscopy and transbronchial biopsy at this point in time until more stable 10/10/2017, patient seen eval reexamined during the rounds overall respiratory status and mood and mental status stable still left cough congestion patient is being treated with Tamiflu IV hydration and breathing treatments, CAT scan finding reviewed with the patient and appreciate hematology oncology comments This is a 76-year-old female, a patient of Dr. Marquez. Patient has a known past medical history of a lung mass, coronary artery disease, COPD, diabetes mellitus, hyperlipidemia, hypertension, hypothyroidism, right breast cancer with radiation treatment. Patient presents to the emergency room with complaints of chest pain that was stabbing in the center of her chest as well as worsening of baseline shortness of breath with it. Patient did have elevated d-dimer a CTA of the chest was completed showing no evidence of PE does reveal, atelectasis. In the spiculated right upper lobe mass measuring 3.6 cm stable to minimally larger from 09/25/2017. Small internal areas of air cavitation are now present in the mass continues to abut and thickened the adjacent pleural suggesting pleural involvement. There is a 1.6 cm right hilar lymph node. A left adrenal nodule measuring 1.8 cm and maybe minimally larger from April 2017. A 1.7 cm anterior right thyroid lobe nodule noted it to be hot on April 2017 PET CAT scan. Patient reports that she never did have the thyroid nodule biopsied. The lung mass was biopsied at least 2 times but there was nondiagnostic but, patient in fact has been seeing me on outpatient basis basis she elected for observation as she is a very high risk candidate for aggressive intervention and multiple comorbidities Patient's troponins were negative 3 sets EKG showed a normal sinus rhythm with nonspecific ST and T-wave abnormality. She did have a temp of 101.1 last night. And on admission her option level did drop down to 80%. She's now on oxygen satting 95%. Cardiology has ordered a stress echo. Patient reports some burning with urination. She does report cough nonproductive. She is still smoking about a pack a day. She is positive for influenza B pneumonia. Patient denies any nausea or vomiting. Denies any bowel movement changes. Denies any dizziness or lightheadedness. She's had no further episodes of chest pain. She also has progressive severe dementia which is also one of the reason family is reluctant for aggressive intervention Objective - Vital Signs Vital signs: Vital Signs Temp 96.9 F L 10/11/17 08:00 Pulse 78 10/11/17 09:57 Resp 16 10/11/17 09:57 BP 158/90 10/11/17 08:00 Pulse Ox 97 10/11/17 09:52 Intake & Output 10/10/17 10/11/17 10/11/17 18:59 06:59 18:59 Intake Total 400 400 Output Total 0 Balance 400 0 400 Weight 46.8 kg 46.8 kg Intake: Intake, IV Titration 400 400 Amount Sodium Chloride 0.9% 1, 400 400 000 ml @ 50 mls/hr IV . Q20H [facility] Rx#:[id number] Output: Urine 0 Stool 0 Other: Voiding Method Toilet Diaper # Voids 1 - Exam General: The patient is awake and alert, in mild respiratory distress, and does appear acutely ill. Skin: Skin is warm and dry and no rashes or lesions are noted. Eye: Pupils are equal, round and reactive to light, extra-ocular movements are intact; there is normal conjunctiva bilaterally. Ears, nose, mouth and throat: There are moist mucous membranes and no oral lesions. Neck: The neck is supple, there is no tenderness or JVD. Cardiovascular: There is a regular rate and rhythm. No murmur, rub or gallop is appreciated. Respiratory: To auscultation bilateral inspiratory and expiratory fine wheezing are noted, exam slightly improved today compared to yesterday exam Gastrointestinal: Soft, non-distended, non-tender abdomen without masses or organomegaly noted. There is no rebound or guarding present. Bowel sounds are unremarkable. Back: There is no tenderness to palpation in the midline. There is no obvious deformity. Musculoskeletal: Normal ROM, no tenderness, There is no pedal edema. There is no calf tenderness or swelling. No cords were appreciated. Neurological: CN II-XII intact, Cranial nerves III through XII are intact. There are no obvious motor or sensory deficits. Coordination appears grossly intact. Speech is normal. Psychiatric: Cooperative, appropriate mood & affect, normal judgment. Very somnolent however , severity of sleepiness however has improved she is more responsive - Labs CBC & Chem 7: 10/11/17 06:21 10/11/17 06:21 Labs: Abnormal Lab Results - Last 24 Hours (Table) 10/10/17 10/10/17 10/11/17 Range/Units 11:31 20:46 06:21 WBC 2.4 L (3.8-10.6) k/uL Plt Count 138 L (150-450) k/uL Lymphocytes # 0.7 L (1.0-4.8) k/uL Chloride (98-107) mmol/L POC Glucose (mg/dL) 136 H 130 H (75-99) mg/dL Total Protein (6.3-8.2) g/dL Albumin (3.5-5.0) g/dL 10/11/17 Range/Units 06:21 WBC (3.8-10.6) k/uL Plt Count (150-450) k/uL Lymphocytes # (1.0-4.8) k/uL Chloride 109 H (98-107) mmol/L POC Glucose (mg/dL) (75-99) mg/dL Total Protein 5.7 L (6.3-8.2) g/dL Albumin 3.1 L (3.5-5.0) g/dL Microbiology - Last 24 Hours (Table) 10/09/17 13:35 Blood Culture - Preliminary Blood No Growth after 24 hours Assessment and Plan Assessment: Acute hypoxic respiratory failure Influenza B pneumonia Secondary bacterial pneumonia, cannot be excluded Severe COPD with acute exacerbation Right-sided lung mass which is slowly enlarging with history of prior multiple FNAs nondiagnostic History of breast cancer status post radiation therapy on the right side in the remote past Right thyroid lobe nodule, patient follows Dr. Vera endocrinology services Plan: Gentle rehydration Bronchodilators IV steroids Therapy for influenza B pneumonia with Tamiflu For more definitive intervention of lung mass awaiting recommendation advice from family especially in light of multiple negative biopsy and multiple comorbidities especially severe COPD and poor performance status, Will discuss with the patient's family and patient at length however in the meantime we'll optimize therapy and stabilized the patient prior to consideration of bronchoscopy and transbronchial lung biopsy Further recommendations pending plan of care as per clinical response of patient in the meantime continue patient on deep breathing exercise incentive spirometry optimize nutrition Time with Patient: Greater than 30
--- NOTE | 2017-10-11 12:29 | P.PN ---
Subjective Patient is doing well today. No events overnight. Objective - Vital Signs Vital signs: Vital Signs Temp 96.9 F L 10/11/17 08:00 Pulse 78 10/11/17 09:57 Resp 16 10/11/17 09:57 BP 158/90 10/11/17 08:00 Pulse Ox 97 10/11/17 09:52 Intake & Output 10/10/17 10/11/17 10/11/17 18:59 06:59 18:59 Intake Total 400 400 Output Total 0 Balance 400 0 400 Weight 46.8 kg 46.8 kg Intake: Intake, IV Titration 400 400 Amount Sodium Chloride 0.9% 1, 400 400 000 ml @ 50 mls/hr IV . Q20H [facility] Rx#:[id number] Output: Urine 0 Stool 0 Other: Voiding Method Toilet Diaper # Voids 1 - Exam General: The patient is awake and alert, in no distress Eye: there is normal conjunctiva bilaterally. Neck: The neck is supple, there is no JVD. Cardiovascular: Normal S1-S2, no S3-S4, no murmurs. Respiratory: Lungs clear to auscultation bilaterally Gastrointestinal: Abdomen is soft, nontender Musculoskeletal: There is no pedal edema. Neurological:. Speech is normal. Skin: Skin is warm and dry - Labs CBC & Chem 7: 10/11/17 06:21 10/11/17 06:21 Labs: Abnormal Lab Results - Last 24 Hours (Table) 10/10/17 10/11/17 10/11/17 Range/Units 20:46 06:21 06:21 WBC 2.4 L (3.8-10.6) k/uL Plt Count 138 L (150-450) k/uL Lymphocytes # 0.7 L (1.0-4.8) k/uL Chloride 109 H (98-107) mmol/L POC Glucose (mg/dL) 130 H (75-99) mg/dL Total Protein 5.7 L (6.3-8.2) g/dL Albumin 3.1 L (3.5-5.0) g/dL Microbiology - Last 24 Hours (Table) 10/09/17 13:35 Blood Culture - Preliminary Blood No Growth after 24 hours Assessment and Plan Assessment: 1. Chest pain: Troponins negative 3 sets. EKG showing normal sinus rhythm with nonspecific ST and T-wave abnormality. Seen by cardiology. Stress echo canceled because patient diagnosed with flu. Echo shows an EF of 55-60% 2. Influenza B positive: Started on Tamiflu 3. Acute hypoxic respiratory failure on admission possibly related to influenza. Pulmonary service consulted. Patient is now back on room air 4. Right-sided lung mass noted on computed tomography scan that may be larger in size. And concerns of pleural involvement. Pulmonary and oncology have been consulted. Patient has had 2 biopsies in the past that were nondiagnostic. Pulmonary is following. Pulmonary is awaiting recommendation advised from family especially in light of multiple negative biopsies and multiple core morbidities with her severe COPD and poor performance status before proceeding with bronchoscopy and transbronchial lung biopsy 5. Left adrenal nodule measuring 1.8 cm that is larger than previous as well as a 1.7 cm anterior right thyroid lobe nodule. Oncology consulted 6. Nicotine dependence: Discussed smoking cessation. Added nicotine patch 7. Elevated d-dimer on admission CT of the chest negative for PE 8. Essential hypertension 9. Diabetes mellitus2: add sliding Scale coverage continue metformin 10. History of COPD: Stable continue nebulizer treatment 11. Essential hypertension 12. Hypothyroidism 13. History of right breast cancer status post lumpectomy and radiation treatment 14. Sepsis present on admission secondary to patient's flu. Consult physical therapy GI prophylaxis Protonix and DVT prophylaxis Lovenox
[2017-10-11] MEDS: MULTIVITAMINS, THERA 1 EACH TAB PO SCH (12:32)
[2017-10-11 12:34] LABS: Glucose,Whole Blood 202 mg/dL (75-99)
[2017-10-11 17:29] LABS: Glucose,Whole Blood 176 mg/dL (75-99)
[2017-10-11] MEDS: ACETAMINOPHEN TAB 325 MG TAB PO PRN (19:51)
[2017-10-11] MEDS: LISINOPRIL 20 MG TAB PO SCH (19:53)
[2017-10-11] MEDS: ESCITALOPRAM 5 MG TAB PO SCH (19:53)
[2017-10-11] MEDS: ATORVASTATIN 20 MG TAB PO SCH (19:53)
[2017-10-11] MEDS: OSELTAMIVIR 60 MG/10 ML ORAL SYRINGE PO SCH (19:55)
[2017-10-11 20:54] LABS: Glucose,Whole Blood 212 mg/dL (75-99)
[2017-10-11] MEDS: SODIUM CHLORIDE 0.9% 1,000 ML IV SCH (21:46)
[2017-10-12 07:15] LABS: Basophils % (A) 0 %; Eosinophils % (A) 0 %; HGB 13.5 gm/dL (11.4-16.0); Lymphocytes # (A) 0.6 k/uL (1.0-4.8); Lymphocytes % (A) 20 %; MCH 30.9 pg (25.0-35.0); MCHC 32.9 g/dL (31.0-37.0); Mean Platelet Volume 7.3; Monocytes # (A) 0.3 k/uL (0-1.0); Monocytes % (A) 8 %; Neutrophils # (A) 2.3 k/uL (1.3-7.7); Neutrophils % (A) 70 %; Platelet Count 154 k/uL (150-450); RBC 4.36 m/uL (3.80-5.40); RDW 13.1 % (11.5-15.5); WBC 3.3 k/uL (3.8-10.6)
[2017-10-12 07:37] LABS: ALT 21 U/L (9-52); AST 19 U/L (14-36); Albumin 3.3 g/dL (3.5-5.0); Alkaline Phosphatase 72 U/L (38-126); Anion Gap 10 mmol/L; Blood Urea Nitrogen 12 mg/dL (7-17); Calcium 8.8 mg/dL (8.4-10.2); Carbon Dioxide 25 mmol/L (22-30); Chloride 107 mmol/L (98-107); Glucose 118 mg/dL (74-99); Potassium 3.7 mmol/L (3.5-5.1); Sodium 142 mmol/L (137-145); Total Bilirubin 0.3 mg/dL (0.2-1.3)
[2017-10-12 07:48] LABS: Glucose,Whole Blood 125 mg/dL (75-99)
[2017-10-12] MEDS: DONEPEZIL 10 MG TAB PO SCH (08:43)
[2017-10-12] MEDS: methylPREDNISolone SOD SUCCI 40 MG/ML 1 ML VIAL IV SCH ×2 (08:43→21:18)
[2017-10-12] MEDS: ENOXAPARIN 40 MG/0.4 ML SYRINGE SQ SCH (08:43)
[2017-10-12] MEDS: ASPIRIN 81 MG PO SCH ×2 (08:44→21:17)
[2017-10-12] MEDS: MELOXICAM 7.5 MG TAB PO SCH (08:44)
[2017-10-12] MEDS: DOXYCYCLINE 50 MG CAP PO SCH ×2 (08:44→21:17)
[2017-10-12] MEDS: OSELTAMIVIR 60 MG/10 ML ORAL SYRINGE PO SCH ×2 (08:44→21:19)
[2017-10-12] MEDS: BACLOFEN 10 MG TAB PO SCH ×2 (08:45→21:17)
[2017-10-12] MEDS: LACTOBACILLUS ACIDOPH & BULGAR 1 EACH PACKET PO SCH (08:46)
[2017-10-12] MEDS: PANTOPRAZOLE 40 MG TABLET PO SCH (08:46)
[2017-10-12] MEDS: DILTIAZEM CD 240 MG CAP.ER.24H PO SCH (08:46)
[2017-10-12] MEDS: NICOTINE 21MG/24HR PATCH TRANSDERM SCH (08:46)
[2017-10-12] MEDS: GABAPENTIN 300 MG CAP PO SCH ×2 (08:47→21:17)
[2017-10-12] MEDS: IPRATROPIUM 0.5 MG/2.5 ML NEBU INHALATION SCH ×4 (09:06→20:35)
[2017-10-12] MEDS: INSULIN ASPART 100 UNIT/ML 1 ML 10 ML VIAL SQ SCH ×4 (10:38→23:00)
[2017-10-12 11:17] LABS: Glucose,Whole Blood 255 mg/dL (75-99)
[2017-10-12] MEDS: MULTIVITAMINS, THERA 1 EACH TAB PO SCH (12:54)
--- NOTE | 2017-10-12 13:20 | P.PN ---
Subjective Patient is doing well today. No events overnight. Objective - Vital Signs Vital signs: Vital Signs Temp 98.6 F 10/12/17 08:00 Pulse 72 10/12/17 12:10 Resp 20 10/12/17 08:00 BP 186/76 10/12/17 08:00 Pulse Ox 95 10/12/17 08:00 Intake & Output 10/11/17 10/12/17 10/12/17 18:59 06:59 18:59 Intake Total 1180 180 240 Output Total 0 Balance 1180 180 240 Weight 46.8 kg Intake: Intake, IV Titration 800 Amount Sodium Chloride 0.9% 1, 800 000 ml @ 50 mls/hr IV . Q20H [facility] Rx#:[id number] Oral 380 180 240 Output: Stool 0 Other: Voiding Method Toilet Toilet Diaper # Voids 4 3 2 # Bowel Movements 1 - Exam General: The patient is awake and alert, in no distress Eye: there is normal conjunctiva bilaterally. Neck: The neck is supple, there is no JVD. Cardiovascular: Normal S1-S2, no S3-S4, no murmurs. Respiratory: Lungs clear to auscultation bilaterally Gastrointestinal: Abdomen is soft, nontender Musculoskeletal: There is no pedal edema. Neurological:. Speech is normal. Skin: Skin is warm and dry - Labs CBC & Chem 7: 10/12/17 06:48 10/12/17 06:48 Labs: Abnormal Lab Results - Last 24 Hours (Table) 10/11/17 10/11/17 10/12/17 Range/Units 17:02 20:52 06:48 WBC 3.3 L (3.8-10.6) k/uL Lymphocytes # 0.6 L (1.0-4.8) k/uL Glucose (74-99) mg/dL POC Glucose (mg/dL) 176 H 212 H (75-99) mg/dL Total Protein (6.3-8.2) g/dL Albumin (3.5-5.0) g/dL 10/12/17 10/12/17 10/12/17 Range/Units 06:48 06:59 11:12 WBC (3.8-10.6) k/uL Lymphocytes # (1.0-4.8) k/uL Glucose 118 H (74-99) mg/dL POC Glucose (mg/dL) 125 H 255 H (75-99) mg/dL Total Protein 6.0 L (6.3-8.2) g/dL Albumin 3.3 L (3.5-5.0) g/dL Microbiology - Last 24 Hours (Table) 10/09/17 13:35 Blood Culture - Preliminary Blood No Growth after 48 hours Assessment and Plan Assessment: 1. Chest pain: Troponins negative 3 sets. EKG showing normal sinus rhythm with nonspecific ST and T-wave abnormality. Seen by cardiology. Stress echo canceled because patient diagnosed with flu. Echo shows an EF of 55-60% 2. Influenza B positive: Started on Tamiflu 3. Acute hypoxic respiratory failure on admission possibly related to influenza. Pulmonary service consulted. Patient is now back on room air 4. Right-sided lung mass noted on computed tomography scan that may be larger in size. And concerns of pleural involvement. Pulmonary and oncology have been consulted. Patient has had 2 biopsies in the past that were nondiagnostic. Pulmonary is following. Pulmonary is awaiting recommendation advised from family especially in light of multiple negative biopsies and multiple core morbidities with her severe COPD and poor performance status before proceeding with bronchoscopy and transbronchial lung biopsy 5. Left adrenal nodule measuring 1.8 cm that is larger than previous as well as a 1.7 cm anterior right thyroid lobe nodule. Oncology consulted 6. Nicotine dependence: Discussed smoking cessation. Added nicotine patch 7. Elevated d-dimer on admission CT of the chest negative for PE 8. Essential hypertension 9. Diabetes mellitus2: add sliding Scale coverage continue metformin 10. History of COPD: Stable continue nebulizer treatment 11. Essential hypertension 12. Hypothyroidism 13. History of right breast cancer status post lumpectomy and radiation treatment 14. Sepsis present on admission secondary to patient's flu. Consult physical therapy Awaiting final recommendation from pulmonology regarding bronchoscopy GI prophylaxis Protonix and DVT prophylaxis Lovenox
[2017-10-12] MEDS: ACETAMINOPHEN TAB 325 MG TAB PO PRN (14:05)
[2017-10-12 16:57] LABS: Glucose,Whole Blood 141 mg/dL (75-99)
[2017-10-12] MEDS: LISINOPRIL 20 MG TAB PO SCH (21:17)
[2017-10-12] MEDS: ESCITALOPRAM 5 MG TAB PO SCH (21:17)
[2017-10-12] MEDS: ATORVASTATIN 20 MG TAB PO SCH (21:18)
[2017-10-12] MEDS: SODIUM CHLORIDE 0.9% 1,000 ML IV SCH (21:28)
[2017-10-12 21:37] LABS: Glucose,Whole Blood 211 mg/dL (75-99)
[2017-10-13 04:14] LABS: Glucose,Whole Blood 194 mg/dL (75-99)
[2017-10-13 07:09] LABS: Glucose,Whole Blood 178 mg/dL (75-99)
[2017-10-13 07:21] LABS: ALT 29 U/L (9-52); AST 31 U/L (14-36); Albumin 3.3 g/dL (3.5-5.0); Alkaline Phosphatase 73 U/L (38-126); Anion Gap 8 mmol/L; Blood Urea Nitrogen 16 mg/dL (7-17); Carbon Dioxide 26 mmol/L (22-30); Chloride 106 mmol/L (98-107); Glucose 189 mg/dL (74-99); Potassium 3.9 mmol/L (3.5-5.1); Sodium 140 mmol/L (137-145); Total Bilirubin 0.3 mg/dL (0.2-1.3); Total Protein 6.1 g/dL (6.3-8.2)
[2017-10-13 07:50] LABS: Basophils % (A) 0 %; Eosinophils % (A) 0 %; HCT 42.5 % (34.0-46.0); HGB 14.5 gm/dL (11.4-16.0); Lymphocytes # (A) 0.6 k/uL (1.0-4.8); Lymphocytes % (A) 12 %; MCHC 34.2 g/dL (31.0-37.0); MCV 93.5 fL (80.0-100.0); Mean Platelet Volume 7.2; Monocytes # (A) 0.1 k/uL (0-1.0); Monocytes % (A) 3 %; Neutrophils # (A) 3.9 k/uL (1.3-7.7); Neutrophils % (A) 83 %; Platelet Count 191 k/uL (150-450); RBC 4.55 m/uL (3.80-5.40); RDW 12.9 % (11.5-15.5); WBC 4.8 k/uL (3.8-10.6)
[2017-10-13] MEDS: INSULIN ASPART 100 UNIT/ML 1 ML 10 ML VIAL SQ SCH ×2 (08:32→13:34)
[2017-10-13] MEDS: ENOXAPARIN 40 MG/0.4 ML SYRINGE SQ SCH (08:38)
[2017-10-13] MEDS: methylPREDNISolone SOD SUCCI 40 MG/ML 1 ML VIAL IV SCH (08:39)
[2017-10-13] MEDS: OSELTAMIVIR 60 MG/10 ML ORAL SYRINGE PO SCH (08:39)
[2017-10-13] MEDS: ASPIRIN 81 MG PO SCH (08:39)
[2017-10-13] MEDS: DILTIAZEM CD 240 MG CAP.ER.24H PO SCH (08:39)
[2017-10-13] MEDS: NICOTINE 21MG/24HR PATCH TRANSDERM SCH (08:39)
[2017-10-13] MEDS: PANTOPRAZOLE 40 MG TABLET PO SCH (08:40)
[2017-10-13] MEDS: GABAPENTIN 300 MG CAP PO SCH (08:40)
[2017-10-13] MEDS: DOXYCYCLINE 50 MG CAP PO SCH (08:40)
[2017-10-13] MEDS: DONEPEZIL 10 MG TAB PO SCH (08:40)
[2017-10-13] MEDS: BACLOFEN 10 MG TAB PO SCH (08:40)
[2017-10-13] MEDS: MELOXICAM 7.5 MG TAB PO SCH (08:41)
[2017-10-13] MEDS: LACTOBACILLUS ACIDOPH & BULGAR 1 EACH PACKET PO SCH (08:41)
[2017-10-13] MEDS: IPRATROPIUM 0.5 MG/2.5 ML NEBU INHALATION SCH ×2 (09:19→13:44)
[2017-10-13 11:07] LABS: Glucose,Whole Blood 266 mg/dL (75-99)
[2017-10-13] MEDS ORDERED: hydrALAZINE HCL 25 MG TAB PO SCH (11:15)
--- NOTE | 2017-10-13 11:18 | P.PN ---
Subjective Progress Note Date: 10/13/17 This is a 76-year-old female, a patient of Dr. Marquez. Patient has a known past medical history of a lung mass, coronary artery disease, COPD, diabetes mellitus, hyperlipidemia, hypertension, hypothyroidism, right breast cancer with radiation treatment. Patient presents to the emergency room with complaints of chest pain that was stabbing in the center of her chest lasting for about 2 minutes. She had some shortness of breath with it. She reported to the emergency room she thought she had a heart attack. Patient did have elevated d-dimer a CTA of the chest was completed showing no evidence of PE does reveal, atelectasis. In the spiculated right upper lobe mass measuring 3.6 cm stable to minimally larger from 09/25/2017. Small internal areas of air cavitation are now present in the mass continues to abut and thickened the adjacent pleural suggesting pleural involvement. There is a 1.6 cm right hilar lymph node. A left adrenal nodule measuring 1.8 cm and maybe minimally larger from April 2017. A 1.7 cm anterior right thyroid lobe nodule noted it to be hot on April 2017 PET CAT scan. Patient reports that she never did have the thyroid nodule biopsied. Cardiology and pulmonary services have been consulted troponins were negative 3 sets EKG showed a normal sinus rhythm with nonspecific ST and T-wave abnormality. She did have a temp of 101.1 last night. And on admission her oxygen level did drop down to 80%. She's now on oxygen satting 95%. Cardiology has ordered a stress echo. Patient reports some burning with urination. She does report cough nonproductive. She is still smoking about a pack a day. Oncology has been consulted. Check for influenza and check urinalysis. Patient denies any nausea or vomiting. Denies any bowel movement changes. Denies any dizziness or lightheadedness. She's had no further episodes of chest pain. 10/10/2017 patient was found to be positive for Flu B. Started on Tamiflu yesterday. Pulmonary service is following. Patient has had her lung mass biopsied 2 times and it was nondiagnostic. Patient reports that she is feeling better today. No more fevers. Denies any chest pain. Does reports 100 pound weight loss over the last year. Her blood sugar was 77. Reports that she is not eating as well. A1c 5.3. Metformin discontinued. Stress echo was canceled by cardiology. She has been seen and evaluated by oncology. Echo shows an EF of 55-60%. 10/13/2017 patient lying in bed comfortably. She is feeling better. She is hypertensive. Blood pressures ranging in the 170s to 190s. Hydralazine will be added. Awaiting pulmonary recommendations in regards to bronchoscopy. Objective - Vital Signs Vital signs: Vital Signs Temp 97.4 F L 10/13/17 08:34 Pulse 62 10/13/17 09:32 Resp 20 10/13/17 08:34 BP 170/80 10/13/17 11:14 Pulse Ox 95 10/13/17 08:34 Intake & Output 10/12/17 10/13/17 10/13/17 18:59 06:59 18:59 Intake Total 1634 550 Output Total 0 Balance 1634 550 Intake: Intake, IV Titration 400 550 Amount Sodium Chloride 0.9% 1, 400 550 000 ml @ 50 mls/hr IV . Q20H [facility] Rx#:[id number] Oral 1234 Output: Stool 0 Other: Voiding Method Toilet Toilet # Voids 2 - Exam Head normocephalic Neck supple Lungs few coarse breath sounds that cleared with cough. Improvement in air movement. Heart regular rate and rhythm S1-S2, no rub or gallop Abdomen is soft nontender nondistended positive bowel sounds no hepatosplenomegaly Extremities no edema Neuro alert and orientated to 3 - Labs CBC & Chem 7: 10/13/17 06:20 10/13/17 06:20 Labs: Abnormal Lab Results - Last 24 Hours (Table) 10/12/17 10/12/17 10/12/17 Range/Units 11:12 16:55 21:36 Lymphocytes # (1.0-4.8) k/uL Glucose (74-99) mg/dL POC Glucose (mg/dL) 255 H 141 H 211 H (75-99) mg/dL Total Protein (6.3-8.2) g/dL Albumin (3.5-5.0) g/dL 10/13/17 10/13/17 10/13/17 Range/Units 03:40 06:20 06:20 Lymphocytes # 0.6 L (1.0-4.8) k/uL Glucose 189 H (74-99) mg/dL POC Glucose (mg/dL) 194 H (75-99) mg/dL Total Protein 6.1 L (6.3-8.2) g/dL Albumin 3.3 L (3.5-5.0) g/dL 10/13/17 10/13/17 Range/Units 07:07 11:03 Lymphocytes # (1.0-4.8) k/uL Glucose (74-99) mg/dL POC Glucose (mg/dL) 178 H 266 H (75-99) mg/dL Total Protein (6.3-8.2) g/dL Albumin (3.5-5.0) g/dL Microbiology - Last 24 Hours (Table) 10/09/17 13:35 Blood Culture - Preliminary Blood No Growth after 72 hours Assessment and Plan Assessment: 1. Chest pain: Troponins negative 3 sets. EKG showing normal sinus rhythm with nonspecific ST and T-wave abnormality. Seen by cardiology. Stress echo canceled because patient diagnosed with flu. Echo shows an EF of 55-60%. Patient follow-up with cardiology outpatient 2. Influenza B positive: Continue Tamiflu 3. Acute hypoxic respiratory failure on admission possibly related to influenza. Pulmonary service consulted. Patient's oxygen saturation was 80% on room air in ER. Patient is now back on room air 4. Right-sided lung mass noted on computed tomography scan that may be larger in size. And concerns of pleural involvement. Pulmonary and oncology have been consulted. Patient has had 2 biopsies in the past that were nondiagnostic. Pulmonary is following. Pulmonary is awaiting recommendation advised from family especially in light of multiple negative biopsies and multiple core morbidities with her severe COPD and poor performance status before proceeding with bronchoscopy and transbronchial lung biopsy 5. A left adrenal nodule measuring 1.8 cm that is larger than previous as well as a 1.7 cm anterior right thyroid lobe nodule. Follows with endocrinology outpatient 6. Nicotine dependence: Discussed smoking cessation. Add nicotine patch 7. Elevated d-dimer on admission CT of the chest negative for PE 8. Essential hypertension 9. Diabetes mellitus2: add sliding Scale coverage continue metformin 10. History of COPD: Stable continue nebulizer treatment 11. Essential hypertension: Patient is having elevated blood pressure with systolic blood pressure 170s to 190s. Discontinue IV fluids this morning. However, blood pressure is still elevated will add hydralazine 25 mg twice a day and to hold for systolic blood pressure less than 120 12. Hypothyroidism 13. History of right breast cancer status post lumpectomy and radiation treatment 14. Sepsis present on admission secondary to patient's flu. Now resolved Awaiting final recommendations from pulmonology regarding bronchoscopy Consult physical therapy GI prophylaxis Protonix and DVT prophylaxis Lovenox I performed an examination of the patient and discussed their management with the physician Center Consultant. I have reviewed the Physician Center Consultant's notes and agree with the documented findings and plan of care
--- NOTE | 2017-10-13 12:06 | P.PN ---
Subjective Progress Note Date: 10/12/17 (Late entry note) Principal diagnosis: Acute influenza B pneumonia, acute hypoxic respiratory failure, right sided lung nodule/mass highly suggestive of neoplastic process, severe COPD advanced dementia cachexia and weight loss, history of breast cancer with secondary pulmonary fibrosis, right thyroid nodule 10/12/2017, patient seen eval reexamined during the rounds clinically doing slightly better breathing cuff congestion and wheezing slightly improved still however is present patient is undergoing therapy with breathing treatments steroids and antibiotics, tolerating well \ 10/11/2017, patient seen eval examined during the rounds, patient is more awake breathing slightly more comfortably but does have shortness of breath on activity and exertion, currently patient is being treated with steroids breathing treatments antibiotics and anti-flu medications tolerating fairly well , patient is not ready for bronchoscopy and transbronchial biopsy at this point in time until more stable 10/10/2017, patient seen eval reexamined during the rounds overall respiratory status and mood and mental status stable still left cough congestion patient is being treated with Tamiflu IV hydration and breathing treatments, CAT scan finding reviewed with the patient and appreciate hematology oncology comments This is a 76-year-old female, a patient of Dr. Marquez. Patient has a known past medical history of a lung mass, coronary artery disease, COPD, diabetes mellitus, hyperlipidemia, hypertension, hypothyroidism, right breast cancer with radiation treatment. Patient presents to the emergency room with complaints of chest pain that was stabbing in the center of her chest as well as worsening of baseline shortness of breath with it. Patient did have elevated d-dimer a CTA of the chest was completed showing no evidence of PE does reveal, atelectasis. In the spiculated right upper lobe mass measuring 3.6 cm stable to minimally larger from 09/25/2017. Small internal areas of air cavitation are now present in the mass continues to abut and thickened the adjacent pleural suggesting pleural involvement. There is a 1.6 cm right hilar lymph node. A left adrenal nodule measuring 1.8 cm and maybe minimally larger from April 2017. A 1.7 cm anterior right thyroid lobe nodule noted it to be hot on April 2017 PET CAT scan. Patient reports that she never did have the thyroid nodule biopsied. The lung mass was biopsied at least 2 times but there was nondiagnostic but, patient in fact has been seeing me on outpatient basis basis she elected for observation as she is a very high risk candidate for aggressive intervention and multiple comorbidities Patient's troponins were negative 3 sets EKG showed a normal sinus rhythm with nonspecific ST and T-wave abnormality. She did have a temp of 101.1 last night. And on admission her option level did drop down to 80%. She's now on oxygen satting 95%. Cardiology has ordered a stress echo. Patient reports some burning with urination. She does report cough nonproductive. She is still smoking about a pack a day. She is positive for influenza B pneumonia. Patient denies any nausea or vomiting. Denies any bowel movement changes. Denies any dizziness or lightheadedness. She's had no further episodes of chest pain. She also has progressive severe dementia which is also one of the reason family is reluctant for aggressive intervention Objective - Vital Signs Vital signs: Vital Signs Temp 97.4 F L 10/13/17 08:34 Pulse 62 10/13/17 09:32 Resp 20 10/13/17 08:34 BP 170/80 10/13/17 11:14 Pulse Ox 95 10/13/17 08:34 Intake & Output 10/12/17 10/13/17 10/13/17 18:59 06:59 18:59 Intake Total 1634 550 Output Total 0 Balance 1634 550 Intake: Intake, IV Titration 400 550 Amount Sodium Chloride 0.9% 1, 400 550 000 ml @ 50 mls/hr IV . Q20H [facility] Rx#:[id number] Oral 1234 Output: Stool 0 Other: Voiding Method Toilet Toilet # Voids 2 - Exam General: The patient is awake and alert, in mild respiratory distress, and does appear acutely ill. Skin: Skin is warm and dry and no rashes or lesions are noted. Eye: Pupils are equal, round and reactive to light, extra-ocular movements are intact; there is normal conjunctiva bilaterally. Ears, nose, mouth and throat: There are moist mucous membranes and no oral lesions. Neck: The neck is supple, there is no tenderness or JVD. Cardiovascular: There is a regular rate and rhythm. No murmur, rub or gallop is appreciated. Respiratory: To auscultation bilateral inspiratory and expiratory fine wheezing are noted, exam slightly improved today compared to yesterday exam Gastrointestinal: Soft, non-distended, non-tender abdomen without masses or organomegaly noted. There is no rebound or guarding present. Bowel sounds are unremarkable. Back: There is no tenderness to palpation in the midline. There is no obvious deformity. Musculoskeletal: Normal ROM, no tenderness, There is no pedal edema. There is no calf tenderness or swelling. No cords were appreciated. Neurological: CN II-XII intact, Cranial nerves III through XII are intact. There are no obvious motor or sensory deficits. Coordination appears grossly intact. Speech is normal. Psychiatric: Cooperative, appropriate mood & affect, normal judgment. Very somnolent however , severity of sleepiness however has improved she is more responsive - Labs CBC & Chem 7: 10/13/17 06:20 10/13/17 06:20 Labs: Abnormal Lab Results - Last 24 Hours (Table) 10/12/17 10/12/17 10/13/17 Range/Units 16:55 21:36 03:40 Lymphocytes # (1.0-4.8) k/uL Glucose (74-99) mg/dL POC Glucose (mg/dL) 141 H 211 H 194 H (75-99) mg/dL Total Protein (6.3-8.2) g/dL Albumin (3.5-5.0) g/dL 10/13/17 10/13/17 10/13/17 Range/Units 06:20 06:20 07:07 Lymphocytes # 0.6 L (1.0-4.8) k/uL Glucose 189 H (74-99) mg/dL POC Glucose (mg/dL) 178 H (75-99) mg/dL Total Protein 6.1 L (6.3-8.2) g/dL Albumin 3.3 L (3.5-5.0) g/dL 10/13/17 Range/Units 11:03 Lymphocytes # (1.0-4.8) k/uL Glucose (74-99) mg/dL POC Glucose (mg/dL) 266 H (75-99) mg/dL Total Protein (6.3-8.2) g/dL Albumin (3.5-5.0) g/dL Microbiology - Last 24 Hours (Table) 10/09/17 13:35 Blood Culture - Preliminary Blood No Growth after 72 hours Assessment and Plan Assessment: Acute hypoxic respiratory failure Influenza B pneumonia Secondary bacterial pneumonia, cannot be excluded Severe COPD with acute exacerbation Right-sided lung mass which is slowly enlarging with history of prior multiple FNAs nondiagnostic, patient to be considered for transbronchial lung biopsy once clinically improved awaiting family advice History of breast cancer status post radiation therapy on the right side in the remote past Right thyroid lobe nodule, patient follows Dr. Vera endocrinology services Plan: Gentle rehydration Bronchodilators IV steroids, switched to oral with slow taper Therapy for influenza B pneumonia with Tamiflu For more definitive intervention of lung mass awaiting recommendation advice from family especially in light of multiple negative biopsy and multiple comorbidities especially severe COPD and poor performance status, Will discuss with the patient's family and patient at length however in the meantime we'll optimize therapy and stabilized the patient prior to consideration of bronchoscopy and transbronchial lung biopsy Further recommendations pending plan of care as per clinical response of patient in the meantime continue patient on deep breathing exercise incentive spirometry optimize nutrition Time with Patient: Less than 30
[2017-10-13 13:30] VITALS: BP 173/73; RESP 16; TEMP 97.1
[2017-10-13 13:55] VITALS: PULSE 66
--- NOTE | 2017-10-13 14:22 | P.DS ---
Providers Date of admission: 10/08/17 13:46 Expected date of discharge: 10/13/17 Attending physician: Chance Byrd Consults: 10/08/17 13:46 Consult Physician Stat Consulting Provider: Bowen Vera Consult Reason/Comments: Advanced stage COPD and lung mass Do you want consulting provider notified?: Yes Consult Physician Stat Consulting Provider: Hiren Sarabia Consult Reason/Comments: Chest pain Do you want consulting provider notified?: Yes 10/09/17 09:11 Consult Physician Routine Consulting Provider: Lyle Melchor Consult Reason/Comments: lung mass Do you want consulting provider notified?: Yes Primary care physician: Cecilia [facility] Course: discharge diagnosis 1. Chest pain: Troponins negative 3 sets. EKG showing normal sinus rhythm with nonspecific ST and T-wave abnormality. Seen by cardiology. Stress echo canceled because patient diagnosed with flu. Echo shows an EF of 55-60%. Patient follow-up with cardiology outpatient 2. Influenza B positive: Continue Tamiflu 3. Acute hypoxic respiratory failure on admission possibly related to influenza. Pulmonary service consulted. Patient's oxygen saturation was 80% on room air in ER. Patient is now back on room air 4. Right-sided lung mass noted on computed tomography scan that may be larger in size. And concerns of pleural involvement. Pulmonary and oncology have been consulted. Patient has had 2 biopsies in the past that were nondiagnostic. Pulmonary is following. Pulmonary is awaiting recommendation advised from family especially in light of multiple negative biopsies and multiple core morbidities with her severe COPD and poor performance status before proceeding with bronchoscopy and transbronchial lung biopsy 5. A left adrenal nodule measuring 1.8 cm that is larger than previous as well as a 1.7 cm anterior right thyroid lobe nodule. Follows with endocrinology outpatient 6. Nicotine dependence: Discussed smoking cessation. Add nicotine patch 7. Elevated d-dimer on admission CT of the chest negative for PE 8. Essential hypertension 9. Diabetes mellitus2: add sliding Scale coverage continue metformin 10. acute COPD exacerbationwe'll switch over to oral prednisone 11. Essential hypertension: Patient is having elevated blood pressure with systolic blood pressure 170s to 190s. Discontinue IV fluids this morning. However, blood pressure is still elevated will add hydralazine 25 mg twice a day and to hold for systolic blood pressure less than 120 12. Hypothyroidism 13. History of right breast cancer status post lumpectomy and radiation treatment 14. Sepsis present on admission secondary to patient's flu. Now resolved 14. Possible developing pneumonia and acute tracheobronchitis Hospital course This is a 76-year-old female, a patient of Dr. Marquez. Patient has a known past medical history of a lung mass, coronary artery disease, COPD, diabetes mellitus, hyperlipidemia, hypertension, hypothyroidism, right breast cancer with radiation treatment. Patient presents to the emergency room with complaints of chest pain that was stabbing in the center of her chest lasting for about 2 minutes. She had some shortness of breath with it. She reported to the emergency room she thought she had a heart attack. Patient did have elevated d-dimer a CTA of the chest was completed showing no evidence of PE does reveal, atelectasis. In the spiculated right upper lobe mass measuring 3.6 cm stable to minimally larger from 09/25/2017. Small internal areas of air cavitation are now present in the mass continues to abut and thickened the adjacent pleural suggesting pleural involvement. There is a 1.6 cm right hilar lymph node. A left adrenal nodule measuring 1.8 cm and maybe minimally larger from April 2017. A 1.7 cm anterior right thyroid lobe nodule noted it to be hot on April 2017 PET CAT scan. Patient reports that she never did have the thyroid nodule biopsied. Cardiology and pulmonary services have been consulted troponins were negative 3 sets EKG showed a normal sinus rhythm with nonspecific ST and T-wave abnormality. She did have a temp of 101.1 last night. And on admission her oxygen level did drop down to 80%. She's now on oxygen satting 95%. Cardiology has ordered a stress echo. Patient reports some burning with urination. She does report cough nonproductive. She is still smoking about a pack a day. Oncology has been consulted. Check for influenza and check urinalysis. Patient denies any nausea or vomiting. Denies any bowel movement changes. Denies any dizziness or lightheadedness. She's had no further episodes of chest pain. patient's symptoms have improved. She was found to have influenzaB+ and an acute COPD exacerbation. Patient has 1 more dose of Tamiflu. She also continue prednisone taper for COPD exacerbation. She is up and ambulating. And has not been requiring oxygen. Pulmonary service has cleared her for discharge. They're planning to proceed with bronchoscopy in the outpatient setting after she completes treatment for her acute infections. She's also on doxycycline for a possible developing pneumonia. patient also seen by cardiology during this admission. Her chest pain most likely muscular skeletal related to her cough. Troponins were negative. However, cardiac he was going to initiate proceed with a stress echo. However patient developed influenza B and the stress echo was canceled. Patient is been having elevated blood pressures during this admission hydralazine 25 mg twice a day will be added. Recommend to have her follow-up with her PCP in 3 days for BP check. Patient will follow-up with consulting physicians after discharge for bronchoscopy for further evaluation of the lung mass. Patient medically stable for discharge. Please refer to chart for any further details I performed an examination of the patient and discussed their management with the physician Wireless Communications Engineer. I have reviewed the Physician Wireless Communications Engineer's notes and agree with the documented findings and plan of care Patient Condition at Discharge: Stable Plan - Discharge Summary Discharge Rx Participant: No New Discharge Prescriptions: New Doxycycline [Vibramycin] 100 mg PO BID #16 cap hydrALAZINE HCL [Apresoline] 25 mg PO BID #60 tab Nicotine 21Mg/24Hr Patch [Habitrol] 1 patch TRANSDERM DAILY #30 patch Oseltamivir 6Mg/ml Oral Susp [Tamiflu] 30 mg PO Q12HR #5 ml predniSONE 10 mg PO DIRECTED #30 tab Continue Multivitamins, Thera [Multivitamin (formulary)] 1 tab PO DAILY Baclofen 10 mg PO BID metFORMIN HCL [Glucophage] 500 mg PO AC-BID Omeprazole [PriLOSEC] 20 mg PO DAILY Simvastatin [Zocor] 40 mg PO HS Meloxicam [Mobic] 7.5 mg PO DAILY Diazepam [Valium] 5 - 7.5 mg PO HS PRN PRN Reason: insomina Gabapentin 300 mg PO QAM Biotin 5 mg PO DAILY Aspirin EC [Ecotrin Low Dose] 81 mg PO BID Escitalopram [Lexapro] 5 mg PO HS Tiotropium Br/Olodaterol HCl [Stiolto Respimat Inhal [place]] 2 puff INHALATION RT-DAILY Furosemide [Lasix] 20 mg PO DAILY PRN PRN Reason: SWELLING Donepezil [Aricept] 10 mg PO DAILY Cranberry Fruit Extract [Cranberry] 500 mg PO BID Docusate [Colace] 100 - 200 mg PO DAILY PRN PRN Reason: Constipation L.acidoph,Paracasei, B.lactis [Probiotic] 1 cap PO DAILY HYDROcodone/APAP 10-325MG [[place] 10-325] 1 tab PO Q6H PRN PRN Reason: Pain Gabapentin [Neurontin] 600 mg PO HS Lisinopril 40 mg PO HS Diltiazem HCl [Cartia Xt] 240 mg PO DAILY Discharge Medication List Baclofen 10 mg PO BID 05/03/15 [History] Diazepam [Valium] 5 - 7.5 mg PO HS PRN 05/03/15 [History] Meloxicam [Mobic] 7.5 mg PO DAILY 05/03/15 [History] Multivitamins, Thera [Multivitamin (formulary)] 1 tab PO DAILY 05/03/15 [History ] Omeprazole [PriLOSEC] 20 mg PO DAILY 05/03/15 [History] Simvastatin [Zocor] 40 mg PO HS 05/03/15 [History] metFORMIN HCL [Glucophage] 500 mg PO AC-BID 05/03/15 [History] Biotin 5 mg PO DAILY 05/13/16 [History] Gabapentin 300 mg PO QAM 05/13/16 [History] Aspirin EC [Ecotrin Low Dose] 81 mg PO BID 10/22/16 [History] Escitalopram [Lexapro] 5 mg PO HS 03/30/17 [History] Tiotropium Br/Olodaterol HCl [Stiolto Respimat Inhal [place]] 2 puff INHALATION RT -DAILY 03/30/17 [History] Cranberry Fruit Extract [Cranberry] 500 mg PO BID 05/15/17 [History] Donepezil [Aricept] 10 mg PO DAILY 05/15/17 [History] Furosemide [Lasix] 20 mg PO DAILY PRN 05/15/17 [History] Docusate [Colace] 100 - 200 mg PO DAILY PRN 09/28/17 [History] Gabapentin [Neurontin] 600 mg PO HS 09/28/17 [History] HYDROcodone/APAP 10-325MG [[place] 10-325] 1 tab PO Q6H PRN 09/28/17 [History] L.acidoph,Paracasei, B.lactis [Probiotic] 1 cap PO DAILY 09/28/17 [History] Lisinopril 40 mg PO HS 09/28/17 [History] Diltiazem HCl [Cartia Xt] 240 mg PO DAILY 10/08/17 [History] Doxycycline [Vibramycin] 100 mg PO BID #16 cap 10/13/17 [Rx] Nicotine 21Mg/24Hr Patch [Habitrol] 1 patch TRANSDERM DAILY #30 patch 10/13/17 [ Rx] Oseltamivir 6Mg/ml Oral Susp [Tamiflu] 30 mg PO Q12HR #5 ml 10/13/17 [Rx] hydrALAZINE HCL [Apresoline] 25 mg PO BID #60 tab 10/13/17 [Rx] predniSONE 10 mg PO DIRECTED #30 tab 10/13/17 [Rx] Follow up Appointment(s)/Referral(s): Bowen Vera MD [STAFF PHYSICIAN] - 10/21/17 11:15 am Cecilia Aldridge MD [Primary Care Provider] - 3 Days Activity/Diet/Wound Care/Special Instructions: diet: diabetic, cardiac Activity: as tolerated Discharge Disposition: HOME WITH HOME HEALTH SERVICES
== END 2017-10-13 15:12 | disposition home or self-care (01) | DRG 871 ==
LOC: EC 10:13 → 6SEL 13:46 → 3SUR 10-12 01:12
PROVIDERS: ADMIT Internal Medicine; ATTEND Internal Medicine
DX: A41.89 Other specified sepsis (principal); J10.01 Influenza due to other identified influenza virus with the same other identified influenza virus pneumonia; J96.01 Acute respiratory failure with hypoxia; R64 Cachexia; J44.1 Chronic obstructive pulmonary disease with (acute) exacerbation; J98.11 Atelectasis; J84.10 Pulmonary fibrosis, unspecified; E27.8 Other specified disorders of adrenal gland; E11.9 Type 2 diabetes mellitus without complications; F03.90 Unspecified dementia, unspecified severity, without behavioral disturbance, psychotic disturbance, mood disturbance, and anxiety; R91.1 Solitary pulmonary nodule; E04.1 Nontoxic single thyroid nodule; F17.210 Nicotine dependence, cigarettes, uncomplicated; I10 Essential (primary) hypertension; E03.9 Hypothyroidism, unspecified; E78.5 Hyperlipidemia, unspecified; F32.9 Major depressive disorder, single episode, unspecified; I25.10 Atherosclerotic heart disease of native coronary artery without angina pectoris; M19.91 Primary osteoarthritis, unspecified site; K21.9 Gastro-esophageal reflux disease without esophagitis; M54.32 Sciatica, left side; G89.29 Other chronic pain; M54.9 Dorsalgia, unspecified; M54.31 Sciatica, right side; Z79.84 Long term (current) use of oral hypoglycemic drugs; Z68.20 Body mass index [BMI] 20.0-20.9, adult; Z79.1 Long term (current) use of non-steroidal anti-inflammatories (NSAID); Z79.82 Long term (current) use of aspirin; Z79.899 Other long term (current) drug therapy; Z85.3 Personal history of malignant neoplasm of breast; Z92.3 Personal history of irradiation; Z86.14 Personal history of Methicillin resistant Staphylococcus aureus infection; Z90.49 Acquired absence of other specified parts of digestive tract; Z90.710 Acquired absence of both cervix and uterus; Z96.651 Presence of right artificial knee joint; Z96.1 Presence of intraocular lens; Z98.41 Cataract extraction status, right eye; Z98.42 Cataract extraction status, left eye; Z87.440 Personal history of urinary (tract) infections; Z86.19 Personal history of other infectious and parasitic diseases; Z57.5 Occupational exposure to toxic agents in other industries; Z88.8 Allergy status to other drugs, medicaments and biological substances; Z88.1 Allergy status to other antibiotic agents; Z91.030 Bee allergy status
CPT/HCPCS: 36415; 71046; 71275; 76536; 80048; 80053; 82550; 82553; 83036; 83605; 83735; 84443; 84484; 85025; 85379; 85610; 85730; 87040; 87502; 93005; 93306; 94640; 94760; 96361; 96374; 96375; 96376; 99291

== ENCOUNTER → 2017-10-27 | Outpatient (CLI) | payer MEDICARE ==
--- NOTE | 2017-10-28 10:48 | MM ---
Reason for exam: screening (asymptomatic). Last mammogram was performed 1 year and 2 months ago. History: Patient is postmenopausal and has history of breast cancer at age 57. Malignant lumpectomy of the right breast, October 04, 1998. Malignant stereotactic core biopsy of the right breast, September 19, 1998. Core biopsy of the right breast. Excisional biopsy of the right breast. Radiation therapy of the right breast. Took tamoxifen for 5 years beginning at age 58. Physical Findings: A clinical breast exam by your physician is recommended on an annual basis and results should be correlated with mammographic findings. MG 3D Screening Mammo W/Cad Bilateral CC and MLO view(s) were taken. Prior study comparison: August 21, 2016, bilateral MG 3d screening mammo w/cad. August 16, 2015, bilateral MG 3d diag mammo w/cad [facility]. The breast tissue is heterogeneously dense. This may lower the sensitivity of mammography. Post surgical and post therapy changes in the right breast with surgical scar and fat necrosis. Central asymmetric density on the right MLO view is unchanged. Benign oil cyst and secretory calcifications on the left breast. ASSESSMENT: Benign, BI-RAD 2 RECOMMENDATION: Routine screening mammogram of both breasts in 1 year.
== END | disposition home or self-care (01) ==
LOC: RADMAMWWP 12:55
PROVIDERS: ATTEND Family Medicine
DX: Z12.31 Encounter for screening mammogram for malignant neoplasm of breast (principal)
CPT/HCPCS: 77063; 77067

== ENCOUNTER 2017-10-29 11:55 | Day surgery (SDC) | payer MEDICARE ==
[2017-10-28 08:49] VITALS: BMI 19.7
[~2017-10-29 11:55] MED LIST changes: -ALPRAZolam 0.25 MG TAB PO ONE; -HYDROmorphone 0.5 MG/0.5 ML SYRINGE IVP PRN; +LACTATED RINGERS 1,000 ML IV SCH; +Pre Op ABX Message 1 EACH MISC MISCELLANE ONE
[2017-10-29 12:31] VITALS: RESP 16; TEMP 97.8
[2017-10-29 12:40] LABS: Glucose,Whole Blood 154 mg/dL (75-99)
[2017-10-29] MEDS ORDERED: LIDOCAINE 1% INJ 10MG/ML (20 ML MDV) ONE (13:23)
[2017-10-29] MEDS ORDERED: GLYCOPYRROLATE 0.2 MG/ML 2 ML VIAL ONE (13:23)
[2017-10-29] MEDS ORDERED: PROPOFOL 10 MG/ML 20 ML VIAL IV ONE (13:23)
[2017-10-29] MEDS ORDERED: KETAMINE 10 MG/ML 20 ML VIAL ONE (13:23)
[2017-10-29] MEDS ORDERED: LIDOCAINE 2% INJ 20 MG/ML INTRATRACH ONE (13:31)
--- NOTE | 2017-10-29 14:04 | FL ---
Fluoroscopy INDICATION: Pain FINDINGS: Fluoroscopy time: 18 seconds. Images obtained: 1. IMPRESSIONS: 1. Documentation of fluoroscopy for bronchoscopy.
--- NOTE | 2017-10-29 14:08 | P.PCN ---
Date of Procedure: 10/29/17 Preoperative Diagnosis: Right upper lobe lung mass, history of breast cancer, Postoperative Diagnosis: As above Procedure(s) Performed: 1 bronchoscopy, 2, bronchoalveolar lavage, 3. Transbronchial lung biopsy right upper lobe mass Anesthesia: other Surgeon: Bowen Vera Estimated Blood Loss (ml): 5 Condition: stable Disposition: same day Indications for Procedure: As above Operative Findings: As below Description of Procedure: Patient prepared and draped in a usual fashion informed consent obtained from the patient and daughter to above the scope was passed from the right nares the vocal cords were normal structure and function tip of the scope was has beyond the vocal cords into the trachea was scattered bilateral mucus plugging was present which were clean the tip of the scope was taken to the left side left upper lobe lingular lobe and left lower lobe along with subsegment lia tender endobronchial mass lesion of undefined about BAL was performed from the left lower lobe. Tip of the scope was taken to the right side right upper lobe right middle lobe and right lower lobe along with subsegment inspected no endobronchial mass or lesion was 85, tip off scope was taken to the right upper lobe anterior segment using fluoroscopy guidance multiple transbronchial lung biopsies were performed from right upper lobe mass lesion patient tolerate procedure well no complication noted post procedure chest x-ray ordered
--- NOTE | 2017-10-29 14:27 | XR ---
EXAMINATION TYPE: XR chest 1V DATE OF EXAM: 10/29/2017 COMPARISON: 10/08/2017 INDICATION: Previous abnormal chest post bronchoscopy lateral thorax TECHNIQUE: Single frontal view of the chest is obtained. FINDINGS: The heart size is normal. The pulmonary vasculature is normal. Density within the right midlung is less distinct than previous. No pneumothorax is evident IMPRESSION: 1. No pneumothorax post bronchoscopy.
[2017-10-29 14:50] VITALS: BP 113/69; PULSE 90
== END 2017-10-29 15:04 | disposition home or self-care (01) ==
LOC: ORWHC2ENDO 11:55
PROVIDERS: ATTEND Internal Medicine Sleep Medicine
DX: R91.1 Solitary pulmonary nodule (principal); Z85.3 Personal history of malignant neoplasm of breast; Z92.3 Personal history of irradiation; E04.1 Nontoxic single thyroid nodule; R59.0 Localized enlarged lymph nodes; K21.9 Gastro-esophageal reflux disease without esophagitis; E11.9 Type 2 diabetes mellitus without complications; Z79.84 Long term (current) use of oral hypoglycemic drugs; E78.5 Hyperlipidemia, unspecified; I25.119 Atherosclerotic heart disease of native coronary artery with unspecified angina pectoris; F17.210 Nicotine dependence, cigarettes, uncomplicated; F32.9 Major depressive disorder, single episode, unspecified; M81.0 Age-related osteoporosis without current pathological fracture; J43.9 Emphysema, unspecified; E78.00 Pure hypercholesterolemia, unspecified; I10 Essential (primary) hypertension; Z79.82 Long term (current) use of aspirin; Z79.1 Long term (current) use of non-steroidal anti-inflammatories (NSAID); Z79.899 Other long term (current) drug therapy; Z88.2 Allergy status to sulfonamides; Z88.8 Allergy status to other drugs, medicaments and biological substances
CPT/HCPCS: 88108; 88305; 87252; 87070; 87205; 87116; 87102; 87206; 71045; 31628; 31624; J2001 ×2; J2704; 87496; 87498; 87502; 87529; 87541; 87634; 87798

== ENCOUNTER 2017-11-23 16:24 | Observation (INO) | payer MEDICARE ==
[2017-11-23] MEDS ORDERED: SODIUM CHLORIDE 0.9% 2,000 ML IV STA (16:40)
--- NOTE | 2017-11-23 16:53 | ED ---
Weakness HPI <Scottie Garcia - Last Filed: 11/23/17 19:18> - General Source: patient, family, RN notes reviewed Mode of arrival: wheelchair Limitations: no limitations <Jayden Medrano - Last Filed: 11/23/17 19:22> - General Chief complaint: Weakness Stated complaint: Poss dehydrated Time Seen by Provider: 11/23/17 16:32 - History of Present Illness Initial comments: This a 77-year-old female presents emergency Department with chief complaint of possible dehydration. Patient states she is generalized weak. She states that she's been week She's Had Pneumonia. Patient Has Follow-Up with a Contract Administrator That She's Had Ongoing Cough Congestion of the [place] This Is Mostly Related to Her Smoking. Patient Does Have a Known Nodule on X-Ray. They Were Told This Is Not Cancerous by Dr. Vera. Patient Reports No Fever No Chills No Night Sweats. She Does Have an Episode of Vomiting Today Noted Recent Diarrhea Constipation or Dysuria. She States She Has Not Drank Much Fluids Because She Just Doesn't Want to. She Has Complained of Some Shaking Episodes. (Jayden Medrano) - Related Data Home Medications Medication Instructions Recorded Confirmed Baclofen 10 mg PO BID 05/03/15 11/23/17 Diazepam [Valium] 5 - 7.5 mg PO HS PRN 05/03/15 11/23/17 Meloxicam [Mobic] 7.5 mg PO QAM 05/03/15 11/23/17 Multivitamins, Thera [Multivitamin 1 tab PO QAM 05/03/15 11/23/17 (formulary)] Omeprazole [PriLOSEC] 20 mg PO QAM 05/03/15 11/23/17 Simvastatin [Zocor] 40 mg PO HS 05/03/15 11/23/17 metFORMIN HCL [Glucophage] 500 mg PO BID 05/03/15 11/23/17 Biotin 5 mg PO QAM 05/13/16 11/23/17 Gabapentin 300 mg PO QAM 05/13/16 11/23/17 Aspirin EC [Ecotrin Low Dose] 81 mg PO BID 10/22/16 11/23/17 Escitalopram [Lexapro] 5 mg PO HS 03/30/17 11/23/17 Tiotropium Br/Olodaterol HCl 2 puff INHALATION RT-DAILY 03/30/17 11/23/17 [Stiolto Respimat Inhal [place]] Cranberry Fruit Extract [Cranberry] 500 mg PO HS 05/15/17 11/23/17 Furosemide [Lasix] 20 mg PO DAILY PRN 05/15/17 11/23/17 Docusate [Colace] 100 - 200 mg PO DAILY PRN 09/28/17 11/23/17 Gabapentin [Neurontin] 600 mg PO HS 09/28/17 11/23/17 HYDROcodone/APAP 10-325MG [[place] 1 tab PO Q6H PRN 09/28/17 11/23/17 10-325] L.acidoph,Paracasei, B.lactis 1 cap PO QAM 09/28/17 11/23/17 [Probiotic] Lisinopril 40 mg PO HS 09/28/17 11/23/17 Diltiazem HCl [Cartia Xt] 240 mg PO QAM 10/08/17 11/23/17 Donepezil [Aricept] 10 mg PO QAM 10/28/17 11/23/17 Previous Rx's Medication Instructions Recorded hydrALAZINE HCL [Apresoline] 25 mg PO BID #60 tab 10/13/17 Allergies Allergy/AdvReac Type Severity Reaction Status Date / Time bee venom protein (honey bee) Allergy Swelling Verified 11/23/17 16:46 cefuroxime Allergy Swelling Verified 11/23/17 16:46 metoprolol AdvReac Unknown Verified 11/23/17 16:46 mirabegron [From Myrbetriq] AdvReac Hallucinati Verified 11/23/17 16:46 ons zolpidem [From Ambien] AdvReac Confusion, Verified 11/23/17 16:46 blacked out and fell Review of Systems ROS Other: All systems not noted in ROS Statement are negative. <Scottie Garcia - Last Filed: 11/23/17 19:18> ROS Other: All systems not noted in ROS Statement are negative. <Jayden Medrano - Last Filed: 11/23/17 19:22> ROS Statement: Those systems with pertinent positive or pertinent negative responses have been documented in the HPI. Past Medical History Past Medical History: Coronary Artery Disease (CAD), Cancer, Chest Pain / Angina , COPD, Diabetes Mellitus, GERD/Reflux, Hyperlipidemia, Hypertension, Osteoarthritis (OA), Pneumonia, Thyroid Disorder Additional Past Medical History / Comment(s): R upper lung mass found 1 year ago -2 unsuccessful FNA, thyroid nodule, R breast cancer with 2 lumpectomies/ radiation, NIDDM type II, UTI, UTI with sepsis, memory loss, balance issues, arthritis multiple joints, back pain, sciatica bilaterally, R hip pain-sees Dr. Barnes for pain management, agent orange exposure in 2 or 1962. History of Any Multi-Drug Resistant Organisms: MRSA Date of last positivie culture/infection: 07/19/11 MDRO Source:: DaughterBrianda believes source was urine. Past Surgical History: Back Surgery, Cholecystectomy, Hysterectomy, Joint Replacement Additional Past Surgical History / Comment(s): FNA R lung unsuccessfull twice, thyroid bx, right knee replacement; Bowel Surgery d/t obstruction, 5 back surgeries, right breast cancer with 2 lumpectomies- radiation treatment, picc lines x2 with one surgically removed, bilateral cataract surgery with lens implants, colonoscopy. Past Anesthesia/Blood Transfusion Reactions: No Reported Reaction Past Psychological History: No Psychological Hx Reported, Depression Smoking Status: Current every day smoker - Past Family History Father Family Medical History: Cancer Additional Family Medical History / Comment(s): Father of mesothelioma. Mother Family Medical History: No Reported History Additional Family Medical History / Comment(s): Pt's mother is 101 years old and fairly healthy <SofiaradhaJayden Osvaldo - Last Filed: 11/23/17 19:22> General Exam Limitations: no limitations General appearance: alert, in no apparent distress, cachectic Head exam: Present: atraumatic, normocephalic, normal inspection Eye exam: Present: normal appearance, PERRL, EOMI. Absent: scleral icterus, conjunctival injection, periorbital swelling ENT exam: Present: normal exam, normal oropharynx, mucous membranes moist, TM's normal bilaterally Neck exam: Present: normal inspection. Absent: tenderness, meningismus, lymphadenopathy Cardiovascular Exam: Present: regular rate, normal rhythm, normal heart sounds. Absent: systolic murmur, diastolic murmur, rubs, gallop, clicks GI/Abdominal exam: Present: soft, normal bowel sounds. Absent: distended, tenderness, guarding, rebound, rigid Back exam: Absent: CVA tenderness (R), CVA tenderness (L) Neurological exam: Present: alert, oriented X3, CN II-XII intact Skin exam: Present: warm, dry, intact, normal color. Absent: rash <Jayden Medrano - Last Filed: 11/23/17 19:22> Course <Scottie Garcia - Last Filed: 11/23/17 19:18> <Jayden Medrano - Last Filed: 11/23/17 19:22> Vital Signs 11/23/17 11/23/17 11/23/17 16:38 16:47 17:17 Temperature 98.4 F Pulse Rate 87 81 Pulse Rate [ 87 Heel Seat Flap Stapler ] Respiratory 18 16 Rate Blood Pressure 118/65 112/61 O2 Sat by Pulse 99 97 Oximetry - Reevaluation(s) Reevaluation #1: 11/23/17 19:18 PEs supervision: I did personally evaluate the patient discuss [employer] her and her family and with the hospitalist patient will be admitted with consultation by who I did contact. (Scottie Garcia) Medical Decision Making - Lab Data Result diagrams: 11/23/17 16:50 11/23/17 16:50 <Scottie Garcia - Last Filed: 11/23/17 19:18> - Lab Data Result diagrams: 11/23/17 16:50 11/23/17 16:50 <Jayden Medrano - Last Filed: 11/23/17 19:22> - Lab Data Lab Results 11/23/17 11/23/17 11/23/17 Range/Units 16:50 16:50 16:50 WBC 8.4 (3.8-10.6) k/uL RBC 4.65 (3.80-5.40) m/uL Hgb 14.3 (11.4-16.0) gm/dL Hct 42.6 (34.0-46.0) % MCV 91.6 (80.0-100.0) fL MCH 30.7 (25.0-35.0) pg MCHC 33.5 (31.0-37.0) g/dL RDW 13.9 (11.5-15.5) % Plt Count 349 (150-450) k/uL Neutrophils % 78 % Lymphocytes % 14 % Monocytes % 4 % Eosinophils % 2 % Basophils % 1 % Neutrophils # 6.6 (1.3-7.7) k/uL Lymphocytes # 1.2 (1.0-4.8) k/uL Monocytes # 0.3 (0-1.0) k/uL Eosinophils # 0.2 (0-0.7) k/uL Basophils # 0.0 (0-0.2) k/uL Sodium 143 (137-145) mmol/L Potassium 4.0 (3.5-5.1) mmol/L Chloride 108 H (98-107) mmol/L Carbon Dioxide 22 (22-30) mmol/L Anion Gap 13 mmol/L BUN 18 H (7-17) mg/dL Creatinine 0.70 (0.52-1.04) mg/dL Est GFR (CKD-EPI)AfAm >90 (>60 ml/min/1.73 sqM) Est GFR (CKD-EPI)NonAf 83 (>60 ml/min/1.73 sqM) Glucose 137 H (74-99) mg/dL Calcium 9.4 (8.4-10.2) mg/dL Magnesium 1.5 L (1.6-2.3) mg/dL Total Bilirubin 0.3 (0.2-1.3) mg/dL AST 15 (14-36) U/L ALT 16 (9-52) U/L Alkaline Phosphatase 69 (38-126) U/L Troponin I <0.012 (0.000-0.034) ng/mL Total Protein 6.5 (6.3-8.2) g/dL Albumin 3.7 (3.5-5.0) g/dL Amylase 89 (30-110) U/L Lipase 151 (23-300) U/L Disposition <Scottie Garcia - Last Filed: 11/23/17 19:18> <Jayden Medrano - Last Filed: 11/23/17 19:22> Clinical Impression: Lung mass, Hypomagnesemia, Dehydration, Weakness Disposition: ADMITTED IP TO THIS HOSP Condition: Fair Referrals: Rosalind Hernandez MD [Primary Care Provider] - 1-2 days
[2017-11-23 17:02] LABS: Basophils % (A) 1 %; Eosinophils # (A) 0.2 k/uL (0-0.7); Eosinophils % (A) 2 %; HCT 42.6 % (34.0-46.0); HGB 14.3 gm/dL (11.4-16.0); Lymphocytes # (A) 1.2 k/uL (1.0-4.8); Lymphocytes % (A) 14 %; MCH 30.7 pg (25.0-35.0); MCHC 33.5 g/dL (31.0-37.0); MCV 91.6 fL (80.0-100.0); Mean Platelet Volume 6.9; Monocytes # (A) 0.3 k/uL (0-1.0); Monocytes % (A) 4 %; Neutrophils # (A) 6.6 k/uL (1.3-7.7); Neutrophils % (A) 78 %; Platelet Count 349 k/uL (150-450); RBC 4.65 m/uL (3.80-5.40); RDW 13.9 % (11.5-15.5); WBC 8.4 k/uL (3.8-10.6)
[2017-11-23 17:13] LABS: ALT 16 U/L (9-52); AST 15 U/L (14-36); Albumin 3.7 g/dL (3.5-5.0); Alkaline Phosphatase 69 U/L (38-126); Amylase 89 U/L (30-110); Anion Gap 13 mmol/L; Blood Urea Nitrogen 18 mg/dL (7-17); Calcium 9.4 mg/dL (8.4-10.2); Carbon Dioxide 22 mmol/L (22-30); Chloride 108 mmol/L (98-107); Glucose 137 mg/dL (74-99); Lipase 151 U/L (23-300); Magnesium 1.5 mg/dL (1.6-2.3); Sodium 143 mmol/L (137-145); Total Bilirubin 0.3 mg/dL (0.2-1.3); Total Protein 6.5 g/dL (6.3-8.2)
[2017-11-23] MEDS ORDERED: MAGNESIUM SULFATE-D5W PMX 1 GM in DEXTROSE/WATER 1 100ML.BAG IVPB ONE (17:26)
--- NOTE | 2017-11-23 17:34 | XR ---
EXAMINATION TYPE: XR chest 2V DATE OF EXAM: 11/23/2017 COMPARISON: 10/29/2017 HISTORY: 77-year-old female increased weakness and pain TECHNIQUE: AP and lateral views FINDINGS: Heart is normal size. Atherosclerotic arch calcifications. Mild diffuse interstitial prominence and h yperinflation is unchanged. Right upper lobe opacity shows interval enlargement and increase in densi ty. It measures approximately 5.8 cm now. No other consolidation or pleural effusion seen. Some upper lumbar posterior fusion hardware with cholecystectomy clips. IMPRESSION: COPD with further enlargement of the patient's known right upper lobe mass (currently approximately 5 .8 cm).
[2017-11-23] MEDS ORDERED: NALOXONE 0.4 MG/ML 1 ML VIAL IV PRN ×2 (19:22→22:23)
[2017-11-23 20:32] VITALS: BMI 19.8
[2017-11-23] MEDS ORDERED: DIAZEPAM 5 MG TAB PO PRN (21:06)
[2017-11-23] MEDS ORDERED: HYDROcodone/APAP 10-325MG 1 EACH TAB PO PRN (21:06)
[2017-11-23] MEDS ORDERED: DOCUSATE 100 MG CAP PO PRN (21:06)
[2017-11-23 21:09] LABS: Glucose,Whole Blood 108 mg/dL (75-99)
[2017-11-23] MEDS ORDERED: ONDANSETRON 4 MG/2 ML VIAL IVP PRN (22:23)
--- NOTE | 2017-11-23 22:41 | P.HPIM ---
History of Present Illness H&P Date: 11/23/17 Chief Complaint: weakness Admitted to the hospital for weakness for the last few days the patient states that she has been weak and not feeling well also patient has been vomiting although the patient states that she has been having episodes of vomiting at least since May Physical complaining of any significant chest pain or shortness of breath more than baseline although the patient has been coughing Review of systems and systems has been reviewed all negative and positive findings as per hpi Family Medical History: Cancer Additional Family Medical History / Comment(s): Father of mesothelioma. Mother Family Medical History: No Reported History Additional Family Medical History / Comment(s): Pt's mother is 101 years old and fairly healthy Social history smokes Constitutional: No acute distress, conversant, pleasant Eyes: Anicteric sclerae, moist conjunctiva, no lid-lag PERRLA ENMT: NC/AT Oropharynx clear, no erythema, exudates Neck: Supple, FROM, no masses, or JVD No carotid bruits No thyromegaly Lungs: Decreased breath sounds bilaterally Normal respiratory effort, no accessory muscle use Cardiovascular: Heart regular in rate and rhythm, No murmurs, gallops, or rubs No peripheral edema Abdominal: Soft Nontender, no guarding, rebound or rigidity Abdomen moving with respiration Normoactive bowel sounds No hepatomegaly, No splenomegaly No palpable mass No abdominal wall hernia noted Skin: Normal temperature, tone, texture, turgor No induration No subcutaneous nodules No rash, lesions No ulcers Extremities: No digital cyanosis No clubbing Pedal pulses intact and symmetrical Radial pulses intact and symmetrical Normal gait and station No calf tenderness Psychiatric:Alert and oriented to person, place and time Appropriate affect Intact judgement Neuro: Muscles Strength 5/5 in all 4 extremities Sensation to light touch grossly present throughout Cranial nerves II-XII grossly intact No focal sensory deficits Vital Signs Temp Pulse Resp BP Pulse Ox 98.4 F 87 18 118/65 99 11/23/17 16:38 11/23/17 16:38 11/23/17 16:38 11/23/17 16:38 11/23/17 16:38 Laboratory Tests Range/Units 11/23/17 11/23/17 11/23/17 16:50 16:50 16:50 WBC (3.8-10.6) k/uL 8.4 RBC (3.80-5.40) m/uL 4.65 Hgb (11.4-16.0) gm/dL 14.3 Hct (34.0-46.0) % 42.6 MCV (80.0-100.0) fL 91.6 MCH (25.0-35.0) pg 30.7 MCHC (31.0-37.0) g/dL 33.5 RDW (11.5-15.5) % 13.9 Plt Count (150-450) k/uL 349 Neutrophils % % 78 Lymphocytes % % 14 Monocytes % % 4 Eosinophils % % 2 Basophils % % 1 Neutrophils # (1.3-7.7) k/uL 6.6 Lymphocytes # (1.0-4.8) k/uL 1.2 Monocytes # (0-1.0) k/uL 0.3 Eosinophils # (0-0.7) k/uL 0.2 Basophils # (0-0.2) k/uL 0.0 Sodium (137-145) mmol/L 143 Potassium (3.5-5.1) mmol/L 4.0 Chloride (98-107) mmol/L 108 H Carbon Dioxide (22-30) mmol/L 22 Anion Gap mmol/L 13 BUN (7-17) mg/dL 18 H Creatinine (0.52-1.04) mg/dL 0.70 Est GFR (CKD-EPI)AfAm (>60 ml/min/1.73 sqM) >90 Est GFR (CKD-EPI)NonAf (>60 ml/min/1.73 sqM) 83 Glucose (74-99) mg/dL 137 H POC Glucose (mg/dL) (75-99) mg/dL POC Glu O And M Supervisor ID Calcium (8.4-10.2) mg/dL 9.4 Magnesium (1.6-2.3) mg/dL 1.5 L Total Bilirubin (0.2-1.3) mg/dL 0.3 AST (14-36) U/L 15 ALT (9-52) U/L 16 Alkaline Phosphatase (38-126) U/L 69 Troponin I (0.000-0.034) ng/mL <0.012 Total Protein (6.3-8.2) g/dL 6.5 Albumin (3.5-5.0) g/dL 3.7 Amylase (30-110) U/L 89 Lipase (23-300) U/L 151 Range/Units 11/23/17 21:08 WBC (3.8-10.6) k/uL RBC (3.80-5.40) m/uL Hgb (11.4-16.0) gm/dL Hct (34.0-46.0) % MCV (80.0-100.0) fL MCH (25.0-35.0) pg MCHC (31.0-37.0) g/dL RDW (11.5-15.5) % Plt Count (150-450) k/uL Neutrophils % % Lymphocytes % % Monocytes % % Eosinophils % % Basophils % % Neutrophils # (1.3-7.7) k/uL Lymphocytes # (1.0-4.8) k/uL Monocytes # (0-1.0) k/uL Eosinophils # (0-0.7) k/uL Basophils # (0-0.2) k/uL Sodium (137-145) mmol/L Potassium (3.5-5.1) mmol/L Chloride (98-107) mmol/L Carbon Dioxide (22-30) mmol/L Anion Gap mmol/L BUN (7-17) mg/dL Creatinine (0.52-1.04) mg/dL Est GFR (CKD-EPI)AfAm (>60 ml/min/1.73 sqM) Est GFR (CKD-EPI)NonAf (>60 ml/min/1.73 sqM) Glucose (74-99) mg/dL POC Glucose (mg/dL) (75-99) mg/dL 108 H POC Glu O And M Supervisor ID Savi Iverson Calcium (8.4-10.2) mg/dL Magnesium (1.6-2.3) mg/dL Total Bilirubin (0.2-1.3) mg/dL AST (14-36) U/L ALT (9-52) U/L Alkaline Phosphatase (38-126) U/L Troponin I (0.000-0.034) ng/mL Total Protein (6.3-8.2) g/dL Albumin (3.5-5.0) g/dL Amylase (30-110) U/L Lipase (23-300) U/L Assessment and plan Enlarging lung mass has been followed by pulmonology We will consult pulmonology will start the patient empirically on antibiotics Levaquin for suspected pneumonia Dehydration continue patient on IV hydration Anxiety COPD no evidence of exacerbation at this time Generalized weakness Diabetes we'll check before meals and at bedtime blood glucose Patient states that she usually eats regular diet without any significant increase in her blood glucose Observe patient overnight Past Medical History Past Medical History: Coronary Artery Disease (CAD), Cancer, Chest Pain / Angina , COPD, Diabetes Mellitus, GERD/Reflux, Hyperlipidemia, Hypertension, Osteoarthritis (OA), Pneumonia, Thyroid Disorder Additional Past Medical History / Comment(s): R upper lung mass found 1 year ago -2 unsuccessful FNA, thyroid nodule, R breast cancer with 2 lumpectomies/ radiation, NIDDM type II, UTI, UTI with sepsis, memory loss, balance issues, arthritis multiple joints, back pain, sciatica bilaterally, R hip pain-sees Dr. Barnes for pain management, agent orange exposure in 1961 or 1962. History of Any Multi-Drug Resistant Organisms: MRSA Date of last positivie culture/infection: 07/19/11 MDRO Source:: DaughterBrianda believes source was urine. Past Surgical History: Back Surgery, Cholecystectomy, Hysterectomy, Joint Replacement Additional Past Surgical History / Comment(s): FNA R lung unsuccessfull twice, thyroid bx, right knee replacement; Bowel Surgery d/t obstruction, 5 back surgeries, right breast cancer with 2 lumpectomies- radiation treatment, picc lines x2 with one surgically removed, bilateral cataract surgery with lens implants, colonoscopy. Past Anesthesia/Blood Transfusion Reactions: No Reported Reaction Past Psychological History: No Psychological Hx Reported, Depression Additional Psychological History / Comment(s): Pt has 2 of her daughters residing with her. Her jimBrianda is her caregiver. Pt ambulates with cane or walker. Her daughter takes her to appts. Pt has had depression since of her spouse. She has had suicidal thoughts in the past but none since 1969's Smoking Status: Current every day smoker Past Alcohol Use History: None Reported Additional Past Alcohol Use History / Comment(s): Pt started smoking in 1953 and smokes 1.5-2 ppd. Past Drug Use History: None Reported - Past Family History Father Family Medical History: Cancer Additional Family Medical History / Comment(s): Father of mesothelioma. Mother Family Medical History: No Reported History Additional Family Medical History / Comment(s): Pt's mother is 101 years old and fairly healthy Medications and Allergies Home Medications Medication Instructions Recorded Confirmed Type Baclofen 10 mg PO BID 05/03/15 11/23/17 History Diazepam [Valium] 5 - 7.5 mg PO HS PRN 05/03/15 11/23/17 History Meloxicam [Mobic] 7.5 mg PO QAM 05/03/15 11/23/17 History Multivitamins, Thera [Multivitamin 1 tab PO QAM 05/03/15 11/23/17 History (formulary)] Omeprazole [PriLOSEC] 20 mg PO QAM 05/03/15 11/23/17 History Simvastatin [Zocor] 40 mg PO HS 05/03/15 11/23/17 History metFORMIN HCL [Glucophage] 500 mg PO BID 05/03/15 11/23/17 History Biotin 5 mg PO QAM 05/13/16 11/23/17 History Gabapentin 300 mg PO QAM 05/13/16 11/23/17 History Aspirin EC [Ecotrin Low Dose] 81 mg PO BID 10/22/16 11/23/17 History Escitalopram [Lexapro] 5 mg PO HS 03/30/17 11/23/17 History Tiotropium Br/Olodaterol HCl 2 puff INHALATION RT-DAILY 03/30/17 11/23/17 History [Stiolto Respimat Inhal [place]] Cranberry Fruit Extract [Cranberry] 500 mg PO HS 05/15/17 11/23/17 History Furosemide [Lasix] 20 mg PO DAILY PRN 05/15/17 11/23/17 History Docusate [Colace] 100 - 200 mg PO DAILY PRN 09/28/17 11/23/17 History Gabapentin [Neurontin] 600 mg PO HS 09/28/17 11/23/17 History HYDROcodone/APAP 10-325MG [[place] 1 tab PO Q6H PRN 09/28/17 11/23/17 History 10-325] L.acidoph,Paracasei, B.lactis 1 cap PO QAM 09/28/17 11/23/17 History [Probiotic] Lisinopril 40 mg PO HS 09/28/17 11/23/17 History Diltiazem HCl [Cartia Xt] 240 mg PO QAM 10/08/17 11/23/17 History hydrALAZINE HCL [Apresoline] 25 mg PO BID #60 tab 10/13/17 11/23/17 Rx Donepezil [Aricept] 10 mg PO QAM 10/28/17 11/23/17 History Allergies Allergy/AdvReac Type Severity Reaction Status Date / Time bee venom protein (honey bee) Allergy Swelling Verified 11/23/17 16:46 cefuroxime Allergy Swelling Verified 11/23/17 16:46 metoprolol AdvReac Unknown Verified 11/23/17 16:46 mirabegron [From Myrbetriq] AdvReac Hallucinati Verified 11/23/17 16:46 ons zolpidem [From Ambien] AdvReac Confusion, Verified 11/23/17 16:46 blacked out and fell Physical Exam Vitals: Vital Signs Temp Pulse Pulse Resp BP Pulse Ox 11/23/17 17:17 81 16 112/61 97 11/23/17 16:47 87 11/23/17 16:38 98.4 F 87 18 118/65 99 Intake and Output 11/23/17 11/23/17 11/23/17 06:59 14:59 22:59 Other: Weight 46 kg Results CBC & Chem 7: 11/23/17 16:50 11/23/17 16:50 Labs: Abnormal Lab Results - Last 24 Hours (Table) 11/23/17 11/23/17 Range/Units 16:50 21:08 Chloride 108 H (98-107) mmol/L BUN 18 H (7-17) mg/dL Glucose 137 H (74-99) mg/dL POC Glucose (mg/dL) 108 H (75-99) mg/dL Magnesium 1.5 L (1.6-2.3) mg/dL Thrombosis Risk Factor Assmnt - Choose All That Apply Any of the Below Risk Factors Present?: Yes Each Factor Represents 1 point: Abnormal pulmonary function (COPD), Serious lung disease incl. pneumonia (< 1month) Other Risk Factors: Yes Each Risk Factor Represents 2 Points: Malignancy Each Risk Factor Represents 3 Points: Age 75 years or older Other congenital or acquired thrombophilia - If yes, enter type in comment: No Thrombosis Risk Factor Assessment Total Risk Factor Score: 7 Thrombosis Risk Factor Assessment Level: High Risk
[2017-11-23] MEDS: SODIUM CHLORIDE 0.9% 1,000 ML IV SCH (22:59)
[2017-11-23] MEDS: LEVOFLOXACIN 500MG-D5W PMX 500 MG in DEXTROSE/WATER 1 100ML.BAG IVPB SCH (23:52)
[2017-11-24 00:52] LABS: Appearance,Urine Clear (Clear); Bilirubin,Urine Negative (Negative); Blood,Urine Negative (Negative); Color,Urine Yellow; Glucose,Urine (UA) Negative (Negative); Hyaline Casts,Urine 1 /lpf (0-2); Ketones,Urine Negative (Negative); Leukocyte Esterase,Urine Large (Negative); Mucus,Urine Rare /hpf; Nitrite,Urine Negative (Negative); PH, Urine 5.5 (5.0-8.0); Protein,Urine Trace (Negative); RBC,Urine 5 /hpf (0-5); Specific Gravity,Urine 1.018 (1.001-1.035); Squamous Epithelial Cell,Urine 2 /hpf (0-4); Urobilinogen,Urine <2.0 mg/dL (<2.0); WBC,Urine 20 /hpf (0-5)
[2017-11-24 07:14] LABS: Glucose,Whole Blood 101 mg/dL (75-99)
[2017-11-24] MEDS ORDERED: RX INFO: IV CONTRAST WAS GIVEN 1 EACH MISC MISCELLANE PRN (07:33)
[2017-11-24 07:54] LABS: HGB 12.2 gm/dL (11.4-16.0); MCV 93.1 fL (80.0-100.0); RBC 3.87 m/uL (3.80-5.40); WBC 5.2 k/uL (3.8-10.6)
[2017-11-24 07:55] LABS: Basophils % (A) 0 %; Eosinophils # (A) 0.2 k/uL (0-0.7); Eosinophils % (A) 4 %; Lymphocytes # (A) 1.2 k/uL (1.0-4.8); Lymphocytes % (A) 23 %; MCH 31.5 pg (25.0-35.0); MCHC 33.8 g/dL (31.0-37.0); Mean Platelet Volume 6.7; Monocytes # (A) 0.3 k/uL (0-1.0); Monocytes % (A) 5 %; Neutrophils # (A) 3.4 k/uL (1.3-7.7); Neutrophils % (A) 66 %; Platelet Count 296 k/uL (150-450); RDW 13.7 % (11.5-15.5)
[2017-11-24 08:10] LABS: ALT 18 U/L (9-52); AST 15 U/L (14-36); Albumin 2.8 g/dL (3.5-5.0); Alkaline Phosphatase 60 U/L (38-126); Anion Gap 8 mmol/L; Blood Urea Nitrogen 17 mg/dL (7-17); Calcium 8.2 mg/dL (8.4-10.2); Carbon Dioxide 22 mmol/L (22-30); Chloride 109 mmol/L (98-107); Glucose 89 mg/dL (74-99); Potassium 4.2 mmol/L (3.5-5.1); Sodium 139 mmol/L (137-145); Total Bilirubin 0.2 mg/dL (0.2-1.3); Total Protein 5.3 g/dL (6.3-8.2)
[2017-11-24] MEDS ORDERED: NON-FORMULARY DRUG (Biotin [Biotin] 5 MG) PO SCH (09:00)
--- NOTE | 2017-11-24 09:22 | CT ---
EXAMINATION TYPE: CT abdomen pelvis w con DATE OF EXAM: 11/24/2017 HISTORY: Abdominal pain and vomiting CT DLP: 334.8mGycm Automated Exposure Control for Dose Reduction was Utilized. CONTRAST: CT scan of the abdomen and pelvis is performed with IV Contrast, patient injected with 100 mL of Isov ue M300. COMPARISON: 08/22/2016. FINDINGS: Exam is limited by extensive spray artifact created by the patient's lumbar fusion rods. LUNG BASES: Bibasilar atelectasis and pleural parenchymal scarring is seen. LIVER/GB: No significant abnormality is appreciated. Gallbladder surgically absent. PANCREAS: No significant abnormality is seen. SPLEEN: Small splenule seen adjacent to the [place] spleen. ADRENALS: There are similar size of the left adrenal gland nodule measuring approximately 1.4 cm in c omparison to exam of 08/22/2016. Right adrenal gland is unremarkable. KIDNEYS: Kidneys are only partially visualized due to surrounding spray artifact with bilateral parar enal sinus cysts and at least 7 mm left lower pole nonobstructing renal calculus. BOWEL: The bowel is nonenlarged, however there is small bowel feces sign seen diffusely throughout th e distal small bowel indicating either stasis or incompetent ileocecal valve. Thickening of the sigmo id colon is seen diffusely which may relate to incomplete distention or mild colitis. Numerous sigmoi d diverticula are present. Cecum is noted to be low-lying within the pelvis. UTERUS/ADNEXA: There is a similar appearing 3.7 cm fluid attenuated structure within the retrocardiac space on the left that may be adnexal LYMPH NODES: No greater than 1cm abdominal or pelvic lymph nodes are appreciated. OSSEOUS STRUCTURES: Postsurgical changes are seen of the lumbar spine again creating extensive spray artifact. There is a persistent grade 2 anterolisthesis of L3 on L4 and grade 1 retrolisthesis of L2 on L3 and L1 on L2 with moderate to severe multilevel degenerative change. OTHER: Extensive vascular calcifications are seen of the abdominal aorta and its branches with tortuo sity throughout. Opacification of the SMA and proximal celiac are identified. IMPRESSION: 1. Sigmoid diverticulosis with nonspecific long segment mild bowel wall thickening of the sigmoid col on that may relate to incomplete distention or mild colitis. No proximal obstruction. 2. No evidence of bowel dilatation or obstruction, however there is small bowel feces sign noted diff usely throughout the distal small bowel indicating either incompetence of the ileocecal valve or kavon is/ileus. 3. Stability of the left adrenal gland and probable left adnexal lesions in comparison to exam of .
[2017-11-24] MEDS: NICOTINE 21MG/24HR PATCH TRANSDERM SCH (09:36)
[2017-11-24] MEDS: LACTOBACILLUS ACIDOPH & BULGAR 1 EACH PACKET PO SCH (09:36)
[2017-11-24] MEDS: DILTIAZEM CD 240 MG CAP.ER.24H PO SCH (09:37)
[2017-11-24] MEDS: GABAPENTIN 300 MG CAP PO SCH (09:37)
[2017-11-24] MEDS: BACLOFEN 10 MG TAB PO SCH ×2 (09:37→21:04)
[2017-11-24] MEDS: MELOXICAM 7.5 MG TAB PO SCH (09:37)
[2017-11-24] MEDS: hydrALAZINE HCL 25 MG TAB PO SCH ×2 (09:37→21:04)
[2017-11-24] MEDS: DONEPEZIL 10 MG TAB PO SCH (09:38)
[2017-11-24] MEDS: PANTOPRAZOLE 40 MG TABLET PO SCH (09:38)
[2017-11-24] MEDS: metFORMIN 500 MG TAB PO SCH ×2 (09:38→18:27)
[2017-11-24] MEDS: ASPIRIN 81 MG PO SCH ×2 (09:38→21:04)
[2017-11-24] MEDS: SODIUM CHLORIDE 0.9% 1,000 ML IV SCH ×4 (09:46→21:00)
[2017-11-24] MEDS: NON-FORMULARY DRUG (Tiotropium Br/Olodaterol Hcl [Stiolto Respimat Inhal Spray] 2 PUFF) INHALATION SCH (09:47)
[2017-11-24 11:23] LABS: Glucose,Whole Blood 129 mg/dL (75-99)
--- NOTE | 2017-11-24 12:57 | P.PN ---
Subjective Progress Note Date: 11/24/17 Principal diagnosis: SOB Patient is feeling better today, no shortness of breath or chest pain. She has some diarrhea this morning. Objective - Vital Signs Vital signs: Vital Signs Temp 97.9 F 11/24/17 07:00 Pulse 82 11/24/17 07:00 Resp 16 11/24/17 07:00 BP 126/81 11/24/17 07:00 Pulse Ox 98 11/24/17 07:00 Intake & Output 11/23/17 11/24/17 11/24/17 18:59 06:59 18:59 Weight 44.452 kg 46 kg Other: Voiding Method Toilet # Voids 1 - Exam Constitutional: No acute distress, conversant, pleasant Eyes:Anicteric sclerae, moist conjunctiva, no lid-lag, PERRLA, ENMT: Oropharynx clear, no erythema, exudates Neck: Supple, FROM, no masses, or JVD, No carotid bruits, No thyromegaly Lungs: Clear to auscultation, Clear to percussion, Normal respiratory effort, no accessory muscle use Cardiovascular: Heart regular in rate and rhythm, No murmurs, gallops, or rubs, No peripheral edema Abdominal: Soft, Nontender, no guarding, rebound or rigidity, Normoactive bowel sounds, No hepatomegaly, No splenomegaly, No palpable mass Skin: Normal temperature, tone, texture, turgor, no induration, No subcutaneous nodules, No rash, lesions, No ulcers Extremities: No digital cyanosis, No clubbing, Pedal pulses intact and symmetrical, Radial pulses intact and symmetrical, No calf tenderness Psychiatric: Alert and oriented to person, place and time, appropriate affect, intact judgement Neuro: Muscles Strength 5/5 in all 4 extremities, Sensation to light touch grossly present throughout, Cranial nerves II-XII grossly intact, no focal sensory deficits - Labs CBC & Chem 7: 11/24/17 07:16 11/24/17 07:16 Labs: Abnormal Lab Results - Last 24 Hours (Table) 11/23/17 11/23/17 11/23/17 Range/Units 16:50 21:08 21:15 Chloride 108 H (98-107) mmol/L BUN 18 H (7-17) mg/dL Glucose 137 H (74-99) mg/dL POC Glucose (mg/dL) 108 H (75-99) mg/dL Calcium (8.4-10.2) mg/dL Magnesium 1.5 L (1.6-2.3) mg/dL Total Protein (6.3-8.2) g/dL Albumin (3.5-5.0) g/dL Urine Protein Trace H (Negative) Ur Leukocyte Esterase Large H (Negative) Urine WBC 20 H (0-5) /hpf Urine Mucus Rare H (None) /hpf 11/24/17 11/24/17 11/24/17 Range/Units 07:13 07:16 11:22 Chloride 109 H (98-107) mmol/L BUN (7-17) mg/dL Glucose (74-99) mg/dL POC Glucose (mg/dL) 101 H 129 H (75-99) mg/dL Calcium 8.2 L (8.4-10.2) mg/dL Magnesium (1.6-2.3) mg/dL Total Protein 5.3 L (6.3-8.2) g/dL Albumin 2.8 L (3.5-5.0) g/dL Urine Protein (Negative) Ur Leukocyte Esterase (Negative) Urine WBC (0-5) /hpf Urine Mucus (None) /hpf Assessment and Plan Plan: #1 Enlarging lung mass: Seen by Dr. Vera, will keep following as an outpatient #2 Acute bronchitis/acute exacerbation of COPD Continue Levaquin Patient is not wheezing on exam, will not treat with steroids #3 Dehydration/generalized weakness Continue patient on IV hydration Anxiety #4 Abdominal pain and vomiting Computed tomography scan of the abdomen showed possible ileus Consult surgery IV fluids as above #5 [id number] malnutrition Switch antidepressant treatment from Lexapro to Remeron to stimulate the appetite Nutrition consult #6 Diabetes 2 Continue to check before meals and at bedtime Hold metformin Blood sugars controlled
--- NOTE | 2017-11-24 13:27 | P.GSCN ---
<Beverly Reyes - Last Filed: 11/24/17 13:31> History of Present Illness Consult date: 11/24/17 Reason for Consult: Ileus History of present illness: 77-year-old thin frail female being seen at the request of the attending for a surgical eval for possible ileus. Patient stated that she is not certain why she came into the hospital she lives with the daughter and the daughter brought her in. Patient is adamant that she's not experiencing any abdominal pain states had a bowel movement the day before. states she had an episode at home prior to coming into the emergency room that she did vomit. Has not been experiencing constipation or recent diarrhea according to the patient. Patient does have a history of a right upper lung mass found a year ago with 2 unsuccessful FNA. Additionally patient has right breast cancer with a lumpectomy and radiation. not certain when she had a colonoscopy currently is resting in bed stating that she really has no appetite but is not nauseated and has not had a bowel movement today CAT scan of the abdomen and pelvis done in the emergency room report reviewed indicated thickening of the sigmoid with sigmoid diverticulosis may relate to incomplete distention or mild colitis no proximal obstruction area no evidence of a bowel dilatation or obstruction Review of Systems Not able to obtain patient has no recall Past Medical History Past Medical History: Coronary Artery Disease (CAD), Cancer, Chest Pain / Angina , COPD, Diabetes Mellitus, GERD/Reflux, Hyperlipidemia, Hypertension, Osteoarthritis (OA), Pneumonia, Thyroid Disorder Additional Past Medical History / Comment(s): R upper lung mass found 1 year ago -2 unsuccessful FNA, thyroid nodule, R breast cancer with 2 lumpectomies/ radiation, NIDDM type II, UTI, UTI with sepsis, memory loss, balance issues, arthritis multiple joints, back pain, sciatica bilaterally, R hip pain-sees Dr. Barnes for pain management, agent orange exposure in 2 or 1962. History of Any Multi-Drug Resistant Organisms: MRSA Year Discovered:: 07/19/11 MDRO Source:: DaughterBrianda believes source was urine. Past Surgical History: Back Surgery, Cholecystectomy, Hysterectomy, Joint Replacement Additional Past Surgical History / Comment(s): FNA R lung unsuccessfull twice, thyroid bx, right knee replacement; Bowel Surgery d/t obstruction, 5 back surgeries, right breast cancer with 2 lumpectomies- radiation treatment, picc lines x2 with one surgically removed, bilateral cataract surgery with lens implants, colonoscopy. Past Anesthesia/Blood Transfusion Reactions: No Reported Reaction Past Psychological History: No Psychological Hx Reported, Depression Additional Psychological History / Comment(s): Pt has 2 of her daughters residing with her. Her jimBrianda is her caregiver. Pt ambulates with cane or walker. Her daughter takes her to appts. Pt has had depression since of her spouse. She has had suicidal thoughts in the past but none since Smoking Status: Current every day smoker Past Alcohol Use History: None Reported Additional Past Alcohol Use History / Comment(s): Pt started smoking in 1954 and smokes 1.5-2 ppd. Past Drug Use History: None Reported - Past Family History Father Family Medical History: Cancer Additional Family Medical History / Comment(s): Father of mesothelioma. Mother Family Medical History: No Reported History Additional Family Medical History / Comment(s): Pt's mother is 101 years old and fairly healthy Medications and Allergies Home Medications Medication Instructions Recorded Confirmed Type Baclofen 10 mg PO BID 05/03/15 11/23/17 History Diazepam [Valium] 5 - 7.5 mg PO HS PRN 05/03/15 11/23/17 History Meloxicam [Mobic] 7.5 mg PO QAM 05/03/15 11/23/17 History Multivitamins, Thera [Multivitamin 1 tab PO QAM 05/03/15 11/23/17 History (formulary)] Omeprazole [PriLOSEC] 20 mg PO QAM 05/03/15 11/23/17 History Simvastatin [Zocor] 40 mg PO HS 05/03/15 11/23/17 History metFORMIN HCL [Glucophage] 500 mg PO BID 05/03/15 11/23/17 History Biotin 5 mg PO QAM 05/13/16 11/23/17 History Gabapentin 300 mg PO QAM 05/13/16 11/23/17 History Aspirin EC [Ecotrin Low Dose] 81 mg PO BID 10/22/16 11/23/17 History Tiotropium Br/Olodaterol HCl 2 puff INHALATION RT-DAILY 03/30/17 11/23/17 History [Stiolto Respimat Inhal [place]] Cranberry Fruit Extract [Cranberry] 500 mg PO HS 05/15/17 11/23/17 History Furosemide [Lasix] 20 mg PO DAILY PRN 05/15/17 11/23/17 History Docusate [Colace] 100 - 200 mg PO DAILY PRN 09/28/17 11/23/17 History Gabapentin [Neurontin] 600 mg PO HS 09/28/17 11/23/17 History HYDROcodone/APAP 10-325MG [[place] 1 tab PO Q6H PRN 09/28/17 11/23/17 History 10-325] L.acidoph,Paracasei, B.lactis 1 cap PO QAM 09/28/17 11/23/17 History [Probiotic] Lisinopril 40 mg PO HS 09/28/17 11/23/17 History Diltiazem HCl [Cartia Xt] 240 mg PO QAM 10/08/17 11/23/17 History hydrALAZINE HCL [Apresoline] 25 mg PO BID #60 tab 10/13/17 11/23/17 Rx Donepezil [Aricept] 10 mg PO QAM 10/28/17 11/23/17 History Levofloxacin [Levaquin] 500 mg PO HS #10 tab 11/25/17 Rx Mirtazapine [Remeron] 15 mg PO HS #0 tab 11/25/17 Rx Mirtazapine [Remeron] 15 mg PO HS #30 tab 11/25/17 Rx Allergies Allergy/AdvReac Type Severity Reaction Status Date / Time bee venom protein (honey bee) Allergy Swelling Verified 11/23/17 16:46 cefuroxime Allergy Swelling Verified 11/23/17 16:46 metoprolol AdvReac Unknown Verified 11/23/17 16:46 mirabegron [From Myrbetriq] AdvReac Hallucinati Verified 11/23/17 16:46 ons zolpidem [From Ambien] AdvReac Confusion, Verified 11/23/17 16:46 blacked out and fell Surgical - Exam Vital Signs Temp Pulse Resp BP Pulse Ox 98.4 F 87 18 118/65 99 11/23/17 16:38 11/23/17 16:38 11/23/17 16:38 11/23/17 16:38 11/23/17 16:38 GENERAL APPEARANCE: Frail underweight thin female patient alert, oriented, in no acute distress. VITAL SIGNS: Reviewed HEENT: Head is normocephalic and atraumatic. Pupils are equal and reactive. The nares are patent. Oropharynx is clear without lesions. NECK: Supple without lymphadenopathy. Traches midline. HEART: S1, S2. Regular rate and rhythm. Denying chest pain no murmur noted LUNGS: No crackles or wheezes are heard. Adequate air movement no cough noted no conversational dyspnea noted ABDOMEN: Soft, flat nontender, nondistended with good bowel sounds. No peritoneal signs. No palpable organomegaly or masses. Tolerating a diet reports no nausea vomiting EXTREMITIES: Normal skin color and turgor. No cyanosis, rash, ulceration, clubbing or edema. Radial pedal pulses are 2/4 bilaterally. NEUROLOGICAL: No focal deficits. Strength and sensation are grossly intact. Results - Labs 11/24/17 07:16 11/24/17 07:16 Abnormal Lab Results - Last 24 Hours (Table) 11/23/17 11/23/17 11/23/17 Range/Units 16:50 21:08 21:15 Chloride 108 H (98-107) mmol/L BUN 18 H (7-17) mg/dL Glucose 137 H (74-99) mg/dL POC Glucose (mg/dL) 108 H (75-99) mg/dL Calcium (8.4-10.2) mg/dL Magnesium 1.5 L (1.6-2.3) mg/dL Total Protein (6.3-8.2) g/dL Albumin (3.5-5.0) g/dL Urine Protein Trace H (Negative) Ur Leukocyte Esterase Large H (Negative) Urine WBC 20 H (0-5) /hpf Urine Mucus Rare H (None) /hpf 11/24/17 11/24/17 11/24/17 Range/Units 07:13 07:16 11:22 Chloride 109 H (98-107) mmol/L BUN (7-17) mg/dL Glucose (74-99) mg/dL POC Glucose (mg/dL) 101 H 129 H (75-99) mg/dL Calcium 8.2 L (8.4-10.2) mg/dL Magnesium (1.6-2.3) mg/dL Total Protein 5.3 L (6.3-8.2) g/dL Albumin 2.8 L (3.5-5.0) g/dL Urine Protein (Negative) Ur Leukocyte Esterase (Negative) Urine WBC (0-5) /hpf Urine Mucus (None) /hpf Diabetes panel 11/23/17 11/24/17 Range/Units 16:50 07:16 Sodium 143 139 (137-145) mmol/L Potassium 4.0 4.2 (3.5-5.1) mmol/L Chloride 108 H 109 H (98-107) mmol/L Carbon Dioxide 22 22 (22-30) mmol/L BUN 18 H 17 (7-17) mg/dL Creatinine 0.70 0.60 (0.52-1.04) mg/dL Glucose 137 H 89 (74-99) mg/dL Calcium 9.4 8.2 L (8.4-10.2) mg/dL AST 15 15 (14-36) U/L ALT 16 18 (9-52) U/L Alkaline Phosphatase 69 60 (38-126) U/L Total Protein 6.5 5.3 L (6.3-8.2) g/dL Albumin 3.7 2.8 L (3.5-5.0) g/dL Calcium panel 11/23/17 11/24/17 Range/Units 16:50 07:16 Calcium 9.4 8.2 L (8.4-10.2) mg/dL Albumin 3.7 2.8 L (3.5-5.0) g/dL Pituitary panel 11/23/17 11/24/17 Range/Units 16:50 07:16 Sodium 143 139 (137-145) mmol/L Potassium 4.0 4.2 (3.5-5.1) mmol/L Chloride 108 H 109 H (98-107) mmol/L Carbon Dioxide 22 22 (22-30) mmol/L BUN 18 H 17 (7-17) mg/dL Creatinine 0.70 0.60 (0.52-1.04) mg/dL Glucose 137 H 89 (74-99) mg/dL Calcium 9.4 8.2 L (8.4-10.2) mg/dL Adrenal panel 11/23/17 11/24/17 Range/Units 16:50 07:16 Sodium 143 139 (137-145) mmol/L Potassium 4.0 4.2 (3.5-5.1) mmol/L Chloride 108 H 109 H (98-107) mmol/L Carbon Dioxide 22 22 (22-30) mmol/L BUN 18 H 17 (7-17) mg/dL Creatinine 0.70 0.60 (0.52-1.04) mg/dL Glucose 137 H 89 (74-99) mg/dL Calcium 9.4 8.2 L (8.4-10.2) mg/dL Total Bilirubin 0.3 0.2 (0.2-1.3) mg/dL AST 15 15 (14-36) U/L ALT 16 18 (9-52) U/L Alkaline Phosphatase 69 60 (38-126) U/L Total Protein 6.5 5.3 L (6.3-8.2) g/dL Albumin 3.7 2.8 L (3.5-5.0) g/dL Assessment and Plan Assessment: Impression Present on admission episode nausea with poor oral intake suspect clinical dehydration Computed tomography scan abdomen and pelvis indicate sigmoid diverticulosis with thickening of the sigmoid colon may relate to incomplete distention or mild colitis no evidence of a bowel obstruction Current every day smoker 1 pack a day Advanced stage COPD A right lung mass unsuccessful FNA attempt History of right breast cancer status post lumpectomy and radiation treatment Hypothyroid on supplements Essential hypertension Poor performance status suspect due to severe COPD Chronic constipation likely due to chronic opiate use Suspect early dementia with cognitive impairment short-term memory loss Plan No evidence of an acute surgical abdomen at this time IV fluid for hydration DVT and GI prophylaxis Colace 100 mg twice a day MiraLAX as ordered Further surgical recommendations pending will follow along with you Surgical consultation note dictated for Dr. Lundberg The above impression and plan of care have been discussed and directed by signing physician. Beverly Reyes nurse practitioner acting as scribe for signing physician. <Radha Lundberg - Last Filed: 11/25/17 19:29> Surgical - Exam Vital Signs Temp Pulse Resp BP Pulse Ox 98.4 F 87 18 118/65 99 11/23/17 16:38 11/23/17 16:38 11/23/17 16:38 11/23/17 16:38 11/23/17 16:38 Results - Labs 11/24/17 07:16 11/25/17 07:14 Abnormal Lab Results - Last 24 Hours (Table) 11/24/17 11/25/17 11/25/17 Range/Units 20:03 07:14 11:07 Chloride 114 H (98-107) mmol/L Carbon Dioxide 21 L (22-30) mmol/L POC Glucose (mg/dL) 127 H 117 H (75-99) mg/dL Total Protein 5.6 L (6.3-8.2) g/dL Albumin 3.0 L (3.5-5.0) g/dL Microbiology - Last 24 Hours (Table) 11/23/17 22:50 Blood Culture - Preliminary Blood No Growth after 24 hours Diabetes panel 11/25/17 Range/Units 07:14 Sodium 145 (137-145) mmol/L Potassium 3.8 (3.5-5.1) mmol/L Chloride 114 H (98-107) mmol/L Carbon Dioxide 21 L (22-30) mmol/L BUN 9 (7-17) mg/dL Creatinine 0.60 (0.52-1.04) mg/dL Glucose 86 (74-99) mg/dL Calcium 8.7 (8.4-10.2) mg/dL AST 14 (14-36) U/L ALT 19 (9-52) U/L Alkaline Phosphatase 58 (38-126) U/L Total Protein 5.6 L (6.3-8.2) g/dL Albumin 3.0 L (3.5-5.0) g/dL Calcium panel 11/25/17 Range/Units 07:14 Calcium 8.7 (8.4-10.2) mg/dL Albumin 3.0 L (3.5-5.0) g/dL Pituitary panel 11/25/17 Range/Units 07:14 Sodium 145 (137-145) mmol/L Potassium 3.8 (3.5-5.1) mmol/L Chloride 114 H (98-107) mmol/L Carbon Dioxide 21 L (22-30) mmol/L BUN 9 (7-17) mg/dL Creatinine 0.60 (0.52-1.04) mg/dL Glucose 86 (74-99) mg/dL Calcium 8.7 (8.4-10.2) mg/dL Adrenal panel 11/25/17 Range/Units 07:14 Sodium 145 (137-145) mmol/L Potassium 3.8 (3.5-5.1) mmol/L Chloride 114 H (98-107) mmol/L Carbon Dioxide 21 L (22-30) mmol/L BUN 9 (7-17) mg/dL Creatinine 0.60 (0.52-1.04) mg/dL Glucose 86 (74-99) mg/dL Calcium 8.7 (8.4-10.2) mg/dL Total Bilirubin 0.3 (0.2-1.3) mg/dL AST 14 (14-36) U/L ALT 19 (9-52) U/L Alkaline Phosphatase 58 (38-126) U/L Total Protein 5.6 L (6.3-8.2) g/dL Albumin 3.0 L (3.5-5.0) g/dL
[2017-11-24] MEDS: MULTIVITAMINS, THERA 1 EACH TAB PO SCH (13:44)
[2017-11-24 17:19] LABS: Glucose,Whole Blood 118 mg/dL (75-99)
--- NOTE | 2017-11-24 18:32 | P.CNPUL ---
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 patient also has a history of breast cancer patient has been found to have the right upper lobe anterior thoracic wall subpleural fibrotic lesion which over the period of time in last several years has been slowly getting bigger in size patient had [address]-guided biopsies as well as 1 bronchoscopy and transbronchial lung biopsy all 3 of them have been nondiagnostic my meeting with patient and her family last time 2 weeks ago conclusion was to monitor and observe her and not to repeat the biopsy however patient in the last few days have been not feeling very well she's complaining of abdominal discomfort and pain she has been nauseous and throwing up brought into emergency department further workup and evaluation includes a CAT scan which revealed worsening of size of the lesion as well as infiltrate around the area suspect component of aspiration pneumonia aspiration pneumonitis patient also being evaluated for small bowel obstruction as well as a general surgery on consult I've discussed with the patient and daughter at length plan is to treat with antibiotics and monitor observe no plans for biopsy at this point of time will treat pneumonia first with further recommendations pending as noted below Review of Systems All systems: negative Past Medical History Past Medical History: Coronary Artery Disease (CAD), Cancer, Chest Pain / Angina , COPD, Diabetes Mellitus, GERD/Reflux, Hyperlipidemia, Hypertension, Osteoarthritis (OA), Pneumonia, Thyroid Disorder Additional Past Medical History / Comment(s): R upper lung mass found 1 year ago -2 unsuccessful FNA, thyroid nodule, R breast cancer with 2 lumpectomies/ radiation, NIDDM type II, UTI, UTI with sepsis, memory loss, balance issues, arthritis multiple joints, back pain, sciatica bilaterally, R hip pain-sees Dr. Barnes for pain management, agent orange exposure in 2 or 1962. History of Any Multi-Drug Resistant Organisms: MRSA Date of last positivie culture/infection: 07/19/11 MDRO Source:: DaughterBrianda believes source was urine. Past Surgical History: Back Surgery, Cholecystectomy, Hysterectomy, Joint Replacement Additional Past Surgical History / Comment(s): FNA R lung unsuccessfull twice, thyroid bx, right knee replacement; Bowel Surgery d/t obstruction, 5 back surgeries, right breast cancer with 2 lumpectomies- radiation treatment, picc lines x2 with one surgically removed, bilateral cataract surgery with lens implants, colonoscopy. Past Anesthesia/Blood Transfusion Reactions: No Reported Reaction Past Psychological History: No Psychological Hx Reported, Depression Additional Psychological History / Comment(s): Pt has 2 of her daughters residing with her. Her jimBrianda is her caregiver. Pt ambulates with cane or walker. Her daughter takes her to [facility]. Pt has had depression since of her spouse. She has had suicidal thoughts in the past but none since Smoking Status: Current every day smoker Past Alcohol Use History: None Reported Additional Past Alcohol Use History / Comment(s): Pt started smoking in 1954 and smokes 1.5-2 ppd. Past Drug Use History: None Reported - Past Family History Father Family Medical History: Cancer Additional Family Medical History / Comment(s): Father of mesothelioma. Mother Family Medical History: No Reported History Additional Family Medical History / Comment(s): Pt's mother is 101 years old and fairly healthy Medications and Allergies Home Medications Medication Instructions Recorded Confirmed Type Baclofen 10 mg PO BID 05/03/15 11/23/17 History Diazepam [Valium] 5 - 7.5 mg PO HS PRN 05/03/15 11/23/17 History Meloxicam [Mobic] 7.5 mg PO QAM 05/03/15 11/23/17 History Multivitamins, Thera [Multivitamin 1 tab PO QAM 05/03/15 11/23/17 History (formulary)] Omeprazole [PriLOSEC] 20 mg PO QAM 05/03/15 11/23/17 History Simvastatin [Zocor] 40 mg PO HS 05/03/15 11/23/17 History metFORMIN HCL [Glucophage] 500 mg PO BID 05/03/15 11/23/17 History Biotin 5 mg PO QAM 05/13/16 11/23/17 History Gabapentin 300 mg PO QAM 05/13/16 11/23/17 History Aspirin EC [Ecotrin Low Dose] 81 mg PO BID 10/22/16 11/23/17 History Escitalopram [Lexapro] 5 mg PO HS 03/30/17 11/23/17 History Tiotropium Br/Olodaterol HCl 2 puff INHALATION RT-DAILY 03/30/17 11/23/17 History [Stiolto Respimat Inhal [place]] Cranberry Fruit Extract [Cranberry] 500 mg PO HS 05/15/17 11/23/17 History Furosemide [Lasix] 20 mg PO DAILY PRN 05/15/17 11/23/17 History Docusate [Colace] 100 - 200 mg PO DAILY PRN 09/28/17 11/23/17 History Gabapentin [Neurontin] 600 mg PO HS 09/28/17 11/23/17 History HYDROcodone/APAP 10-325MG [[place] 1 tab PO Q6H PRN 09/28/17 11/23/17 History 10-325] L.acidoph,Paracasei, B.lactis 1 cap PO QAM 09/28/17 11/23/17 History [Probiotic] Lisinopril 40 mg PO HS 09/28/17 11/23/17 History Diltiazem HCl [Cartia Xt] 240 mg PO QAM 10/08/17 11/23/17 History hydrALAZINE HCL [Apresoline] 25 mg PO BID #60 tab 10/13/17 11/23/17 Rx Donepezil [Aricept] 10 mg PO QAM 10/28/17 11/23/17 History Allergies Allergy/AdvReac Type Severity Reaction Status Date / Time bee venom protein (honey bee) Allergy Swelling Verified 11/23/17 16:46 cefuroxime Allergy Swelling Verified 11/23/17 16:46 metoprolol AdvReac Unknown Verified 11/23/17 16:46 [email or web address] [From Myrbetriq] AdvReac Hallucinati Verified 11/23/17 16:46 ons zolpidem [From Ambien] AdvReac Confusion, Verified 11/23/17 16:46 blacked out and fell Physical Exam Vitals: Vital Signs Temp Pulse Pulse Resp BP Pulse Ox 11/24/17 15:00 97.5 F L 73 16 146/75 11/24/17 07:00 97.9 F 82 16 126/81 98 11/23/17 22:38 98.1 F 73 16 141/65 97 Intake and Output 11/24/17 11/24/17 11/24/17 06:59 14:59 22:59 Intake Total 500 Balance 500 Intake: Oral 500 Other: Voiding Method Toilet # Voids 1 1 Weight 46 kg Limitations: no limitations General appearance: alert, in no apparent distress, cachectic Head exam: Present: atraumatic, normocephalic, normal inspection Eye exam: Present: normal appearance, PERRL, EOMI. Absent: scleral icterus, conjunctival injection, periorbital swelling ENT exam: Present: normal exam, normal oropharynx, mucous membranes moist, TM's normal bilaterally Neck exam: Present: normal inspection. Absent: tenderness, meningismus, lymphadenopathy Cardiovascular Exam: Present: regular rate, normal rhythm, normal heart sounds. Absent: systolic murmur, diastolic murmur, rubs, gallop, clicks GI/Abdominal exam: Present: soft, normal bowel sounds. Absent: distended, tenderness, guarding, rebound, rigid Back exam: Absent: CVA tenderness (R), CVA tenderness (L) Neurological exam: Present: alert, oriented X3, CN II-XII intact Skin exam: Present: warm, dry, intact, normal color. Absent: rash Results - Laboratory Findings CBC and BMP: 11/24/17 07:16 11/24/17 07:16 Abnormal lab findings: Abnormal Labs 11/23/17 11/23/17 11/23/17 16:50 21:08 21:15 Chloride 108 H BUN 18 H Glucose 137 H POC Glucose (mg/dL) 108 H Calcium Magnesium 1.5 L Total Protein Albumin Urine Protein Trace H Ur Leukocyte Esterase Large H Urine WBC 20 H Urine Mucus Rare H 11/24/17 11/24/17 11/24/17 07:13 07:16 11:22 Chloride 109 H BUN Glucose POC Glucose (mg/dL) 101 H 129 H Calcium 8.2 L Magnesium Total Protein 5.3 L Albumin 2.8 L Urine Protein Ur Leukocyte Esterase Urine WBC Urine Mucus 11/24/17 17:17 Chloride BUN Glucose POC Glucose (mg/dL) 118 H Calcium Magnesium Total Protein Albumin Urine Protein Ur Leukocyte Esterase Urine WBC Urine Mucus - Diagnostic Findings Chest x-ray: report reviewed, image reviewed CT scan - chest: report reviewed, image reviewed (Findings as noted above) Assessment and Plan Assessment: Right upper lobe pneumonia likely mixed bacterial and/or or gram-negative related to aspiration Small bowel obstruction with intermittent episodes of emesis ataxia and weight loss patient is being eval by general surgery Right upper lobe mass fibrotic subpleural with multiple biopsies has been negative slowly enlarging Severe COPD with exacerbation Generalized weakness medical debility cachexia and weight loss Abdominal discomfort and he misses Ileus/small bowel obstruction History of breast cancer status post right mastectomy and XRT Type 2 diabetes mellitus Plan: Continue gentle hydration Optimize nutritional support Continue home medications including antilipid agent and antihypertensive agents Broad-spectrum antibiotics Surgical evaluation Diabetes control Discussed with patient and daughter at length will proceed with treating pneumonia for now awaiting further recommendation and evaluation from general surgical standpoint Time with Patient: Greater than 30
[2017-11-24 20:04] LABS: Glucose,Whole Blood 127 mg/dL (75-99)
[2017-11-24] MEDS ORDERED: ESCITALOPRAM 5 MG TAB PO SCH (21:00)
[2017-11-24] MEDS ORDERED: MIRTAZAPINE 15 MG TAB PO SCH (21:00)
[2017-11-24] MEDS ORDERED: ATORVASTATIN 20 MG TAB PO SCH (21:00)
[2017-11-24] MEDS ORDERED: LISINOPRIL 20 MG TAB PO SCH (21:00)
[2017-11-24] MEDS ORDERED: POLYETHYLENE GLYCOL 3350 17 GM POWD.PACK PO SCH (21:00)
[2017-11-24] MEDS ORDERED: GABAPENTIN 300 MG CAP PO SCH (21:00)
[2017-11-24] MEDS: LEVOFLOXACIN 500MG-D5W PMX 500 MG in DEXTROSE/WATER 1 100ML.BAG IVPB SCH (21:04)
[2017-11-25 07:24] LABS: Glucose,Whole Blood 90 mg/dL (75-99)
[2017-11-25 07:32] VITALS: BP 134/62; PULSE 72; RESP 14; TEMP 97.2
[2017-11-25 07:55] LABS: ALT 19 U/L (9-52); AST 14 U/L (14-36); Alkaline Phosphatase 58 U/L (38-126); Anion Gap 10 mmol/L; Blood Urea Nitrogen 9 mg/dL (7-17); Calcium 8.7 mg/dL (8.4-10.2); Carbon Dioxide 21 mmol/L (22-30); Chloride 114 mmol/L (98-107); Glucose 86 mg/dL (74-99); Potassium 3.8 mmol/L (3.5-5.1); Sodium 145 mmol/L (137-145); Total Bilirubin 0.3 mg/dL (0.2-1.3); Total Protein 5.6 g/dL (6.3-8.2)
[2017-11-25] MEDS: SODIUM CHLORIDE 0.9% 1,000 ML IV SCH (08:06)
[2017-11-25] MEDS: ASPIRIN 81 MG PO SCH (08:30)
[2017-11-25] MEDS: metFORMIN 500 MG TAB PO SCH (08:30)
[2017-11-25] MEDS: BACLOFEN 10 MG TAB PO SCH (08:30)
[2017-11-25] MEDS: DONEPEZIL 10 MG TAB PO SCH (08:31)
[2017-11-25] MEDS: GABAPENTIN 300 MG CAP PO SCH (08:31)
[2017-11-25] MEDS: DILTIAZEM CD 240 MG CAP.ER.24H PO SCH (08:31)
[2017-11-25] MEDS: MELOXICAM 7.5 MG TAB PO SCH (08:32)
[2017-11-25] MEDS: hydrALAZINE HCL 25 MG TAB PO SCH (08:32)
[2017-11-25] MEDS: NICOTINE 21MG/24HR PATCH TRANSDERM SCH (08:34)
[2017-11-25] MEDS: PANTOPRAZOLE 40 MG TABLET PO SCH (08:34)
[2017-11-25] MEDS: LACTOBACILLUS ACIDOPH & BULGAR 1 EACH PACKET PO SCH (08:34)
[2017-11-25] MEDS ORDERED: DOCUSATE 100 MG CAP PO SCH (09:00)
[2017-11-25] MEDS: NON-FORMULARY DRUG (Tiotropium Br/Olodaterol Hcl [Stiolto Respimat Inhal Spray] 2 PUFF) INHALATION SCH (09:30)
[2017-11-25 11:09] LABS: Glucose,Whole Blood 117 mg/dL (75-99)
--- NOTE | 2017-11-25 11:56 | P.DS ---
Providers Date of admission: 11/23/17 19:18 Expected date of discharge: 11/25/17 Attending physician: Nicholas Manning MD Consults: 11/23/17 19:22 Consult Physician Stat Consulting Provider: Bowen Vera Consult Reason/Comments: Lung mass Do you want consulting provider notified?: Yes 11/24/17 11:07 Consult Physician Routine Consulting Provider: Radha Lundberg Consult Reason/Comments: ileus Do you want consulting provider notified?: Already Contacted Primary care physician: Rosalind Hernandez MD Hospital Course: 77-year-old female who presented to the emergency department because of weakness and not feeling well for several days duration. Patient had episodes of vomiting as well. She denied having any cough, fevers, chest pain or shortness of breath more than baseline although the patient has been coughing. She did have some shakes. Evaluation in the emergency department revealed normal vital signs, chest x-ray revealed COPD changes with further enlargement of the Known right upper lobe mass at 5.8 cm. she was evaluated by pulmonary service for this, apparently she had a extensive workup and several biopsies done for that mass in the past. Pulmonary did not think that any intervention is needed currently at this point. Clinically she was dehydrated. She was started on IV fluids for hydration. Patient has not been eating and drinking appropriately the last several weeks, her weight was low at 46 KG, BMI was 19.8 significant with moderate malnutrition. Patient was encouraged to eat and drink. I actually discontinued her Lexapro and started on Remeron to stimulate her appetite. She was diagnosed with acute exacerbation of obstructive pulmonary disease likely secondary to acute bronchitis. She was treated with Levaquin for that. No steroids were indicated because he was not significantly wheezing. CAT scan of the abdomen and pelvis done in the emergency room showed long segment thickening of the sigmoid colon that may be caused by incomplete distention or mild colitis, there was also sigmoid diverticulosis seen on the CT , there was no proximal obstruction evident but there was small bowel feces sign in the distal small bowel indicating either ileus or incompetence of the ileocecal valve. Patient was evaluated by general surgery, no acute finding was found and no surgery was indicated. Patient did have a bowel movement during the hospitalization and was passing gas. No recurrent episodes of nausea or vomiting was noticed. Discharge diagnoses COPD exacerbation caused by acute bronchitis Moderate malnutrition Known right upper lobe lung mass, increasing in size, no intervention needed according to pulmonary Patient was instructed to follow-up with her primary care physician as soon as possible after discharge. Time for discharge 35 minutes. Patient Condition at Discharge: Fair Plan - Discharge Summary Discharge Rx Participant: No New Discharge Prescriptions: New Levofloxacin [Levaquin] 500 mg PO HS #10 tab Mirtazapine [Remeron] 15 mg PO HS #30 tab Mirtazapine [Remeron] 15 mg PO HS #0 tab Continue Multivitamins, Thera [Multivitamin (formulary)] 1 tab PO QAM Baclofen 10 mg PO BID metFORMIN HCL [Glucophage] 500 mg PO BID Omeprazole [PriLOSEC] 20 mg PO QAM Simvastatin [Zocor] 40 mg PO HS Meloxicam [Mobic] 7.5 mg PO QAM Diazepam [Valium] 5 - 7.5 mg PO HS PRN PRN Reason: insomina Gabapentin 300 mg PO QAM Biotin 5 mg PO QAM Aspirin EC [Ecotrin Low Dose] 81 mg PO BID Tiotropium Br/Olodaterol HCl [Stiolto Respimat Inhal [place]] 2 puff INHALATION RT-DAILY Furosemide [Lasix] 20 mg PO DAILY PRN PRN Reason: SWELLING Cranberry Fruit Extract [Cranberry] 500 mg PO HS Docusate [Colace] 100 - 200 mg PO DAILY PRN PRN Reason: Constipation L.acidoph,Paracasei, B.lactis [Probiotic] 1 cap PO QAM HYDROcodone/APAP 10-325MG [[place] 10-325] 1 tab PO Q6H PRN PRN Reason: Pain Gabapentin [Neurontin] 600 mg PO HS Lisinopril 40 mg PO HS Diltiazem HCl [Cartia Xt] 240 mg PO QAM hydrALAZINE HCL [Apresoline] 25 mg PO BID #60 tab Donepezil [Aricept] 10 mg PO QAM Discontinued Escitalopram [Lexapro] 5 mg PO HS Discharge Medication List Baclofen 10 mg PO BID 05/03/15 [History] Diazepam [Valium] 5 - 7.5 mg PO HS PRN 05/03/15 [History] Meloxicam [Mobic] 7.5 mg PO QAM 05/03/15 [History] Multivitamins, Thera [Multivitamin (formulary)] 1 tab PO QAM 05/03/15 [History] Omeprazole [PriLOSEC] 20 mg PO QAM 05/03/15 [History] Simvastatin [Zocor] 40 mg PO HS 05/03/15 [History] metFORMIN HCL [Glucophage] 500 mg PO BID 05/03/15 [History] Biotin 5 mg PO QAM 05/13/16 [History] Gabapentin 300 mg PO QAM 05/13/16 [History] Aspirin EC [Ecotrin Low Dose] 81 mg PO BID 10/22/16 [History] Tiotropium Br/Olodaterol HCl [Stiolto Respimat Inhal [place]] 2 puff INHALATION RT -DAILY 03/30/17 [History] Cranberry Fruit Extract [Cranberry] 500 mg PO HS 05/15/17 [History] Furosemide [Lasix] 20 mg PO DAILY PRN 05/15/17 [History] Docusate [Colace] 100 - 200 mg PO DAILY PRN 09/28/17 [History] Gabapentin [Neurontin] 600 mg PO HS 09/28/17 [History] HYDROcodone/APAP 10-325MG [[place] 10-325] 1 tab PO Q6H PRN 09/28/17 [History] L.acidoph,Paracasei, B.lactis [Probiotic] 1 cap PO QAM 09/28/17 [History] Lisinopril 40 mg PO HS 09/28/17 [History] Diltiazem HCl [Cartia Xt] 240 mg PO QAM 10/08/17 [History] hydrALAZINE HCL [Apresoline] 25 mg PO BID #60 tab 10/13/17 [Rx] Donepezil [Aricept] 10 mg PO QAM 10/28/17 [History] Levofloxacin [Levaquin] 500 mg PO HS #10 tab 11/25/17 [Rx] Mirtazapine [Remeron] 15 mg PO HS #0 tab 11/25/17 [Rx] Mirtazapine [Remeron] 15 mg PO HS #30 tab 11/25/17 [Rx] Follow up Appointment(s)/Referral(s): Rosalnid Hernandez MD [Primary Care Provider] - 12/10/17 2:50 pm (patient will need to come 1/2 hour early for paperwork) Patient Instructions/Handouts: Levofloxacin (By mouth), Dehydration (DC), Hypomagnesemia (DC)
[2017-11-25] MEDS: MULTIVITAMINS, THERA 1 EACH TAB PO SCH (12:42)
--- NOTE | 2017-11-25 13:40 | P.PN ---
Subjective Progress Note Date: 11/25/17 Principal diagnosis: Right upper lobe pneumonia, right upper lobe fibrotic mass, ileus, cachexia and weight loss and malnutrition, severe COPD and emphysema, dementia, generalized weakness and medical debility, type 2 diabetes mellitus 11/25/2017, patient seen and evaluated examined care plan discussed with the primary service patient's daughter as well as patient at length her respiratory status stable she denies any abdominal pain no more nausea seen patient has been eval by surgical services, family elected to observe and monitor the right upper lobe mass patient will be reevaluated in outpatient setting 77-year-old female with end-stage lung disease secondary severe COPD emphysema patient also has a history of breast cancer patient has been found to have the right upper lobe anterior thoracic wall subpleural fibrotic lesion which over the period of time in last several years has been slowly getting bigger in size patient had [address]-guided biopsies as well as 1 bronchoscopy and transbronchial lung biopsy all 3 of them have been nondiagnostic my meeting with patient and her family last time 2 weeks ago conclusion was to monitor and observe her and not to repeat the biopsy however patient in the last few days have been not feeling very well she's complaining of abdominal discomfort and pain she has been nauseous and throwing up brought into emergency department further workup and evaluation includes a CAT scan which revealed worsening of size of the lesion as well as infiltrate around the area suspect component of aspiration pneumonia aspiration pneumonitis patient also being evaluated for small bowel obstruction as well as a general surgery on consult I've discussed with the patient and daughter at length plan is to treat with antibiotics and monitor observe no plans for biopsy at this point of time will treat pneumonia first with further recommendations pending as noted below Objective - Vital Signs Vital signs: Vital Signs Temp 97.2 F L 11/25/17 07:00 Pulse 72 11/25/17 07:00 Resp 14 11/25/17 09:08 BP 134/62 11/25/17 07:00 Pulse Ox 97 11/25/17 07:00 Intake & Output 11/24/17 11/25/17 11/25/17 18:59 06:59 18:59 Intake Total 500 Balance 500 Weight 46 kg Intake: Oral 500 Other: Voiding Method Toilet Toilet # Voids 1 2 - Exam Limitations: no limitations General appearance: alert, in no apparent distress, cachectic Head exam: Present: atraumatic, normocephalic, normal inspection Eye exam: Present: normal appearance, PERRL, EOMI. Absent: scleral icterus, conjunctival injection, periorbital swelling ENT exam: Present: normal exam, normal oropharynx, mucous membranes moist, TM's normal bilaterally Neck exam: Present: normal inspection. Absent: tenderness, meningismus, lymphadenopathy Cardiovascular Exam: Present: regular rate, normal rhythm, normal heart sounds. Absent: systolic murmur, diastolic murmur, rubs, gallop, clicks GI/Abdominal exam: Present: soft, normal bowel sounds. Absent: distended, tenderness, guarding, rebound, rigid Back exam: Absent: CVA tenderness (R), CVA tenderness (L) Neurological exam: Present: alert, oriented X3, CN II-XII intact Skin exam: Present: warm, dry, intact, normal color. Absent: rash - Labs CBC & Chem 7: 11/24/17 07:16 11/25/17 07:14 Labs: Abnormal Lab Results - Last 24 Hours (Table) 11/24/17 11/24/17 11/25/17 Range/Units 17:17 20:03 07:14 Chloride 114 H (98-107) mmol/L Carbon Dioxide 21 L (22-30) mmol/L POC Glucose (mg/dL) 118 H 127 H (75-99) mg/dL Total Protein 5.6 L (6.3-8.2) g/dL Albumin 3.0 L (3.5-5.0) g/dL 11/25/17 Range/Units 11:07 Chloride (98-107) mmol/L Carbon Dioxide (22-30) mmol/L POC Glucose (mg/dL) 117 H (75-99) mg/dL Total Protein (6.3-8.2) g/dL Albumin (3.5-5.0) g/dL Microbiology - Last 24 Hours (Table) 11/23/17 22:50 Blood Culture - Preliminary Blood No Growth after 24 hours Assessment and Plan Assessment: Right upper lobe pneumonia likely mixed bacterial and/or or gram-negative related to aspiration Small bowel obstruction with intermittent episodes of emesis ataxia and weight loss patient is being eval by general surgery, no surgical abdomen has been seen recommended for maximize medical therapy and management Right upper lobe mass fibrotic subpleural with multiple biopsies has been negative slowly enlarging Severe COPD with exacerbation Generalized weakness medical debility cachexia and weight loss Abdominal discomfort and he misses Ileus/small bowel obstruction History of breast cancer status post right mastectomy and XRT Type 2 diabetes mellitus Plan: Continue gentle hydration Optimize nutritional support Continue home medications including antilipid agent and antihypertensive agents Broad-spectrum antibiotics Surgical evaluation reviewed Diabetes control Discussed with patient and daughter at length will proceed with treating pneumonia for now awaiting further recommendation and evaluation from general surgical standpoint in case if patient is discharged to recommend follow-up in outpatient setting Time with Patient: Greater than 30
--- NOTE | 2017-11-25 19:31 | P.PN ---
Progress Note - Text Progress Note Date: 11/25/17 Patient was seen and evaluated. Patient's daughters at bedside. Patient denies any abdominal pain. Patient can follow up as needed. Agreeable with discharge.
[2017-11-25] MEDS ORDERED: LEVOFLOXACIN 500 MG TAB PO SCH (21:00)
== END 2017-11-25 13:30 | disposition home or self-care (01) ==
LOC: EC 16:24 → 5ONC 19:18
PROVIDERS: ADMIT Internal Medicine; ATTEND Internal Medicine
DX: J44.1 Chronic obstructive pulmonary disease with (acute) exacerbation (principal); J20.9 Acute bronchitis, unspecified; J44.0 Chronic obstructive pulmonary disease with (acute) lower respiratory infection; E46 Unspecified protein-calorie malnutrition; Z68.1 Body mass index [BMI] 19.9 or less, adult; R91.8 Other nonspecific abnormal finding of lung field; E86.0 Dehydration; E44.0 Moderate protein-calorie malnutrition; I25.10 Atherosclerotic heart disease of native coronary artery without angina pectoris; E11.9 Type 2 diabetes mellitus without complications; K21.9 Gastro-esophageal reflux disease without esophagitis; I10 Essential (primary) hypertension; M19.90 Unspecified osteoarthritis, unspecified site; R41.3 Other amnesia; M54.9 Dorsalgia, unspecified; Z91.030 Bee allergy status; M54.32 Sciatica, left side; M54.31 Sciatica, right side; M25.551 Pain in right hip; K56.7 Ileus, unspecified; K56.609 Unspecified intestinal obstruction, unspecified as to partial versus complete obstruction; F03.90 Unspecified dementia, unspecified severity, without behavioral disturbance, psychotic disturbance, mood disturbance, and anxiety; R64 Cachexia; J18.9 Pneumonia, unspecified organism; E78.5 Hyperlipidemia, unspecified; R09.02 Hypoxemia; J84.10 Pulmonary fibrosis, unspecified; F17.210 Nicotine dependence, cigarettes, uncomplicated; F32.9 Major depressive disorder, single episode, unspecified; E83.42 Hypomagnesemia; F41.9 Anxiety disorder, unspecified; R19.7 Diarrhea, unspecified; E03.9 Hypothyroidism, unspecified; K59.09 Other constipation; Z88.1 Allergy status to other antibiotic agents; Z92.3 Personal history of irradiation; Z87.01 Personal history of pneumonia (recurrent); Z85.3 Personal history of malignant neoplasm of breast; Z88.8 Allergy status to other drugs, medicaments and biological substances; Z79.899 Other long term (current) drug therapy; Z79.82 Long term (current) use of aspirin; Z79.84 Long term (current) use of oral hypoglycemic drugs; Z79.1 Long term (current) use of non-steroidal anti-inflammatories (NSAID); Z86.14 Personal history of Methicillin resistant Staphylococcus aureus infection; Z80.9 Family history of malignant neoplasm, unspecified; Z79.891 Long term (current) use of opiate analgesic; Z57.5 Occupational exposure to toxic agents in other industries
CPT/HCPCS: 99285; 96365 ×2; 96366; 96367; 36415; 93005; 80053 ×3; 82150; 83690; 83735; 84484; 85025 ×2; 81001; 87040; 71046; 74177; G0378 ×3; S4990 ×2; J1956 ×2; J3475; Q9967

== ENCOUNTER → 2018-01-13 | Outpatient (CLI) | payer MEDICARE ==
--- NOTE | 2018-01-13 13:50 | CT ---
EXAMINATION TYPE: CT chest wo con DATE OF EXAM: 01/13/2018 COMPARISON: 11/24/2017, 09/25/2017, 05/10/2017 HISTORY: 77-year-old female finding of lung field. TECHNIQUE: Contiguous axial scanning of the chest without IV contrast. Coronal and sagittal reconstru ctions performed. CT DLP: 121.1 mGycm Automated exposure control for dose reduction was used. FINDINGS: Heart is normal size without pericardial effusion. Extensive coronary vessel calcifications are prese nt in remarkable for coronary artery disease. Ascending aorta ectatic at 3.8 cm. Mild atherosclerotic arch calcifications with conventional arch ve ssel branching anatomy. Borderline ectatic upper descending thoracic aorta at 3.[address], no definite enlarging mediastinal lymph nodes are seen. Lymph nodes measure up to 9 mm in the right tracheobronchial angle region. Partially calcified nodule in the right breast is unchanged and was not hypermetabolic on patient's p rior head CT. Redemonstrated hypodense nodules in the thyroid gland, a 1.5 cm right thyroid nodule noted to be hot on PET has not significantly changed. Redemonstrated anterior right upper lobe spiculated mass. This measures 5.3 x 3.9 cm versus 3.3 x 2.8 cm, previously. This continues to abut and thickened the anterior pleural surface. Stable faint groundglass density superior segment left lower lobe could represent an area of adenomat ous hyperplasia. Strandy and dependent areas of atelectasis especially towards the lower lungs. No co nsolidation or pleural effusion. 1.9 cm cyst redemonstrated lateral left kidney. Cholecystectomy clips. 1.6 cm left adrenal nodule not significantly changed from 11/24/2017. Extensive artifact from the patient's lumbar fusion hardware. Bones: Degenerative changes throughout the visualized spine. No osseous destructive process seen. IMPRESSION: 1. PROGRESSIVE ENLARGEMENT OF THE IRREGULAR ANTERIOR RIGHT UPPER LOBE MASS CURRENTLY MEASURING 5.3 X 2.9 CM VERSUS 3.3 X 2.8 CM, PREVIOUSLY. 2. THIS CONTINUES TO ABUT AND THICKEN THE ANTERIOR PLEURAL SURFACE SUGGESTING SOME PLEURAL INVOLVEMEN T. 3. MEDIASTINAL LYMPH NODES MEASURE UP TO 9 MM. NO NEW OR ENLARGING MEDIASTINAL LYMPH NODES SEEN. 4. STABLE HYPODENSE NODULES IN THE THYROID GLAND, THE ONE ON THE RIGHT NOTED TO BE HOT ON THE PATIENT 'S 05/10/2017 PET/CT. 5. OVERALL STABLE SIZE OF THE LEFT ADRENAL NODULARITY AT 1.6 CM.
== END | disposition home or self-care (01) ==
LOC: RADCTMAIN 11:59
PROVIDERS: ATTEND Internal Medicine Sleep Medicine
DX: R91.8 Other nonspecific abnormal finding of lung field (principal)
CPT/HCPCS: 71250

== ENCOUNTER → 2018-04-08 | Outpatient (CLI) | payer MEDICARE ==
--- NOTE | 2018-04-08 08:26 | US ---
EXAMINATION TYPE: US thyroid st tissue head/neck DATE OF EXAM: 04/08/2018 COMPARISON: US thyroid October 07 2017, CT 2018 CLINICAL HISTORY: E04.2 Nontoxic multinodular goiter. GLAND SIZE: Right Lobe: 4.4x2.4 x 2.0 cm Overall Parenchyma: homogenous Left Lobe: 3.5 x 1.3 x 1.3 cm Overall Parenchyma: homogeneous Isthmus Thickness: 0.2 cm NODULES RIGHT: # of nodules measured on right: 1 1. 1.7 X 1.3 x 1.7 cm hypoechoic solid nodule at the mid pole with well-defined margins; . This no dule is taller than wide and shows intranodular vascularity. Prior size: 1.8 x 1.5 x 1.3 cm LEFT: # of nodules measured on left: 1 1. 2.4 X 1.2 x 1.3 cm solid nodule at the mid pole with well-defined margins; calcification. This nodule is wider than tall and shows intranodular vascularity. Prior size: 2.1 x 1.7x0.9 cm ISTHMUS: # of nodules measured in the isthmus: 0 Bilateral neck scanned, no evidence of lymphadenopathy. There is redemonstration of homogeneous normal-sized thyroid with bilateral stable solid nodules. No new nodules are evident. IMPRESSION: Overall stable findings, no significant interval change. No new suspicious nodules noted.
== END | disposition home or self-care (01) ==
LOC: RADUSWWP 06:51
PROVIDERS: ATTEND Internal Medicine Endocrinology, Diabetes & Metabolism
DX: E04.2 Nontoxic multinodular goiter (principal)
CPT/HCPCS: 76536

== ENCOUNTER → 2018-04-09 | Outpatient (CLI) | payer MEDICARE ==
[2018-04-09 11:45] LABS: Basophils % (A) 0 %; Eosinophils # (A) 0.5 k/uL (0-0.7); Eosinophils % (A) 7 %; HCT 42.8 % (34.0-46.0); HGB 14.5 gm/dL (11.4-16.0); Lymphocytes % (A) 15 %; MCH 30.4 pg (25.0-35.0); MCHC 33.7 g/dL (31.0-37.0); MCV 90.2 fL (80.0-100.0); Mean Platelet Volume 7.1; Monocytes # (A) 0.3 k/uL (0-1.0); Monocytes % (A) 5 %; Neutrophils # (A) 4.8 k/uL (1.3-7.7); Neutrophils % (A) 72 %; Platelet Count 294 k/uL (150-450); RBC 4.75 m/uL (3.80-5.40); RDW 13.6 % (11.5-15.5); WBC 6.6 k/uL (3.8-10.6)
[2018-04-09 12:07] LABS: C Reactive Protein 12.4 mg/L (<10.0); Calcium 9.6 mg/dL (8.4-10.2); Potassium 4.6 mmol/L (3.5-5.1)
[2018-04-09 13:22] LABS: Erythrocyte Sedimentation Rate 58 mm/hr (0-20)
== END | disposition home or self-care (01) ==
LOC: LABWHC1 10:55
PROVIDERS: ATTEND Internal Medicine Infectious Disease
DX: A31.0 Pulmonary mycobacterial infection (principal)
CPT/HCPCS: 36415; 80048; 85025; 85652; 86140

== ENCOUNTER → 2018-04-15 | Outpatient (CLI) | payer MEDICARE ==
--- NOTE | 2018-04-15 15:12 | CT ---
EXAMINATION TYPE: CT chest wo con DATE OF EXAM: 04/15/2018 COMPARISON: 01/13/2018 HISTORY: Lung mass CT DLP: [address] of the chest was performed with lung and mediastinal window settings submitted. The la ck of contrast limits evaluation of the vascular, mediastinal and parenchymal structures including th e upper abdomen. LUNGS: Again noted is a right upper lobe pleural-based mass anteriorly which has enlarged in size and currently measures 6.7 x 4.3 cm versus 5.3 x 3.3 cm. There is extension into the mediastinum on the right which is a new finding. No additional masses seen. Hyperinflation is noted compatible with COPD . Mild scattered subpleural fibrosis is identified. MEDIASTINUM/RODNEY: Right tracheobronchial adenopathy measuring 1.2 cm. Thoracic aorta is of normal ca liber with limited evaluation given lack of contrast. The heart is not enlarged. No evidence for me diastinal mass. No lymph nodes greater than 1cm. Thyroid nodularity noted. UPPER ABDOMEN: No significant abnormality is seen. OTHER: No significant other abnormality. IMPRESSION: 1. Progression of pleural-based right upper lobe mass with extension to the right suprahilar mediast inum. Tracheobronchial adenopathy noted.
== END | disposition home or self-care (01) ==
LOC: RADCTMAIN 14:26
PROVIDERS: ATTEND Internal Medicine Infectious Disease
DX: R91.8 Other nonspecific abnormal finding of lung field (principal); R59.0 Localized enlarged lymph nodes
CPT/HCPCS: 71250

== ENCOUNTER → 2018-06-19 | Outpatient (CLI) | payer MEDICARE ==
--- NOTE | 2018-06-22 10:41 | MM ---
Reason for exam: follow-up at short interval from prior study. Last mammogram was performed 8 months ago. History: Patient is postmenopausal and has history of breast cancer at age 57. Malignant lumpectomy of the right breast, October 04, 1998. Malignant stereotactic core biopsy of the right breast, September 19, 1998. Core biopsy of the right breast. Excisional biopsy of the right breast. Radiation therapy of the right breast. Took tamoxifen for 5 years beginning at age 58. Physical Findings: Nurse Summary: 3cm nodule in the right breast at 9 o'clock (nurse dw). MG 3D Diag Mammo W/Cad RT CC and MLO view(s) were taken of the right breast. Prior study comparison: October 27, 2017, bilateral MG 3d screening mammo w/cad. August 21, 2016, bilateral MG 3d screening mammo w/cad. Large stable benign appearing calcification correlates to palpable abnormality. Post operative distortion. These results were verbally communicated with the patient and result sheet given to the patient on 06/19/18. ASSESSMENT: Benign, BI-RAD 2 RECOMMENDATION: Return to routine screening mammogram schedule for both breasts. Back on schedule.
== END | disposition home or self-care (01) ==
LOC: RADMAMWWP 13:39
PROVIDERS: ATTEND Family Medicine
DX: N63.10 Unspecified lump in the right breast, unspecified quadrant (principal)
CPT/HCPCS: 77065; G0279; 77061

== ENCOUNTER → 2018-07-03 | Outpatient (CLI) | payer MEDICARE ==
[2018-07-03 14:49] VITALS: BP 109/68; PULSE 110; RESP 18; TEMP 98.4; BMI 19.9
--- NOTE | 2018-07-03 15:16 | P.GSHP ---
History of Present Illness H&P Date: 07/03/18 Chief Complaint: lump in her right breast The patient is a 77-year-old white female who states that she feels a lump in her right breast for the past 3 months. It has not changed in size. It is irritating to her but has not changed in size. She had right breast lumpectomy 15 years ago and had 32 radiation therapy treatments. She had a a right breast mammogram on [id number]. This revealed a large stable benign-appearing calcification correlating to palpable abnormality in the right breast. Her last bilateral mammogram was in October 2017. Her last bilateral mammogram was on 10-27-17, was felt to be benign breast changes. Family History: unknown Hormonal History: menarche:13 : 2, 2 children, breast fed: yes, first at 20 menopause: hysterectomy unsure of the age BCP: none hormones: ? Past surgical history: 1. For spinal fusions with 1 basket removal 2. Cholecystectomy 3. Breast cancer right with lumpectomy and radiation 4. Impacted bowel with the section removed 5. Right knee replacement 6. Partial hysterectomy with bladder suspension 7. Lens implants bilateral eyes Medical history: 1 osteoarthritis 2. Hypertension 3. Coronary artery disease 4. High cholesterol 5. Diabetes 6. Depression 7. Decreased hearing 8. Right possible lung tumor 9. Urinary tract infections 10. COPD 11. 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 Social history: Smokin/2 PPD alcohol: none drugs: none/marijuana in the past - Constitutional Constitutional: Denies chills, Denies fever - EENT Comment: lens implants, had cataracts Ears: bilateral: decreased hearing Ears, nose, mouth and throat: Denies headache, Denies sore throat - Breasts Breasts: bilateral: as per HPI - Cardiovascular Cardiovascular: Reports high blood pressure, Reports shortness of breath, Denies chest pain - Respiratory Comment: COPD - Gastrointestinal Comment: bowel resection Gastrointestinal: Reports vomiting, Denies abdominal pain, Denies diarrhea, Denies nausea - Genitourinary (Female) Genitourinary: Reports kidney stones - Menstruation Menstruation: Reports post hysterectomy - Musculoskeletal Comment: arthritis - Integumentary Integumentary: Reports pruritus, Denies rash - Neurological Neurological: Reports weakness, Denies numbness - Psychiatric Psychiatric: Denies anxiety, Denies depression - Endocrine Comment: type 2 diabetes Endocrine: Reports weight change - Hematologic/Lymphatic Comment: aspirin - Allergic/Immunologic Allergic/Immunologic: Reports seasonal allergies Past Medical History Past Medical History: Coronary Artery Disease (CAD), Cancer, Chest Pain / Angina , COPD, Diabetes Mellitus, GERD/Reflux, Hyperlipidemia, Hypertension, Osteoarthritis (OA), Pneumonia, Thyroid Disorder Additional Past Medical History / Comment(s): R upper lung mass found 1 year ago -2 unsuccessful FNA, thyroid nodule, R breast cancer with 2 lumpectomies/ radiation, NIDDM type II, UTI, UTI with sepsis, memory loss, balance issues, arthritis multiple joints, back pain, sciatica bilaterally, R hip pain-sees Dr. Barnes for pain management, agent orange exposure in 1961 or 1962. History of Any Multi-Drug Resistant Organisms: MRSA Date of last positivie culture/infection: 07/19/11 MDRO Source:: DaughterBrianda believes source was urine. Past Surgical History: Back Surgery, Cholecystectomy, Hysterectomy, Joint Replacement Additional Past Surgical History / Comment(s): FNA R lung unsuccessfull twice, thyroid bx, right knee replacement; Bowel Surgery d/t obstruction, 5 back surgeries, right breast cancer with 2 lumpectomies- radiation treatment, picc lines x2 with one surgically removed, bilateral cataract surgery with lens implants, colonoscopy. Past Anesthesia/Blood Transfusion Reactions: No Reported Reaction Past Psychological History: No Psychological Hx Reported, Depression Additional Psychological History / Comment(s): Pt has 2 of her daughters residing with her. Her jimBrianda is her caregiver. Pt ambulates with cane or walker. Her daughter takes her to appts. Pt has had depression since of her spouse. She has had suicidal thoughts in the past but none since 1969' Smoking Status: Current every day smoker Past Alcohol Use History: None Reported Additional Past Alcohol Use History / Comment(s): Pt started smoking in 1954 and smokes 1.5-2 ppd. Past Drug Use History: None Reported - Past Family History Father Family Medical History: Cancer Additional Family Medical History / Comment(s): Father of mesothelioma. Mother Family Medical History: No Reported History Additional Family Medical History / Comment(s): Pt's mother is 101 years old and fairly healthy Medications and Allergies Home Medications Medication Instructions Recorded Confirmed Type Baclofen 10 mg PO BID 05/03/15 11/23/17 History Diazepam [Valium] 5 - 7.5 mg PO HS PRN 05/03/15 11/23/17 History Meloxicam [Mobic] 7.5 mg PO QAM 05/03/15 11/23/17 History Multivitamins, Thera [Multivitamin 1 tab PO QAM 05/03/15 11/23/17 History (formulary)] Omeprazole [PriLOSEC] 20 mg PO QAM 05/03/15 11/23/17 History Simvastatin [Zocor] 40 mg PO HS 05/03/15 11/23/17 History metFORMIN HCL [Glucophage] 500 mg PO BID 05/03/15 11/23/17 History Biotin 5 mg PO QAM 05/13/16 11/23/17 History Gabapentin 300 mg PO QAM 05/13/16 11/23/17 History Aspirin EC [Ecotrin Low Dose] 81 mg PO BID 10/22/16 11/23/17 History Tiotropium Br/Olodaterol HCl 2 puff INHALATION RT-DAILY 03/30/17 11/23/17 History [Stiolto Respimat Inhal [place]] Cranberry Fruit Extract [Cranberry] 500 mg PO HS 05/15/17 11/23/17 History Furosemide [Lasix] 20 mg PO DAILY PRN 05/15/17 11/23/17 History Docusate [Colace] 100 - 200 mg PO DAILY PRN 09/28/17 11/23/17 History Gabapentin [Neurontin] 600 mg PO HS 09/28/17 11/23/17 History HYDROcodone/APAP 10-325MG [[place] 1 tab PO Q6H PRN 09/28/17 11/23/17 History 10-325] L.acidoph,Paracasei, B.lactis 1 cap PO QAM 09/28/17 11/23/17 History [Probiotic] Lisinopril 40 mg PO HS 09/28/17 11/23/17 History Diltiazem HCl [Cartia Xt] 240 mg PO QAM 10/08/17 11/23/17 History hydrALAZINE HCL [Apresoline] 25 mg PO BID #60 tab 10/13/17 11/23/17 Rx Donepezil [Aricept] 10 mg PO QAM 10/28/17 11/23/17 History Levofloxacin [Levaquin] 500 mg PO HS #10 tab 11/25/17 Rx Mirtazapine [Remeron] 15 mg PO HS #0 tab 11/25/17 Rx Mirtazapine [Remeron] 15 mg PO HS #30 tab 11/25/17 Rx Allergies Allergy/AdvReac Type Severity Reaction Status Date / Time bee venom protein (honey bee) Allergy Swelling Verified 07/03/18 14:37 cefuroxime Allergy Swelling Verified 07/03/18 14:37 metoprolol AdvReac Unknown Verified 07/03/18 14:37 mirabegron [From Myrbetriq] AdvReac Hallucinati Verified 07/03/18 14:37 ons zolpidem [From Ambien] AdvReac Confusion, Verified 07/03/18 14:37 blacked out and fell Surgical - Exam - General cachectic - Eyes normal ocular movement - ENT normal pinna - Neck trachea midline - Respiratory normal expansion, normal respiratory effort, clear to auscultation - Cardiovascular Rhythm: regular Heart Sounds: normal: S1, S2 - Abdomen Abdomen: soft - Integumentary dry skin - Musculoskeletal uses a cane - Psychiatric decreased memory oriented to time, oriented to person, oriented to place, speech is normal breast exam: Right breast: The right breast is approximately half the size of the left breast , there is a scar from prior lumpectomy, and the lateral aspect of the right breast is approximately a 3 cm firm mass Right axilla: No adenopathy of concern Left breast: Multi-positional exam no dominant masses or nodules of concern Left axilla: No adenopathy of concern Results Results of mammogram of the right breast, and bilateral mammogram from October 2017 reviewed Assessment and Plan Assessment: Impression: 1. Right breast palpable abnormality 2. Prior right breast cancer 3. Hypertension 4. Coronary artery disease 5. Osteoarthritis 6. Diabetes 7. Depression 8. High cholesterol 9. Possible tumor in the lungs 10. Mycobacterium length of flavum presently on antibiotic treatment for this 11. Decreased memory 12. History of UTIs in the past Plan: 1. Core biopsy of palpable abnormality in the right breast 2. Medical management of medical problems Risk and benefits of core biopsy discussed with the patient her daughter and this will be scheduled in the near future Cc: Dr. Hernandez, Dr. Vera pulmonary Dr. Hoffman infectious disease
== END | disposition home or self-care (01) ==
LOC: WWCWWP 14:24
PROVIDERS: ATTEND Surgery
DX: Z53.9 Procedure and treatment not carried out, unspecified reason (principal)

== ENCOUNTER → 2018-07-30 | Outpatient (CLI) | payer MEDICARE ==
[2018-07-30 15:27] VITALS: BP 66/49; PULSE 76; RESP 16; TEMP 97; BMI 17.6
--- NOTE | 2018-07-30 16:07 | P.PCN ---
Date of Procedure: 07/30/18 Preoperative Diagnosis: DN is a cachectic 77-year-old white female who presents for a core biopsy of the right breast in the upper outer quadrant area. Postoperative Diagnosis: same Procedure(s) Performed: Attempted core biopsy, changed to FNA Anesthesia: local Surgeon: Evangelina Felix Estimated Blood Loss (ml): 0 Pathology: other (Cytology from FNA of right breast) Condition: other (Cachectic female in poor health) Disposition: other (Patient wishes cores/FNA biopsy to be performed of lesion in the right breast but then has agreed to go to the emergency room secondary to hypotension and hypoxia) Indications for Procedure: Firm palpable mass right breast upper outer quadrant Operative Findings: Dense breast tissue right breast upper outer quadrant Description of Procedure: The patient is a 77-year-old white female with a firm mass in the upper outer quadrant of the right breast. This is in the vicinity of a prior breast cancer. It is suspicious for recurrence of cancer or a new breast cancer. The patient on today's evaluation preprocedure was noted to have a low brought blood pressure 78/52 and a heart rate of approximately 80 with O2 sats being 91. Her daughter states that her blood pressure typically runs in the 80s systolic. I discussed with the patient that the core biopsy and/or FNA could be omitted today however she wishes a diagnosis to be obtained. They've already been in conversation with the primary care doctor regarding possible hospice care. The area in the right breast was prepped using Betadine. 1% lidocaine was used to anesthetize the area of concern. Core biopsy needle was inserted towards the area of concern however the areas extremely dense upon firing the needle was noted that the needle bent and no tissue was obtained. There was no evidence of any bleeding or complication following this procedure. Therefore it was agreed to attempt to do a FNA of the area. Through the same area a 21-gauge needle was inserted it was able to be introduced into the firm tissue and multiple passes were placed and some tissue was obtained. It is uncertain whether this will be diagnostic or not. The tissue obtained from the FNA was prepared and sent to pathology. The patient tolerated the procedure in stable condition however condition was guarded upon arrival to the department. At this time she has been recommended to go to the emergency department. She will follow up here in 1 week. Cc: Dr. Hernandez
== END ==
LOC: WWCWWP 14:51
PROVIDERS: ATTEND Surgery
DX: N64.9 Disorder of breast, unspecified (principal)
CPT/HCPCS: 88173

== ENCOUNTER → 2018-08-06 | Outpatient (CLI) | payer MEDICARE ==
[2018-08-06 12:01] VITALS: BP 97/70; PULSE 98; RESP 16; TEMP 98.1; BMI 19.5
--- NOTE | 2018-08-06 12:39 | P.GSHP ---
History of Present Illness H&P Date: 08/06/18 Chief Complaint: right breast mass Mitzi is a 77-year-old white female who noted approximately 4 months ago an area of firmness which is very irritating in the right breast. The area is in the vicinity where she has had a prior lumpectomy and radiation therapy approximately 15 years ago for a right breast cancer. She did not have any chemotherapy. She did not have any anti-hormonal therapy either to her knowledge. The surgery was done at that time at [facility]. The patient presented initially with a firm mass in the right breast. Her mammogram showed dystrophic calcifications in this area. This area appears to be probably slightly increased in size. Additionally she had a CT of the chest which reveals an area of concern in the right lung which is highly suspicious for cancer. She was diagnosed with Mycobacterium Lentiflavum. She is on an antibiotic cocktail for this clarithromycin, levofloxacin, and rifampin. At this time no official diagnosis of cancer has been made. Family History: 1. father: lung cancer/mesothelioma Surgical History: 1. right breast lumpectomy 2. 4 spinal fusions 3. gallbladder 4. bowel resection 5. Right knee replacement 6. Partial hysterectomy with bladder suspension 7. Bilateral lens implants Past medical history: 1. Osteoarthritis 2. High cholesterol 3. COPD 4. Hypotension 5. Depression 6. Decreased hearing 7. Edentulous 8. Poor memory 9. MRSA treated in the past 11. tumor right lung 12. Mycobacterium on antibiotic treatment Social history: Smoke:1/2 PPD for 50 years used to smoke up to 2 packs per day Alcohol: Negative Drugs: Negative ROS: HEENT: Negative Lungs: As above Heart: Negative GI: Status post bowel resection, vomiting at times : History of urinary tract infections in the past Musculoskeletal: Knee replacement history of osteoarthritis Psychiatric: Depression Endocrine: Did have diabetes but lost weight and is no longer diabetic, on PET/ CT there was an nodule noted in the thyroid seen by DR. Mccormick and that is being followed HEENT - Constitutional Constitutional: Reports weight loss - EENT Eyes: denies blurred vision, denies pain Ears: bilateral: decreased hearing, deny: tinnitus (uses hearing aids) Ears, nose, mouth and throat: Denies headache, Denies sore throat - Breasts Breasts: bilateral: as per HPI - Cardiovascular Cardiovascular: Denies chest pain, Denies shortness of breath - Respiratory Comment: COPD, smoker Respiratory: Reports cough - Gastrointestinal Comment: bowel resection, - Genitourinary (Female) Genitourinary: Denies dysuria, Denies hematuria - Menstruation Menstruation: Reports postmenopausal - Musculoskeletal Musculoskeletal: Reports myalgias - Integumentary Integumentary: Denies pruritus, Denies rash - Neurological Neurological: Denies numbness, Denies weakness - Psychiatric Psychiatric: Reports depression - Endocrine Comment: prior diabetic - Hematologic/Lymphatic Comment: none - Allergic/Immunologic Allergic/Immunologic: Reports as per HPI Past Medical History Past Medical History: Coronary Artery Disease (CAD), Cancer, Chest Pain / Angina , COPD, Diabetes Mellitus, GERD/Reflux, Hyperlipidemia, Hypertension, Osteoarthritis (OA), Pneumonia, Thyroid Disorder Additional Past Medical History / Comment(s): R upper lung mass found 1 year ago -2 unsuccessful FNA, thyroid nodule, R breast cancer with 2 lumpectomies/ radiation, NIDDM type II, UTI, UTI with sepsis, memory loss, balance issues, arthritis multiple joints, back pain, sciatica bilaterally, R hip pain-sees Dr. Barnes for pain management, agent orange exposure in 1961 or 1962. History of Any Multi-Drug Resistant Organisms: MRSA Date of last positivie culture/infection: 07/19/11 MDRO Source:: DaughterBrianda believes source was urine. Past Surgical History: Back Surgery, Cholecystectomy, Hysterectomy, Joint Replacement Additional Past Surgical History / Comment(s): FNA R lung unsuccessfull twice, thyroid bx, right knee replacement; Bowel Surgery d/t obstruction, 5 back surgeries, right breast cancer with 2 lumpectomies- radiation treatment, picc lines x2 with one surgically removed, bilateral cataract surgery with lens implants, colonoscopy. Past Anesthesia/Blood Transfusion Reactions: No Reported Reaction Past Psychological History: No Psychological Hx Reported, Depression Additional Psychological History / Comment(s): Pt has 2 of her daughters residing with her. Her jimBiranda is her caregiver. Pt ambulates with cane or walker. Her daughter takes her to appts. Pt has had depression since of her spouse. She has had suicidal thoughts in the past but none since 1969's Smoking Status: Current every day smoker Past Alcohol Use History: None Reported Additional Past Alcohol Use History / Comment(s): Pt started smoking in 1953 and smokes 1.5-2 ppd. Past Drug Use History: None Reported - Past Family History Father Family Medical History: Cancer Additional Family Medical History / Comment(s): Father of mesothelioma. Mother Family Medical History: No Reported History Additional Family Medical History / Comment(s): Pt's mother is 101 years old and fairly healthy Medications and Allergies Home Medications Medication Instructions Recorded Confirmed Type Baclofen 10 mg PO BID 05/03/15 07/30/18 History Diazepam [Valium] 5 - 7.5 mg PO HS PRN 05/03/15 07/30/18 History Meloxicam [Mobic] 7.5 mg PO BID 05/03/15 07/30/18 History Multivitamins, Thera [Multivitamin 1 tab PO QAM 05/03/15 07/30/18 History (formulary)] Omeprazole [PriLOSEC] 10 mg PO QAM 05/03/15 07/30/18 History Simvastatin [Zocor] 40 mg PO HS 05/03/15 07/30/18 History metFORMIN HCL [Glucophage] 500 mg PO HS 05/03/15 07/30/18 History Biotin 5 mg PO QAM 05/13/16 07/30/18 History Aspirin EC [Ecotrin Low Dose] 81 mg PO BID 10/22/16 07/30/18 History Tiotropium Br/Olodaterol HCl 2 puff INHALATION RT-DAILY 03/30/17 07/30/18 History [Stiolto Respimat Inhal [place]] Cranberry Fruit Extract [Cranberry] 500 mg PO HS 05/15/17 07/30/18 History Furosemide [Lasix] 20 mg PO DAILY PRN 05/15/17 07/30/18 History Docusate [Colace] 100 - 200 mg PO HS PRN 09/28/17 07/30/18 History Gabapentin [Neurontin] 300 mg PO BID 09/28/17 07/30/18 History HYDROcodone/APAP 10-325MG [[place] 1 tab PO Q6H PRN 09/28/17 07/30/18 History 10-325] L.acidoph,Paracasei, B.lactis 1 cap PO QAM 09/28/17 07/30/18 History [Probiotic] Lisinopril 40 mg PO HS 09/28/17 07/30/18 History Diltiazem HCl [Cartia Xt] 240 mg PO QAM 10/08/17 07/30/18 History hydrALAZINE HCL [Apresoline] 25 mg PO BID #60 tab 10/13/17 07/30/18 Rx Donepezil [Aricept] 10 mg PO QAM 10/28/17 07/30/18 History Levofloxacin [Levaquin] 500 mg PO HS #10 tab 11/25/17 07/30/18 Rx Mirtazapine [Remeron] 15 mg PO HS #0 tab 11/25/17 07/30/18 Rx Cholecalciferol [Vitamin D3] 1,000 unit PO QAM 07/03/18 07/30/18 History Clarithromycin [Biaxin] 500 mg PO BID 07/03/18 07/30/18 History Rifampin [Rifadin] 300 mg PO DAILY 07/03/18 07/30/18 History Allergies Allergy/AdvReac Type Severity Reaction Status Date / Time bee venom protein (honey bee) Allergy Swelling Verified 07/03/18 14:37 cefuroxime Allergy Swelling Verified 07/03/18 14:37 metoprolol AdvReac Unknown Verified 07/03/18 14:37 mirabegron [From Myrbetriq] AdvReac Hallucinati Verified 07/03/18 14:37 ons zolpidem [From Ambien] AdvReac Confusion, Verified 07/03/18 14:37 blacked out and fell Surgical - Exam Vital Signs Temp Pulse Resp BP Pulse Ox 98.1 F 98 16 97/70 98 08/06/18 11:52 08/06/18 11:52 08/06/18 11:52 08/06/18 11:52 08/06/18 11:52 BMI 19.5 - General cachectic - Eyes normal ocular movement - ENT decreased hearing - Neck trachea midline - Respiratory normal respiratory effort, clear to auscultation - Cardiovascular Rhythm: regular Heart Sounds: normal: S1, S2 - Abdomen Abdomen: soft - Integumentary decreased turger - Neurologic no disoriented, no combative - Musculoskeletal wheel chair week to walk - Psychiatric oriented to time, oriented to person, oriented to place, speech is normal, memory intact breast exam: right breast: Status post lumpectomy, patient has firm approximately 2-2 and half centimeter nodule in the right breast upper outer quadrant area which has increased in size is irritating to the patient Right axilla: No adenopathy of concern Left breast: No dominant masses or nodules of concern of multiple positional exam Left axilla: No adenopathy of concern Results Computed tomography scan of chest and mammograms reviewed with radiology Assessment and Plan Assessment: Impression: 1. Computed tomography scan as well as PET scan showing area of concern in the right lung 2. Mycobacterium treated with antibiotics at this time 3. COPD 4. Hypotension 5. History of right breast cancer 6. Mass right breast FNA nondiagnostic, core biopsy needle bent to try to do a biopsy 7.thyroid nodule followed with endocrinology Plan: 1. Patient is going to follow with the infectious disease as well as pulmonology 2. Follow with Dr. Hernandez 3. We have discussed that at this time to treat the right breast lesion we would recommend some bleeding going to the operating room and excising this under local anesthesia with sedation the patient does wish this to be done despite the fact that we are uncertain of the etiology of the lung lesion secondary to the fact that the breast lesion is very irritating to her and it has been increasing in size. 4. We will await her appointment with medical oncology and Dr. Hernandez and depending on results of this schedule the resection in the near future Cc: Dr. Hernandez
== END | disposition home or self-care (01) ==
LOC: WWCWWP 11:12
PROVIDERS: ATTEND Surgery
DX: Z53.9 Procedure and treatment not carried out, unspecified reason (principal)

== ENCOUNTER → 2018-09-09 | Outpatient (CLI) | payer MEDICARE ==
--- NOTE | 2018-09-09 22:13 | CT ---
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 Coronal and sagittal reconstru ctions performed. CT DLP: 114.9 mGycm Automated exposure control for dose reduction was used. FINDINGS: Are normal size without pericardial effusion. Coronary vessel calcifications are present. Ascending aorta remains ectatic at 3.9 cm. Conventional vessel branching anatomy. Multiple hypodense thyroid nodules redemonstrated measuring up to 1.6 cm, unchanged from 01/13/2018. Numerous anterior pretracheal lymph nodes are prominent but not enlarged measuring up to 9 mm. There seems to be a precarinal lymph node which appears enlarged at 1.1 cm, increased from prior. Otherwise , assessment of hilar structures limited due to lack of IV contrast. There is new yovany cut off of the right upper lobe bronchus with new extensive right upper lobe opaci fication extending up to 9.4 x 8.1 cm versus 6.7 x 4.3 cm on 04/15/2018. Difficult to determine how mu ch of this represents underlying consolidation, atelectasis, or other abnormality like mass. Abnormal opacity extends from the hilum and right suprahilar region is extensively abut the right upper lobe pleural surface where there is new moth-eaten appearance to the anterior aspect of the right second r ib. There is suggestion of some underlying pleural-based fluid with air-fluid level along the anterom edial apex and tiny foci of air in the pleural space peripheral right upper lobe. There is also a sma [id number] right pleural effusion. Mild centrilobular emphysema. Groundglass focus measuring 1 cm superior segment left lower lobe is relatively stable but there is m ultiple new 4 mm nodularity throughout the left lung and additional foci in the right lower lung. New nodules measuring up to 5 mm on the right located within the middle lobe and measuring up to 1.9 and 0.8 cm on the left, located within the lingula, axial image 31 and 33. Possible additional left frank r nodule difficult to differentiate from adjacent vascular structures, axial image 27. Redemonstrated 1.9 cm cyst left kidney and indeterminate but stable 1.6 cm nodularity left adrenal gl and. A nonobstructive 2 mm right renal calculi along with cholecystectomy clips. Prominent artifacts related to the patient's lumbar spine fusion hardware and advanced degenerative d isc disease within the visualized lumbar spine. IMPRESSION: 1. MARKED INTERVAL PROGRESSION IN DISEASE. THERE IS NOW COMPLETE CUT OFF OF THE RIGHT UPPER LOBE BRON CHUS WITH ABNORMAL OPACITY INVOLVING THE RIGHT UPPER LOBE MEASURING UP TO 9.4 CM VERSUS 6.7 CM, PREVI OUSLY. THE ABNORMAL OPACITY EXTENDS FROM THE HILUM TO ABUT THE RIGHT UPPER LOBE PLEURAL SURFACE WITH NEW EROSIVE CHANGES INTO THE RIGHT ANTERIOR SECOND RIB. 2. SOME TINY FOCI OF PLEURAL-BASED AIR PERIPHERALLY IN THE RIGHT UPPER LOBE AND AN AIR-FLUID LEVEL IN THE ANTEROMEDIAL RIGHT UPPER LOBE COULD BE SECONDARY TO CAVITATION AND SUPERINFECTION. A SMALL COMPO NENT OF HYDROPNEUMOTHORAX IS DIFFICULT TO EXCLUDE. 3. THERE IS A LARGER MODERATE SIZED RIGHT PLEURAL EFFUSION WHICH IS NEW. 4. MULTIPLE BILATERAL NEW PULMONARY NODULES MEASURING UP TO 1.9 CM. 5. PRECARINAL LYMPH NODE INCREASED IN SIZE MEASURING 1.1 CM. ASSESSMENT OF RIGHT HILAR STRUCTURES VELA ITED DUE TO LACK OF IV CONTRAST.
== END | disposition home or self-care (01) ==
LOC: RADCTMAIN 15:54
PROVIDERS: ATTEND Internal Medicine Infectious Disease
DX: J90 Pleural effusion, not elsewhere classified (principal); R91.8 Other nonspecific abnormal finding of lung field; A31.8 Other mycobacterial infections
CPT/HCPCS: 71250

== ENCOUNTER → 2018-09-17 | Outpatient (CLI) | payer MEDICARE ==
[2018-09-17 13:07] VITALS: BP 86/63; PULSE 86; RESP 18; BMI 17.6
--- NOTE | 2018-09-17 13:19 | P.PN ---
Subjective Progress Note Date: 09/17/18 Principal diagnosis: Mitzi is a 77-year-old white female who noted approximately 4 months ago an area of firmness. Irritating in the right breast. This is in the vicinity where she had a prior lumpectomy and radiation therapy approximately 15 years ago for right breast cancer. Attempt at core biopsy bent the core biopsy needle was not successful. The patient has also got a history of a lung lesion suspicious for cancer which they were unable to biopsy. She was diagnosed with Mycobacterium Lentiflavum and is on an antibiotic regimen for this as per Dr. Wiseman. She is extremely high risk for surgery however the patient and her family wish this palpable mass to be excised. The patient states that it is painful. Family history: 1. Father: Lung cancer/mesothelioma Surgical history: 1. Right breast lumpectomy 2. For spinal fusions 3. Cholecystectomy 4. Bowel resection 5. Right knee replacement 6. Partial hysterectomy with bladder suspension 7. Bilateral lens implants Past medical history: 1. Rosario arthritis 2. High cholesterol 3. COPD 4. Hypertension 5. Depression 6. Decreased hearing 7. Edentulous 8. Poor memory 9. MRSA in the past 11. Tumor right lung 12. Mycobacterium on antibiotic treatment Social history: Smoked: Half a pack per day for 50 years used to smoke up to 2 packs per day Alcohol: Negative Drugs: Negative Review of systems: HEENT: Negative Lungs: As above Heart: Negative GI: Status post bowel resection : History of urinary tract infections in the past Musculoskeletal: Knee replacement history of osteoarthritis Psychiatric: Depression Endocrine: Diabetes but lost weight and is no longer diabetic Objective - Vital Signs Vital signs: Vital Signs Temp Pulse 86 09/17/18 12:54 Resp 18 09/17/18 12:54 BP 86/63 09/17/18 12:54 Pulse Ox 96 09/17/18 12:54 Intake & Output 09/16/18 09/17/18 09/17/18 18:59 06:59 18:59 Weight 90 kg - Constitutional General appearance: Present: thin - EENT Eyes: Present: EOMI ENT: Present: hearing grossly normal - Neck Neck: Present: normal ROM - Respiratory Details: Decreased breath sounds at the bases - Cardiovascular Rhythm: regular Heart sounds: normal: S1, S2 - Integumentary Integumentary Comment(s): Right breast: Firm mass upper outer quadrant region/extending to 12:00 region Right axilla: Shoddy adenopathy - Psychiatric Psychiatric: Present: A&O x's 3, appropriate affect Assessment and Plan Assessment: IMPRESSION 1. osteo arthritis 2. High cholesterol 3. COPD 4. Hypertension 5. Depression 6. Decreased hearing 7. Edentulous 8. Poor memory 9. MRSA in the past 11. Tumor right lung 12. Mycobacterium on antibiotic treatment 13. Right breast mass Plan: 1. Excision right breast mass with local and sedation failed attempted core biopsy 2. Medical management of medical conditions preoperative clearance from Dr. Hernandez 3. Medical clearance Dr. Vera pulmonology 3. Medical clearance from Dr. Wiseman infectious disease The risk and benefits of the procedure been discussed with the patient and her daughter. They understand she is very high risk but wished to proceed. CC: DR. Henrandez
== END ==
LOC: WWCWWP 12:44
PROVIDERS: ATTEND Surgery
DX: Z53.9 Procedure and treatment not carried out, unspecified reason (principal)

== ENCOUNTER 2018-09-28 19:52 | Inpatient (IN) | payer MEDICARE ==
[2018-09-28] MEDS ORDERED: SODIUM CHLORIDE 0.9% 1,000 ML IV STA (19:56)
--- NOTE | 2018-09-28 19:58 | ED ---
Weakness HPI - General Stated complaint: Weakness Source: RN notes reviewed, old records reviewed - History of Present Illness Initial comments: This is a 77-year-old female brought in for weakness and inability to ambulate inability to function with her activities of daily living. Patient himself denies any complaints, she is complains of severe weakness no appetite. MD Complaint: generalized weakness, lack of energy, difficulty walking -: days(s) Location: generalized Severity: severe Severity scale (1-10): 8 Consistency: constant Improves with: none Worsens with: movement, exertion Context: history of similar, depression Associated Symptoms: denies other symptoms - Related Data Home Medications Medication Instructions Recorded Confirmed Baclofen 10 mg PO HS 05/03/15 09/28/18 Meloxicam [Mobic] 7.5 mg PO BID 05/03/15 09/28/18 Omeprazole [PriLOSEC] 10 mg PO QAM 05/03/15 09/28/18 Aspirin EC [Ecotrin Low Dose] 81 mg PO BID 10/22/16 09/28/18 HYDROcodone/APAP 10-325MG [[place] 1 tab PO Q6H PRN 09/28/17 09/28/18 10-325] Donepezil [Aricept] 10 mg PO QAM 10/28/17 09/28/18 Clarithromycin [Biaxin] 500 mg PO BID 07/03/18 09/28/18 Rifampin [Rifadin] 300 mg PO DAILY 07/03/18 09/28/18 Fluticasone Nasal Mims [Flonase 1 spray EA NOSTRIL DAILY PRN 09/18/18 09/28/18 Nasal Mims] Gabapentin [Neurontin] 600 mg PO BID 09/18/18 09/28/18 Tiotropium Br/Olodaterol HCl 2 puff INHALATION DAILY 09/18/18 09/28/18 [Stiolto Respimat Inhal Mims] Previous Rx's Medication Instructions Recorded Levofloxacin [Levaquin] 500 mg PO HS #10 tab 11/25/17 Mirtazapine [Remeron] 15 mg PO HS #0 tab 11/25/17 Allergies Allergy/AdvReac Type Severity Reaction Status Date / Time bee venom protein (honey bee) Allergy Swelling Verified 09/28/18 20:40 cefuroxime Allergy Swelling Verified 09/28/18 20:40 metoprolol AdvReac Unknown Verified 09/28/18 20:40 [email or web address] [From Myrbetriq] AdvReac Hallucinati Verified 09/28/18 20:40 ons [email or web address] [From Ambien] AdvReac Confusion, Verified 09/28/18 20:40 blacked out and fell wasp Allergy Anaphylaxis Uncoded 09/28/18 20:03 Review of Systems ROS Statement: Those systems with pertinent positive or pertinent negative responses have been documented in the HPI. ROS Other: All systems not noted in ROS Statement are negative. Past Medical History Past Medical History: Coronary Artery Disease (CAD), Cancer, Chest Pain / Angina , COPD, Diabetes Mellitus, GERD/Reflux, Hyperlipidemia, Osteoarthritis (OA), Pneumonia, Thyroid Disorder Additional Past Medical History / Comment(s): R upper lung mass found 1 year ago -2 unsuccessful FNA, bronchoscopy with mycobacterium lentiflavum dx 12/[address] butler, thyroid nodule, R breast cancer with 2 lumpectomies/ radiation, NIDDM type II-diet controlled, HX:UTI, UTI with sepsis, memory loss, balance issues, arthritis multiple joints, back pain, sciatica bilaterally, R hip pain-sees Dr. Barnes for pain management, agent orange exposure in 1961 or 1962, thrush History of Any Multi-Drug Resistant Organisms: MRSA Date of last positivie culture/infection: 07/19/11 MDRO Source:: DaughterBrianda believes source was urine. Past Surgical History: Back Surgery, Bowel Resection, Cholecystectomy, Hysterectomy, Joint Replacement Additional Past Surgical History / Comment(s): FNA R lung unsuccessfull twice, thyroid bx, right knee replacement; Bowel Surgery d/t obstruction, 5 back surgeries, right breast cancer with 2 lumpectomies- radiation treatment, picc lines x2 with one surgically removed, bilateral cataract surgery with lens implants, colonoscopy.bronchoscopy, laser surgery sonny eyes Past Anesthesia/Blood Transfusion Reactions: Motion Sickness Smoking Status: Current every day smoker - Past Family History Father Family Medical History: Cancer Additional Family Medical History / Comment(s): Father of mesothelioma. Mother Family Medical History: No Reported History Additional Family Medical History / Comment(s): Pt's mother is 101 years old and fairly healthy General Exam General appearance: alert, in no apparent distress Head exam: Present: atraumatic, normocephalic, normal inspection Eye exam: Present: normal appearance, PERRL, EOMI. Absent: scleral icterus, conjunctival injection, periorbital swelling ENT exam: Present: normal exam, mucous membranes moist Neck exam: Present: normal inspection. Absent: tenderness, meningismus, lymphadenopathy Respiratory exam: Present: normal lung sounds bilaterally. Absent: respiratory distress, wheezes, rales, rhonchi, stridor Cardiovascular Exam: Present: regular rate, normal rhythm, normal heart sounds. Absent: systolic murmur, diastolic murmur, rubs, gallop, clicks GI/Abdominal exam: Present: soft, normal bowel sounds. Absent: distended, tenderness, guarding, rebound, rigid Extremities exam: Present: normal inspection, full ROM, normal capillary refill. Absent: tenderness, pedal edema, joint swelling, calf tenderness Back exam: Present: normal inspection Neurological exam: Present: alert, oriented X3, CN II-XII intact Psychiatric exam: Present: normal affect, normal mood Skin exam: Present: warm, dry, intact, normal color. Absent: rash Course Vital Signs 09/28/18 09/28/18 09/28/18 19:54 21:27 21:41 Temperature 97.9 F Pulse Rate 97 91 86 Pulse Rate [ Apical] Respiratory 17 21 Rate Blood Pressure 143/86 132/78 Blood Pressure [Right Arm Supine] O2 Sat by Pulse 94 L 100 Oximetry 09/28/18 09/29/18 09/29/18 22:58 00:22 01:21 Temperature Pulse Rate 901 H 89 84 Pulse Rate [ Apical] Respiratory 20 19 18 Rate Blood Pressure 136/77 139/89 125/78 Blood Pressure [Right Arm Supine] O2 Sat by Pulse 98 100 97 Oximetry 09/29/18 09/29/18 09/29/18 03:48 05:36 07:00 Temperature Pulse Rate 86 89 Pulse Rate [ 101 H Apical] Respiratory 18 20 26 H Rate Blood Pressure 124/76 127/88 Blood Pressure 116/76 [Right Arm Supine] O2 Sat by Pulse 94 L 96 93 L Oximetry 09/29/18 09/29/18 09/29/18 07:03 08:40 08:49 Temperature Pulse Rate 81 86 88 Pulse Rate [ Apical] Respiratory 18 Rate Blood Pressure 131/96 Blood Pressure [Right Arm Supine] O2 Sat by Pulse 94 L Oximetry 02/01/1009/29/18 09/29/18 11:51 12:00 15:00 Temperature 97.3 F L Pulse Rate 92 86 Pulse Rate [ 95 Apical] Respiratory 12 24 Rate Blood Pressure Blood Pressure 124/88 [Right Arm Supine] O2 Sat by Pulse 96 Oximetry 09/29/18 09/29/18 15:25 15:27 Temperature Pulse Rate 86 Pulse Rate [ Apical] Respiratory 12 Rate Blood Pressure Blood Pressure [Right Arm Supine] O2 Sat by Pulse Oximetry EKG Findings - EKG Comments: EKG Findings:: EKG shows has sinus rhythm at 96, FL 1:30, QRS 84, QTc 464 Medical Decision Making - Medical Decision Making 77 female the ER for evaluation, patient on antibiotics for lung bacterial infection. Patient had a persistent weakness diarrhea weight loss. Patient be admitted for continued IV antibiotics and resuscitation a she has multiple electrolyte abnormalities - Lab Data Result diagrams: 09/28/18 20:25 09/29/18 07:58 Lab Results 09/28/18 09/28/18 09/28/18 Range/Units 20:03 20:25 20:25 WBC 9.2 (3.8-10.6) k/uL RBC 3.89 (3.80-5.40) m/uL Hgb 11.8 (11.4-16.0) gm/dL Hct 36.4 (34.0-46.0) % MCV 93.6 (80.0-100.0) fL MCH 30.3 (25.0-35.0) pg MCHC 32.4 (31.0-37.0) g/dL RDW 13.8 (11.5-15.5) % Plt Count 300 (150-450) k/uL Neutrophils % 87 % Lymphocytes % 6 % Monocytes % 4 % Eosinophils % 3 % Basophils % 0 % Neutrophils # 7.9 H (1.3-7.7) k/uL Lymphocytes # 0.5 L (1.0-4.8) k/uL Monocytes # 0.4 (0-1.0) k/uL Eosinophils # 0.3 (0-0.7) k/uL Basophils # 0.0 (0-0.2) k/uL PT (9.0-12.0) sec INR (<1.2) APTT (22.0-30.0) sec Sodium (137-145) mmol/L Potassium (3.5-5.1) mmol/L Chloride (98-107) mmol/L Carbon Dioxide (22-30) mmol/L Anion Gap mmol/L BUN (7-17) mg/dL Creatinine (0.52-1.04) mg/dL Est GFR (CKD-EPI)AfAm (>60 ml/min/1.73 sqM) Est GFR (CKD-EPI)NonAf (>60 ml/min/1.73 sqM) Glucose (74-99) mg/dL POC Glucose (mg/dL) 130 H (75-99) mg/dL POC Glu [place] ID Tima, Sandi Plasma Lactic Acid Farshad (0.7-2.0) mmol/L Calcium (8.4-10.2) mg/dL Phosphorus (2.5-4.5) mg/dL Magnesium (1.6-2.3) mg/dL Total Bilirubin (0.2-1.3) mg/dL AST (14-36) U/L ALT (9-52) U/L Alkaline Phosphatase (38-126) U/L Total Creatine Kinase 134 (30-135) U/L CK-MB (CK-2) 2.8 H (0.0-2.4) ng/mL CK-MB (CK-2) Rel Index 2.1 Troponin I <0.012 (0.000-0.034) ng/mL Total Protein (6.3-8.2) g/dL Albumin (3.5-5.0) g/dL TSH (0.465-4.680) mIU/L 09/28/18 09/28/18 09/28/18 Range/Units 20:25 20:25 20:25 WBC (3.8-10.6) k/uL RBC (3.80-5.40) m/uL Hgb (11.4-16.0) gm/dL Hct (34.0-46.0) % MCV (80.0-100.0) fL MCH (25.0-35.0) pg MCHC (31.0-37.0) g/dL RDW (11.5-15.5) % Plt Count (150-450) k/uL Neutrophils % % Lymphocytes % % Monocytes % % Eosinophils % % Basophils % % Neutrophils # (1.3-7.7) k/uL Lymphocytes # (1.0-4.8) k/uL Monocytes # (0-1.0) k/uL Eosinophils # (0-0.7) k/uL Basophils # (0-0.2) k/uL PT 11.3 (9.0-12.0) sec INR 1.1 (<1.2) APTT 24.6 (22.0-30.0) sec Sodium 139 (137-145) mmol/L Potassium 4.0 (3.5-5.1) mmol/L Chloride 110 H (98-107) mmol/L Carbon Dioxide 19 L (22-30) mmol/L Anion Gap 10 mmol/L BUN 21 H (7-17) mg/dL Creatinine 0.56 (0.52-1.04) mg/dL Est GFR (CKD-EPI)AfAm >90 (>60 ml/min/1.73 sqM) Est GFR (CKD-EPI)NonAf 89 (>60 ml/min/1.73 sqM) Glucose 128 H (74-99) mg/dL POC Glucose (mg/dL) (75-99) mg/dL POC Glu [place] ID Plasma Lactic Acid Farshad 1.3 (0.7-2.0) mmol/L Calcium 8.7 (8.4-10.2) mg/dL Phosphorus 3.1 (2.5-4.5) mg/dL Magnesium 1.5 L (1.6-2.3) mg/dL Total Bilirubin 0.5 (0.2-1.3) mg/dL AST 18 (14-36) U/L ALT 19 (9-52) U/L Alkaline Phosphatase 64 (38-126) U/L Total Creatine Kinase (30-135) U/L CK-MB (CK-2) (0.0-2.4) ng/mL CK-MB (CK-2) Rel Index Troponin I (0.000-0.034) ng/mL Total Protein 5.6 L (6.3-8.2) g/dL Albumin 2.9 L (3.5-5.0) g/dL TSH 3.550 (0.465-4.680) mIU/L Disposition Clinical Impression: UTI (urinary tract infection), Hypomagnesemia, Dehydration, Elevated d-dimer, Dyspnea, Weakness Disposition: ADMITTED IP TO THIS HOSP Condition: Fair Is patient prescribed a controlled substance at d/c from ED?: No
[2018-09-28 20:05] LABS: Glucose,Whole Blood 130 mg/dL (75-99)
[2018-09-28 20:49] LABS: Basophils % (A) 0 %; Eosinophils # (A) 0.3 k/uL (0-0.7); Eosinophils % (A) 3 %; HCT 36.4 % (34.0-46.0); HGB 11.8 gm/dL (11.4-16.0); Lymphocytes # (A) 0.5 k/uL (1.0-4.8); Lymphocytes % (A) 6 %; MCH 30.3 pg (25.0-35.0); MCHC 32.4 g/dL (31.0-37.0); MCV 93.6 fL (80.0-100.0); Mean Platelet Volume 6.4; Monocytes # (A) 0.4 k/uL (0-1.0); Monocytes % (A) 4 %; Neutrophils # (A) 7.9 k/uL (1.3-7.7); Neutrophils % (A) 87 %; Platelet Count 300 k/uL (150-450); RBC 3.89 m/uL (3.80-5.40); RDW 13.8 % (11.5-15.5); WBC 9.2 k/uL (3.8-10.6)
[2018-09-28 20:58] LABS: INR 1.1 (<1.2); Partial Thromboplastin Time 24.6 sec (22.0-30.0); Prothrombin Time 11.3 sec (9.0-12.0)
[2018-09-28 20:59] LABS: ALT 19 U/L (9-52); AST 18 U/L (14-36); Albumin 2.9 g/dL (3.5-5.0); Alkaline Phosphatase 64 U/L (38-126); Anion Gap 10 mmol/L; Blood Urea Nitrogen 21 mg/dL (7-17); Calcium 8.7 mg/dL (8.4-10.2); Carbon Dioxide 19 mmol/L (22-30); Chloride 110 mmol/L (98-107); Glucose 128 mg/dL (74-99); Magnesium 1.5 mg/dL (1.6-2.3); Phosphorus 3.1 mg/dL (2.5-4.5); Sodium 139 mmol/L (137-145); Total Bilirubin 0.5 mg/dL (0.2-1.3); Total Protein 5.6 g/dL (6.3-8.2)
[2018-09-28 21:08] LABS: Creatine Kinase 134 U/L (30-135)
[2018-09-28 21:21] LABS: Creatine Kinase MB 2.8 ng/mL (0.0-2.4); Troponin I <0.012 ng/mL (0.000-0.034)
[2018-09-28] MEDS ORDERED: methylPREDNISolone SOD SUCCI 125 MG/2 ML VIAL IV STA (21:26)
[2018-09-28] MEDS ORDERED: IPRATROPIUM-ALBUTEROL 3 ML NEB INHALATION STA (21:26)
[2018-09-28] MEDS: MAGNESIUM SULFATE-D5W PMX 1 GM in DEXTROSE/WATER 1 100ML.BAG IVPB SCH ×2 (21:44→22:49)
[2018-09-28] MEDS: SODIUM CHLORIDE 0.9% 1,000 ML IV SCH (21:44)
[2018-09-29 02:51] LABS: Appearance,Urine Cloudy (Clear); Bacteria,Urine Occasional /hpf; Bilirubin,Urine 1+ (Negative); Blood,Urine Small (Negative); Color,Urine Yellow; Glucose,Urine (UA) Negative (Negative); Ketones,Urine 2+ (Negative); Leukocyte Esterase,Urine Large (Negative); Mucus,Urine Rare /hpf; Nitrite,Urine Negative (Negative); Protein,Urine 1+ (Negative); RBC,Urine 3 /hpf (0-5); Specific Gravity,Urine 1.023 (1.001-1.035); Squamous Epithelial Cell,Urine 8 /hpf (0-4); WBC,Urine 8 /hpf (0-5)
[2018-09-29] MEDS: methylPREDNISolone SOD SUCCI 125 MG/2 ML VIAL IV SCH ×2 (06:00→09:31)
--- NOTE | 2018-09-29 06:50 | P.HPIM ---
History of Present Illness H&P Date: 09/29/18 Chief Complaint: Debility and generalized weakness This 77-year-old female with history of COPD right breast cancer. 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 She is following up with Dr. Hoffman She reports that she is compliant with medications. She was also found to have a lung mass that has been progressive in size most recent CAT scan August 2018 showed size of 5.4 cm with erosive changes and some right pleural effusion. She had 2 unsuccessful FNA biopsies. Patient was also found to have right breast mass with failed core biopsy she's been following up with general surgery. Patient was brought in yesterday due to progressive weakness and debility along with decreased by mouth intake. Per the family she has not had a urine output for few hours and there were concerns regarding dehydration. No reports of diarrhea or any positive bowel movements no report of hemoptysis denies any chest pain or trouble breathing patient denies any specific complaints just feeling her body is falling apart she's getting very weak. She denies any headache changes in her vision or hearing. She denies any new onset focal neurologic deficits. She voices a lot of concerns regarding her right breast mass due to history of breast cancer. She reports that she's been compliant with her medications as she is getting assistance from her daughter. In the emergency department she was found to have some component of dehydration and hypomagnesemia which is being replaced. No other specific complaints were noticed EKG was unremarkable QTc interval was within normal range despite being on multiple medications that can prolong QTc interval. Patient admitted for supportive care and reevaluation regarding goals of therapy. Patient will possibly benefit from placement at short-term rehab. Patient family was thought available at time of interview. And I did not feel the patient can make full decisions regarding goals of therapy at this time and she requested to be a full code. Review of Systems Pertinent positives as noted in HPI. All other systems were reviewed and are negative Past Medical History Past Medical History: Coronary Artery Disease (CAD), Cancer, Chest Pain / Angina , COPD, Diabetes Mellitus, GERD/Reflux, Hyperlipidemia, Osteoarthritis (OA), Pneumonia, Thyroid Disorder Additional Past Medical History / Comment(s): R upper lung mass found 1 year ago -2 unsuccessful FNA, bronchoscopy with mycobacterium lentiflavum dx 12/[address] hoffman, thyroid nodule, R breast cancer with 2 lumpectomies/ radiation, NIDDM type II-diet controlled, HX:UTI, UTI with sepsis, memory loss, balance issues, arthritis multiple joints, back pain, sciatica bilaterally, R hip pain-sees Dr. Barnes for pain management, agent orange exposure in 1961 or 1962, thrush History of Any Multi-Drug Resistant Organisms: MRSA Date of last positivie culture/infection: 07/19/11 MDRO Source:: Daughter, Brianda believes source was urine. Past Surgical History: Back Surgery, Bowel Resection, Cholecystectomy, Hysterectomy, Joint Replacement Additional Past Surgical History / Comment(s): FNA R lung unsuccessfull twice, thyroid bx, right knee replacement; Bowel Surgery d/t obstruction, 5 back surgeries, right breast cancer with 2 lumpectomies- radiation treatment, picc lines x2 with one surgically removed, bilateral cataract surgery with lens implants, colonoscopy.bronchoscopy, laser surgery sonny eyes Past Anesthesia/Blood Transfusion Reactions: Motion Sickness Smoking Status: Current every day smoker - Past Family History Father Family Medical History: Cancer Additional Family Medical History / Comment(s): Father of mesothelioma. Mother Family Medical History: No Reported History Additional Family Medical History / Comment(s): Pt's mother is 101 years old and fairly healthy Medications and Allergies Home Medications Medication Instructions Recorded Confirmed Type Baclofen 10 mg PO HS 05/03/15 09/28/18 History Meloxicam [Mobic] 7.5 mg PO BID 05/03/15 09/28/18 History Omeprazole [PriLOSEC] 10 mg PO QAM 05/03/15 09/28/18 History Aspirin EC [Ecotrin Low Dose] 81 mg PO BID 10/22/16 09/28/18 History HYDROcodone/APAP 10-325MG [Becket 1 tab PO Q6H PRN 09/28/17 09/28/18 History 10-325] Donepezil [Aricept] 10 mg PO QAM 10/28/17 09/28/18 History Levofloxacin [Levaquin] 500 mg PO HS #10 tab 11/25/17 09/28/18 Rx Mirtazapine [Remeron] 15 mg PO HS #0 tab 11/25/17 09/28/18 Rx Clarithromycin [Biaxin] 500 mg PO BID 07/03/18 09/28/18 History Rifampin [Rifadin] 300 mg PO DAILY 07/03/18 09/28/18 History Fluticasone Nasal Disney [Flonase 1 spray EA NOSTRIL DAILY PRN 09/18/18 09/28/18 History Nasal Disney] Gabapentin [Neurontin] 600 mg PO BID 09/18/18 09/28/18 History Tiotropium Br/Olodaterol HCl 2 puff INHALATION DAILY 09/18/18 09/28/18 History [Stiolto Respimat Inhal Disney] Allergies Allergy/AdvReac Type Severity Reaction Status Date / Time bee venom protein (honey bee) Allergy Swelling Verified 09/28/18 20:40 cefuroxime Allergy Swelling Verified 09/28/18 20:40 metoprolol AdvReac Unknown Verified 09/28/18 20:40 mirabegron [From Myrbetriq] AdvReac Hallucinati Verified 09/28/18 20:40 ons zolpidem [From Ambien] AdvReac Confusion, Verified 09/28/18 20:40 blacked out and fell wasp Allergy Anaphylaxis Uncoded 09/28/18 20:03 Physical Exam Vitals: Vital Signs Temp Pulse Resp BP Pulse Ox 09/29/18 05:36 89 20 127/88 96 09/29/18 03:48 86 18 124/76 94 L 09/29/18 01:21 84 18 125/78 97 09/29/18 00:22 89 19 139/89 100 09/28/18 22:58 901 H 20 136/77 98 09/28/18 21:41 86 09/28/18 21:27 91 21 132/78 100 09/28/18 19:54 97.9 F 97 17 143/86 94 L Intake and Output 09/28/18 09/28/18 09/29/18 14:59 22:59 06:59 Other: Weight 44.906 kg Constitutional: No acute distress, conversant, pleasant, cachectic looks very old Eyes: Anicteric sclerae, moist conjunctiva, no lid-lag Pupils equal round reactive to light ENMT: NC/AT Oropharynx clear, dry mucous membranes, no erythema, no exudates Neck: Supple, FROM, no masses, or JVD No carotid bruits No thyromegaly Lungs: Good breath sounds overall clear to auscultation no wheezes rhonchi or rales, decreased breath sounds over right lower lung Clear to percussion Normal respiratory effort, no accessory muscle use Cardiovascular: Heart regular in rate and rhythm, No murmurs, gallops, or rubs No peripheral edema Abdominal: Soft, scaphoid abdomen Nontender, no guarding, rebound or rigidity Abdomen moving with respiration Normoactive bowel sounds No hepatomegaly, No splenomegaly No palpable mass No abdominal wall hernia noted Skin: Slightly delayed skin turgor, Normal temperature, tone, texture No induration No subcutaneous nodules No rash, lesions No ulcers Extremities: No digital cyanosis No clubbing Pedal pulses intact and symmetrical Radial pulses intact and symmetrical No calf tenderness Psychiatric: Alert and oriented to person, initially was confused about the place not to time Depressed affect fair judgment Neuro Muscles Strength 3/5 in all 4 extremities Sensation to light touch grossly present throughout Cranial nerves II-XII grossly intact No focal sensory deficits Lymphatics: no palpable cervical or supraclavicular , lymph nodes During my examination interview patient was having very very brief moments where she seems to be confused looking for her daughter or brother but she would be easily reoriented Results CBC & Chem 7: 09/28/18 20:25 09/28/18 20:25 Labs: Abnormal Lab Results - Last 24 Hours (Table) 09/28/18 09/28/18 09/28/18 Range/Units 20:03 20:25 20:25 Neutrophils # 7.9 H (1.3-7.7) k/uL Lymphocytes # 0.5 L (1.0-4.8) k/uL Chloride (98-107) mmol/L Carbon Dioxide (22-30) mmol/L BUN (7-17) mg/dL Glucose (74-99) mg/dL POC Glucose (mg/dL) 130 H (75-99) mg/dL Magnesium (1.6-2.3) mg/dL CK-MB (CK-2) 2.8 H (0.0-2.4) ng/mL Total Protein (6.3-8.2) g/dL Albumin (3.5-5.0) g/dL Urine Appearance (Clear) Urine Protein (Negative) Urine Ketones (Negative) Urine Blood (Negative) Urine Bilirubin (Negative) Ur Leukocyte Esterase (Negative) Urine WBC (0-5) /hpf Ur Squamous Epith Cells (0-4) /hpf Urine Bacteria (None) /hpf Urine Mucus (None) /hpf 09/28/18 09/29/18 Range/Units 20:25 02:40 Neutrophils # (1.3-7.7) k/uL Lymphocytes # (1.0-4.8) k/uL Chloride 110 H (98-107) mmol/L Carbon Dioxide 19 L (22-30) mmol/L BUN 21 H (7-17) mg/dL Glucose 128 H (74-99) mg/dL POC Glucose (mg/dL) (75-99) mg/dL Magnesium 1.5 L (1.6-2.3) mg/dL CK-MB (CK-2) (0.0-2.4) ng/mL Total Protein 5.6 L (6.3-8.2) g/dL Albumin 2.9 L (3.5-5.0) g/dL Urine Appearance Cloudy H (Clear) Urine Protein 1+ H (Negative) Urine Ketones 2+ H (Negative) Urine Blood Small H (Negative) Urine Bilirubin 1+ H (Negative) Ur Leukocyte Esterase Large H (Negative) Urine WBC 8 H (0-5) /hpf Ur Squamous Epith Cells 8 H (0-4) /hpf Urine Bacteria Occasional H (None) /hpf Urine Mucus Rare H (None) /hpf Assessment and Plan Assessment: 77-year-old female with history of breast cancer.admitted as an inpatient with anticipated length of stay more than 2 days due to dehydration and generalized weakness and poor by mouth intake. Patient is known to have a progressive lung mass and a right breast mass that has failed biopsy. Patient does not have any specific complaint this time but she feels that she is progressively getting debilitated and weak. Family brought her due to decreased urine output and by mouth intake Plan: Generalized debility Dehydration Supportive care with IV fluid hydration Monitor renal function and urine output Hypomagnesemia replace magnesium follow-up levels Chronic conditions Progressive right lung mass concerning for cancer, patient denies any hemoptysis at this time or difficulty breathing Right breast mass felt core biopsy, patient denies any nipple discharge COPD currently compensated Hypertension currently controlled Depression Hyperlipidemia Arthritis Memory loss, some component of mild cognitive impairment DVT prophylaxis heparin subcu 3 times a day Preformed a thorough record review from recent hospitalization patient was hospitalized last year in November for COPD exacerbation, otherwise she's been following up with general surgery regarding right breast mass Surrogate decision-maker: Patient daughter Brianda CODE STATUS: Full code per the patient Discussed with: Patient, ER, *RN Anticipated discharge: 48-[address]: Patient will most likely require to be placed at the subacute rehab for short-term A total of 60 minutes was spent on the care of this complex patient more than 50 % of the time was spent in counseling and care coordination.
[2018-09-29] MEDS ORDERED: FLUTICASONE 50MCG/SPRAY NASAL 16GM EA NOSTRIL PRN (07:00)
[2018-09-29] MEDS: IPRATROPIUM-ALBUTEROL 3 ML NEB INHALATION SCH ×4 (08:40→21:44)
[2018-09-29 08:42] LABS: Anion Gap 10 mmol/L; Blood Urea Nitrogen 19 mg/dL (7-17); Calcium 8.5 mg/dL (8.4-10.2); Carbon Dioxide 20 mmol/L (22-30); Chloride 112 mmol/L (98-107); Glucose 143 mg/dL (74-99); Sodium 142 mmol/L (137-145)
[2018-09-29] MEDS: RIFAMPIN 300 MG CAP PO SCH (09:30)
[2018-09-29] MEDS: GABAPENTIN 300 MG CAP PO SCH ×2 (09:30→20:28)
[2018-09-29] MEDS: ENOXAPARIN 40 MG/0.4 ML SYRINGE SQ SCH (09:31)
[2018-09-29] MEDS: DONEPEZIL 10 MG TAB PO SCH (09:31)
[2018-09-29] MEDS: ASPIRIN 81 MG PO SCH ×2 (09:32→20:28)
[2018-09-29] MEDS: SODIUM CHLORIDE 0.9% 1,000 ML IV SCH ×3 (09:32→20:36)
[2018-09-29] MEDS: PANTOPRAZOLE 40 MG TABLET PO SCH (09:32)
[2018-09-29] MEDS: CLARITHROMYCIN 500 MG TAB PO SCH ×2 (11:03→20:28)
--- NOTE | 2018-09-29 11:23 | P.PN ---
Progress Note - Text Progress Note Date: 09/29/18 Briefly this is a 77-year-old female admitted with generalized weakness and dehydration and poor oral intake. She is a history of progressive lung mass and a right breast mass with previously failed biopsy. Patient was found to be debilitated and hypomagnesemic. This was replaced, the patient reported being previously ambulatory with a walker. She reports that her daughter Brianda who is her surrogate decision maker resides with her. Seen in follow-up. Regular diet, PT OT and dietitian consult requested. Continue current treatment plan
[2018-09-29] MEDS: NON-FORMULARY DRUG (Tiotropium Br/Olodaterol Hcl [Stiolto Respimat Inhal Spray] 2 PUFF) INHALATION SCH (14:28)
[2018-09-29 15:27] VITALS: BMI 14.6
[2018-09-29] MEDS: MIRTAZAPINE 15 MG TAB PO SCH (20:28)
[2018-09-29] MEDS: LEVOFLOXACIN 500 MG TAB PO SCH (20:28)
[2018-09-30] MEDS: IPRATROPIUM-ALBUTEROL 3 ML NEB INHALATION SCH ×4 (07:11→19:10)
[2018-09-30] MEDS: PANTOPRAZOLE 40 MG TABLET PO SCH (07:39)
[2018-09-30] MEDS: CLARITHROMYCIN 500 MG TAB PO SCH ×2 (07:39→20:45)
[2018-09-30] MEDS: ASPIRIN 81 MG PO SCH ×2 (07:39→20:44)
[2018-09-30] MEDS: DONEPEZIL 10 MG TAB PO SCH (07:39)
[2018-09-30] MEDS: ENOXAPARIN 40 MG/0.4 ML SYRINGE SQ SCH (07:39)
[2018-09-30] MEDS: RIFAMPIN 300 MG CAP PO SCH (07:40)
[2018-09-30] MEDS: GABAPENTIN 300 MG CAP PO SCH ×2 (07:42→20:45)
[2018-09-30] MEDS ORDERED: DRONABINOL 2.5 MG CAP PO ONE (11:31)
--- NOTE | 2018-09-30 12:31 | P.PN ---
Subjective Progress Note Date: 09/30/18 Principal diagnosis: The patient is a 77-year-old female with a past medical history of right breast mass and COPD, currently on therapy with Levaquin and clarithromycin and rifampin directed by Dr. Hoffman for ongoing Mycobacterium lentiflavum and that was admitted for debility and failure to thrive. Apparently the patient has had unsuccessful attempts by Dr. Vera to have biopsies of right sided pulmonary nodule, and has had unsuccessful right breast mass biopsy by Dr. Stan Garcia. The patient is apparently had ongoing issues with her weight and appetite and per her daughter Brianda has weighed approximately 90 pounds for quite some time. Daughter complains of the patient having a black tongue and has apparently undergone swish and swallow treatment directed by . Under the guidance of her PCP Dr. Hernandez and the family is currently contemplating hospice and actually had a home visit 09/29/17 but was unable to be seen by hospice and she was hospitalized here. On admission the patient was noted to be mildly hypomagnesemic, this was replaced. The patient was seen by dietary and in short 3 times a day. Patient's daughter reports the patient was previously ambulatory with a walker and has had physical therapy previously with [facility]. The patient was also seen by physical therapy Patient seen and examined, somnolent but arousable. States that she is hungry and has not attempted to eat this morning, no acute events overnight. Patient made DO NOT RESUSCITATE yesterday Objective - Vital Signs Vital signs: Vital Signs Temp 97.1 F L 09/30/18 06:17 Pulse 78 09/30/18 11:07 Resp 17 09/30/18 08:00 BP 144/84 09/30/18 06:17 Pulse Ox 98 09/30/18 06:17 Intake & Output 09/29/18 09/30/18 09/30/18 18:59 06:59 18:59 Intake Total 860 50 Balance 860 50 Weight 44.906 kg Intake: Intake, IV Titration 500 Amount Sodium Chloride 0.9% 1, 500 000 ml @ 100 mls/hr IV . Q10H DEIRDRE Rx#:[id number] Oral 360 50 Other: Voiding Method Diaper Diaper Diaper Incontinent Incontinent Incontinent # Voids 2 2 - Exam Constitutional: Somnolent but arousable, cachectic Eyes: Anicteric sclerae, moist conjunctiva, no lid-lag, PERRLA ENMT: NC/AT,Oropharynx clear, no erythema, exudates Neck:Supple, FROM, no masses, or JVD, No carotid bruits; No thyromegaly Lungs: Clear to auscultation, Clear to percussion, Normal respiratory effort, no accessory muscle use Cardiovascular: Heart regular in rate and rhythm, No murmurs, gallops, or rubs no peripheral edema Abdominal: Soft Nontender, nom distended, no guarding, no rebound or rigidity, Normoactive bowel sounds No hepatomegaly, No splenomegaly, No palpable mass No abdominal wall hernia noted Skin: Normal temperature, tone, texture, turgor, No induration No subcutaneous nodules, No rash, lesions, No ulcers Extremities:No digital cyanosis No clubbing, Pedal pulses intact and symmetrical Radial pulses intact and symmetrical Normal gait and station, No calf tenderness Psychiatric: Alert and oriented to person, place and time, Appropriate affect Intact judgement Neuro: Muscles Strength 5/5 in all 4 extremities, Sensation to light touch grossly present throughout, Cranial nerves II-XII grossly intact. No focal sensory deficits - Labs CBC & Chem 7: 09/28/18 20:25 09/29/18 07:58 Labs: Microbiology - Last 24 Hours (Table) 09/29/18 02:40 Urine Culture - Final Urine,Voided Assessment and Plan (1) Debility Current Visit: Yes Status: Acute Code(s): R53.81 - OTHER MALAISE SNOMED Code(s): 97234654 (2) Failure to thrive Narrative/Plan: * Appreciate dietary recommendations continue with Ensure 3 times a day with meals * Patient only eating 25% of meals at present * We'll add Marinol 2.5 milligrams by mouth twice a day to stimulate appetite Current Visit: Yes Status: Acute Code(s): MDH5686 - SNOMED Code(s): 06339967 (3) Hypomagnesemia Current Visit: Yes Status: Resolved Code(s): E83.42 - HYPOMAGNESEMIA SNOMED Code(s): 080962405 (4) Weakness Narrative/Plan: * Awaiting physical therapy even Current Visit: Yes Status: Acute Code(s): R53.1 - WEAKNESS SNOMED Code(s) : 52343403 (5) Black tongue Narrative/Plan: * Tongue saw cleaner 3 times a day * oral care * consult ID for recs Current Visit: Yes Status: Acute Code(s): K14.3 - HYPERTROPHY OF TONGUE PAPILLAE SNOMED Code(s): 07055692 Plan: Disposition anticipated discharge tomorrow continue antibiotics for treatment of Mycobacterium infection
[2018-09-30 14:50] VITALS: RESP 16
[2018-09-30] MEDS: SODIUM CHLORIDE 0.9% 1,000 ML IV SCH ×2 (15:09→20:45)
[2018-09-30] MEDS: NON-FORMULARY DRUG (Tiotropium Br/Olodaterol Hcl [Stiolto Respimat Inhal Spray] 2 PUFF) INHALATION SCH (15:09)
[2018-09-30] MEDS: DRONABINOL 2.5 MG CAP PO SCH (16:13)
[2018-09-30] MEDS: LEVOFLOXACIN 500 MG TAB PO SCH (20:45)
[2018-09-30] MEDS: MIRTAZAPINE 15 MG TAB PO SCH (20:45)
--- NOTE | 2018-10-01 00:41 | CONS ---
CONSULTATION DATE OF SERVICE: 09/30/2018. REASON FOR CONSULTATION: infection. HISTORY OF PRESENT ILLNESS: The patient is a 77-year-old female who did have a bronchoscopy with cultures and those were finalized as mycobacterium . Subsequently the patient has been started about 3 weeks ago with a combination of Levofloxacin, Clindamycin and rifampin. The patient has been tolerating therapy. The patient was seen in the office a few days ago with a repeat CT scan was ordered which did show overall progressive and erosive changes. Patient apparently per the nursing staff and the hospice. However, she was brought into the ER at [facility] on 09/28/2018 for evaluation of weakness and inability to ambulate, unable to function with her activities of daily living. The patient denies any complaints. The patient was noticed to be dehydrated and subsequently has been admitted in the hospital for hydration. The patient's hemoglobin and white count has been normal, did have a UA that was slightly positive. The urine cultures remain negative. The patient has been continued on her triple antibiotic therapy with Levaquin, rifampin and Erythromycin. I was asked to see the patient today for followup. Most of the information has been obtained from review of the chart, as the patient is currently lethargic and sleepy and unable to provide any history. However, the nursing staff did mention that she has been able to take her pills and responds to the nursing staff. REVIEW OF SYSTEMS: Could not be reliably obtained. The positive points have been mentioned in HPI. PAST MEDICAL HISTORY: Coronary artery disease, pneumonia, hypothyroidism, hypertension, hyperlipidemia, diabetes mellitus, COPD, right upper lung mass with bronchoscopy, culture positive for mycobacterium . PAST SURGICAL HISTORY: Cholecystectomy, hysterectomy, bowel resection, fine needle aspiration, bronchoscopy, colonoscopy, bilateral cataract surgery with lens implant. SOCIAL HISTORY: The patient is currently an everyday smoker. No drinking or drug use. FAMILY HISTORY: Father . Mother of old age . ALLERGIES: METOPROLOL, ZYLOPRIM, . MEDICATION: The patient is currently on clarithromycin 5 mg b.i.d. She is on Aricept, Lovenox, Flonase, Neurontin, Levaquin, Remeron, Protonix and Marinol. PHYSICAL EXAMINATION: On examination, blood pressure is 119/67 with a pulse of 97, temperature 98.2. She is 91% on 2 L nasal cannula. General description is an elderly female lying in bed in no distress. No tachypnea or accessory muscles of respiration use. HEENT: Shows slight pallor. No scleral icterus. Oral mucosa membranes are dry. No erythema or thrush. Neck trachea central. No thyromegaly. Lungs unlabored breathing. Clear to auscultation anteriorly. No wheeze or crackles. Heart S1, S2. Regular rate and rhythm. Abdomen is soft, no tenderness. No guarding or rigidity. Extremities: No edema feet. Skin examination: No rash or mass palpable. NEUROLOGICAL: Patient is sleepy, lethargic. Orientation could not be determined. LABS: Hemoglobin 11.8, white count 9.2, BUN of 19, creatinine 0.58. UA positive, urine culture has been negative. No chest x-ray was done this admission. DIAGNOSTIC IMPRESSION AND PLAN: 1. Patient admitted to the hospital with dehydration in this patient who does have lung disease with prior culture was however the patient did have treatment for the same she was noticed to have progressive worsening. Apparently per the patient and nursing staff, she was in the outpatient setting in hopes of hospice placement for her. 2. The patient currently with dry in the tongue, but no evidence of any oral thrush. Will benefit from local care. PLAN: 1. The patient to continue with treatment for her mycobacterium infection with erythromycin . However, when the patient is transitioned to hospice, those antibiotics can be safely discontinued. 2. Patient with dry skin mostly from dehydration. care was discussed with nursing staff. 3. We will follow up on the patient here in the hospital and adjust medication if needed. Thank you for the consultation. MMTKL / MICHELLEN: [id number] /
[2018-10-01] MEDS: IPRATROPIUM-ALBUTEROL 3 ML NEB INHALATION SCH ×3 (07:14→15:53)
[2018-10-01] MEDS: ASPIRIN 81 MG PO SCH (07:43)
[2018-10-01] MEDS: RIFAMPIN 300 MG CAP PO SCH (07:43)
[2018-10-01] MEDS: PANTOPRAZOLE 40 MG TABLET PO SCH (07:43)
[2018-10-01] MEDS: ENOXAPARIN 40 MG/0.4 ML SYRINGE SQ SCH (07:43)
[2018-10-01] MEDS: CLARITHROMYCIN 500 MG TAB PO SCH (07:43)
[2018-10-01] MEDS: NON-FORMULARY DRUG (Tiotropium Br/Olodaterol Hcl [Stiolto Respimat Inhal Spray] 2 PUFF) INHALATION SCH (07:44)
[2018-10-01] MEDS: DONEPEZIL 10 MG TAB PO SCH (07:44)
[2018-10-01] MEDS: DRONABINOL 2.5 MG CAP PO SCH (07:44)
[2018-10-01] MEDS: GABAPENTIN 300 MG CAP PO SCH (07:49)
[2018-10-01] MEDS: SODIUM CHLORIDE 0.9% 1,000 ML IV SCH (11:48)
--- NOTE | 2018-10-01 13:32 | P.DS ---
Providers Date of admission: 09/28/18 21:26 Expected date of discharge: 10/01/18 Attending physician: Kristin Gutierrez MD Consults: 09/30/18 14:39 Consult Physician Routine Consulting Provider: Eduardo Hoffman Consult Reason/Comments: Mycobacterium infection/black tongue/failure to thrivecontemplating hospice Do you want consulting provider notified?: Yes Primary care physician: Rosalind Hernandez MD - Discharge Diagnosis(es) (1) Debility Current Visit: Yes Status: Acute (2) Failure to thrive Current Visit: Yes Status: Acute (3) Hypomagnesemia Current Visit: Yes Status: Resolved (4) Weakness Current Visit: Yes Status: Acute (5) Black tongue Current Visit: Yes Status: Acute (6) Mycobacterium lentiflavum infection Current Visit: Yes Status: Acute Hospital Course: The patient is a 77-year-old female with a past medical history of right breast mass and COPD, currently on therapy with Levaquin and clarithromycin and rifampin directed by Dr. Hoffman for ongoing Mycobacterium lentiflavum and that was admitted for debility and failure to thrive. Apparently the patient has had unsuccessful attempts by Dr. Vera to have biopsies of right sided pulmonary nodule, and has had unsuccessful right breast mass biopsy by Dr. Stan Garcia. The patient is apparently had ongoing issues with her weight and appetite and per her daughter Brianda has weighed approximately 90 pounds for quite some time. Daughter complains of the patient having a black tongue and has apparently undergone swish and swallow treatment directed by . Under the guidance of her PCP Dr. Hernandez and the family is currently contemplating hospice and actually had a home visit 09/29/17 but was unable to be seen by hospice and she was hospitalized here. On admission the patient was noted to be mildly hypomagnesemic, this was replaced. The patient was seen by dietary and ensure TID with meals was. Patient's daughter reports the patient was previously ambulatory with a walker and has had physical therapy previously with [facility]. The patient was also seen by physical therapy the patient was requiring moderate assist to getting around. The patient was started on marinol to stimulate her appetite and on day of discharge patient had approximately 50% of her breakfast and 50% of ensure which is significantly improved from prior. Discussed with daughter and she plans to enroll the patient with [facility] on discharge and they will likely come out to see her either today or tomorrow with a hospital bed. The patient was subsequently discharged in fair condition. This discharge process took approximately 35 minutes. Focused: Gen: Cachectic, generalized weakness, fatigue Neuro: Somnolent but arousable, oriented and alert when awake Patient Condition at Discharge: Fair Plan - Discharge Summary Discharge Rx Participant: No New Discharge Prescriptions: New Dronabinol [Marinol] 2.5 mg PO AC-BID #60 cap Continue Baclofen 10 mg PO HS Omeprazole [PriLOSEC] 10 mg PO QAM Aspirin EC [Ecotrin Low Dose] 81 mg PO BID HYDROcodone/APAP 10-325MG [[place] 10-325] 1 tab PO Q6H PRN PRN Reason: Pain Donepezil [Aricept] 10 mg PO QAM Levofloxacin [Levaquin] 500 mg PO HS #10 tab Mirtazapine [Remeron] 15 mg PO HS #0 tab Rifampin [Rifadin] 300 mg PO DAILY Clarithromycin [Biaxin] 500 mg PO BID Tiotropium Br/Olodaterol HCl [Stiolto Respimat Inhal [place]] 2 puff INHALATION DAILY Fluticasone Nasal [place] [Flonase Nasal [place]] 1 spray EA NOSTRIL DAILY PRN PRN Reason: allergies Gabapentin [Neurontin] 600 mg PO BID Discontinued Meloxicam [Mobic] 7.5 mg PO BID Discharge Medication List Baclofen 10 mg PO HS 05/03/15 [History] Omeprazole [PriLOSEC] 10 mg PO QAM 05/03/15 [History] Aspirin EC [Ecotrin Low Dose] 81 mg PO BID 10/22/16 [History] HYDROcodone/APAP 10-325MG [[place] 10-325] 1 tab PO Q6H PRN 09/28/17 [History] Donepezil [Aricept] 10 mg PO QAM 10/28/17 [History] Levofloxacin [Levaquin] 500 mg PO HS #10 tab 11/25/17 [Rx] Mirtazapine [Remeron] 15 mg PO HS #0 tab 11/25/17 [Rx] Clarithromycin [Biaxin] 500 mg PO BID 07/03/18 [History] Rifampin [Rifadin] 300 mg PO DAILY 07/03/18 [History] Fluticasone Nasal [place] [Flonase Nasal [place]] 1 spray EA NOSTRIL DAILY PRN 09/18 [History] Gabapentin [Neurontin] 600 mg PO BID 09/18/18 [History] Tiotropium Br/Olodaterol HCl [Stiolto Respimat Inhal [place]] 2 puff INHALATION DAILY 09/18/18 [History] Dronabinol [Marinol] 2.5 mg PO AC-BID #60 cap 10/01/18 [Rx] Follow up Appointment(s)/Referral(s): Rosalind Hernandez MD [Primary Care Provider] - 1-2 days Patient Instructions/Handouts: Urinary Tract Infection in Women (DC) Activity/Diet/Wound Care/Special Instructions: Patient will need ambulance ride home [facility] at home [phone] Diet as tolerated, ensure with meals. Activity as tolerated, fall precautions, up with assist. Discharge Disposition: HOME SELF-CARE
[2018-10-01 14:27] VITALS: BP 139/80; PULSE 101; TEMP 98.2
--- NOTE | 2018-10-01 17:12 | PN ---
PROGRESS NOTE DATE OF SERVICE: 10/01/2018. REASON FOR FOLLOWUP: Mycobacterium infection. INTERVAL HISTORY: The patient is currently afebrile. She is more awake and alert today. She is breathing comfortably. Denies any chest pain or any cough. No abdominal pain and no diarrhea. EXAMINATION: Her blood pressure is 139/80 with a pulse of 83, temperature 98.2. She is 94% on room air. General description is an elderly female lying in bed in no distress. HEENT examination: Oral mucosal membranes dry. No thrush. Lungs unlabored breathing. Clear to auscultation anteriorly. Heart S1, S2. Regular rate and rhythm. Abdomen soft, no tenderness. LABS: BUN of 19, creatinine 0.58. Wound culture have been negative. DIAGNOSTIC IMPRESSION AND PLAN: Patient with mycobacterium infection for which the patient is currently on Erythromycin, Levaquin, and rifampin. However, the patient does have overall poor prognosis and possible transposition to Hospice may be appropriate for her. Questions and concerns were answered. Continue supportive care. MMODL / IJN: [id number] /
== END 2018-10-01 16:14 | disposition hospice, home (50) | DRG 641 ==
LOC: EC 19:52 → 4SSUR 21:26 → 4MS4W 09-29 12:12
PROVIDERS: ADMIT Internal Medicine; ATTEND Internal Medicine
DX: E86.0 Dehydration (principal); A31.0 Pulmonary mycobacterial infection; R64 Cachexia; E03.9 Hypothyroidism, unspecified; E11.9 Type 2 diabetes mellitus without complications; E78.5 Hyperlipidemia, unspecified; E83.42 Hypomagnesemia; F17.210 Nicotine dependence, cigarettes, uncomplicated; Z51.5 Encounter for palliative care; F32.9 Major depressive disorder, single episode, unspecified; G31.84 Mild cognitive impairment of uncertain or unknown etiology; I10 Essential (primary) hypertension; I25.10 Atherosclerotic heart disease of native coronary artery without angina pectoris; J44.9 Chronic obstructive pulmonary disease, unspecified; K21.9 Gastro-esophageal reflux disease without esophagitis; M15.9 Polyosteoarthritis, unspecified; R62.7 Adult failure to thrive; R79.1 Abnormal coagulation profile; Z66 Do not resuscitate; Z79.82 Long term (current) use of aspirin; Z79.899 Other long term (current) drug therapy; Z85.3 Personal history of malignant neoplasm of breast; Z87.440 Personal history of urinary (tract) infections; Z90.710 Acquired absence of both cervix and uterus; Z98.42 Cataract extraction status, left eye; Z98.41 Cataract extraction status, right eye; Z96.1 Presence of intraocular lens; Z96.651 Presence of right artificial knee joint; R91.8 Other nonspecific abnormal finding of lung field; Z92.3 Personal history of irradiation; K14.3 Hypertrophy of tongue papillae; M54.32 Sciatica, left side; M54.31 Sciatica, right side; Z57.4 Occupational exposure to toxic agents in agriculture; Z90.49 Acquired absence of other specified parts of digestive tract; Z79.2 Long term (current) use of antibiotics; Z86.14 Personal history of Methicillin resistant Staphylococcus aureus infection; Z88.8 Allergy status to other drugs, medicaments and biological substances; Z88.1 Allergy status to other antibiotic agents; Z91.030 Bee allergy status
CPT/HCPCS: 36415; 80048; 80053; 81001; 82550; 82553; 83605; 83735; 84100; 84443; 84484; 85025; 85610; 85730; 87086; 93005; 94640; 96361; 96365; 96372; 96375; 96376; 99285